=== PATIENT | male | born 1950 | race Caucasian/White ===

== ENCOUNTER 2023-10-01 16:53 | Inpatient (IN) | payer MEDICARE, OTHER, SELFPAY ==
[2023-10-01] VITALS (16 sets, daily range): BP systolic 114–172; BP diastolic 55–112; BMI 27.8
[2023-10-01 12:50] LABS: % Basophils 1.2 % (0-2); % Eosinophils 0.8 % (0-6); % Immature Granulocytes 0.4 % (0-0.5); % Lymphocytes 13.5 % (20.5-51.1); % Monocytes 6.2 % (1.7-9.3); % Neutrophils 77.9 % (42.2-75.2); Absolute Basophils 0.2 10^3/uL (0-0.2); Absolute Eosinophils 0.1 10^3/uL (0-0.7); Absolute Immature Granulocytes 0.1 10^3/uL (0-0.05); Absolute Lymphocytes 1.8 10^3/uL (1.2-3.4); Absolute Monocytes 0.8 10^3/uL (0.1-0.6); Absolute Neutrophils 10.2 10^3/uL (1.4-6.5); Hematocrit 34.8 % (39.0-52.0); Hemoglobin 12.6 g/dL (13.0-18.0); Mean Corp Hgb Conc. 36.2 g/dL (33.0-37.0); Mean Corpuscular Hgb 31.7 pg (27.0-31.0); Mean Corpuscular Volume 87.7 fL (80.0-94.0); Mean Platelet Volume 10.6 fL (7.4-10.4); Nucleated Red Blood Cells % 0 % (-); Platelet Count 225 10^3/uL (130-400); Red Blood Cell Count 3.97 10^6/uL (4.70-6.10); Red Cell Dist. Width 11.9 % (11.5-14.5); White Blood Cell Count 13.1 10^3/uL (4.8-10.8)
[2023-10-01 13:07] LABS: ALT (SGPT) 22 U/L (0-50); AST (SGOT) 46 U/L (17-59); Albumin 3.8 g/dl (3.5-5.0); Alkaline Phosphatase 102 U/L (38-126); Blood Urea Nitrogen 18 mg/dl (9-20); Calcium 9.7 mg/dl (8.4-10.2); Carbon Dioxide 22 mmol/L (22-30); Chloride 101 mmol/L (98-107); Glucose 262 mg/dl (70-99); Potassium 4.4 mmol/L (3.5-5.1); Sodium 132 mmol/L (135-145); Total Bilirubin 1.4 mg/dl (0.2-1.3); Total Protein 6.4 g/dl (6.3-8.2); eGFR > 60.00
[2023-10-01] MEDS: LOW STRENGTH ASPIRIN 243 MG PO (13:50)
[2023-10-01 14:05] LABS: Lipase 101 U/L (23-300)
--- NOTE | 2023-10-01 14:32 | HPS.HSE ---
Family Physician
-
Family Physician:
Chief Complaint
-
Chest pain
History of Present Illness
73-year-old male with a past medical history of type 2 diabetes, hypertension, hyperlipidemia, cigarette nicotine dependency (57 pack year history), prostate cancer status post surgery, and chronic urinary retention requiring self cath presents with
a 4-day history of substernal chest pain. Patient states his chest pain occurs in the morning, at rest, is substernal, sharp, and radiates to the back. It is relieved when taking Tylenol, Motrin, and oxycodone. It last for about 60 minutes, and
is associated with shortness of breath. He denies lightheadedness, dizziness, diaphoresis, nausea, vomiting. No fever, no chills. No abdominal pain, no black or bloody stools, no dysuria.
Medical History
Past Medical History
Past Medical History: Reports Other
Additional Past Medical History:
Hypertension
Type 2 diabetes
Hyperlipidemia
Hypothyroidism
Cigarette nicotine dependency
Prostate cancer status post surgery
Chronic urinary retention requiring self-catheterization
Degenerative disc disease with lumbar spinal stenosis
Peripheral neuropathy
Left hip trochanteric bursitis
Left IT band syndrome
Past Surgical History: Reports Other
Additional Past Surgical History:
Appendectomy
Cholecystectomy
TURP
Skin grafting
Social History
Tobacco: Smoker (Smokes 1 pack a day since he was 16)
Alcohol: None
Drug: None
Personal: ( recently )
Family History
Family History: CAD
Allergies / Home Medications
Allergies reflects when Allergies were last updated in [facility].
Home Medications with original date entered in [facility]
Allergy/Medication List:
Allergies
Allergy/AdvReac Type Severity Reaction Status Date / Time
No Known Allergies Allergy Unverified 10/01/23 11:28
Home Medications Table - record
Medication Instructions Recorded Confirmed
Patient's Own Insulin 0 unit SC .VIA PUMP 10/01/23 10/01/23
acetaminophen 325 mg tablet 650 mg PO DAILYPRN PRN mild pain 10/01/23 10/01/23
(Tylenol)
amlodipine 10 mg tablet 10 mg PO DAILY 10/01/23 10/01/23
aspirin 81 mg tablet,delayed 81 mg PO DAILY 10/01/23 10/01/23
release
bisacodyl 5 mg tablet,delayed 5 mg PO DAILYPRN PRN constipation 10/01/23 10/01/23
release (Dulcolax (bisacodyl))
cholecalciferol (vitamin D3) 1 tab PO DAILY 10/01/23 10/01/23
ibuprofen 200 mg tablet 400 mg PO BIDPRN PRN mild pain 10/01/23 10/01/23
levothyroxine 125 mcg tablet 125 mcg PO DAILY 10/01/23 10/01/23
(Synthroid)
magnesium 1 tab PO DAILY 10/01/23 10/01/23
oxycodone-acetaminophen 5 mg-325 0.5 tab PO HS 10/01/23 10/01/23
mg tablet
oxycodone-acetaminophen 5 mg-325 1 tab PO DAILYPRN PRN severe pain 10/01/23 10/01/23
mg tablet
simvastatin 40 mg tablet 40 mg PO QPM 10/01/23 10/01/23
trazodone 150 mg tablet 150 mg PO HS PRN sleep 10/01/23 10/01/23
vitamin B complex 1 tab PO DAILY 10/01/23 10/01/23
Review of Systems
-
A 12 point ROS was completed and negative except as noted: Yes
Physical Exam
Vital Signs
Vital Signs
Temp Pulse Resp BP Pulse Ox
98.1 F 67 12 147/62 99
10/01/23 11:28 10/01/23 13:00 10/01/23 13:00 10/01/23 13:00 10/01/23 13:00
Physical Exam
General: No Apparent Distress
HEENT: NormoCephalic, Anicteric, Moist mucous membranes and Atraumatic
Respiratory: Clear
Cardiac: S1/S2 and Regular Rhythm
GI: Soft, Non Tender, Non Distended and Normal Bowel Sounds
Musculoskeletal: No Clubbing, No Cyanosis and No Edema
Skin: Warm and Dry
Neuro: AO x 3
Psych: Calm
Laboratory Results
-
10/01/23 12:39
10/01/23 12:39
Laboratory Results
Total Bilirubin 1.4 mg/dl (0.2-1.3) H 10/01/23 12:39
AST 46 U/L (17-59) 10/01/23 12:39
ALT 22 U/L (0-50) 10/01/23 12:39
Alkaline Phosphatase 102 U/L (38-126) 10/01/23 12:39
Troponin I 5.430 ng/ml H* 10/01/23 12:39
Lipase 101 U/L (23-300) 10/01/23 12:39
Impression/Plan
-
HPI: 73-year-old male with a past medical history of type 2 diabetes, hypertension, hyperlipidemia, cigarette nicotine dependency (57 pack year history), prostate cancer status post surgery, and chronic urinary retention requiring self cath presents
with a 4-day history of substernal chest pain. Patient states his chest pain occurs in the morning, at rest, is substernal, sharp, and radiates to the back. It is relieved when taking Tylenol, Motrin, and oxycodone. It last for about 60 minutes,
and is associated with shortness of breath. He denies lightheadedness, dizziness, diaphoresis, nausea, vomiting. No fever, no chills. No abdominal pain, no black or bloody stools, no dysuria.
#Non-ST elevation myocardial infarction
#Chest pain
Status post aspirin 324 mg p.o. today
Appreciate cardiology input, for cardiac catheterization today
Check fasting lipid profile, hemoglobin A1c
Continue aspirin 81 mg daily, statin, add lisinopril 10 mg daily and Coreg 3.25 mg twice a day
#Benign essential hypertension
Change amlodipine 10 mg daily to lisinopril 10 mg daily and Coreg 3.25 mg twice a day
#Chronic urinary retention requiring self-catheterization
Patient wishes to self cath himself per his usual schedule
#Type 1 diabetes
Patient uses an insulin pump
Diabetic diet after his procedure, consult diabetes nurse practitioner
#Leukocytosis
Likely reactive, no fever, no signs or symptoms of infection
Will check urinalysis for completeness sake, trend CBC
#Chronic back pain
Continue opioids, add bowel regimen
#Hypothyroidism
Continue levothyroxine, check TSH
#History of prostate cancer
Status post surgery, outpatient follow-up
DVT prophylaxis�subcu Lovenox
Full code
Total time spent to see the patient on the floor, examine the patient, review data and lab results, discuss treatment plan with patient, nursing staff around 75 minutes.
[2023-10-01] MEDS: HEPARIN 4000 UNITS IV (14:46)
--- NOTE | 2023-10-01 14:46 | ED.GENMED ---
History of Present Illness
<Bladimir Banks PA-C - Last Filed: 10/01/23 14:52>
General
Chief Complaint: Chest Pain
Source: patient
Exam Limitations: none
Time Seen by Provider: 10/01/23 12:35
Travel History
Have you had any contact with someone who has COVID-19?: No
Do you have any symptoms of coronavirus? Fever > 100 degrees, chills, cough, shortness of breath, sore throat, loss of taste or smell, muscle aches, or headache?: No
History of Present Illness
History of Present Illness:
73-year-old male presents with intermittent chest pain that radiates to his back over the past 4 to 5 days. There is associated shortness of breath. Happens typically in the morning. He ends up taking Tylenol Motrin and oxycodone and the pain
eventually goes away. Currently on my exam he was pain-free. No leg swelling or calf pain. No recent travel or surgery. He is a smoker, history of hypertension and insulin-dependent diabetes. No other complaints at this time.
Phy Exam
<Bladimir Banks PA-C - Last Filed: 10/01/23 14:52>
Physical Exam
Physical Exam:
General: Well appearing male no acute distress
HEENT: Normocephalic atraumatic neck is supple
Heart: Regular rate and rhythm no murmurs
Lungs: Clear to auscultation bilaterally no wheezing
Abdomen soft nontender nondistended no guarding rebound normal bowel sounds
Extremities: No cyanosis or edema
Skin: Warm no rash or lesion
Scores
<Bladimir Banks PA-C - Last Filed: 10/01/23 14:52>
Heart Score for Chest Pain Patients
STEMI patient?: No
History: Highly Suspicious
ECG: Normal
Age: >/= 65 years
Risk Factors: >/= 3 Risk Factors or History of CAD
Troponin: >/= 3 x Normal Limit
Heart Score for Chest Pain Patients: 8
Heart Score Risk: 72.7 % MACE over next 6 weeks
<Valdez Escalante MD - Last Filed: 10/01/23 16:43>
Heart Score for Chest Pain Patients
Heart Score for Chest Pain Patients: 8
Heart Score Risk: 72.7 % MACE over next 6 weeks
Course
<Bladimir Banks PA-C - Last Filed: 10/01/23 14:52>
Orders/Labs/Results
Orders:
Orders
10/01/23 11:28
Electrocardiogram (*1) Urgent
Reason for Study: Chest Pain
EKG- Treatment ONCE
10/01/23 12:39
Complete Blood Count/With Diff Urgent
Comprehensive Metabolic Panel Urgent
Lipase Urgent
Comment: ADD ON
Troponin I Urgent
10/01/23 13:20
CT Chest Pe Study Urgent
Comment:
Reason For Exam: chest pain
10/01/23 13:21
Add On- LAB Urgent
Tests Added?: lipase
10/01/23 13:27
Aspirin Chewable [Low Strength Aspirin] 243 mg PO NOW STA
10/01/23 14:34
Heparin 4,000 units IV NOW STA
10/01/23 14:39
Heparin 1000 Units/500 ml [Heparin] 1,000 units in 500 ml .ROUTE .STK-MED
Lidocaine HCl/Pf [Xylocaine-Mpf 1% Vial] 50 mg .ROUTE .STK-MED ONE
10/01/23 14:40
Heparin Sodium,Porcine/Ns/Pf [Heparin 2000 Units/1000 ml] 2,000 unit in 1,000 ml .ROUTE .STK-MED
Nitroglycerin [Tridil] 1,500 mcg .ROUTE .STK-MED ONE
10/01/23 14:49
Fentanyl Citrate/Pf [Sublimaze] 100 mcg .ROUTE .STK-MED ONE
Heparin 10,000 units .ROUTE .STK-MED ONE
Midazolam HCl [Versed] 2 mg .ROUTE .STK-MED ONE
10/01/23 Dinner
2000 calorie (17 carb) Diabetic
10/01/23 15:05
Verapamil Injectable [Isoptin/Verapamil Injection] 5 mg .ROUTE .STK-MED ONE
10/01/23 15:11
Admit/Transfer Patient As Directed
Co-Sign Provider:
Level of Care: Inpatient admission
Assign to:: IVU
Physician / Group: pavan herrera
Diagnosis: NSTEMI
Reason for Hospitalization: NSTEMI
Expected length of stay greater than two midnights?: Yes
ELOS- Estimated Length of Stay in days: 2
I certify the patient meets the requirements for IP care: Yes
10/01/23 15:13
Code Status As Directed
Resuscitation Status: Full Code
10/01/23 15:36
Electrocardiogram (*1) Urgent
Reason for Study: Other
Other Reason for Exam: s/p intervention
Comment: dca
Activity As Directed
Activity Level: Out of Bed- Chair
Comment: bed/chair rest for 2 hours then out of bed ad kristopher
Watch Mechanic Procedure As Directed
Cardiac Cath Procedure: percutaneous coronary intervention
Notify MD As Directed
Notify physician if: immediately for chest pain or bleeding from access site(s)
Radial Artery Hemostasis Method As Directed
Instructions:: 3 mL out at 2 hour posts placement of band
3 mL out at 2 1/2 hours post placement of band
3 mL out at 3 hours post placement of band
Off at 3 1/2 hours post placement of band
If any oozing or hemotoma occurs:: re-inflate band and call provider
Site Checks As Directed
Check access site for bleeding/hematoma: Yes
Comment: on arrival, Q15min x4, Q30min x2, Q1 hr x2, Q2 hr x2, Q4 hr or per
protocol
Vascular Checks As Directed
Location: distal to access site - pulse check
Frequency: Other
Comment: on arrival, Q15min x4, Q30min x2, Q1 hr x2, Q2 hr x2, Q4 hr or per protocol
Vital Signs As Directed
Frequency: Other
Additional Instructions:: on arrival, Q15min x4, Q30min x2, Q1 hr x2, Q2 hr x2, then Q4 hr or per unit
protocol
10/01/23 15:42
ADENOSINE for IV INFUSION [Adenoscan 30 ml] 90 mg .ROUTE .STK-MED ONE
10/01/23 15:44
Electrocardiogram (*1) Q6H
Reason for Study: Chest Pain
Comment: at admission and Q3H for total of 3, to be done with each troponin
Acetaminophen [Tylenol] 650 mg PO DAILYPRN PRN
Bisacodyl [Dulcolax] 5 mg PO DAILYPRN PRN
Nicotine [Nicoderm Transdermal] 21 mg TRANSDERM DAILY PRN
Oxycodone/Acetaminophen [Percocet 5/325] 1 tablet PO TIDPRN PRN
Patient's Own Insulin 100 unit SC .VIA PUMP
Trazodone [Desyrel] 150 mg PO HS PRN
10/01/23 15:44
CARDIOLOGY CONSULT Routine
Consulting Provider: Zurdo Pradhan
Was physician already notified: Yes
Diabetes Management by Nurse Practitioner Routine
Consulting Provider: Ammy Smith
Was provider already notified?: No
Reason for Consult: Insulin Management
Glycohemoglobin (HgbA1c) Routine
Urinalysis Reflex To Culture Routine
Activity As Directed
Activity Level: Ambulate
INT (Intravenous Needle Therapy) As Directed
Comment: maintain peripheral IV access
Intake/ Output As Directed
Frequency: Per unit guidelines
Straight Cath As Directed
Frequency: PRN
Patient may straight cath themselves: Yes
Vital Signs As Directed
Frequency: q4h
Weight As Directed
Frequency: Daily
Pt Eval And Treat Routine
Activity Level: Ambulate
DX Deep Vein Thrombosis Video Routine
10/01/23 15:45
0.9% Sodium Chloride 1000 ml [Nss] 1,000 ml IV PER PROTOCOL
Infusion rate in mL/kg/hr:: 1.5
Infusion rate in mL/hr:: 143
Duration of infusion (hours):: 5
10/01/23 15:56
Cardiothoracic Surgery Consult Routine
Consulting Provider: Maxx Smith
Was physician already notified: Yes
Reason for Consult: NSTEMI, CABG eval
10/01/23 16:00
Polyethylene Glycol Powder [Miralax] 17 grams PO DAILY
10/01/23 16:05
Heparin Protocol- PTT Orders As Directed
PTT per Heparin protocol: -Obtain CBC and baseline PTT - if not already collected.
-Obtain PTT 6 hours from start of infusion. Then, every 6 hours until 2 consecutive
PTT's are therapeutic. Then, PTT Daily.
-With each rate change, obtain PTT every 6 hours until 2 consecutive PTT's are
therapeutic. Then, PTT Daily.
Notify MD As Directed
Notify physician if: PTT is greater than or equal to 200.
10/01/23 18:00
Troponin I Q6H
Atorvastatin [Lipitor] 80 mg PO QPM
Enoxaparin Sodium [Lovenox] 40 mg SC QPM
10/01/23 20:00
Carvedilol [Coreg] 3.125 mg PO BID
10/01/23 21:44
Electrocardiogram (*1) Q6H
Reason for Study: Chest Pain
Comment: at admission and Q3H for total of 3, to be done with each troponin
10/01/23 22:00
Heparin 86264 Units/250 ml 25,000 units in 250 ml IV PER PROTOCOL
Weight to be used for heparin protocol in kilograms (kg):: 95.1
Protocol:: Cardiac Tx/Acute Coronary
PTT Goal Range to be used:: PTT 73 to 111 seconds
Order type:: Initial
INITIAL Infusion Dose (UNITS/KG/hr) & then follow protocol:: 12 units/kg/hr
Infusion Dose in UNITS/hr & then follow protocol (UNITS/hr):: 1,000
INFUSION RATE in mL/hr & then follow protocol (mL/hr):: 10
PTT less than or equal to 64 seconds:: Increase rate by 200 units/hr (+ 2 mL/hr)
PTT 64.1 to 72.9 seconds:: Increase rate by 100 units/hr (+ 1 mL/hr)
PTT 73 to 111 seconds:: Target Range. No change in rate.
PTT 111.1 to 130.9 seconds:: Decrease rate by 100 units/hr (- 1 mL/hr)
PTT 131 to 199.9 seconds:: HOLD for 1 hr. Then decrease rate by 200 units/hr (- 2 mL/hr)
PTT greater than or equal to 200 seconds:: HOLD for 2 hrs & Notify Provider. Then decrease by 200 units/hr (-
2 mL/hr)
Lab follow-up:: Each change, PTT q6h until 2 consecutive are therapeutic. Then PTT
daily.
Oxycodone/Acetaminophen [Percocet 5/325] 0.5 tablet PO HS
10/02/23 00:00
Troponin I Q6H
10/02/23 03:44
Electrocardiogram (*1) Q6H
Reason for Study: Chest Pain
Comment: at admission and Q3H for total of 3, to be done with each troponin
10/02/23 06:00
Echo 2D MMode Color/Doppler IN AM
Reason for Study: NSTEMI
Cardiology Consult: Zurdo Pradhan
Electrocardiogram (*1) IN AM
Reason for Study: Other
Other Reason for Exam: s/p intervention
Comment: dca
CMP [Comprehensive Metabolic Panel] IN AM
Cardiovascular Evaluation IN AM
Complete Blood Count/With Diff IN AM
Magnesium IN AM
Phos [Phosphorus] IN AM
TSH Reflex To Free T4 IN AM
Troponin I Q6H
10/02/23 08:00
Aspirin Low Dose EC [Aspir Low (Enteric Coated)] 81 mg PO DAILY
Levothyroxine [Synthroid] 125 mcg PO DAILY
Lisinopril [Zestril] 10 mg PO DAILY
cholecalciferol (vitamin D3) 1 tablet PO DAILY
10/03/23 06:00
Complete Blood Count/No Diff Q2D
Comment: Notify MD if platelet count is <130,000 or decreases by 50% from baseline
10/05/23 06:00
Complete Blood Count/No Diff Q2D
Comment: Notify MD if platelet count is <130,000 or decreases by 50% from baseline
10/07/23 06:00
Complete Blood Count/No Diff Q2D
Comment: Notify MD if platelet count is <130,000 or decreases by 50% from baseline
10/09/23 06:00
Complete Blood Count/No Diff Q2D
Comment: Notify MD if platelet count is <130,000 or decreases by 50% from baseline
10/11/23 06:00
Complete Blood Count/No Diff Q2D
Comment: Notify MD if platelet count is <130,000 or decreases by 50% from baseline
10/13/23 06:00
Complete Blood Count/No Diff Q2D
Comment: Notify MD if platelet count is <130,000 or decreases by 50% from baseline
10/15/23 06:00
Complete Blood Count/No Diff Q2D
Comment: Notify MD if platelet count is <130,000 or decreases by 50% from baseline
10/17/23 06:00
Complete Blood Count/No Diff Q2D
Comment: Notify MD if platelet count is <130,000 or decreases by 50% from baseline
Abnormal Lab Results
10/01/23 10/01/23 10/01/23
12:39 15:32 15:52
WBC 13.1 H 10^3/uL
(4.8-10.8)
RBC 3.97 L 10^6/uL
(4.70-6.10)
Hgb 12.6 L g/dL
(13.0-18.0)
Hct 34.8 L %
(39.0-52.0)
MCH 31.7 H pg
(27.0-31.0)
MPV 10.6 H fL
(7.4-10.4)
Abs Immat Gran (auto) 0.1 H 10^3/uL
(0-0.05)
Absolute Neuts (auto) 10.2 H 10^3/uL
(1.4-6.5)
Absolute Monos (auto) 0.8 H 10^3/uL
(0.1-0.6)
Neutrophils % 77.9 H %
(42.2-75.2)
Lymphocytes % 13.5 L %
(20.5-51.1)
Sodium 132 L mmol/L
(135-145)
Glucose 262 H mg/dl
(70-99)
Total Bilirubin 1.4 H mg/dl
(0.2-1.3)
Troponin I 5.430 H* ng/ml
POC Glucose 195 H mg/dl
(70-99)
POC ACT Low Range 232 H Seconds
(116-155)
10/01/23 12:39
10/01/23 12:39
Vital Signs
Initial and Last Documented VS:
Initial Vital Signs
Temp Pulse Resp BP Pulse Ox
98.1 F 75 20 159/69 99
10/01/23 11:28 10/01/23 11:28 10/01/23 11:28 10/01/23 11:28 10/01/23 11:28
Last Documented Vital Signs
Temp Pulse Resp BP Pulse Ox
98.1 F 74 20 171/70 98
10/01/23 11:28 10/01/23 15:00 10/01/23 15:00 10/01/23 15:00 10/01/23 15:00
<Valdez Escalante MD - Last Filed: 10/01/23 16:43>
Orders/Labs/Results
Orders:
Orders
10/01/23 11:28
Electrocardiogram (*1) Urgent
Reason for Study: Chest Pain
EKG- Treatment ONCE
10/01/23 12:39
Complete Blood Count/With Diff Urgent
Comprehensive Metabolic Panel Urgent
Lipase Urgent
Comment: ADD ON
Troponin I Urgent
10/01/23 13:20
CT Chest Pe Study Urgent
Comment:
Reason For Exam: chest pain
10/01/23 13:21
Add On- LAB Urgent
Tests Added?: lipase
10/01/23 13:27
Aspirin Chewable [Low Strength Aspirin] 243 mg PO NOW STA
10/01/23 14:34
Heparin 4,000 units IV NOW STA
10/01/23 14:39
Heparin 1000 Units/500 ml [Heparin] 1,000 units in 500 ml .ROUTE .STK-MED
Lidocaine HCl/Pf [Xylocaine-Mpf 1% Vial] 50 mg .ROUTE .STK-MED ONE
10/01/23 14:40
Heparin Sodium,Porcine/Ns/Pf [Heparin 2000 Units/1000 ml] 2,000 unit in 1,000 ml .ROUTE .STK-MED
Nitroglycerin [Tridil] 1,500 mcg .ROUTE .STK-MED ONE
10/01/23 14:49
Fentanyl Citrate/Pf [Sublimaze] 100 mcg .ROUTE .STK-MED ONE
Heparin 10,000 units .ROUTE .STK-MED ONE
Midazolam HCl [Versed] 2 mg .ROUTE .STK-MED ONE
10/01/23 Dinner
2000 calorie (17 carb) Diabetic
10/01/23 15:05
Verapamil Injectable [Isoptin/Verapamil Injection] 5 mg .ROUTE .STK-MED ONE
10/01/23 15:11
Admit/Transfer Patient As Directed
Co-Sign Provider:
Level of Care: Inpatient admission
Assign to:: IVU
Physician / Group: pavan herrera
Diagnosis: NSTEMI
Reason for Hospitalization: NSTEMI
Expected length of stay greater than two midnights?: Yes
ELOS- Estimated Length of Stay in days: 2
I certify the patient meets the requirements for IP care: Yes
10/01/23 15:13
Code Status As Directed
Resuscitation Status: Full Code
10/01/23 15:36
Electrocardiogram (*1) Urgent
Reason for Study: Other
Other Reason for Exam: s/p intervention
Comment: dca
Activity As Directed
Activity Level: Out of Bed- Chair
Comment: bed/chair rest for 2 hours then out of bed ad kristopher
Watch Mechanic Procedure As Directed
Cardiac Cath Procedure: percutaneous coronary intervention
Notify MD As Directed
Notify physician if: immediately for chest pain or bleeding from access site(s)
Radial Artery Hemostasis Method As Directed
Instructions:: 3 mL out at 2 hour posts placement of band
3 mL out at 2 1/2 hours post placement of band
3 mL out at 3 hours post placement of band
Off at 3 1/2 hours post placement of band
If any oozing or hemotoma occurs:: re-inflate band and call provider
Site Checks As Directed
Check access site for bleeding/hematoma: Yes
Comment: on arrival, Q15min x4, Q30min x2, Q1 hr x2, Q2 hr x2, Q4 hr or per
protocol
Vascular Checks As Directed
Location: distal to access site - pulse check
Frequency: Other
Comment: on arrival, Q15min x4, Q30min x2, Q1 hr x2, Q2 hr x2, Q4 hr or per protocol
Vital Signs As Directed
Frequency: Other
Additional Instructions:: on arrival, Q15min x4, Q30min x2, Q1 hr x2, Q2 hr x2, then Q4 hr or per unit
protocol
10/01/23 15:42
ADENOSINE for IV INFUSION [Adenoscan 30 ml] 90 mg .ROUTE .STK-MED ONE
10/01/23 15:44
Electrocardiogram (*1) Q6H
Reason for Study: Chest Pain
Comment: at admission and Q3H for total of 3, to be done with each troponin
Acetaminophen [Tylenol] 650 mg PO DAILYPRN PRN
Bisacodyl [Dulcolax] 5 mg PO DAILYPRN PRN
Nicotine [Nicoderm Transdermal] 21 mg TRANSDERM DAILY PRN
Oxycodone/Acetaminophen [Percocet 5/325] 1 tablet PO TIDPRN PRN
Patient's Own Insulin 100 unit SC .VIA PUMP
Trazodone [Desyrel] 150 mg PO HS PRN
10/01/23 15:44
CARDIOLOGY CONSULT Routine
Consulting Provider: Zurdo Pradhan
Was physician already notified: Yes
Diabetes Management by Nurse Practitioner Routine
Consulting Provider: Ammy Smith
Was provider already notified?: No
Reason for Consult: Insulin Management
Glycohemoglobin (HgbA1c) Routine
Urinalysis Reflex To Culture Routine
Activity As Directed
Activity Level: Ambulate
INT (Intravenous Needle Therapy) As Directed
Comment: maintain peripheral IV access
Intake/ Output As Directed
Frequency: Per unit guidelines
Straight Cath As Directed
Frequency: PRN
Patient may straight cath themselves: Yes
Vital Signs As Directed
Frequency: q4h
Weight As Directed
Frequency: Daily
Pt Eval And Treat Routine
Activity Level: Ambulate
DX Deep Vein Thrombosis Video Routine
10/01/23 15:45
0.9% Sodium Chloride 1000 ml [Nss] 1,000 ml IV PER PROTOCOL
Infusion rate in mL/kg/hr:: 1.5
Infusion rate in mL/hr:: 143
Duration of infusion (hours):: 5
10/01/23 15:56
Cardiothoracic Surgery Consult Routine
Consulting Provider: Maxx Smith
Was physician already notified: Yes
Reason for Consult: NSTEMI, CABG eval
10/01/23 16:00
Polyethylene Glycol Powder [Miralax] 17 grams PO DAILY
10/01/23 16:05
Heparin Protocol- PTT Orders As Directed
PTT per Heparin protocol: -Obtain CBC and baseline PTT - if not already collected.
-Obtain PTT 6 hours from start of infusion. Then, every 6 hours until 2 consecutive
PTT's are therapeutic. Then, PTT Daily.
-With each rate change, obtain PTT every 6 hours until 2 consecutive PTT's are
therapeutic. Then, PTT Daily.
Notify MD As Directed
Notify physician if: PTT is greater than or equal to 200.
10/01/23 18:00
Troponin I Q6H
Atorvastatin [Lipitor] 80 mg PO QPM
Enoxaparin Sodium [Lovenox] 40 mg SC QPM
10/01/23 20:00
Carvedilol [Coreg] 3.125 mg PO BID
10/01/23 21:44
Electrocardiogram (*1) Q6H
Reason for Study: Chest Pain
Comment: at admission and Q3H for total of 3, to be done with each troponin
10/01/23 22:00
Heparin 36156 Units/250 ml 25,000 units in 250 ml IV PER PROTOCOL
Weight to be used for heparin protocol in kilograms (kg):: 95.1
Protocol:: Cardiac Tx/Acute Coronary
PTT Goal Range to be used:: PTT 73 to 111 seconds
Order type:: Initial
INITIAL Infusion Dose (UNITS/KG/hr) & then follow protocol:: 12 units/kg/hr
Infusion Dose in UNITS/hr & then follow protocol (UNITS/hr):: 1,000
INFUSION RATE in mL/hr & then follow protocol (mL/hr):: 10
PTT less than or equal to 64 seconds:: Increase rate by 200 units/hr (+ 2 mL/hr)
PTT 64.1 to 72.9 seconds:: Increase rate by 100 units/hr (+ 1 mL/hr)
PTT 73 to 111 seconds:: Target Range. No change in rate.
PTT 111.1 to 130.9 seconds:: Decrease rate by 100 units/hr (- 1 mL/hr)
PTT 131 to 199.9 seconds:: HOLD for 1 hr. Then decrease rate by 200 units/hr (- 2 mL/hr)
PTT greater than or equal to 200 seconds:: HOLD for 2 hrs & Notify Provider. Then decrease by 200 units/hr (-
2 mL/hr)
Lab follow-up:: Each change, PTT q6h until 2 consecutive are therapeutic. Then PTT
daily.
Oxycodone/Acetaminophen [Percocet 5/325] 0.5 tablet PO HS
10/02/23 00:00
Troponin I Q6H
10/02/23 03:44
Electrocardiogram (*1) Q6H
Reason for Study: Chest Pain
Comment: at admission and Q3H for total of 3, to be done with each troponin
10/02/23 06:00
Echo 2D MMode Color/Doppler IN AM
Reason for Study: NSTEMI
Cardiology Consult: Zurdo Pradhan
Electrocardiogram (*1) IN AM
Reason for Study: Other
Other Reason for Exam: s/p intervention
Comment: dca
CMP [Comprehensive Metabolic Panel] IN AM
Cardiovascular Evaluation IN AM
Complete Blood Count/With Diff IN AM
Magnesium IN AM
Phos [Phosphorus] IN AM
TSH Reflex To Free T4 IN AM
Troponin I Q6H
10/02/23 08:00
Aspirin Low Dose EC [Aspir Low (Enteric Coated)] 81 mg PO DAILY
Levothyroxine [Synthroid] 125 mcg PO DAILY
Lisinopril [Zestril] 10 mg PO DAILY
cholecalciferol (vitamin D3) 1 tablet PO DAILY
10/03/23 06:00
Complete Blood Count/No Diff Q2D
Comment: Notify MD if platelet count is <130,000 or decreases by 50% from baseline
10/05/23 06:00
Complete Blood Count/No Diff Q2D
Comment: Notify MD if platelet count is <130,000 or decreases by 50% from baseline
10/07/23 06:00
Complete Blood Count/No Diff Q2D
Comment: Notify MD if platelet count is <130,000 or decreases by 50% from baseline
10/09/23 06:00
Complete Blood Count/No Diff Q2D
Comment: Notify MD if platelet count is <130,000 or decreases by 50% from baseline
10/11/23 06:00
Complete Blood Count/No Diff Q2D
Comment: Notify MD if platelet count is <130,000 or decreases by 50% from baseline
10/13/23 06:00
Complete Blood Count/No Diff Q2D
Comment: Notify MD if platelet count is <130,000 or decreases by 50% from baseline
10/15/23 06:00
Complete Blood Count/No Diff Q2D
Comment: Notify MD if platelet count is <130,000 or decreases by 50% from baseline
10/17/23 06:00
Complete Blood Count/No Diff Q2D
Comment: Notify if platelet count is <130,000 or decreases by 50% from baseline
Abnormal Lab Results
10/01/23 10/01/23 10/01/23
12:39 15:32 15:52
WBC 13.1 H 10^3/uL
(4.8-10.8)
RBC 3.97 L 10^6/uL
(4.70-6.10)
Hgb 12.6 L g/dL
(13.0-18.0)
Hct 34.8 L %
(39.0-52.0)
MCH 31.7 H pg
(27.0-31.0)
MPV 10.6 H fL
(7.4-10.4)
Abs Immat Gran (auto) 0.1 H 10^3/uL
(0-0.05)
Absolute Neuts (auto) 10.2 H 10^3/uL
(1.4-6.5)
Absolute Monos (auto) 0.8 H 10^3/uL
(0.1-0.6)
Neutrophils % 77.9 H %
(42.2-75.2)
Lymphocytes % 13.5 L %
(20.5-51.1)
Sodium 132 L mmol/L
(135-145)
Glucose 262 H mg/dl
(70-99)
Total Bilirubin 1.4 H mg/dl
(0.2-1.3)
Troponin I 5.430 H* ng/ml
POC Glucose 195 H mg/dl
(70-99)
POC ACT Low Range 232 H Seconds
(116-155)
10/01/23 12:39
10/01/23 12:39
Vital Signs
Initial and Last Documented VS:
Initial Vital Signs
Temp Pulse Resp BP Pulse Ox
98.1 F 75 20 159/69 99
10/01/23 11:28 10/01/23 11:28 10/01/23 11:28 10/01/23 11:28 10/01/23 11:28
Last Documented Vital Signs
Temp Pulse Resp BP Pulse Ox
98.1 F 74 20 171/70 98
10/01/23 11:28 10/01/23 15:00 10/01/23 15:00 10/01/23 15:00 10/01/23 15:00
<Bladimir Banks PA-C - Last Filed: 10/01/23 14:52>
MDM/Problems Addressed
Differential Diagnosis Includes:
Chest pain. Consider ACS versus PE versus dissection
Currently pain-free. EKG shows sinus rhythm with T wave inversions inferiorly. No priors to compare to.
Will check labs and order PE study
<Bladimir Banks PA-C - Last Filed: 10/01/23 14:52>
*Critical Care Note
Total Time (30-74mins, 75-104mins- exclusive of procedures): Not Applicable
<Bladimir Banks PA-C - Last Filed: 10/01/23 14:52>
Update Note
Update Note:
Troponin found to be high at 5.4. Immediately discussed these results with cardiology and hospitalist. Will admit to hospital. PE study was performed as well which is negative for PE. Suspect unstable angina versus non-STEMI.
ED Attending Note
<Bladimir Banks PA-C - Last Filed: 10/01/23 14:52>
-
Portions of this chart may have been created with voice recognition software.� Occasional wrong word or��sound alike� substitutions may have occurred due to the inherent limitations of voice recognition software.
<Valdez Escalante MD - Last Filed: 10/01/23 16:43>
ED Attending Note
I performed the substantive portion of visit, reviewed & personally made and approve the management plan that is documented in note by myself or THERESE.: Yes
ED Attending Note:
Patient presents to ED for evaluation secondary to intermittent chest pain rating to the back over the past 1 week, especially noted in the morning, with spontaneous resolution. At the time of evaluation ED, patient is without chest pain.
Blood work significant for elevated troponin without any acute EKG changes. In light of patient's presentation, CT angiogram chest ordered to evaluate for potential pulmonary embolism or other potential cause.
Patient evaluated in ED by Dr. ROSY Pradhan, cardiology - will proceed to [facility].
Discharge Plan
Departure
Patient Disposition: Admit
Date of Disposition: 10/01/23
Time of Disposition: 14:50
Admit to: [facility] lab[facility]
Presentation/result/management discussed w/ accepting MD/DO: Hospitalist
Discharge Problem:
Chest pain
Interventions
Interventions:
*Risk Screen - Suicide Last Done: 10/01/23 12:41
*General Assessment Last Done: 10/01/23 12:41
*Neglect/Abuse Screening Last Done: 10/01/23 12:41
ED- Fall Risk Assessment Last Done: 10/01/23 15:14
*ED COVID-19 Vaccine History Last Done: 10/01/23 12:41
*Nursing Disposition Last Done: 10/01/23 15:14
ED- Cardiac Assessment Last Done: 10/01/23 12:41
Discharge Date and Time
Discharge Date/Time: 10/01/23 15:14
--- NOTE | 2023-10-01 15:04 | CON.CAR ---
Addendum entered and electronically signed by Zurdo Pradhan MD 10/01/23 17:56:
73-year-old man with longstanding hypertension, diabetes on an insulin pump with Dexcom, hypercholesterolemia and ongoing smoking who 10 days ago began to experience sharp substernal discomfort radiating through to his back and to his left shoulder
usually at night in bed and lasting 90 minutes. He took a number of different medications for this. He does not describe classically exertional symptoms but believe if he walked while having symptoms they would worsen. He was pain-free yesterday
but had recurrence of symptoms today and so presented to the emergency department where he had findings potentially suggesting a an inferior myocardial infarction with a troponin of 5.[address] scan negative for pulmonary embolism but with heavy
coronary artery calcification.
PMH: Hypertension, type 2 diabetes, hypothyroidism, hyperlipidemia, back pain, urinary retention requiring intermittent straight catheterization
Surgical history: Appendectomy, cholecystectomy, TURP, skin graft
SH: Recently , ongoing smoker,No alcohol, daughter at bedside
FH: Positive for CAD
Allergies, none
Home medications amlodipine 10 mg a day, aspirin 81 mg a day, Synthroid 125 mcg daily, magnesium, oxycodone, simvastatin 40 mg a day, insulin pump, trazodone
ROS negative except as above
161/78, pulse 73, resp rate 20, afebrile, head neck exam unremarkable, lungs clear, soft systolic murmur at base, JVD okay, bruits not auscultated, abdomen benign, extremities without clubbing cyanosis or edema, distal pulses still palpable,
EKG sinus rhythm, possible recent inferior [place], PACs, right bundle branch block
Hemoglobin 12.6, sodium 132, BUN/creatinine 18 and 0.8, troponin 5.4
Impression:
Non-ST segment elevation myocardial infarction
Hypertension
Diabetes
Hypercholesterolemia
Ongoing tobacco use
Degenerative disc disease
Depression
Bladder outlet obstruction/intermittent catheterization
Plan:
Cardiac catheterization
Original Note:
Consultation
Consultation Request
Date/Time Consultation Requested: 10/01/23
Date/Time Consultation Performed: 10/01/23
Requesting Provider: Dr. Pandya
Performing Provider: Dr. ROSY Pradhan
Reason for Consultation: chest pain, elevated Troponin
Medical History
-
History of Present Illness:
Patient came to [facility] with chest pain for the last 4-5 days and cardiology has been consulted for elevated Troponin. Patient with chest pain that radiates to his back. Pain usually starts when he awakens and he has taken ibuprofen, Tylenol and
oxycodone for relief at different times. No change in pain with change in position. Pain can last for more than an hour. SOB with pain and he is also an active smoker for almost 60 years. DM 2 managed with insulin pump. He has HTN and takes
amlodipine 10 mg daily. He takes simvastatin 40 mg daily for hyperlipidemia. He has never been to before. Initial Troponin was 5.43. CT was negative for PE. ECG with RBBB of unknown chronicity and inferior T wave inversions.
PMH:
HTN
DM 2
Chronic back pain with daily oxycodone use
Hypothyroid
Hyperlipidemia
Past Medical History
Past Medical History: Other (in HPI)
Past Surgical History: Appendectomy, Cholecystectomy, Urological (TURP) and Other (skin graft)
Social History
Tobacco: Smoker
Drug: None
Family History
Family History: CAD
Allergies / Home Medications
Allergy/AdvReac Type Severity Reaction Status Date / Time
No Known Allergies Allergy Unverified 10/01/23 11:28
Medication Instructions Recorded Confirmed Type
Patient's Own Insulin 0 unit SC .VIA PUMP 10/01/23 10/01/23 History
acetaminophen 325 mg tablet 650 mg PO DAILYPRN PRN mild pain 10/01/23 10/01/23 History
(Tylenol)
amlodipine 10 mg tablet 10 mg PO DAILY 10/01/23 10/01/23 History
aspirin 81 mg tablet,delayed 81 mg PO DAILY 10/01/23 10/01/23 History
release
bisacodyl 5 mg tablet,delayed 5 mg PO DAILYPRN PRN constipation 10/01/23 10/01/23 History
release (Dulcolax (bisacodyl))
cholecalciferol (vitamin D3) 1 tab PO DAILY 10/01/23 10/01/23 History
ibuprofen 200 mg tablet 400 mg PO BIDPRN PRN mild pain 10/01/23 10/01/23 History
levothyroxine 125 mcg tablet 125 mcg PO DAILY 10/01/23 10/01/23 History
(Synthroid)
magnesium 1 tab PO DAILY 10/01/23 10/01/23 History
oxycodone-acetaminophen 5 mg-325 0.5 tab PO HS 10/01/23 10/01/23 History
mg tablet
oxycodone-acetaminophen 5 mg-325 1 tab PO DAILYPRN PRN severe pain 10/01/23 10/01/23 History
mg tablet
simvastatin 40 mg tablet 40 mg PO QPM 10/01/23 10/01/23 History
trazodone 150 mg tablet 150 mg PO HS PRN sleep 10/01/23 10/01/23 History
vitamin B complex 1 tab PO DAILY 10/01/23 10/01/23 History
Review of Systems
-
History Source: Patient
All other systems: Negative unless noted
Physical Exam
Vital Signs
Temp Pulse Resp BP Pulse Ox
98.1 F 67 12 147/62 99
10/01/23 11:28 10/01/23 13:00 10/01/23 13:00 10/01/23 13:00 10/01/23 13:00
Lab Results
10/01/23 12:39
10/01/23 12:39
Troponin I 5.430 ng/ml H* 10/01/23 12:39
Impression / Plan
-
PCP: Dr. Emil Sibley
Cardiology: None prior to admission
Impression:
Chest pain
Elevated Troponin, possible NSTEMI
HTN
DM 2
Chronic back pain with daily oxycodone use
Hypothyroid and h/o Grave's disease
Hyperlipidemia
RBBB
Plan:
-Patient came to [facility] with chest pain for the last 4-5 days and cardiology has been consulted for elevated Troponin. Patient with chest pain that radiates to his back. Pain usually starts when he awakens and he has taken ibuprofen, Tylenol and
oxycodone for relief at different times. No change in pain with change in position. Pain can last for more than an hour. SOB with pain and he is also an active smoker for almost 60 years. DM 2 managed with insulin pump. He has HTN and takes
amlodipine 10 mg daily. He takes simvastatin 40 mg daily for hyperlipidemia. He has never been to before. Initial Troponin was 5.43. CT was negative for PE. ECG reviewed by me with RBBB of unknown chronicity and inferior T wave inversions.
-Chest pain for days and initial Troponin 5.43. CT was negative for PE. Patient to have cath today.
-Aspirin and Heparin bolus given in ER.
-Await results of cath
-Check echo
-Check CVE and probably transition outpatient dose of simvastatin to atorvastatin 80 mg daily.
-Check HgbA1c
-Smoking cessation is a must. He has smoked for almost 60 years.
-He has been taking oxycodone/acetaminophen for pain at times and had relief. He has DDD and h/o lumbar radiculopathy
--- NOTE | 2023-10-01 15:10 | ITS.CL.CATH ---
Software Test Manager - Catheterization
Cardiac Catheterization
Procedure Report:
CARDIAC CATHETERIZATION REPORT
Date of Procedure: 10/01/2023
Referring: Zurdo Pradhan MD
Indication: ACS/non-STEMI
HEMODYNAMIC DATA
AO: 152/63
LV: 171/24
There is moderate aortic stenosis with mean gradient 22 mmHg
LEFT VENTRICULOGRAPHY: Normal left ventricular wall motion with EF 64%
CORONARY ANGIOGRAPHY
Dominance: Right
Left Main: There is ventricularization of the arterial waveform on engagement with a 6 [place]ian diagnostic catheter. The left main coronary artery is calcified with an angiographically ambiguous degree of stenosis.
LAD: Severely calcified with 40% mid stenosis spanning the takeoff of a small diseased D3
Circumflex: 60% proximal stenosis of the circumflex. There is diffuse calcific disease of the mid circumflex and severe disease to 80% severity of the distal circumflex proximal to the small terminal second left posterolateral branch. OM1 is
small. OM2 is large with 80-90% proximal stenosis. OM 3 and OM 4 are small. The first left posterolateral branch is medium sized vessel free of disease. The small terminal second posterolateral branch is free of disease.
RCA: The RCA is calcified. There is ventricularization on engagement with the 6 [place]ian JR4 diagnostic catheter. There is 60-70% proximal RCA stenosis with focal 50% mid RCA stenosis. There is 30% distal RCA stenosis. The PDA and posterolateral
branches have mild diffuse disease
FloWire assessment: At the conclusion the diagnostic study we proceeded with FloWire assessment. Our original plan was to evaluate the left main coronary artery and if negative then evaluate the RCA disease. Heparin was used for anticoagulation.
A 6 Bel[place]ian JL 4 guide catheter was used. A Infochimps wire was advanced through the guide catheter and normalized in the aorta. The guide was then advanced to the ostium of the vessel and the flow wire advanced into the proximal LAD. Guide was
withdrawn back into the aorta. iFR measurements were 0.90, 0.90, 0.88, and 0.90. These are equivocal for flow-limiting disease. We then advanced the wire into the mid LAD and iFR measurements were significantly abnormal at 0.75, 0.75, and 0.73.
Again, these measurements were made with the guide catheter withdrawn back into the aorta. Pullback demonstrated the drop in Pd/Pa to be both in the prox to mid LAD and at the level of the LMCA. Based on these measurements, it was clear that the
patient requires surgical intervention and therefore there was no role for assessing the ostial and proximal RCA disease.
Closure Device: None-the procedure was performed via the right radial artery. The Stewart's test was normal prior to the procedure.
Radiation (mGy): 443
DAP (cm2.Gy): 40.9
Fluoroscopy time: 6.9 minutes
CONCLUSIONS
1: Elevated LVEDP
2: Systemic hypertension
3. Moderate aortic stenosis with mean gradient 22 mmHg
4. Normal left ventricular function with EF 64%
5. Severely calcific multivessel CAD involving left main coronary artery
6. Recommend inpatient CABG with grafting of the LAD, large OM1, and RPDA
7. We will change the statin to atorvastatin 40 mg daily and patient has been advised to stop smoking
Copy to: Zurdo Pradhan MD, Emil Sibley MD
Sacha Jeffers MD, [facility]
[2023-10-01 15:40] LABS: ACT-LR - POC 232 Seconds (116-155)
[2023-10-01 16:07] LABS: Glucose - Point of Care 195 mg/dl (70-99)
--- NOTE | 2023-10-01 16:12 | CONSULT.CT ---
Consultation
-
Date/Time Consultation Requested: 10/01/23
Date/Time Consultation Performed: 10/01/23
Requesting Provider: Aury
Performing Provider: Keren Garnett PA-C for Dr. Maxx Smith
Reason for Consultation: CABG evaluation
Patient History
Physicians
Family Physician: Emil Sibley
Outpatient Back Tacker: none
Inpatient Back Tacker: ROSY Pradhan/TI
History of Present Illness
Pt is a very pleasant 73y/oM with no significant cardiac history who presented to the ED with complaints of intermittent chest pain over the last 10 days occurring 4-5 times. Pain came on at rest and would last over an hour. Pt reports trying to
take tylenol/ibuprofen/oxycodone for the pain to get back to sleep as episodes were occurring in the middle of the night. He finally decided to seek evaluation for this chest pain, initial troponin in the ED was 5.4 and a second one is still
pending. EKG demonstrated SR with a 1st degree AVB, PACs & RBBB. Pt was transferred to the laboratory sampler where he was found to have severe MVCAD and moderate with MG 22mmHg, EF 64% on LV gram.
Past Medical History
Hypertension
Hyperlipidemia
IDDM, uses insulin pump
severe peripheral neuropathy b/l LE
DDD
hx prostate CA s/p TURP x2 (2013 & 2015), second one complicated by ureter damage & need for suprapubic catheter
subsequent chronic urinary retention with self catheterization
hypothyroidism
tobacco abuse (~50 PYH, 1 PPD current)
hx alford requiring skin grafting 50 years ago
hx falls/gait disturbance (2/2 neuropathy)
ambulatory dysfunction, uses walker & scooter regularly
chronic opioid use, for LE neuropathy; pt reports ~2 tabs percocet per WEEK
insomnia
Past Surgical History
hx TURP x2 (2013 & 2015) complicated by ureter damage
hx appendectomy
hx cholecystectomy
hx R elbow ORIF
Dental History
no dental care for many years
Family History
Mother: at Age (unknown; pt not close with mother, but +hx premature CAD/[place])
Father: at Age (67 from [place])
Family Medical History: Early CAD
Social History
Alcohol: None
Drug: None
Tobacco: Smoker (1 PPD x 50 years)
Personal: ( passed 2 years ago) and Other (3 daughters live locally, Regine and Shreya present for my assessment)
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
Allergies
Allergy/AdvReac Type Severity Reaction Status Date / Time
No Known Allergies Allergy Unverified 10/01/23 11:28
Home Medications
Medication Instructions Recorded Confirmed Type
Patient's Own Insulin 0 unit SC .VIA PUMP 10/01/23 10/01/23 History
acetaminophen 325 mg tablet 650 mg PO DAILYPRN PRN mild pain 10/01/23 10/01/23 History
(Tylenol)
amlodipine 10 mg tablet 10 mg PO DAILY 10/01/23 10/01/23 History
aspirin 81 mg tablet,delayed 81 mg PO DAILY 10/01/23 10/01/23 History
release
bisacodyl 5 mg tablet,delayed 5 mg PO DAILYPRN PRN constipation 10/01/23 10/01/23 History
release (Dulcolax (bisacodyl))
cholecalciferol (vitamin D3) 1 tab PO DAILY 10/01/23 10/01/23 History
ibuprofen 200 mg tablet 400 mg PO BIDPRN PRN mild pain 10/01/23 10/01/23 History
levothyroxine 125 mcg tablet 125 mcg PO DAILY 10/01/23 10/01/23 History
(Synthroid)
magnesium 1 tab PO DAILY 10/01/23 10/01/23 History
oxycodone-acetaminophen 5 mg-325 0.5 tab PO HS 10/01/23 10/01/23 History
mg tablet
oxycodone-acetaminophen 5 mg-325 1 tab PO DAILYPRN PRN severe pain 10/01/23 10/01/23 History
mg tablet
simvastatin 40 mg tablet 40 mg PO QPM 10/01/23 10/01/23 History
trazodone 150 mg tablet 150 mg PO HS PRN sleep 10/01/23 10/01/23 History
vitamin B complex 1 tab PO DAILY 10/01/23 10/01/23 History
Review of Systems
-
History Source: Patient
General: Reports Sleep Disturbance; Denies Fever, Weight Gain or Weight Loss
HEENT: Denies Visual Changes or Sore Throat
Respiratory: Reports SOB
Cardiac: Reports Chest Pain; Denies Palpitations, Nausea, Vomiting, Diaphoresis or Edema
Abdomen/GI: Denies Abdominal Pain, Nausea, Vomiting, BRBPR or Ulcers
: Reports Other (chronic retention, straight caths at home)
Musculoskeletal: Denies Joint Pain
Skin: Denies Itching or Rash
Neurological: Denies CVA, TIA, Syncope or Seizures
Vascular: Denies Claudication
Physical Exam
Vital Signs
Temp 98.1 F 10/01/23 11:28
Temp route: Oral 10/01/23 11:28
Pulse 74 10/01/23 15:00
Resp Rate 20 10/01/23 15:00
Blood pressure 171/70 10/01/23 15:00
Blood pressure extremity used: Left upper arm 10/01/23 11:28
Position: Sitting 10/01/23 11:28
MAP (cuff-Meera Monitor) 99 10/01/23 15:00
SaO2 98 10/01/23 15:00
Oxygen Mode of Delivery Room air 10/01/23 11:28
Can the patient verbally communicate their pain? Yes 10/01/23 11:28
Actual Weight 95.1 kg 10/01/23 12:41
Labs
10/01/23 12:39
10/01/23 12:39
Troponin I 5.430 ng/ml H* 10/01/23 12:39
Exam
General: Well Developed, Well Nourished and No Apparent Distress
HEENT: Negative Normocephalic or Anicteric
Neck: Negative Carotid Bruit
Respiratory: Clear; Negative Wheezes, Crackles or Rhonchi
Cardiac: Regular Rhythm; Negative Murmur, Rub or Gallop
GI: Soft, Non Tender and Non Distended
Rectal: Deferred by Provider
Skin: Warm and Dry
Neuro: Nonfocal/Grossly Intact
Extremities: Negative Lower Level Edema
Psych: Calm
Assessment / Plan
-
NSTEMI
MVCAD
moderate by cath, MG 22mmHg
- medical management per primary teams, heparin gtt to start tonight. we will initiate preoperative workup to include labs, US carotids, echo. patient and family amenable with proceeding with workup. full evaluation by attending to follow.
Data Reviewed
-
EKG: Tracing Personally Visualized and interpreted and Report Reviewed by me
Fish Bait Picker: Report Reviewed by me
CT Scan: Image Personally Visualized and interpreted and Report Reviewed by me
Labs: Labs Reviewed by me
[2023-10-01 17:40] LABS: Glucose - Point of Care 160 mg/dl (70-99)
[2023-10-01] MEDS: NSS 1000 IV (17:45)
[2023-10-01] MEDS: LIPITOR 80 MG PO (17:51)
[2023-10-01] MEDS: PT'S OWN INSULIN PUMP - NovoLOG 15 UNIT SC (18:00)
--- NOTE | 2023-10-01 18:07 | PTCARENOTE ---
Received pt from cath lab nurse w/ right radial band intact. VSS. Pt denies any chest discomfort. Will monitor.
[2023-10-01] MEDS: COREG 3.125 MG PO (20:46)
[2023-10-01 21:36] LABS: Glucose - Point of Care 192 mg/dl (70-99)
[2023-10-01] MEDS: PT'S OWN INSULIN PUMP - NovoLOG 5 UNIT SC (21:37)
[2023-10-01 21:49] LABS: % Basophils 1.3 % (0-2); % Eosinophils 2.7 % (0-6); % Immature Granulocytes 0.2 % (0-0.5); % Monocytes 9.6 % (1.7-9.3); % Neutrophils 60.2 % (42.2-75.2); Absolute Basophils 0.1 10^3/uL (0-0.2); Absolute Eosinophils 0.3 10^3/uL (0-0.7); Absolute Lymphocytes 2.7 10^3/uL (1.2-3.4); Absolute Neutrophils 6.2 10^3/uL (1.4-6.5); Hematocrit 30.8 % (39.0-52.0); Mean Corp Hgb Conc. 35.7 g/dL (33.0-37.0); Mean Corpuscular Hgb 31.7 pg (27.0-31.0); Mean Corpuscular Volume 88.8 fL (80.0-94.0); Mean Platelet Volume 10.6 fL (7.4-10.4); Nucleated Red Blood Cells % 0 % (-); Platelet Count 202 10^3/uL (130-400); Red Blood Cell Count 3.47 10^6/uL (4.70-6.10); Red Cell Dist. Width 11.9 % (11.5-14.5); White Blood Cell Count 10.2 10^3/uL (4.8-10.8)
[2023-10-01 21:57] LABS: APTT 28.5 Sec (23.4-35.0)
[2023-10-01 22:04] LABS: Urine Albumin Trace (Neg - Trace); Urine Bilirubin Negative (Negative); Urine Character Clear (Clear); Urine Color Yellow; Urine Glucose Negative (Negative); Urine Ketone Negative (Negative); Urine Leukocyte 2+ (Negative); Urine Nitrite Positive (Negative); Urine Occult Blood Trace (Negative); Urine Urobilinogen Negative (Neg - 1+)
[2023-10-01 22:14] LABS: Urine Squamous Cell 16-20 /LPF (Few)
[2023-10-01 22:16] LABS: Urine Bacteria Many (Negative); Urine White Cell 70-80 /HPF (0-5)
[2023-10-01] MEDS: PERCOCET 5/325 0.5 TABLET PO (22:22)
[2023-10-01] MEDS: DESYREL 150 MG PO (22:22)
[2023-10-01] MEDS: HEPARIN 25000 UNITS/250 ML IV (22:22)
--- NOTE | 2023-10-01 23:07 | PTCARENOTE ---
Received patient at the change of shift. AAOx3. family at the bedside. SR on tele with a first degree AVB and BBB 60s-80s. bp stable. denies any cp/sob. R radial site CDI. reviewed activity restrictions with patient. patient has own insulin pump on
R abdomen, see mar for coverage. patient self caths self- UA sent.
new IV placed per patients request. heparin gtt started at 10 ml/hr, see mar.
answered all questions. educated patient to inform RN with any changes. call farrell within reach. calls appropriately.
[2023-10-02] VITALS (8 sets, daily range): BP systolic 115–155; BP diastolic 53–107; PULSE 70; BMI 26.9
--- NOTE | 2023-10-02 03:27 | DOWNTIME ---
There was a [employer] Time Clerk Downtime on 10/02/2023 from 0100 to 10/02/2023 at 0322. Downtime documentation of patient's care, including medication administrations, has been reconciled in the electronic record per guidelines. Refer to the
patient's paper chart under the miscellaneous tab to see printed paper medication records and downtime forms.
[2023-10-02 05:00] LABS: % Basophils 1.2 % (0-2); % Eosinophils 3.5 % (0-6); % Immature Granulocytes 0.3 % (0-0.5); % Lymphocytes 24.9 % (20.5-51.1); % Monocytes 8.5 % (1.7-9.3); % Neutrophils 61.6 % (42.2-75.2); Absolute Basophils 0.1 10^3/uL (0-0.2); Absolute Eosinophils 0.4 10^3/uL (0-0.7); Absolute Lymphocytes 2.7 10^3/uL (1.2-3.4); Absolute Monocytes 0.9 10^3/uL (0.1-0.6); Absolute Neutrophils 6.7 10^3/uL (1.4-6.5); Hematocrit 32.8 % (39.0-52.0); Hemoglobin 11.6 g/dL (13.0-18.0); Mean Corp Hgb Conc. 35.4 g/dL (33.0-37.0); Mean Corpuscular Hgb 31.3 pg (27.0-31.0); Mean Corpuscular Volume 88.4 fL (80.0-94.0); Mean Platelet Volume 10.8 fL (7.4-10.4); Nucleated Red Blood Cells % 0 % (-); Platelet Count 213 10^3/uL (130-400); Red Blood Cell Count 3.71 10^6/uL (4.70-6.10); Red Cell Dist. Width 12.1 % (11.5-14.5); White Blood Cell Count 10.9 10^3/uL (4.8-10.8)
[2023-10-02 05:18] LABS: PT 14.1 Sec (11.4-14.6)
[2023-10-02 05:19] LABS: APTT 48.1 Sec (23.4-35.0)
[2023-10-02 05:26] LABS: ALT (SGPT) 19 U/L (0-50); AST (SGOT) 40 U/L (17-59); Albumin 3.2 g/dl (3.5-5.0); Alkaline Phosphatase 88 U/L (38-126); Blood Urea Nitrogen 15 mg/dl (9-20); Calcium 8.9 mg/dl (8.4-10.2); Carbon Dioxide 24 mmol/L (22-30); Chloride 105 mmol/L (98-107); Estimated Creatinine Clearance 89 ml/min; Glucose 149 mg/dl (70-99); HDL Cholesterol 39 mg/dl; LDL Cholesterol, Calculated 52 mg/dl; Magnesium 1.7 mg/dl (1.6-2.3); Phosphorus 4.6 mg/dl (2.5-4.5); Potassium 4.3 mmol/L (3.5-5.1); Sodium 135 mmol/L (135-145); Total Bilirubin 1.3 mg/dl (0.2-1.3); Total Cholesterol 125 mg/dl (50-199); Total Protein 5.7 g/dl (6.3-8.2); Triglyceride 173 mg/dl (10-149); Very Low Density Lipoprotein 34 mg/dl (0-30); eGFR > 60.00
[2023-10-02 05:55] LABS: TSH Reflex To Free T4 3.93 uIU/ml (0.47-4.68)
[2023-10-02] MEDS: SYNTHROID 125 MCG PO (07:13)
[2023-10-02] MEDS: PT'S OWN INSULIN PUMP - NovoLOG 6 UNIT SC (07:41)
[2023-10-02 07:43] LABS: Glucose - Point of Care 192 mg/dl (70-99)
--- NOTE | 2023-10-02 08:17 | W.PN.HOSP.TC ---
Today's Communication/Plan
-
Start Augmentin for possible UTI, probiotic prophylaxis
cont hep gtt
npo after midnight for CABG with CTS
cont glycemic control
Blood pressure control
Assessment / Plan
Assessment / Plan
Physical Exam
General: No Apparent Distress
HEENT: NormoCephalic, Anicteric, Moist mucous membranes and Atraumatic
Respiratory: Clear
Cardiac: S1/S2 and Regular Rhythm
GI: Soft, Non Tender, Non Distended and Normal Bowel Sounds
Musculoskeletal: No Clubbing, No Cyanosis and No Edema
Skin: Warm and Dry
Neuro: AO x 3
Psych: Calm
HPI: 73-year-old male with a past medical history of type 2 diabetes, hypertension, hyperlipidemia, cigarette nicotine dependency (57 pack year history), prostate cancer status post surgery, and chronic urinary retention requiring self cath presents
with a 4-day history of substernal chest pain. Patient states his chest pain occurs in the morning, at rest, is substernal, sharp, and radiates to the back. It is relieved when taking Tylenol, Motrin, and oxycodone. It last for about 60 minutes,
and is associated with shortness of breath. He denies lightheadedness, dizziness, diaphoresis, nausea, vomiting. No fever, no chills. No abdominal pain, no black or bloody stools, no dysuria.
#Non-ST elevation myocardial infarction
#Chest pain
#Severe Multivessel Disease
Status post aspirin 324 mg p.o. on admission
fasting lipid profile appreciated,
hemoglobin A1c 7.9
Continue aspirin 81 mg daily, statin, Coreg 3.25 mg twice a day
Cardio eval appreciated
-Cath 09/30 noted Mod , Severe calcific multivessel CAD involving left main coronary artery, inpt CABG recommended
cont heparin gtt
ECHO appreciated EF 55-60% was noted mild as oppose to moderate as noted in cath. Mild Mod MR noted
CTS appreciated npo after midnight for CABG tomorrow 10/02
Active Smoker
Smoking Cessation advised
#Benign essential hypertension
home amlodipine 10 mg daily discontinued, cont Coreg 3.25 mg twice a day
#Chronic urinary retention requiring self-catheterization
Patient wishes to self cath himself per his usual schedule
#Type 1 diabetes
Patient uses an insulin pump
diabetes nurse practitioner consult appreciated
-insulin pump off in AM prior to going to the OR.
-Pt stevo be managed on Critical care glycemic protocol x48hrs post-op.
-resume insulin pump postoperatively when ready to transition off insulin drip.
#Leukocytosis
#possible UTI
afebrile however mild leukocytosis and urinalysis suggestive of UTI.
Augmentin 500 mg BID for 5 days started 10/01, probiotic prophylaxis also ordered
follow urine culture results
#Chronic back pain
Continue opioids, bowel regimen
#Hypothyroidism
Continue levothyroxine, TSH wnl
#History of prostate cancer
Status post surgery, outpatient follow-up
Vascular US appreciated
-Rt no significant stenosis
-Lt 50-69% stenosis
CT chest appreciated
-no PE
-Tiny b/l centrilobular nodules b/l upper long and mild b/l upper lobe peribronchial thickening (possible infectious bronchiolitis, hypersensitivity pneumonitis, resp bronchiolitis, interstitial lung disease)
-Severe coronary artery calcifications
-mild esophageal wall thickening nonspecific, possible esophagitis
DVT prophylaxis� hep gtt
gi ppx protonix
Full code
Discussed with patient and his daughter Nellie
Total time spent to see the patient on the floor, examine the patient, review data and lab results, discuss treatment plan with patient, nursing staff around 55 minutes.
Anticipated Discharge: > 48 hours
Subjective/Interval History
-
Date of Service: October 02, 2023
Seen and examined at bedside in no acute distress sitting up comfortably in chair. Daughter Nellie present during evaluation. Overall reports feeling well denies current chest pain.
Objective Data
-
Labs:
Laboratory Results
10/01/23 10/02/23 10/02/23
21:30 04:44 06:00
WBC 10.2 10.9 H
Hgb 11.0 L 11.6 L
Hct 30.8 L 32.8 L
Plt Count 202 213
PT 14.1 Cancelled
INR 1.10 Cancelled
APTT 28.5 48.1 H
Sodium 135
Potassium 4.3
Chloride 105
Carbon Dioxide 24
BUN 15
Creatinine 0.8
Glucose 149 H
Calcium 8.9
Total Bilirubin 1.3
AST 40
ALT 19
Alkaline Phosphatase 88
10/02/23
12:15
WBC
Hgb
Hct
Plt Count
PT
INR
APTT Pending
Sodium
Potassium
Chloride
Carbon Dioxide
BUN
Creatinine
Glucose
Calcium
Total Bilirubin
AST
ALT
Alkaline Phosphatase
Vital Signs:
Vital Signs
Temp Pulse Resp BP Pulse Ox
98.2 F 71 19 121/98 96
10/02/23 07:47 10/02/23 07:47 10/02/23 07:47 10/02/23 04:33 10/02/23 04:30
I&O
10/01/23 10/02/23 10/03/23
06:59 06:59 06:59
Intake Total 1060 / 1060
Output Total 1800 / 1800
Balance -740 / -740
[2023-10-02] MEDS: COREG 3.125 MG PO ×2 (08:43→19:59)
[2023-10-02] MEDS: ASPIR LOW (ENTERIC COATED) 81 MG PO (08:43)
[2023-10-02] MEDS: ZESTRIL 10 MG PO (08:44)
[2023-10-02] MEDS: VITAMIN D3 (cholecalciferol) 50 MCG PO (08:44)
[2023-10-02 09:00] LABS: Glycohemoglobin (HgbA1c) 7.9 % (4.0-5.6)
--- NOTE | 2023-10-02 09:56 | W.PN.CARDCBS ---
Addendum entered and electronically signed by Rigoberto Lou DO 10/02/23 11:28:
I saw and examined the patient.
The Hand Tapper's note was reviewed and I agree with the note.
Comment:
Plan:
Reviewed cath with pt
Echo pending to reeval EF and degree of ; mean AV gradient was 22 mmHg by recent cath
IV Heparin
CT surgical work up and eval ongoing.
Reviewed with daughter at bedside.
Original Note:
Today's Communication / Plan
-
Heparin gtt renewed
CT surgery team following
Impression / Plan
-
PCP: Dr. Emil Sibley
Cardiology: None prior to admission
Impression:
Chest pain
NSTEMI
CAD with multivessel CAD with 40% mid LAD, 60% prox Circ, 80% prox OM-2, 60-70% prox RCA by cath 10/01/23
HTN
DM 2
Chronic back pain with daily oxycodone use
Hypothyroid and h/o Grave's disease
Hyperlipidemia
RBBB
Bladder outlet obstruction/intermittent catheterization
Active smoker
Moderate with mean gradient 22 mmHg by cath 10/01/23
Echo 10/02/23: Study pending
Plan:
-Chest pain for days prior to admission and initial Troponin 5.43. Troponin peaked at 7.23. Multivessel CAD by cath outlined above and CT surgery was consulted.
-Bedside PFTs being performed 10/02/23. Patient is an active smoker, smoked 1 ppd since age 16
-Pain free on Heparin gtt. Heparin gtt renewed and Plt # stable on 10/02/23
-LDL 52. Outpatient dose of simvastatin 40 mg daily changed to atorvastatin 80 mg daily
-HgbA1c is 7.9% with known DM 2 using an insulin pump as an outpatient
-Mod with mean gradient 22 mmHg on cath. Echo pending
-Advised to quit smoking
-He has been taking oxycodone/acetaminophen for pain at times and had relief. He has DDD and h/o lumbar radiculopathy
HPI: Patient came to [facility] with chest pain for the last 4-5 days and cardiology has been consulted for elevated Troponin. Patient with chest pain that radiates to his back. Pain usually starts when he awakens and he has taken ibuprofen, Tylenol and
oxycodone for relief at different times. No change in pain with change in position. Pain can last for more than an hour. SOB with pain and he is also an active smoker for almost 60 years. DM 2 managed with insulin pump. He has HTN and takes
amlodipine 10 mg daily. He takes simvastatin 40 mg daily for hyperlipidemia. He has never been to before. Initial Troponin was 5.43. CT was negative for PE. ECG reviewed by me with RBBB of unknown chronicity and inferior T wave inversions.
Progress Note - Storage Battery Inspector
Subjective
Date of Service: October 02, 2023
No chest pain on Heparin gtt
Objective
Labs:
10/02/23 04:44
10/02/23 04:44
Labs
Hgb 11.6 g/dL (13.0-18.0) L 10/02/23 04:44
Hct 32.8 % (39.0-52.0) L 10/02/23 04:44
Plt Count 213 10^3/uL (130-400) 10/02/23 04:44
PT Cancelled 10/02/23 06:00
INR Cancelled 10/02/23 06:00
APTT 48.1 Sec (23.4-35.0) H 10/02/23 04:44
Sodium 135 mmol/L (135-145) 10/02/23 04:44
Potassium 4.3 mmol/L (3.5-5.1) 10/02/23 04:44
BUN 15 mg/dl (9-20) 10/02/23 04:44
Creatinine 0.8 mg/dL (0.7-1.3) 10/02/23 04:44
Glucose 149 mg/dl (70-99) H 10/02/23 04:44
Troponins
10/01/23 10/01/23 10/02/23
12:39 17:37 00:15
Troponin I 5.430 H* 7.450 H* D 7.230 H*
10/02/23
04:44
Troponin I 6.970 H*
Vital Signs and I&O:
Vital Signs
Temp Pulse Resp BP Pulse Ox
98.2 F 71 19 155/59 97
10/02/23 07:47 10/02/23 07:47 10/02/23 07:47 10/02/23 07:44 10/02/23 08:00
Vital Signs
Temp Pulse Resp BP Pulse Ox
98.2 F 71 19 155/59 97
10/02/23 07:47 10/02/23 07:47 10/02/23 07:47 10/02/23 07:44 10/02/23 08:00
Intake & Output
09/30/23 10/01/23 10/02/23 10/03/23
06:59 06:59 06:59 06:59
Intake Total 1060 / 1060
Output Total 1800 / 1800
Balance -740 / -740
Physical Exam
Physical Exam
GEN: NAD, AAOx3
HEENT: MMM
LUNGS: No audible wheeze, completing bedside PFTs
CV: Reg
ABD: ND
EXT: No edema B/L
NEURO: Gross non-focal
SKIN: No rash
--- NOTE | 2023-10-02 11:39 | W.PN.UPDATE ---
Update Note
Progress Note Update
Pt seen and examined
Daughter present for discussion
Cath reviewed
Very pleasant 73 y/o current longtime smoker with comorbidities of DM, hytn, hld and prostate ca
Admitted with cp and evidence for nstemi
Cath with severe calcific cad, left main by ivus, relatively poor target vessels with diffuse lad calcification
Echo pending,though cath with 22 mm AV gradient
Of significence is his relative immobility. He uses a scooter at home becasue of difficulty walking
I agree cabg to lad, om, pda is indicated though his STS risk will underestimate his true surgical risk given his poor targets as well as his poor mobilitiy status
Risks, complications, benefits and alternatives reveiwed. It appears they understand. All questions answered. Pt and daughter are agreeable to proceed with cabg.
Plan cabg in am.
--- NOTE | 2023-10-02 11:39 | W.PN.UPDATE ---
Update Note
Progress Note Update
Patient will go for CABG with Dr. Smith tomorrow 10/03/23. pre-op orders will be placed. STS calculation below. Consent obtained.
Procedure Type:�Isolated CABG
PERIOPERATIVE OUTCOME ESTIMATE %
Operative Mortality 1.92%
Morbidity & Mortality 7.35%
Stroke 0.903%
Renal Failure 0.988%
Reoperation 2.31%
Prolonged Ventilation 4.28%
Deep Sternal Wound Infection 0.232%
Long Hospital Stay (>14 days) 5.43%
Short Hospital Stay (<6 days)* 42.9%
Clinical Summary
Planned Surgery: Isolated CABG, Urgent, First cardiovascular surgery
Demographics: 73 year old, White, male, 90kg, 183cm, BMI: 26.9 kg/m�
Lab Values: Creatinine: 0.8 mg/dL, Hematocrit: 32.8%, WBC Count: 10.9 10�/�L, Platelet Count: 827635 cells/�L
Substance Abuse: Current smoker
Risk Factors / Comorbidities: Diabetes Mellitus , Hypertension, Family Hx of CAD
Pulmonary RF: Moderate CLD
Cardiac Status: Ejection Fraction = 55%
Coronary Artery Disease: 3 vessels diseased, Left Main Stenosis >=50%, Proximal LAD Stenosis >=70%, Non-ST Elevation SC, SC: 1 to 7 Days
Valve Disease: Aortic Stenosis
[2023-10-02] MEDS: PT'S OWN INSULIN PUMP - NovoLOG 15 UNIT SC (12:00)
[2023-10-02 12:02] LABS: Glucose - Point of Care 286 mg/dl (70-99)
--- NOTE | 2023-10-02 12:36 | PN.DE.MGMTRT ---
Insulin Management
- -
10/01/2024: Diabetes Management Consult
73 year old male with PMH includes: HTN, HLD, current longtime smoker, prostate ca, Bladder outlet obstruction/intermittent catheterization, Degenerative disc disease, Depression, T1DM, Neuropathy, Diabetic Retinopathy, hypothyroidism, admitted for
chest pain and evidence for NSTEMI, s/p Cardiac cath-->severe MVD-->CABG tomorrow.
Pt seen in room with DaughterGil at bedside. He is awake, A/O x3, very pleasant and offers no complaints.
Pt routinely sees Endo Dr. Ancelmo Kim in [place] for diabetes management, was last seen in the office in July.
He uses an insulin pump- Medtronic 670G with NovoLog insulin and a CGM-[employer] G6 for glucose monitoring, last A1C was 7.5% on 07/02/23.
He is noted for significant immobility, states he uses a scooter at home due to Neuropathy and ambulatory dysfunction with difficulty walking and can not exercise.
Examined insertion site of insulin pump, no obstruction, kinks, lipohypertrophy or lipodystrophy noted around site.
Current pump settings:
Basal
12a-6am 1.35
6am - 8am 2.25
8am - 12:30p 3
12:30p - 8pm 2.65
8pm - 12am 1.9
Total 24hr basal insulin 53.575 units
Pt states that he uses manual boluses with all meals. He will be NPO after MN for CT surgery in AM.
Discussed with pt and Daughter and instructed pt to take insulin pump off in AM prior to going to the OR.
Pt will be managed on Critical care glycemic protocol x48hrs post-op.
Will closely follow and resume insulin pump postoperatively when ready to transition off insulin drip.
All questions answered to Pt and Dtr's satisfaction.
Diabetes History
- -
Type of Diabetes: 1
Pre-Admission Diabetes Regimen
10/01/23 10/02/23
12:39 04:44
Creatinine 0.8 0.8
Lab Results
Hemoglobin A1c Cancelled 10/01/23 17:37
Insulin Pump Settings
IP Diabetes Regimen
10/01/23 10/01/23 10/01/23
12:39 15:52 17:36
Glucose 262 H
POC Glucose 195 H 160 H
10/01/23 10/02/23 10/02/23
21:32 04:44 07:41
Glucose 149 H
POC Glucose 192 H 192 H
10/02/23
11:59
Glucose
POC Glucose 286 H
Meal type: Dinner
Amount consumed: 100%
Patient Education
[2023-10-02 13:01] LABS: APTT 69.3 Sec (23.4-35.0)
--- NOTE | 2023-10-02 14:12 | CM ---
spoke to pt and daughter in room. he is prev indep, lives alone in a 1 story home with no steps to enter. he has 2 daughter who are near and very supportive. he has a walker and a cane he uses. plan is for CABG tomorrow. cm to preop this afternoon
with daughter.
--- NOTE | 2023-10-02 15:58 | CM ---
spoke with pt and daughter in room, we discussed pre-op CABG teaching including sternal and driving restrictions. pt does not drive. he lives alone but his daughters come over freq. his daughter Nellie will stay with him at home if needed, however, we
discussed rehabs. pt would be agreeable to going to a rehab if needed, he would like [facility] ( near his home) or [facility]. cardiac surgery booklet given. cm role explained all questions answered. cm to follow, CABG 10/01.
[2023-10-02] MEDS: LIPITOR 80 MG PO (17:33)
[2023-10-02 17:49] LABS: Glucose - Point of Care 141 mg/dl (70-99)
[2023-10-02] MEDS: PT'S OWN INSULIN PUMP - NovoLOG 12 UNIT SC (17:52)
--- NOTE | 2023-10-02 18:04 | PTCARENOTE ---
Pt with no c/o of any chest pain or sob today. OOB to the chair and to the bathroom with the walker. Gait slightly unsteady but needs the walker due to the neuropathy. Pt anticipating surgery tomorrow. Pt's daughter at the bedside.
[2023-10-02] MEDS: HEPARIN 25000 UNITS/250 ML IV (18:57)
[2023-10-02] MEDS: AUGMENTIN 500 MG/125 MG 1 TABLET PO (19:59)
[2023-10-02] MEDS: FLORASTOR 250 MG PO (19:59)
--- NOTE | 2023-10-02 22:00 | PTCARENOTE ---
Assumed care of patient at 1900. Patient found in bed at time of assessment with family at bedside. Patient is AOx4, follows commands appropriately, moves all extremities. Lung sounds are clear and equal bilaterally, saO2 96%. HS have a regular
rate and rhythm, patient is NSR on the monitor, there are normal palpable pulses and no edema is noted. Patient has soft nontender round abdomen with active BS in all four quadrants. Patient is continent of bowel. Patient self straight cathx4 during
day. Skin is grossly intact. Patient has L FA PIV with heparin gtt running at 1300 units/hr. Patient has no c/o pain at this time. Patient to CVOR in AM education on surgical prep provided verbalized understanding. Patient is stable.
[2023-10-02 22:15] LABS: Glucose - Point of Care 173 mg/dl (70-99)
[2023-10-02] MEDS: PERCOCET 5/325 0.5 TABLET PO (22:25)
[2023-10-02] MEDS: PT'S OWN INSULIN PUMP - NovoLOG SC (23:08)
[2023-10-03] VITALS (19 sets, daily range): BP systolic 104–149; BP diastolic 38–107; BMI 26.9
[2023-10-03 04:15] LABS: Hematocrit 30.7 % (39.0-52.0); Hemoglobin 10.6 g/dL (13.0-18.0); Mean Corp Hgb Conc. 34.5 g/dL (33.0-37.0); Mean Corpuscular Hgb 31.1 pg (27.0-31.0); Mean Platelet Volume 11.1 fL (7.4-10.4); Platelet Count 204 10^3/uL (130-400); Red Blood Cell Count 3.41 10^6/uL (4.70-6.10); Red Cell Dist. Width 12.1 % (11.5-14.5); White Blood Cell Count 10.4 10^3/uL (4.8-10.8)
[2023-10-03 04:36] LABS: APTT 75.4 Sec (23.4-35.0)
[2023-10-03 04:51] LABS: Blood Urea Nitrogen 18 mg/dl (9-20); Calcium 8.7 mg/dl (8.4-10.2); Carbon Dioxide 22 mmol/L (22-30); Chloride 104 mmol/L (98-107); Estimated Creatinine Clearance 79 ml/min; Glucose 183 mg/dl (70-99); Magnesium 1.6 mg/dl (1.6-2.3); Phosphorus 4.2 mg/dl (2.5-4.5); Potassium 4.2 mmol/L (3.5-5.1); Sodium 133 mmol/L (135-145); eGFR > 60.00
[2023-10-03] MEDS: BACTROBAN 2% OINTMENT 1 APPLIC NASAL ×2 (05:58→20:04)
[2023-10-03] MEDS: MAGNESIUM OXIDE 500 MG PO (05:59)
[2023-10-03] MEDS: LOPRESSOR 25 MG PO (05:59)
[2023-10-03] MEDS: SYNTHROID 125 MCG PO (05:59)
[2023-10-03] MEDS: PROTONIX 40 MG PO (05:59)
--- NOTE | 2023-10-03 06:53 | W.CVOR.SURPR ---
CV[facility] Surgeon Immed Pre Op
-
I have examined this patient prior to performance of the scheduled procedure.
The patient's condition is unchanged from the time of the dictated/written History and
Physical and the patient is able to undergo the scheduled procedure.
[2023-10-03 08:06] LABS: ACT+ - POC 98 Seconds (82-134)
[2023-10-03 08:09] LABS: B.E. - POC -3.7 mmol/L; Glucose - POC 216 mg/dl (65-99); HCO3 - POC 22 mmol/L (21-29); Hematocrit - POC 31 % PCV (42-52); Hemodilution- POC No; Hemoglobin Calculated - POC 10.6; Ionized Calcium - POC 1.18 mmol/L (1.12-1.27); O2 Saturation %Calculated-POC 99.6 5 (92-96); PCO2 - POC 43 mmHg (35-45); PO2 - POC 192 mmHg (80-100); Sodium - POC 137 mmol/L (135-145); pH - POC 7.32 (7.35-7.45)
[2023-10-03 08:11] LABS: Urine Albumin Trace (Neg - Trace); Urine Bilirubin Negative (Negative); Urine Character Slightly Cloudy (Clear); Urine Color Yellow; Urine Glucose Negative (Negative); Urine Ketone 2+ (Negative); Urine Leukocyte 2+ (Negative); Urine Nitrite Negative (Negative); Urine Occult Blood 4+ (Negative); Urine Urobilinogen Negative (Neg - 1+)
[2023-10-03 08:33] LABS: Urine Squamous Cell 16-20 /LPF (Few)
[2023-10-03 08:34] LABS: Urine Bacteria Moderate (Negative); Urine White Cell 40-50 /HPF (0-5)
--- NOTE | 2023-10-03 08:36 | CM ---
Reviewed chart. Mr. Patricia is in the operating room today. Prior to admission he resides alone in a one story home with one step to enter. Prior to admission he resides short distances with a rolling walker and uses an electric scooter for longer
distances. He has a rolling walker, single point cane and electric scooter. He is agreeable to SNF/Rehab. at [facility] or [facility]. He will need physical and occupational therapy evaluation to see if he will have any
skilled care needs. Referrals sent to [facility] and [facility] admissions to check on bed availability. If he can go directly home his daughter will stay with him. Medical work-up in progress. The discharge plan is to go to
SNF/Rehab. verses home with daughter staying with him and a home visit by the Cardiothoracic Transitional Care Nurse when medically stable.
[2023-10-03 09:33] LABS: ACT+ - POC 432 Seconds (82-134)
[2023-10-03 09:47] LABS: ACT+ - POC 501 Seconds (82-134)
[2023-10-03 10:13] LABS: ACT+ - POC 443 Seconds (82-134)
[2023-10-03 10:21] LABS: B.E. - POC -1.4 mmol/L; Glucose - POC 196 mg/dl (65-99); HCO3 - POC 23 mmol/L (21-29); Hematocrit - POC 26 % PCV (42-52); Hemodilution- POC Yes; Hemoglobin Calculated - POC 8.9; Ionized Calcium - POC 1.04 mmol/L (1.12-1.27); O2 Saturation %Calculated-POC 99.9 5 (92-96); PCO2 - POC 37 mmHg (35-45); PO2 - POC 317 mmHg (80-100); Potassium - POC 4.7 mmol/L (3.6-5.0); Sodium - POC 135 mmol/L (135-145)
--- NOTE | 2023-10-03 10:35 | PN.DE.MGMTRT ---
Insulin Management
- -
10/03/2023: Diabetes Management Follow up
Patient admitted for chest pain and NSTEMI, s/p Cardiac cath-->severe MVD-->CABG today. PMH includes: HTN, HLD, current longtime smoker, prostate ca, Bladder outlet obstruction/intermittent catheterization, Degenerative disc disease, Depression,
T1DM, Neuropathy, Diabetic Retinopathy, hypothyroidism,
Patient is in the OR at time of my visit.
He uses an insulin pump- Medtronic 670G with NovoLog insulin and a CGM-[employer] G6 for glucose monitoring, last A1C was 7.5% on 07/02/23.
He is noted for significant immobility, states he uses a scooter at home due to Neuropathy and ambulatory dysfunction with difficulty walking and can not exercise.
Patient to be maintained on glycemic protocol then back to insulin pump.
Diabetes History
- -
Pre-Admission Diabetes Regimen
10/03/23
03:47
Creatinine 0.9
Lab Results
Hemoglobin A1c Cancelled 10/01/23 17:37
Insulin Pump Settings
IP Diabetes Regimen
10/02/23 10/02/23 10/02/23
11:59 17:48 22:14
Glucose
POC Glucose 286 H 141 H 173 H
10/03/23
03:47
Glucose 183 H
POC Glucose
Meal type: Dinner
Amount consumed: 100%
Patient Education
[2023-10-03 10:46] LABS: ACT+ - POC 418 Seconds (82-134)
[2023-10-03 10:52] LABS: B.E. - POC -3.4 mmol/L; Glucose - POC 212 mg/dl (65-99); HCO3 - POC 21 mmol/L (21-29); Hematocrit - POC 26 % PCV (42-52); Hemodilution- POC Yes; Ionized Calcium - POC 1.07 mmol/L (1.12-1.27); O2 Saturation %Calculated-POC 99.9 5 (92-96); PCO2 - POC 36 mmHg (35-45); PO2 - POC 262 mmHg (80-100); Potassium - POC 4.3 mmol/L (3.6-5.0); Sodium - POC 136 mmol/L (135-145); pH - POC 7.38 (7.35-7.45)
[2023-10-03 11:17] LABS: ACT+ - POC 101 Seconds (82-134)
[2023-10-03] MEDS: PT'S OWN INSULIN PUMP - NovoLOG SC ×2 (11:20→11:21)
[2023-10-03] MEDS: VITAMIN D3 (cholecalciferol) PO (11:21)
[2023-10-03] MEDS: AUGMENTIN 500 MG/125 MG PO (11:21)
[2023-10-03] MEDS: FLORASTOR PO (11:21)
[2023-10-03] MEDS: ASPIR LOW (ENTERIC COATED) PO (11:21)
[2023-10-03] MEDS: COREG PO (11:21)
[2023-10-03 11:26] LABS: B.E. - POC -3.3 mmol/L; Glucose - POC 173 mg/dl (65-99); HCO3 - POC 22 mmol/L (21-29); Hematocrit - POC 27 % PCV (42-52); Hemodilution- POC Yes; Hemoglobin Calculated - POC 9.3; Ionized Calcium - POC 1.29 mmol/L (1.12-1.27); PCO2 - POC 42 mmHg (35-45); PO2 - POC 409 mmHg (80-100); Potassium - POC 3.4 mmol/L (3.6-5.0); Sodium - POC 141 mmol/L (135-145); pH - POC 7.34 (7.35-7.45)
--- NOTE | 2023-10-03 12:14 | W.PN.CT.SURG ---
CT Surgery Operative Note
-
Pre-op Diagnosis: nstemi
left main cad
3 vcad
copd
Post-op Diagnosis: Same
Procedure: Cabg x 3
pacheco- lad
svg - om1
svg - pda
revh
reese #35 clip
rsf
ttfm
Primary Surgeon: bloom
Assisting Surgeons: Dr Anne (resident) - chest
Soniya Zini - leg and chest
Specimen: None
Cultures: None
Complications / Blood Loss: None
Findings: Mark with preserved EF, non new wma
Good conduit
Reese without clot, completely occluded,no flow post clip
Severe and diffuse calcific cad with poor target arteries
TTFM approprate
[2023-10-03 12:55] LABS: Glucose - Point of Care 196 mg/dl (70-99)
[2023-10-03 13:00] LABS: Hematocrit 26.2 % (39.0-52.0); Hemoglobin 9.6 g/dL (13.0-18.0); Platelet Count 196 10^3/uL (130-400)
--- NOTE | 2023-10-03 13:00 | PTCARENOTE ---
Received patient from CVOR at 1245. Pt unresponsive. PERRLA 3mm sluggish. Intubated and sedated. POX 100% on SIMV 12 60% 5/5 550. Lungs clear anteriorly. Mediastinal and Left pleural chest tubes y-sited to 1 atrium to -20cm suction draining red
fluid. No air leaks, tidaling, crepitus noted. NSR with 1st degree AVB and RBBB on tele with rates in the 60s. BP supported with levophed. CVP 7. Bilateral radial pulses weakly palpable. Bilateral DP pulses present via doppler. No edema noted. Heart
tones audible. Epicardial v-wire Abdomen soft, round. Hypoactive BS. No luciano at this time, urologist aware and at bedside attempting to place. Sternal incision approximated with skin glue intact. Right groin puncture site approximated with skin
glue intact. Right SVG harvest approximated wtih skin glue and IGOR intact. Right IJ cordis and slick intact. Left radial renée with appropriate waveform. Line flushed, leveled, and zeroed. Right forearm 20g PIV infusing insulin gtt per Critical Care
Glycemic Protocol. NSS KVO and lick infusing. Post op EKG, labs, and CXR completed. See MAR for medication administration. See worklist for complete nursing assessment.
--- NOTE | 2023-10-03 13:01 | CON.INTV ---
Consultation
Consultation Request
Date/Time Consultation Requested: 10/03/2023 - 1129
Date/Time Consultation Performed: 10/03/2023 - 5
Requesting Provider: ANDREI Payne
Performing Provider: Stan Espinoza MD
Reason for Consultation: s/p CABG x3
Medical History
-
Chief Complaint: Chest pain
History of Present Illness:
73-year-old male with a past medical history of hypertension, hypothyroidism, lumbar DDD, history of prostate cancer, and chronic urinary retention with CIC who presents with midsternal chest pain rating into his back X 1 week. Pain occurred during
the morning hours and was very uncomfortable and lasted a few hours. Patient was taken Tylenol, ibuprofen and oxycodone for relief. His pain was associated with shortness of breath. In the ER, pulse rate was 75 bpm, respiratory rate 20, BP 159/69
and saturating 99% on room air. CTA chest was performed showing no evidence of an acute PE, and there were tiny bilateral centrilobular nodules with upper lung zone distribution and mild bilateral upper lobe peribronchial thickening with severe
coronary artery calcifications. Also mild esophageal wall thickening. Labs showed hyponatremia to 132, glucose 262, total bilirubin 1.4, leukocytosis to 13.1, Hb 12.6, platelets 225 and an elevated troponin of 5.43. EKG showed RBBB and ST
depressions in his lateral precordial leads. He was diagnosed with an NSTEMI, aspirin was given and heparin drip started. Cardiology was consulted and patient was brought to [facility] for LHC on 09/30 showing an elevated LVEDP of 24 mmHg, moderate
aortic stenosis with a mean gradient of 22 mmHg, LVEF normal at 64%, and severely calcific multivessel CAD involving left main coronary artery and cardiothoracic surgery was consulted to evaluate for CABG. Echo was performed on 10/01 showing
mild�moderate MR, mild with an LVEF of 55 to 60% and no regional WMA seen. Preoperative spirometry performed as well on 10/01 showing mild restrictive lung disease and a significantly positive bronchodilator response with improvement in the small
airways. Today, patient underwent CABG x 3 with left atrial appendage clipping. There were no complications and patient transferred to the CVICU postoperatively for further care. Piano Regulator/pulmonary service consulted for additional
management/recommendations.
When I saw the patient he was in bed, on pressure support 5/7 with FiO2 40%, and he was breathing at 10 breaths/min, with PIP 13 cm of water and VTe 643 mL. He has a left pleural chest tube and a mediastinal chest tube X1. He is on insulin drip at
3 units/h and Levophed at 3mcg/min. BP was 108/40 with SpO2 100%.
PMHx: Hypertension, DM type II, tobacco use disorder, hyperlipidemia, hypothyroidism, history of prostate cancer s/p surgery, chronic urinary retention with CIC, DDD involving lumbar spine, peripheral neuropathy, left hip trochanteric bursitis, left
IT band syndrome, anxiety/depression
PSHx: Appendectomy, cholecystectomy, TURP, skin grafting
Past Medical History
Past Medical History: Other (Above as per HPI)
Past Surgical History: Other (above as per HPI)
Social History
Tobacco: Smoker (1 PPD since 16 years old)
Alcohol: None
Drug: None
Personal:
Family History
Family History: CAD
Allergies / Home Medications
Allergies
Allergy/AdvReac Type Severity Reaction Status Date / Time
No Known Allergies Allergy Unverified 10/01/23 11:28
Home Medications
�Medication �Instructions �Recorded �Confirmed �Last Taken �Type
Patient's Own Insulin 0 unit SC .VIA PUMP Diabetes 10/01/23 10/01/23 10/01/23 History
acetaminophen 325 mg tablet 650 mg PO DAILYPRN PRN mild pain 10/01/23 10/01/23 10/01/23 History
(Tylenol)
amlodipine 10 mg tablet 10 mg PO DAILY Blood Pressure 10/01/23 10/01/23 10/01/23 History
aspirin 81 mg tablet,delayed 81 mg PO DAILY Blood Clot 10/01/23 10/01/23 10/01/23 History
release Prevention/Tx
bisacodyl 5 mg tablet,delayed 5 mg PO DAILYPRN PRN constipation 10/01/23 10/01/23 09/29/23 History
release (Dulcolax (bisacodyl))
cholecalciferol (vitamin D3) 1 tab PO DAILY Supplement 10/01/23 10/01/23 10/01/23 History
ibuprofen 200 mg tablet 400 mg PO BIDPRN PRN mild pain 10/01/23 10/01/23 10/01/23 History
levothyroxine 125 mcg tablet 125 mcg PO DAILY Thyroid 10/01/23 10/01/23 10/01/23 History
(Synthroid)
magnesium 1 tab PO DAILY Supplement 10/01/23 10/01/23 10/01/23 History
oxycodone-acetaminophen 5 mg-325 0.5 tab PO HS Pain 10/01/23 10/01/23 09/30/23 History
mg tablet
oxycodone-acetaminophen 5 mg-325 1 tab PO DAILYPRN PRN severe pain 10/01/23 10/01/23 10/01/23 History
mg tablet
simvastatin 40 mg tablet 40 mg PO QPM High Cholesterol 10/01/23 10/01/23 09/30/23 History
trazodone 150 mg tablet 150 mg PO HS PRN sleep 10/01/23 10/01/23 09/30/23 History
vitamin B complex 1 tab PO DAILY Supplement 10/01/23 10/01/23 10/01/23 History
Review of Systems
-
Unable to Obtain full review of systems at this time due to: Patient Intubation
Vitals / Labs / Diagnostic Testing
Vital Signs
Temp Pulse Resp BP Pulse Ox
99.2 F 66 9 112/54 100
10/03/23 19:00 10/03/23 19:00 10/03/23 19:00 10/03/23 19:00 10/03/23 19:00
Lab Data
10/03/23 16:39
10/03/23 12:49
Laboratory Results
10/02/23 10/03/23 10/03/23
19:08 03:47 12:49
PT 15.8 H
INR 1.26
APTT 85.0 H 75.4 H 29.7
pH 7.31 L
pCO2 45
pO2 186 H
HCO3 22.7
O2 Delivery Level
10/03/23 10/03/23
15:35 16:39
PT
INR
APTT
pH 7.36 7.36
pCO2 42 42
pO2 164 H 156 H
HCO3 23.7 23.7
O2 Delivery Level
Microbiology
10/01/23 21:58 Urine Urine Culture - Preliminary
Gram negative bacilli
Diagnostic Testing:
Physical Exam
-
HEENT: Normocephalic and Anicteric
Cardiovascular: S1/S2 and Peripheral Edema (negative)
Respiratory: Wheeze (negative), Rales (negative), Non-Labored Respirations and Other (Mechanical breath sounds heard bilaterally; ETT in place)
GI: Soft, Non Distended and Non Tender
Neurology: Other (Sedated)
Skin: Warm and Dry
General: Chills (negative)
Assessment
-
Assessment: 73-year-old male with a PMHx of hypertension, hypothyroidism, lumbar DDD, history of prostate cancer, and chronic urinary retention with CIC who presents with midsternal chest pain rating into his back x [address] of the chest
was negative for an acute PE and showed severe coronary artery calcifications. Initial labs showed an elevated troponin of 5.[address] depressions in his lateral precordial leads with possibly old inferior [place]. Patient diagnosed with
NSTEMI, started on heparin drip and aspirin was given with cardiology consulted. LHC performed on 09/30 showing an elevated LVEDP at 24 mmHg, with moderate aortic stenosis and severely calcific multivessel CAD involving LM artery. Cardiothoracic
surgery was consulted and on 10/03/2023 patient underwent CABG x 3 with CHIKA clipping. There were no complications and patient was transferred to the CVICU postoperatively with construction technician/pulmonary services consulted for additional
management/recommendations.
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
trochanteric bursitis, left IT band syndrome, anxiety/depression
Impression:
#NSTEMI s/p CABG x3 (POD#0)
#Moderate aortic stenosis and mild-moderate MR
#Anemia
#Hyponatremia
#DM type II c/b hyperglycemia (uncontrolled DM with HbA1C: 7.9)
#Tiny bilateral centrilobular nodules with mild bilateral upper lobe peribronchial thickening, likely related to smoking with respiratory bronchiolitis-ILD
#Tobacco use disorder with 1paraseptal emphysema (no evidence of COPD given pre-BD FEV1/FVC 71, however there is significant small airway improvement with BD, hence he may have asthma vs RAD)
#Mild restrictive lung disease
Plan:
Ventilator settings reviewed
FiO2 will be weaned to maintain SpO2 >94%
Minute ventilation will be adjusted
Arterial blood gases will be monitored
Spontaneous breathing trial will be attempted with hopeful extubation after anesthesia/sedation wear off
Given his spirometry findings suspicious for reactive airway disease, would give DuoNebs as needed - currently he is not bronchospastic
Pulmonary artery catheter parameters will be followed
Pressors/antihypertensive/inotropes/diuretics will be provided as needed
Monitor chest tube output ((left pleural + mediastinal X1)
Monitor hemoglobin
Monitor platelet count and coags
Transfuse blood product if needed to maintain Hb >7, plt>[address] managing chest tubes
Monitor blood sugar with goal BG 140�180
Insulin drip per protocol
Goal LDL<70 with high-intensity statin
Given his NSTEMI and DM type II, continue BB and would start IGOR-I/ARB when clinically safe to do so
DAPT
Replete K>4, Mg>2, PO4>3
Aspiration precautions
VAP prevention protocol
DVT prophylaxis
Early nutrition
Early mobilization
He ultimately should have a repeat CT chest in 3 months to assess for worsening of his bilateral nodules. If this is due to RB�ILD then tobacco cessation will resolve these nodules. He should follow-up with us as an outpatient for PFTs as well.
Critical care statement: A total of 46 minutes of critical care time was provided for this patient today. This includes management of ventilator, spontaneous breathing trial, arterial blood gases, pressors, of unstable vital signs, evaluation of the
patient at bedside, reviewing the patient's pertinent medical records including radiographs, microbiology, laboratory evaluations, and discussion with primary team and critical care nursing.
Data:
CXR 10-03-2023:
Postop cardiothoracic surgery with support apparatus, as noted above.
No pneumothorax.
CTA Chest 10-01-2023:
1. No CTA evidence for an acute pulmonary thromboembolism.
2. Tiny bilateral centrilobular nodules with a bilateral upper lung zone distribution and mild bilateral upper lobe peribronchial thickening, which may be secondary to an infectious bronchiolitis, hypersensitivity pneumonitis, or respiratory
bronchiolitis interstitial lung disease.
3. Severe coronary artery calcifications.
4. Mild esophageal wall thickening, nonspecific but can be seen in the setting of esophagitis.
Spirometry: 10/02/2023
FEV1/FVC: 71 --> 68
FEV1: 65% --> 70% (2.36L) with BD (+9% change)
FVC: 66% --> 76% (3.45L) with BD (+13% change)
QZM07-70%: 59% --> 80% (+36% change)
[2023-10-03 13:04] LABS: B.E. -3.5 mmol/L; HCO3 22.7 mmol/L (21-28); Ionized Calcium 1.24 mMOL/L (1.15-1.33); PCO2 45 mmHg (35-48); PO2 186 mmHg (83-108); Potassium 4.3 mMOL/L (3.5-5.1); Sodium 137 mMOL/L (136-145); pH 7.31 (7.35-7.45)
[2023-10-03 13:11] LABS: INR 1.26; PT 15.8 Sec (11.4-14.6)
[2023-10-03 13:12] LABS: APTT 29.7 Sec (23.4-35.0)
[2023-10-03 13:16] LABS: Blood Urea Nitrogen 19 mg/dl (9-20); Estimated Creatinine Clearance 65 ml/min; Glucose 172 mg/dl (70-99); Magnesium 2.3 mg/dl (1.6-2.3)
[2023-10-03] MEDS: ANCEF 10 IV ×2 (13:21)
[2023-10-03] MEDS: NOVOLOG FLEXPEN SC ×2 (13:21→15:31)
[2023-10-03] MEDS: NSS 500 IV (13:21)
--- NOTE | 2023-10-03 13:34 | W.PN.CARDCBS ---
Addendum entered and electronically signed by Javy Childs MD 10/03/23 15:53:
I saw and examined the patient.
The Residential Tech's note was reviewed and I agree with the note.
Comment:
GEN: No distress, intubated/sedated
HEENT: supple, anicteric, mmm, ET tube
LUNGS: CTA, no wheezes/rales
CV: Reg, S1/S2, no rub
ABD: soft, BS+, NT/ND
EXT: No edema
NEURO: Gross non-focal
SKIN: sternotomy
plan:
Overall doing well status post CABG.
Appreciate urology help with Luciano placement
Wean pressors and wean to extubate.
Currently on Levophed and insulin drips.
Original Note:
Today's Communication / Plan
-
Continue post op care
Impression / Plan
-
PCP: Dr. Emil Sibley
Cardiology: None prior to admission
Impression:
Chest pain
NSTEMI
MV CAD
s/p CABG x3 (HENNESSY - LAD, SVG - OM1, SVG - PDA), CHIKA clip 10/03/2023
HTN
DM 2
Chronic back pain with daily oxycodone use
Hypothyroid and h/o Grave's disease
Hyperlipidemia
RBBB
Bladder outlet obstruction/intermittent catheterization
Active smoker
Mild-moderate
Echo 10/02/23: EF 55-60%, mild , mild to moderate MR
Plan:
-Presented with chest pain for days prior to admission, found to have NSTEMI with peak troponin of 7.23. LHC revealed MV CAD and underwent CABG x 3 10/03/2023 as noted above.
-Seen post op. Remains intubated and sedated.
-Remains on Levo @ 2 and precedex @0.6.
-Hgb overall stable post op at 9.6. No blood products needed intra-op.
-Continue aspirin and plavix
-Post-op EKG stable, SR with RBBB.
-Minimal urine output noted in luciano during/after procedure. Removed and unable to be reinserted. Urology aware.
-LDL 52. Outpatient dose of simvastatin 40 mg daily changed to atorvastatin 80 mg daily
-HgbA1c is 7.9% with known DM 2 using an insulin pump as an outpatient
-Continue post op care
-Continue discussions regarding tobacco cessation.
-d/w nursing, CT surgery
HPI: Patient came to [facility] with chest pain for the last 4-5 days and cardiology has been consulted for elevated Troponin. Patient with chest pain that radiates to his back. Pain usually starts when he awakens and he has taken ibuprofen, Tylenol and
oxycodone for relief at different times. No change in pain with change in position. Pain can last for more than an hour. SOB with pain and he is also an active smoker for almost 60 years. DM 2 managed with insulin pump. He has HTN and takes
amlodipine 10 mg daily. He takes simvastatin 40 mg daily for hyperlipidemia. He has never been to before. Initial Troponin was 5.43. CT was negative for PE. ECG reviewed by me with RBBB of unknown chronicity and inferior T wave inversions.
Progress Note - Warper Creeler
Subjective
Date of Service: October 03, 2023
Remains intubated, sedated.
Objective
Labs:
10/03/23 12:49
Labs
Hgb 9.6 g/dL (13.0-18.0) L 10/03/23 12:49
Hct 26.2 % (39.0-52.0) L 10/03/23 12:49
Plt Count 196 10^3/uL (130-400) 10/03/23 12:49
PT 15.8 Sec (11.4-14.6) H 10/03/23 12:49
INR 1.26 10/03/23 12:49
APTT 29.7 Sec (23.4-35.0) 10/03/23 12:49
Sodium 133 mmol/L (135-145) L 10/03/23 03:47
Potassium 4.2 mmol/L (3.5-5.1) 10/03/23 03:47
BUN 19 mg/dl (9-20) 10/03/23 12:49
Creatinine 1.1 mg/dL (0.7-1.3) 10/03/23 12:49
Glucose 172 mg/dl (70-99) H 10/03/23 12:49
Troponins
10/01/23 10/01/23 10/02/23
12:39 17:37 00:15
Troponin I 5.430 H* 7.450 H* D 7.230 H*
10/02/23
04:44
Troponin I 6.970 H*
Vital Signs and I&O:
Vital Signs
Temp Pulse Resp BP Pulse Ox
97.5 F 61 12 113/43 100
10/03/23 13:00 10/03/23 13:10 10/03/23 13:00 10/03/23 13:00 10/03/23 13:10
Vital Signs
Temp Pulse Resp BP Pulse Ox
97.5 F 61 12 113/43 100
10/03/23 13:00 10/03/23 13:10 10/03/23 13:00 10/03/23 13:00 10/03/23 13:10
Intake & Output
10/01/23 10/02/23 10/03/23 10/04/23
06:59 06:59 06:59 06:59
Intake Total 1060 / 1060 519 / 519 50.8 / 50.8
Output Total 1800 / 1800
Balance -740 / -740 519 / 519 25.8 / 25.8
Physical Exam
Physical Exam
GEN: No distress, intubated
HEENT: mmm
LUNGS: CTA b/l, no wheezes/rales
CV: Reg, S1/S2, 1/6 syst LSB
EXT: No clubbing, cyanosis, or edema
SKIN: Warm, dry, no rash.
--- NOTE | 2023-10-03 13:40 | PTCARENOTE ---
Dr. Smith, Dr. Bose, CT MEDICAL TRANSPORT SPECIALIST, CT PA at bedside to do bedside cystoscopy.
[2023-10-03] MEDS: DILAUDID 0.5 MG IV (13:45)
[2023-10-03] MEDS: VERSED 0.5 MG IV (13:55)
--- NOTE | 2023-10-03 14:10 | CONS.URO ---
Consultation
-
Performing Provider: Ramirezfer
Reason for Consultation: Urethral trauma
Medical History
History of Present Illness
73M complex urologic hx with prior TURP x2, subsequent urethral stricture s/p buccal mucosa graft repair, currently on CIC
Taken care of by Dr. Park for prior reconstruction
Urology consulted due to catheter placed intraoperatively not draining
Past Medical History
Past Medical History: Other (see HPI)
Past Surgical History: Urological (TURP, urethral stricture repair)
Social History
Unable to obtain full social history at this time due to: Patient Non-verbal
Family History
Family History: Unable to Obtain
Allergies/Home Medications
Allergies
Allergy/AdvReac Type Severity Reaction Status Date / Time
No Known Allergies Allergy Unverified 10/01/23 11:28
Home Medications
�Medication �Instructions �Recorded �Confirmed �Type
Patient's Own Insulin 0 unit SC .VIA PUMP Diabetes 10/01/23 10/01/23 History
acetaminophen 325 mg tablet 650 mg PO DAILYPRN PRN mild pain 10/01/23 10/01/23 History
(Tylenol)
amlodipine 10 mg tablet 10 mg PO DAILY Blood Pressure 10/01/23 10/01/23 History
aspirin 81 mg tablet,delayed 81 mg PO DAILY Blood Clot 10/01/23 10/01/23 History
release Prevention/Tx
bisacodyl 5 mg tablet,delayed 5 mg PO DAILYPRN PRN constipation 10/01/23 10/01/23 History
release (Dulcolax (bisacodyl))
cholecalciferol (vitamin D3) 1 tab PO DAILY Supplement 10/01/23 10/01/23 History
ibuprofen 200 mg tablet 400 mg PO BIDPRN PRN mild pain 10/01/23 10/01/23 History
levothyroxine 125 mcg tablet 125 mcg PO DAILY Thyroid 10/01/23 10/01/23 History
(Synthroid)
magnesium 1 tab PO DAILY Supplement 10/01/23 10/01/23 History
oxycodone-acetaminophen 5 mg-325 0.5 tab PO HS Pain 10/01/23 10/01/23 History
mg tablet
oxycodone-acetaminophen 5 mg-325 1 tab PO DAILYPRN PRN severe pain 10/01/23 10/01/23 History
mg tablet
simvastatin 40 mg tablet 40 mg PO QPM High Cholesterol 10/01/23 10/01/23 History
trazodone 150 mg tablet 150 mg PO HS PRN sleep 10/01/23 10/01/23 History
vitamin B complex 1 tab PO DAILY Supplement 10/01/23 10/01/23 History
Physical Exam
Vital Signs
Vital Signs
Temp Pulse Resp BP Pulse Ox
97.5 F 61 12 113/43 99
10/03/23 13:00 10/03/23 13:10 10/03/23 13:00 10/03/23 13:00 10/03/23 13:30
Lab / Testing Results
Laboratory Results
10/03/23 12:49
Physical Exam
General: Well Developed and Well Nourished
Respiratory: Clear
GI: Soft and Non Tender
Genito-urinary: No Costovertebral Tend
Neuro: Sedated
Assessment / Plan
-
73M with complex urethral stricture disease s/p prior urethroplasty with buccal mucosa graft
Currently voids via CIC with 16Fr catheter
Urology consulted for poorly draining catheter placed intraoperatively
Procedure - Flexible cystoscopy: On initial exam catheter appeared to be malpositioned. Balloon deflated and attempt was made to place an 18Fr coude which did not return any urine so it was withdrawn
A flexible cystoscope was obtained and bedside cystoscopy was performed. On cystoscopy, there was a large cavernous false passage within the bulbar urethra to the left of the urethral lumen due to balloon trauma
Scope was unable to be passed into the bladder past the verumontanum, though the proper lumen was seen and and wire was guided into the bladder. A 16Fr unga catheter was placed without significant resistance and light pink urine was obtained.
10cc placed in luciano balloon left to gravity drainage with 800cc drained.
- Maintain luciano catheter through discharge
- Catheter will need to be exchanged in about 4 weeks via cystoscopy or under anesthesia while healing urethral trauma. He should not resume CIC.
[2023-10-03 14:12] LABS: Glucose - Point of Care 169 mg/dl (70-99)
[2023-10-03] MEDS: TYLENOL PO (14:12)
[2023-10-03] MEDS: ALBUMIN 5% 250 IV ×2 (14:29→15:09)
--- NOTE | 2023-10-03 14:30 | PTCARENOTE ---
Pt bathed with CHG wipes and turned from side to side to ensure rectal temperature probe in place. New sheets applied. Pt remains sedated.
--- NOTE | 2023-10-03 14:40 | PTCARENOTE ---
CT SURFACE MOUNT TECHNOLOGY OPERATOR made aware of CT output 150ml in last 40 minutes.
[2023-10-03 15:00] LABS: Glucose - Point of Care 170 mg/dl (70-99)
[2023-10-03] MEDS: NEURONTIN PO (15:31)
[2023-10-03 15:56] LABS: B.E. -1.7 mmol/L; HCO3 23.7 mmol/L (21-28); Ionized Calcium 1.18 mMOL/L (1.15-1.33); O2 Saturation % 99.9 % (94-98); PCO2 42 mmHg (35-48); PO2 164 mmHg (83-108); Potassium 3.9 mMOL/L (3.5-5.1); pH 7.36 (7.35-7.45)
--- NOTE | 2023-10-03 16:05 | PTCARENOTE ---
Pt awakens to physical stimuli. Able to follow commands. Placed on cpap. POX 98%, tolerating.
[2023-10-03 16:07] LABS: Glucose - Point of Care 142 mg/dl (70-99)
[2023-10-03] MEDS: KCL 50 IV ×2 (16:11→17:13)
[2023-10-03 16:54] LABS: B.E. -1.7 mmol/L; HCO3 23.7 mmol/L (21-28); PCO2 42 mmHg (35-48); PO2 156 mmHg (83-108); pH 7.36 (7.35-7.45)
[2023-10-03 16:55] LABS: Hematocrit 25.2 % (39.0-52.0); Platelet Count 183 10^3/uL (130-400)
[2023-10-03 16:58] LABS: Glucose - Point of Care 129 mg/dl (70-99)
--- NOTE | 2023-10-03 17:05 | PTCARENOTE ---
Pt extubated to 6L NC by RT as per CT COMPOSITION FLOOR SETTER. Pt able to say his first name open his eyes to commands and wiggle toes. Pt still very sleepy. Unable to do IS at this time. Call farrell in reach.
--- NOTE | 2023-10-03 17:24 | RESPNOTE ---
pt extubated per MD order, pt suctioned down ETT and orally prior to extubation, tolerated well. pt able to vocalize, no stridor present. placed on 6L NC tolerating well
[2023-10-03] MEDS: LIPITOR 80 MG PO (18:12)
[2023-10-03] MEDS: LOW STRENGTH ASPIRIN 81 MG PO (18:12)
[2023-10-03 18:57] LABS: Glucose - Point of Care 130 mg/dl (70-99)
--- NOTE | 2023-10-03 20:00 | PTCARENOTE ---
Received pt from dayshift; pt resting comfortably in bed s/p CABGx3; Pt is AAOx4, states pain is 2/10; NSR with 1st drefree AVB and RBBB on monitor, VSS; Heart sounds audible, rub present, radial pulses palpable, DP pulse audible on doppler, no
edema noted, temp epicardial V wire tested with outgoing RN-Rate 40, MA 5, Mv 7; lungs diminished at b/l bases, spo2 100% on RA, left pleural and mediastinal CT to -20 wall suction, no air leaks, no tidaling, no crepitus; +BS x4 quadrants, abdomen
soft non tender; pt voiding clear yellow urine via luciano catheter; surgical sites stables, dressings CDI; right IJ Cordis, right slick, left radial A-line, Left FA 20g PIV all maintained, leveled and zeroed; Levophed and insulin infusing. Call farrell
within reach; will continue to monitor.
[2023-10-03] MEDS: ANCEF 5 IV (20:03)
[2023-10-03] MEDS: SENOKOT-S PO (20:04)
[2023-10-03 21:12] LABS: Glucose - Point of Care 119 mg/dl (70-99)
[2023-10-03] MEDS: ROXICODONE 5 MG PO (21:14)
[2023-10-03 22:08] LABS: Glucose - Point of Care 103 mg/dl (70-99)
[2023-10-03] MEDS: TYLENOL 1000 MG PO (22:10)
[2023-10-03] MEDS: NEURONTIN 100 MG PO (22:10)
[2023-10-03 22:15] LABS: Ionized Calcium 1.18 mMOL/L (1.15-1.33)
[2023-10-03] MEDS: DILAUDID 0.25 MG IV (22:28)
[2023-10-03] MEDS: CALCIUM CHLORIDE 10% SYRINGE 60 MG IV (22:58)
[2023-10-03 23:09] LABS: Glucose - Point of Care 113 mg/dl (70-99)
[2023-10-03 23:54] LABS: Glucose - Point of Care 105 mg/dl (70-99)
[2023-10-04] VITALS (28 sets, daily range): BP systolic 116–139; BP diastolic 42–72; PULSE 85; O2SAT 98; BMI 27.2
--- NOTE | 2023-10-04 | PTCARENOTE ---
Pt assessment unchanged; NSR with 1st degree AVB and RBBB on monitor, VSS; pt resting comfortably in bed; on going pain management with medication, see MAR, and repositioning; Levophed and insulin infusing; call farrell within reach; will continue to
monitor.
[2023-10-04 01:10] LABS: Glucose - Point of Care 97 mg/dl (70-99)
[2023-10-04] MEDS: NOVOLIN R INSULIN INFUSION 100 IV (01:10)
[2023-10-04 03:07] LABS: Glucose - Point of Care 110 mg/dl (70-99)
[2023-10-04 03:14] LABS: Hematocrit 24.3 % (39.0-52.0); Hemoglobin 8.4 g/dL (13.0-18.0); Mean Corp Hgb Conc. 34.6 g/dL (33.0-37.0); Mean Corpuscular Hgb 31.5 pg (27.0-31.0); Mean Platelet Volume 11.1 fL (7.4-10.4); Platelet Count 162 10^3/uL (130-400); Red Blood Cell Count 2.67 10^6/uL (4.70-6.10); Red Cell Dist. Width 12.3 % (11.5-14.5); White Blood Cell Count 23.8 10^3/uL (4.8-10.8)
[2023-10-04] MEDS: ROXICODONE 5 MG PO ×3 (03:23→12:53)
[2023-10-04] MEDS: ANCEF 5 IV ×2 (03:23→12:09)
[2023-10-04 03:33] LABS: Blood Urea Nitrogen 25 mg/dl (9-20); Calcium 9.4 mg/dl (8.4-10.2); Carbon Dioxide 21 mmol/L (22-30); Chloride 108 mmol/L (98-107); Estimated Creatinine Clearance 71 ml/min; Glucose 109 mg/dl (70-99); Magnesium 2.1 mg/dl (1.6-2.3); Potassium 4.8 mmol/L (3.5-5.1); Sodium 138 mmol/L (135-145); eGFR > 60.00
--- NOTE | 2023-10-04 04:00 | PTCARENOTE ---
Pt assessment unchanged; NSR with 1st degree AVB and RBBB on monitor; VSS; AM labs drawn and sent; EKG obtained; tele leads and gown changed; CHG wipes provided; on going pain management; call farrell within reach; will continue to monitor.
--- NOTE | 2023-10-04 04:16 | W.PN.CT ---
Addendum entered and electronically signed by ANDREI Payne 10/04/23 15:06:
CDI Query
UTI was present on admission however it was likely a colonization. NO leukocytosis and patient remains afebrile. augmentin was discontinued.
Original Note:
Today's Communication / Plan
-
-pod #1
-no issues overnight
-Drips: insulin. Levo off at 4am
-CT output: med and L pleur 135/470 in 12/24 hrs
-deline
-d/c med CT, bulb pleur CT
-follow wbc- 23.8 today (Tm 99.5)
-maintain Laguna per Urology
-maintain pw (occasional v-pacing, VVI 40 backup)
-encourage IS, OOB
-appreciate everyone's input
Assessment / Plan
-
- NSTEMI, LM-CAD - s/p Cabg x 3 (pacheco- lad, svg - om1, svg - pda); R evh; LAAE #35 clip on 10/03/[address] Smith, pod #1
- TIMOTHY with preserved EF, non new wma. Ale without clot, completely occluded, no flow post clip
- HTN/HLD
- IDDM, uses insulin pump
- Severe b/l lower extremity peripheral neuropathy
- Pre-existing 1st degree AVB and RBBB
- DDD
- hx prostate CA s/p TURP x2 (2014 & 2016), second one complicated by ureter damage & need for suprapubic catheter (healed)
- subsequent chronic urinary retention with self catheterization
- hypothyroidism
- tobacco abuse (~50 PYH, 1 PPD current)
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
- hx falls/gait disturbance (2/2 neuropathy)
- ambulatory dysfunction, uses walker & scooter regularly
- chronic opioid use, for LE neuropathy; pt reports ~2 tabs Percocet per WEEK
- insomnia
- hx appendectomy
- hx cholecystectomy
- hx R elbow ORIF
- Complex urethral stricture disease with prior urethroplasty with buccal mucosa graft- S/p postop bedside cystoscope with placement of a 16Fr coude catheter draining 800cc by Dr. Bose on 10/03/23
-pt will be discharged with Laguna catheter and will not resume self-catherization.
-catheter will need to be exchanged in about 4 weeks via cystoscopy or under anesthesia while healing urethral trauma.
- Acute postop blood loss anemia - no acute bleeding
- Acute postop atelectasis
- Acute postop hypovolemia with subsequent hypervolemia
Discussed patient care with: Nursing and Care Team
Subjective
-
Date of Service: October 04, 2023
Objective Data
-
PT 15.8 Sec (11.4-14.6) H 10/03/23 12:49
INR 1.26 10/03/23 12:49
APTT 29.7 Sec (23.4-35.0) 10/03/23 12:49
Vital Signs
Vital Signs
Temp Pulse Resp BP Pulse Ox
99.2 F 79 12 133/52 100
10/04/23 02:00 10/04/23 02:05 10/04/23 02:05 10/04/23 02:00 10/04/23 02:05
CT Intake/Output/Weight
10/03/23 10/03/23 10/04/23
06:59 18:59 06:59
Intake Total 519 / 519 842.2 / 1143.2 301.0 / 1143.2
Output Total 1440 1909
Balance 519 / 519 -602.8 / -766.8 -164.0 / -766.8
SaO2: 100
Physical Exam
-
General: AOx3
Cardiovascular: Regular rate & rhythm, No Murmurs and Rub
Respiratory: Decreased Breath Sounds
Sternum: Stable
Incision: Clean, Dry and Dressing Intact
Extremities: No Edema
Data Reviewed
-
Lab Results: Results Reviewed
Medications: Active Meds Reviewed
Chest X-Ray: Report Reviewed and Image Reviewed
ECG: Report Reviewed and Image Reviewed
[2023-10-04 05:05] LABS: Glucose - Point of Care 114 mg/dl (70-99)
[2023-10-04] MEDS: ZOFRAN 4 MG IV (06:28)
[2023-10-04] MEDS: SYNTHROID 125 MCG PO (06:45)
[2023-10-04] MEDS: TYLENOL 1000 MG PO ×3 (06:45→21:57)
[2023-10-04 07:06] LABS: Glucose - Point of Care 115 mg/dl (70-99)
--- NOTE | 2023-10-04 07:14 | W.PN.UPDATE ---
Update Note
Progress Note Update
in chair, no complaints
vss
labs ok
nc o2
s/p cabg pod #1
doing well
maintain luciano
increase activity
--- NOTE | 2023-10-04 08:00 | PTCARENOTE ---
pt received from previous RN, oriented, OOB in chair. SR w/ 1st degree AVB/BBB on the monitor, HR 70-80s. +rub. V wires set to VVI 40/5. SBP 110-120s. palpable radial pulses, Doppler pedal pulses. no edema. pt on RA, 97-99% POX. lungs diminished. IS
encouraged. CT x2, no air leak or crepitus noted. pt abdomen s/n, denies n/v. tolerating clears. luciano in place, placed by urology. sternal incision approximated, SAKSHI, surgical adhesive in place. chest tube dressing c/d/i. R groin SLACKMAN. RLE IGOR
bandage in place. RIJ cordis maintained. PIV. insulin gtt running per protocol. see worklist for VS, I&O, and assessment.
--- NOTE | 2023-10-04 08:26 | W.PN.ANS.POP ---
Anesthesia Post Operative
- Anesthesia Post Op Note
Vital Signs Stable-See Nursing Note: Yes
Airway Patent: Yes
Adequate Pain Control: Yes
Change in Mental Status: No
Current Postoperative Nausea & Vomiting: No
Anesthesia Complications: No
General Anesthetic Recall: No
Unplanned Admission: No
Post Op Hydration Adequate: Yes
[2023-10-04] MEDS: PLAVIX 75 MG PO (08:29)
[2023-10-04] MEDS: SENOKOT-S 1 TABLET PO ×2 (08:29→20:22)
[2023-10-04] MEDS: PROTONIX 40 MG PO (08:29)
[2023-10-04] MEDS: LOW STRENGTH ASPIRIN 81 MG PO (08:29)
[2023-10-04] MEDS: MAGNESIUM OXIDE 500 MG PO ×2 (08:29→20:22)
[2023-10-04] MEDS: LOPRESSOR 12.5 MG PO ×2 (08:29→20:22)
[2023-10-04] MEDS: NEURONTIN 100 MG PO ×2 (08:29→15:55)
[2023-10-04] MEDS: VITAMIN D3 (cholecalciferol) 50 MCG PO (08:30)
[2023-10-04] MEDS: BACTROBAN 2% OINTMENT 1 APPLIC NASAL ×2 (08:30→20:22)
[2023-10-04] MEDS: NOVOLOG FLEXPEN SC (09:13)
--- NOTE | 2023-10-04 09:13 | PN.CDI ---
CDI
- -
CDI:
Physician Documentation Request
Admit Date: 10/01/23 16:[address] Surgery,
Please review the following and provide your response in the progress notes.
Clinical Indicators:
The diagnosis of UTI was documented on 10/01 Hospitalist note but is not consistently noted in subsequent documentation.
- 10/01 Hospitalist 'Start Augmentin for possible UTI...afebrile however mild leukocytosis and urinalysis suggestive of UTI'
- 09/30 UC Serratia marcescens positive
- 10/01 Amoxicillin given x 1
- 10/02 CT Surg 'chronic urinary retention with self catheterization'
Please clarify the following:
____ - UTI was present on admission and is now resolved.
____ - UTI was present on admission and is still being monitored, evaluated or treated
____ - UTI was ruled out
____ - UTI is still a likely, suspected, probable diagnosis
____ - Other
Use of terms such as suspected, likely, concern for, or probable (associated with a specific diagnosis that is being evaluated, monitored, or treated as if it exists) are acceptable and can be coded in the inpatient setting, when documented at the
time of discharge.
Thank you,
Kayy Newman RN
CDI Specialist
Please use your independent medical judgment in providing your response.
[2023-10-04 09:24] LABS: Glucose - Point of Care 123 mg/dl (70-99)
[2023-10-04] MEDS: LIDOCAINE 4% PATCH 1 PATCH TOPICAL (09:45)
--- NOTE | 2023-10-04 10:18 | W.PN.CARDCBS ---
Addendum entered and electronically signed by Ventura Roche MD 10/04/23 11:46:
I saw and examined the patient.
The SQL DATABASE DEVELOPER or PA's note was reviewed and I agree with the note.
Comment: General: Well developed, well nourished in NAD.
Neck: Supple, no JVD, HJR, carotids +2 B/L, no bruits bilaterally.
Heart: Non displaced PMI, RRR, no murmurs, No S3, S4, no rubs.
Lungs: Scattered rhonchi
Sternal dressings noted
Extremities: No clubbing, cyanosis or edema bilaterally.
Neuro: Grossly nonfocal, awake, alert and oriented x3.
Stable cardiology status status post CABG. Chest tubes remain in place. remains in sinus rhythm. WBCs are increased.
Original Note:
Today's Communication / Plan
-
Continue post op care
Impression / Plan
-
PCP: Dr. Emil Sibley
Cardiology: None prior to admission
Impression:
Chest pain
NSTEMI
MV CAD
s/p CABG x3 (HENNESSY - LAD, SVG - OM1, SVG - PDA), CHIKA clip 10/03/2023
HTN
DM 2
Chronic back pain with daily oxycodone use
Hypothyroid and h/o Grave's disease
Hyperlipidemia
RBBB
Bladder outlet obstruction/intermittent catheterization
Active smoker
Mild-moderate
Echo 10/02/23: EF 55-60%, mild , mild to moderate MR
Plan:
-Presented with chest pain for days prior to admission, found to have NSTEMI with peak troponin of 7.23. LHC revealed MV CAD and underwent CABG x 3 10/03/2023 as noted above.
-POD#1. Doing well, extubated in evening 10/02. No longer on levo. BP stable.
-Hgb down somewhat overnight to 8.4. Continue to follow.
-Continue aspirin and plavix
-EKG stable this AM, SR with 1st degree AVB and RBBB. Occasional pacing noted on tele.
-Luciano able to be re-placed by urology in PM 10/02. Will maintain luciano at d/c and follow up with urology.
-WBC up to 23.8. Continue to follow closely. Afebrile.
-LDL 52. Outpatient dose of simvastatin 40 mg daily changed to atorvastatin 80 mg daily
-HgbA1c is 7.9% with known DM 2 using an insulin pump as an outpatient
-Continue post op care, OOB/IS encouraged
-Continue discussions regarding tobacco cessation.
HPI: Patient came to [facility] with chest pain for the last 4-5 days and cardiology has been consulted for elevated Troponin. Patient with chest pain that radiates to his back. Pain usually starts when he awakens and he has taken ibuprofen, Tylenol and
oxycodone for relief at different times. No change in pain with change in position. Pain can last for more than an hour. SOB with pain and he is also an active smoker for almost 60 years. DM 2 managed with insulin pump. He has HTN and takes
amlodipine 10 mg daily. He takes simvastatin 40 mg daily for hyperlipidemia. He has never been to before. Initial Troponin was 5.43. CT was negative for PE. ECG reviewed by me with RBBB of unknown chronicity and inferior T wave inversions.
Progress Note - Specimen Collector
Subjective
Date of Service: October 04, 2023
No complaints other than feeling tired.
Objective
Labs:
10/04/23 03:05
10/04/23 03:05
Labs
Hgb 8.4 g/dL (13.0-18.0) L 10/04/23 03:05
Hct 24.3 % (39.0-52.0) L 10/04/23 03:05
Plt Count 162 10^3/uL (130-400) 10/04/23 03:05
PT 15.8 Sec (11.4-14.6) H 10/03/23 12:49
INR 1.26 10/03/23 12:49
APTT 29.7 Sec (23.4-35.0) 10/03/23 12:49
Sodium 138 mmol/L (135-145) 10/04/23 03:05
Potassium 4.8 mmol/L (3.5-5.1) 10/04/23 03:05
BUN 25 mg/dl (9-20) H 10/04/23 03:05
Creatinine 1.0 mg/dL (0.7-1.3) 10/04/23 03:05
Glucose 109 mg/dl (70-99) H 10/04/23 03:05
Troponins
10/01/23 10/01/23 10/02/23
12:39 17:37 00:15
Troponin I 5.430 H* 7.450 H* D 7.230 H*
10/02/23
04:44
Troponin I 6.970 H*
Vital Signs and I&O:
Vital Signs
Temp Pulse Resp BP Pulse Ox
98.5 F 81 18 128/51 98
10/04/23 08:00 10/04/23 09:20 10/04/23 09:00 10/04/23 09:00 10/04/23 09:00
Vital Signs
Temp Pulse Resp BP Pulse Ox
98.5 F 81 18 128/51 98
10/04/23 08:00 10/04/23 09:20 10/04/23 09:00 10/04/23 09:00 10/04/23 09:00
Intake & Output
10/02/23 10/03/23 10/04/23 10/05/23
06:59 06:59 06:59 06:59
Intake Total 1060 / 1060 519 / 519 1702.3 / 1715.8 40.5 / 40.5
Output Total 1800 / 1800 2105 / 2130
Balance -740 / -740 519 / 519 -402.7 / -414.2 15.5 / 15.5
Physical Exam
Physical Exam
GEN: No distress, awake, alert, oriented x3
HEENT: mmm, anicteric
LUNGS: CTA b/l, no wheezes/rales
CV: Reg, S1/S2, 1/6 syst LSB
EXT: No clubbing, cyanosis, or edema
SKIN: Warm, dry, no rash.
--- NOTE | 2023-10-04 10:26 | PTCARENOTE ---
pt placed back to bed x2 moderate assist. L pleural CT placed to bulb suction as ordered. Med CT dc'd as ordered. dressing c/d/i. [place] care provided.
--- NOTE | 2023-10-04 11:03 | PN.DE.MGMTRT ---
Insulin Management
- -
10/04/2023: Diabetes Management Follow up
Patient admitted for chest pain and NSTEMI, s/p Cardiac cath-->severe MVD-->CABG today. PMH includes: HTN, HLD, current longtime smoker, prostate ca, Bladder outlet obstruction/intermittent catheterization, Degenerative disc disease, Depression,
T1DM, Neuropathy, Diabetic Retinopathy, hypothyroidism,
Patient is in the OR at time of my visit.
He uses an insulin pump- Medtronic 670G with NovoLog insulin and a CGM-[employer] G6 for glucose monitoring, last A1C was 7.5% on 07/02/23.
He is noted for significant immobility, states he uses a scooter at home due to Neuropathy and ambulatory dysfunction with difficulty walking and can not exercise.
Patient is awake, alert and oriented this AM in bed. Daughter at bedside. Patient to be maintained on glycemic protocol until after dinner 10/05/2023 then back to insulin pump. Current insulin requirements 1.1 to 4 units of insulin per hour,
glucose well controlled 97 to 130. I spoke to patient nurse and HARBOUR MASTER regarding transition back to insulin pump tomorrow after dinner. Pump to be started then insulin infusion off 1 hour later.
Diabetes History
- -
Type of Diabetes: 2 requiring insulin
Pre-Admission Diabetes Regimen
10/03/23 10/04/23
12:49 03:05
Creatinine 1.1 1.0
Lab Results
Hemoglobin A1c Cancelled 10/01/23 17:37
Insulin Pump Settings
IP Diabetes Regimen
10/03/23 10/03/23 10/03/23
12:49 12:53 14:11
Glucose 172 H
POC Glucose 196 H 169 H
10/03/23 10/03/23 10/03/23
14:58 16:05 16:56
Glucose
POC Glucose 170 H 142 H 129 H
10/03/23 10/03/23 10/03/23
18:55 21:11 22:06
Glucose
POC Glucose 130 H 119 H 103 H
10/03/23 10/03/23 10/04/23
23:08 23:53 01:08
Glucose
POC Glucose 113 H 105 H 97
10/04/23 10/04/23 10/04/23
03:05 05:03 07:04
Glucose 109 H
POC Glucose 110 H 114 H 115 H
10/04/23
09:23
Glucose
POC Glucose 123 H
Meal type: Breakfast
Amount consumed: 100%
Patient Education
[2023-10-04 11:15] LABS: Glucose - Point of Care 93 mg/dl (70-99)
--- NOTE | 2023-10-04 12:02 | W.PN.INTV ---
Today's Communication / Plan
Recommendations
Pain control
Up OOB as tolerated
DuoNebs prn
Maintain BG 140�180 and wean off insulin drip tomorrow after SQ insulin pump is placed back onto patient
Fitness And Wellness Coordinator service will continue to follow along while patient remains CVICU status. Once he is transferred to CVICU�telemetry status, then we will sign off at that time.
Assessment
-
Assessment: 73-year-old male with a PMHx of hypertension, hypothyroidism, lumbar DDD, history of prostate cancer, and chronic urinary retention with CIC who presents with midsternal chest pain rating into his back x [address] of the chest
was negative for an acute PE and showed severe coronary artery calcifications. Initial labs showed an elevated troponin of 5.[address] depressions in his lateral precordial leads with possibly old inferior [place]. Patient diagnosed with
NSTEMI, started on heparin drip and aspirin was given with cardiology consulted. LHC performed on 09/30 showing an elevated LVEDP at 24 mmHg, with moderate aortic stenosis and severely calcific multivessel CAD involving LM artery. Cardiothoracic
surgery was consulted and on 10/03/2023 patient underwent CABG x 3 with CHIKA clipping. There were no complications and patient was transferred to the CVICU postoperatively with forest biometrics professor/pulmonary services consulted for additional
management/recommendations.
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
trochanteric bursitis, left IT band syndrome, anxiety/depression
Impression:
#NSTEMI s/p CABG x3 (POD#1)
#Moderate aortic stenosis and mild-moderate MR
#Anemia
#Hyponatremia - resolved
#DM type II c/b hyperglycemia (uncontrolled DM with HbA1C: 7.9)
#Tiny bilateral centrilobular nodules with mild bilateral upper lobe peribronchial thickening, likely related to smoking with respiratory bronchiolitis-ILD
#Tobacco use disorder with 1paraseptal emphysema (no evidence of COPD given pre-BD FEV1/FVC 71, however there is significant small airway improvement with BD, hence he may have asthma vs RAD)
#Mild restrictive lung disease
Plan:
Tolerated extubation
Maintain SpO2 >94%
Encourage incentive spirometry
Increase activity
Aspiration precautions
Given his spirometry findings suspicious for reactive airway disease, would give DuoNebs as needed - currently he is not bronchospastic
He ultimately should have a repeat CT chest in 3 months to assess for worsening of his bilateral nodules. If this is due to RB�ILD then tobacco cessation will resolve these nodules. He should follow-up with us as an outpatient for PFTs as well.
Pulmonary artery catheter and arterial line already removed
Pressors have been weaned
Continue to monitor chest tube output - left pleural chest tube is now placed to bulb suction; mediastinal chest tube has been removed
Follow hemoglobin
Continue to follow platelet count and coags
Transfuse blood product if needed to maintain Hb >7, plt>[address] managing chest tubes as well
Goal LDL<70 with high-intensity statin
Given his NSTEMI and DM type II, continue BB and would start IGOR-I/ARB when clinically safe to do so
DAPT
Replete K>4, Mg>2, PO4>3
Follow blood sugar with goal BG 140�180
He is still on insulin drip and this will be weaned off tomorrow after he is being placed back onto his subcutaneous insulin pump
In interim, continue insulin supplementation continues as needed
Early nutrition
Early mobilization
DVT prophylaxis
Fitness And Wellness Coordinator service will continue to follow along while patient remains CVICU status. Once he is transferred to CVICU�telemetry status, then we will sign off at that time.
Reviewed the patient's pertinent medical records including radiographs, microbiology, laboratory evaluations, and discussion with primary team, and critical care nursing.
Critical care statement: A total of 37 minutes of critical care time was provided for this patient today. This includes management of ventilator, spontaneous breathing trial, arterial blood gases, pressors, of unstable vital signs, evaluation of the
patient at bedside, reviewing the patient's pertinent medical records including radiographs, microbiology, laboratory evaluations, and discussion with primary team and critical care nursing.
Data:
CXR 10-03-2023:
Postop cardiothoracic surgery with support apparatus, as noted above.
No pneumothorax.
CXR 10-04-2023: Improved aeration.
CTA Chest 10-01-2023:
1. No CTA evidence for an acute pulmonary thromboembolism.
2. Tiny bilateral centrilobular nodules with a bilateral upper lung zone distribution and mild bilateral upper lobe peribronchial thickening, which may be secondary to an infectious bronchiolitis, hypersensitivity pneumonitis, or respiratory
bronchiolitis interstitial lung disease.
3. Severe coronary artery calcifications.
4. Mild esophageal wall thickening, nonspecific but can be seen in the setting of esophagitis.
Spirometry: 10/02/2023
FEV1/FVC: 71 --> 68
FEV1: 65% --> 70% (2.36L) with BD (+9% change)
FVC: 66% --> 76% (3.45L) with BD (+13% change)
SRO19-90%: 59% --> 80% (+36% change)
Subjective Dataa
Subjective Data
Date of Service:
Date of Service: October 04, 2023
Chief Complaint: Fitness And Wellness Coordinator Follow Up
Subjective:
Patient seen and evaluated today in afternoon. He remains on insulin drip at 7 units/h. According to the family who are at bedside (daughter - Regine- and oldest daughter - Nellie), he has a subcutaneous insulin pump that he will be placing back onto
himself tomorrow. He was told to remove it prior to surgery so that is why he does not currently have it on. He is tired today and as per the bedside nurse, this is due to him getting Flexeril today. Current BP is 116/60, heart rate 75. He is on
room air breathing comfortably. Right�IJ cordis in place. Patient denies any headache, shortness of breath, abdominal pain, nausea, diarrhea, fevers or chills.
Review of Systems
General: Other (Negative unless mentioned above)
Objective Data
Data Reviewed
Vital Signs / I&O / Oxygen:
Vital Signs
Temp Pulse Resp BP Pulse Ox
98.5 F 75 18 116/60 98
10/04/23 15:53 10/04/23 17:40 10/04/23 15:53 10/04/23 17:00 10/04/23 17:00
Intake and Output
10/03/23 10/04/23 10/05/23
06:59 06:59 06:59
Intake Total 519 / 519 1702.3 / 1715.8 244.6 / 244.6
Output Total 2105 / 2130 310 / 310
Balance 519 / 519 -402.7 / -414.2 -65.4 / -65.4
SaO2 [CPAP/PSV] 100
SaO2 [SIMV] 100
SaO2 98
Nasal Cannula flow liters per 2
minute
Physical Exam
General: Respiratory Distress (Negative) and Comfortable
HEENT: Normocephalic and Anicteric
Cardiovascular: S1-S2 and Peripheral Edema (Negative)
Respiratory: Wheeze (Negative), Crackles (Negative), Rhonchi (Negative) and Non-Labored Respirations
GI: Soft, Non Distended and Non Tender
Neurology: Lethargic (Easily arousable to voice and following all commands, answering my questions appropriately)
Skin: Warm, Dry, Cyanosis (Negative) and Other (Midline vertical scar seen at sternum)
Labs/Micro/Reports
Lab Data
10/04/23 03:05
10/04/23 03:05
Microbiology
10/03/23 07:46 Urine Urine Culture - Final
No Significant Growth
10/01/23 21:58 Urine Urine Culture - Final
Serratia marcescens
[2023-10-04] MEDS: DITROPAN 5 MG PO (12:09)
[2023-10-04] MEDS: NSS 500 IV (12:23)
[2023-10-04] MEDS: NOVOLOG FLEXPEN 4 UNITS SC ×2 (12:24→17:56)
--- NOTE | 2023-10-04 12:30 | PTCARENOTE ---
pt VSS, OOB to chair x2 w/ PT/OT. daughters at bedside. IS encouraged.
[2023-10-04] MEDS: FLEXERIL 5 MG PO (12:53)
--- NOTE | 2023-10-04 13:03 | W.PN.URO.CBU ---
Today's Communication / Plan
-
Maintain luciano
Outpatient follow up to discuss catheter management
Assessment / Plan
-
73M with complex urethral stricture disease s/p prior urethroplasty with buccal mucosa graft
Currently voids via CIC with 16Fr catheter
Urology consulted for poorly draining catheter placed intraoperatively
Bulbar urethral trauma noted on cystoscopy and 16Fr [place] catheter placed into true lumen
Minimal hematuria post placement now resolved
- Maintain luciano catheter through discharge
- Catheter will need to be exchanged in about 4 weeks via cystoscopy or under anesthesia while healing urethral trauma. He should not resume CIC.
- Office will call to schedule follow up
Diagnosis
-
Date of Service: October 04, 2023
-
Patient Diagnosis:
Urethral stricture
Chronic urinary retention
Urethral trauma
Post Op Day:
Subjective
-
Feeling well, no events overnight
Objective
-
Vital Signs
Temp Pulse Resp BP Pulse Ox
98.5 F 84 16 124/42 97
10/04/23 08:00 10/04/23 12:20 10/04/23 12:00 10/04/23 12:00 10/04/23 12:00
Intake and Output
10/03/23 10/04/23 10/05/23
06:59 06:59 06:59
Intake Total 519 / 519 1702.3 / 1715.8 79.2 / 79.2
Output Total 2105 / 2130 170 / 170
Balance 519 / 519 -402.7 / -414.2 -90.8 / -90.8
Intake:
Oral fluids 480 / 480 480 / 480
IV fluids (Total) 39 / 39 562.3 / 575.8 79.2 / 79.2
CO 0 / 0
Cordis 180 / 190 60 / 60
Insulin 54.5 / 58.0 19.2 / 19.2
Levo 131.8 / 131.8
Precedex 36.0 / 36.0
VIP 160 / 160
heparin 39 / 39
IV piggybacks 160 / 160
Blood Products 500 / 500
Albumin 5% 500 / 500
Output:
CT Output (Total) 30 / 30
Left Anterior 30 / 30
Multi-Chest Tube to Single 500 / 510 50 / 50
Drain Output
Mediastinal Left Pleural 500 / 510 50 / 50
Urine, Luciano 1605 / 1620 90 / 90
Other:
Number of approximated LARGE 1
amounts of urine
Laboratory Results
10/04/23 03:05
10/04/23 03:05
Physical Exam
-
General - well developed, well nourished, no acute distress
Chest - clear
Abdomen - soft, non-tender
Luciano in place, clear urine
Skin - warm & dry with no rash
Neuro - AOx3, no motor deficits
[2023-10-04 14:21] LABS: Glucose - Point of Care 165 mg/dl (70-99)
[2023-10-04] MEDS: FERRLECIT 110 MG IV (14:31)
--- NOTE | 2023-10-04 15:14 | CM ---
Reviewed chart. Met with Mr. Patricia and his daughter to review discharge plans. Telephone call to [facility] to check on bed availability on Saturday. [facility] states they will have a bed available, but will need to
check with them on Saturday. Will need to send updated physical and occupational therapy note to [facility]. Updated Mr. Patricia and daughter regarding SNF/Rehab. bed. Prior to admission he resides alone in a one story home with one step to
enter. Prior to admission he ambulated short distances with a rolling walker and uses an electric scooter for longer distances. Medical work-up in progress/ The discharge plan is to go to SNF/Rehab. at [facility] if bed available and
medically stable.
[2023-10-04 15:59] LABS: Glucose - Point of Care 164 mg/dl (70-99)
--- NOTE | 2023-10-04 16:10 | PTCARENOTE ---
pt VSS, resting between care. RLE IGOR bandage removed. repositioned in the chair.
[2023-10-04 17:53] LABS: Glucose - Point of Care 103 mg/dl (70-99)
[2023-10-04] MEDS: LIPITOR 80 MG PO (18:02)
--- NOTE | 2023-10-04 20:00 | PTCARENOTE ---
Received pt from [facility]; pt resting comfortably in bed; pt is AAOx4, no complains of pain; NSR with 1st degree AVB and RBBB, VSS; heart sounds audible, radial pulse palpable, DP pulses audible with doppler, no edema noted, temp epicardial V-wires
are set to rate of 40, MA of 5, Mv of 7; lungs CTA, diminished at b/l bases, spo2 95 on RA, x1 left pleural CT to bulb; + BS x4 quadrants, abdomen soft non tender; pt voiding clear yellow urine via luciano catheter; surgical sited and dressings
maintained; left PIV and right IJ cordis maintained; insulin infusing; call farrell within reach; will continue to monitor.
[2023-10-04 20:10] LABS: Glucose - Point of Care 87 mg/dl (70-99)
[2023-10-04 21:56] LABS: Glucose - Point of Care 130 mg/dl (70-99)
[2023-10-04] MEDS: NEURONTIN 200 MG PO (21:58)
[2023-10-05] VITALS (28 sets, daily range): BP systolic 96–149; BP diastolic 43–75; PULSE 88–94; BMI 27.2
--- NOTE | 2023-10-05 | PTCARENOTE ---
Pt assessment unchanged; NSR [id number] degree AVB and RBBB; VSS; pt resting comfortably in bed; call farrell within reach; will continue to monitor.
[2023-10-05 00:23] LABS: Glucose - Point of Care 88 mg/dl (70-99)
[2023-10-05 02:06] LABS: Glucose - Point of Care 118 mg/dl (70-99)
--- NOTE | 2023-10-05 03:24 | W.PN.CT ---
Today's Communication / Plan
-
-No major issues overnight. Hemodynamically and neurologically intact
-On insulin, will transition off today per protocol and transfer to telemetry phase
-Diabetes education/management following
-Has urethral stricture with difficult luciano insertion intraop, luciano re-inserted via cystoscopy by Urology @ bedside postop, maintain luciano x 4 wks per Urology
-Monitor urine output, 24hr 600 mL
-Consider d/c of remaining chest tube: L pleural 60/100
-Maintain temporary pacer wire (will cut before d/c home)
-Maintain cordis another day
-Cont. current meds (ASA, Plavix, Lopressor, Lipitor, Synthroid)
-Monitor h/h 8.1/22.8, denies lightheadedness/dizziness
-Encourage use of IS
-OOB into chair/Ambulate
-PT/O following, eventual SNF placement
Assessment / Plan
-
- NSTEMI, LM-CAD - s/p Cabg x 3 (pacheco- lad, svg - om1, svg - pda); R evh; LAAE #35 clip on 10/03/[address] Smith, pod #2
- TIMOTHY with preserved EF, non new wma. Ale without clot, completely occluded, no flow post clip
- HTN/HLD
- IDDM, uses insulin pump
- Severe b/l lower extremity peripheral neuropathy
- Pre-existing 1st degree AVB and RBBB
- DDD
- hx prostate CA s/p TURP x2 (2014 & 2016), second one complicated by ureter damage & need for suprapubic catheter (healed)
- subsequent chronic urinary retention with self catheterization
- Recent serratia marcescens UTI, culture 10/03/23 is negative
- hypothyroidism
- tobacco abuse (~50 PYH, 1 PPD current)
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
- hx falls/gait disturbance (2/2 neuropathy)
- ambulatory dysfunction, uses walker & scooter regularly
- chronic opioid use, for LE neuropathy; pt reports ~2 tabs Percocet per WEEK
- insomnia
- hx appendectomy
- hx cholecystectomy
- hx R elbow ORIF
- Complex urethral stricture disease with prior urethroplasty with buccal mucosa graft- S/p postop bedside cystoscope with placement of a 16Fr coude catheter draining 800cc by Dr. Bose on 10/03/23
-pt will be discharged with Luciano catheter and will not resume self-catheterization.
-catheter will need to be exchanged in about 4 weeks via cystoscopy or under anesthesia while healing urethral trauma.
- Acute postop blood loss anemia - no acute bleeding
- Acute postop atelectasis
- Acute postop hypovolemia with subsequent hypervolemia
Discussed patient care with: Cardiology, Nursing, Respiratory Therapy, Pharmacy and Care Team
Subjective
Procedure
Cabg x 3 (pacheco- lad, svg - om1, svg - pda); R evh; LAAE #35 clip on 10/03/[address] Smith
-
Date of Service: October 05, 2023
Pt c/o mild incisional pain, otherwise feels well
Objective Data
-
PT 15.8 Sec (11.4-14.6) H 10/03/23 12:49
INR 1.26 10/03/23 12:49
APTT 29.7 Sec (23.4-35.0) 10/03/23 12:49
Vital Signs
Vital Signs
Temp Pulse Resp BP Pulse Ox
98.4 F 86 12 137/54 96
10/05/23 00:00 10/05/23 02:00 10/05/23 02:00 10/05/23 02:00 10/05/23 02:00
CT Intake/Output/Weight
10/04/23 10/04/23 10/05/23
06:59 18:59 06:59
Intake Total 860.1 / 1715.8 244.6 / 327.7 83.1 / 327.7
Output Total 660 / 2130 310 / 620 310 / 620
Balance 200.1 / -414.2 -65.4 / -292.3 -226.9 / -292.3
SaO2: 96 (RA)
Physical Exam
-
General: Awake, Oriented and AOx3
Cardiovascular: Regular rate & rhythm, No Murmurs, Rub (likely from chest tubes) and No Gallop
Respiratory: Decreased Breath Sounds (at bases, otherwise clear)
Sternum: Stable
Incision: Clean, Dry, Intact and Dressing Intact
Extremities: Other (+trace edema)
Data Reviewed
-
Lab Results: Results Reviewed
Medications: Active Meds Reviewed
Chest X-Ray: Report Reviewed and Image Reviewed
ECG: Report Reviewed and Image Reviewed
[2023-10-05] MEDS: ULTRAM 50 MG PO ×3 (03:53→19:50)
--- NOTE | 2023-10-05 04:00 | SUR.PHASEI ---
Pt assessment unchanged; pt resting in bed, complains of 7/10 pain, see MAR for management; AM lab work is drawn and sent; pt repositioned, call farrell within reach; will continue to monitor.
[2023-10-05 04:05] LABS: Hematocrit 22.8 % (39.0-52.0); Hemoglobin 8.1 g/dL (13.0-18.0); Mean Corp Hgb Conc. 35.5 g/dL (33.0-37.0); Mean Corpuscular Hgb 31.8 pg (27.0-31.0); Mean Corpuscular Volume 89.4 fL (80.0-94.0); Mean Platelet Volume 11.2 fL (7.4-10.4); Platelet Count 163 10^3/uL (130-400); Red Blood Cell Count 2.55 10^6/uL (4.70-6.10); Red Cell Dist. Width 12.8 % (11.5-14.5); White Blood Cell Count 21.7 10^3/uL (4.8-10.8)
[2023-10-05 04:07] LABS: Glucose - Point of Care 98 mg/dl (70-99)
[2023-10-05 04:28] LABS: Blood Urea Nitrogen 39 mg/dl (9-20); Calcium 9.1 mg/dl (8.4-10.2); Carbon Dioxide 23 mmol/L (22-30); Chloride 104 mmol/L (98-107); Estimated Creatinine Clearance 55 ml/min; Glucose 84 mg/dl (70-99); Magnesium 2.3 mg/dl (1.6-2.3); Potassium 4.3 mmol/L (3.5-5.1); Sodium 134 mmol/L (135-145); eGFR 57.65
[2023-10-05 06:01] LABS: Glucose - Point of Care 118 mg/dl (70-99)
[2023-10-05] MEDS: TYLENOL 1000 MG PO ×3 (06:06→22:03)
[2023-10-05] MEDS: SYNTHROID 125 MCG PO (06:06)
--- NOTE | 2023-10-05 08:00 | PTCARENOTE ---
Patient received from paediatric surgeon resting oob in chair, sleepy but arousable and appropriate. NSR via cm, SaO2 @ 95% on RA. RIJ Cordis w/kvo infusing. Epicardial V-wire to pulse generator set to backup rate 45bpm, no spikes noted. L pleural chest
tube to bulb evacuator, scant drainage noted. Laguna catheter to gravity. All procedural sites stable. Insulin gtt infusing peripherally, titrating per glycemic protocol. Dr. Lindquist and team to bedside, patient updated to plan of care for the day, in
agreement. See work list for full assessment and interventions performed.
[2023-10-05 08:02] LABS: Glucose - Point of Care 164 mg/dl (70-99)
[2023-10-05] MEDS: LIDOCAINE 4% PATCH 1 PATCH TOPICAL (08:52)
[2023-10-05] MEDS: BACTROBAN 2% OINTMENT 1 APPLIC NASAL ×2 (08:52→19:51)
[2023-10-05] MEDS: NOVOLOG FLEXPEN 4 UNITS SC ×3 (08:52→17:25)
[2023-10-05] MEDS: VITAMIN D3 (cholecalciferol) 50 MCG PO (08:53)
[2023-10-05] MEDS: NSS 500 IV (08:53)
[2023-10-05] MEDS: SENOKOT-S 1 TABLET PO ×2 (08:53→19:50)
[2023-10-05] MEDS: MAGNESIUM OXIDE 500 MG PO ×2 (08:53→19:50)
[2023-10-05] MEDS: PROTONIX 40 MG PO (08:53)
[2023-10-05] MEDS: PLAVIX 75 MG PO (08:53)
[2023-10-05] MEDS: NEURONTIN 200 MG PO ×3 (08:53→22:03)
[2023-10-05] MEDS: LOPRESSOR 12.5 MG PO (08:53)
[2023-10-05] MEDS: LOW STRENGTH ASPIRIN 81 MG PO (08:53)
[2023-10-05] MEDS: LOPRESSOR 5 MG IV (09:24)
--- NOTE | 2023-10-05 09:25 | W.PN.INTV ---
Today's Communication / Plan
Recommendations
Pain control
Up OOB as tolerated
DuoNebs prn
Patient being weaned off of insulin drip tonight after his subcutaneous pump is placed back on
Maintain BG 140�180
Considering patient is being weaned off insulin drip later this evening, and then being downgraded to telemetry, line builder/pulmonary service will now sign off. If for some reason he does not get weaned off insulin drip then we can continue to
follow. Please reconsult if there are any additional questions/concerns or if respiratory status deteriorates.
Assessment
-
Assessment: 73-year-old male with a PMHx of hypertension, hypothyroidism, lumbar DDD, history of prostate cancer, and chronic urinary retention with CIC who presents with midsternal chest pain rating into his back x [address] of the chest
was negative for an acute PE and showed severe coronary artery calcifications. Initial labs showed an elevated troponin of 5.[address] depressions in his lateral precordial leads with possibly old inferior MD. Patient diagnosed with
NSTEMI, started on heparin drip and aspirin was given with cardiology consulted. LHC performed on 09/30 showing an elevated LVEDP at 24 mmHg, with moderate aortic stenosis and severely calcific multivessel CAD involving LM artery. Cardiothoracic
surgery was consulted and on 10/03/2023 patient underwent CABG x 3 with CHIKA clipping. There were no complications and patient was transferred to the CVICU postoperatively with line builder/pulmonary services consulted for additional
management/recommendations.
Chronic medical conditions SMOKED MEAT PREPARER: Hypertension, DM type II, tobacco use disorder, hyperlipidemia, hypothyroidism, history of prostate cancer s/p surgery, chronic urinary retention with CIC, DDD involving lumbar spine, peripheral neuropathy, left hip
trochanteric bursitis, left IT band syndrome, anxiety/depression
Impression:
#NSTEMI s/p CABG x3 (POD#2)
#Moderate aortic stenosis and mild-moderate MR
#New onset A-fib now on amio gtt
#Anemia
#Hyponatremia
#DM type II c/b hyperglycemia (uncontrolled DM with HbA1C: 7.9)
#Tiny bilateral centrilobular nodules with mild bilateral upper lobe peribronchial thickening, likely related to smoking with respiratory bronchiolitis-ILD
#Tobacco use disorder with 1paraseptal emphysema (no evidence of COPD given pre-BD FEV1/FVC 71, however there is significant small airway improvement with BD, hence he may have asthma vs RAD)
#Mild restrictive lung disease
Plan:
Tolerated extubation
Maintain SpO2 >94%
Encourage incentive spirometry
Increase activity as tolerated
Aspiration precautions
Given his spirometry findings suspicious for reactive airway disease, would give DuoNebs as needed - currently he is not bronchospastic
He ultimately should have a repeat CT chest in 3 months to assess for worsening of his bilateral nodules. If this is due to RB�ILD then tobacco cessation will resolve these nodules. He should follow-up with us as an outpatient for PFTs as well.
Pulmonary artery catheter and arterial line already removed
Pressors have been weaned
Continue amiodarone as per cardiology and rate control with goal heart rate <110
Replete electrolytes with K>4, Mg>2, PO4>3
Left pleural chest tube has been removed as of this morning
Follow hemoglobin
Continue to follow platelet count and coags
Transfuse blood product if needed to maintain Hb >7, plt>50 K
Goal LDL<70 with high-intensity statin
Given his NSTEMI and DM type II, continue BB and would start IGOR-I/ARB when clinically safe to do so
DAPT
Follow blood sugar with goal BG 140�180
He is still on insulin drip and this will be weaned off tonight after being placed back onto his subcutaneous insulin pump
In interim, continue IV insulin gtt with additional supplementation as needed
Early nutrition
Early mobilization
DVT prophylaxis
Considering patient is being weaned off insulin drip later this evening, and then being downgraded to telemetry, line builder/pulmonary service will now sign off. If for some reason he does not get weaned off insulin drip then we can continue to
follow. Please reconsult if there are any additional questions/concerns or if respiratory status deteriorates.
Reviewed the patient's pertinent medical records including radiographs, microbiology, laboratory evaluations, and discussion with primary team, and critical care nursing.
Total time spent today was 55 minutes for this encounter. Time includes reviewing laboratory test/imaging results, reviewing pertinent medical records, obtaining and reviewing medical history, performing an appropriate exam, ordering medications,
tests and procedures. Time also includes documentation of this encounter, coordinating patient care and communicating with other healthcare professionals. Total time does not include separately billed tests performed on this date of service.
Data:
CXR 10-03-2023:
Postop cardiothoracic surgery with support apparatus, as noted above.
No pneumothorax.
CXR 10-04-2023: Improved aeration.
CXR 10-05-2023:
Slightly diminished degree of inspiration with lower lung volumes than that seen previously.
Minor increased attenuation in the retrocardiac left lower lobe with partial obscuration left diaphragm. Atelectasis versus subtle pneumonia.
A chest tube remains situated at the lower left hemithorax, similar to prior examination.
The cardiac mediastinal margins are stable. No pneumothorax. Right internal jugular central venous catheter remains in place.
CTA Chest 10-01-2023:
1. No CTA evidence for an acute pulmonary thromboembolism.
2. Tiny bilateral centrilobular nodules with a bilateral upper lung zone distribution and mild bilateral upper lobe peribronchial thickening, which may be secondary to an infectious bronchiolitis, hypersensitivity pneumonitis, or respiratory
bronchiolitis interstitial lung disease.
3. Severe coronary artery calcifications.
4. Mild esophageal wall thickening, nonspecific but can be seen in the setting of esophagitis.
Spirometry: 10/02/2023
FEV1/FVC: 71 --> 68
FEV1: 65% --> 70% (2.36L) with BD (+9% change)
FVC: 66% --> 76% (3.45L) with BD (+13% change)
FGM28-93%: 59% --> 80% (+36% change)
Subjective Dataa
Subjective Data
Date of Service:
Date of Service: October 05, 2023
Chief Complaint: Basting Marker Follow Up
Subjective:
Patient seen and evaluated today at bedside. He is on amiodarone at 1 mg/min and insulin drip at 3.5 units/h. Plan is to place his insulin pump back onto him tonight before dinner. And then at that time insulin drip will to be turned off.
Current BP 117/50. Chest tube (left pleural) were removed today. He feels well. Went into A-fib this morning and amiodarone was started. Denies headache, shortness of breath, abdominal pain, fevers or chills.
Review of Systems
General: Other (Negative less mentioned above)
Objective Data
Data Reviewed
Vital Signs / I&O / Oxygen:
Vital Signs
Temp Pulse Resp BP Pulse Ox
98.5 F 67 15 126/47 96
10/05/23 12:00 10/05/23 13:00 10/05/23 12:00 10/05/23 13:00 10/05/23 12:40
Intake and Output
10/04/23 10/05/23 10/06/23
06:59 06:59 06:59
Intake Total 1702.3 / 1715.8 856.9 / 870.4 765.2 / 765.2
Output Total 2105 / 2130 830 / 855 165 / 165
Balance -402.7 / -414.2 26.9 / 15.4 600.2 / 600.2
SaO2 [CPAP/PSV] 100
SaO2 [SIMV] 100
SaO2 96
Nasal Cannula flow liters per 2
minute
Physical Exam
General: Respiratory Distress (Negative) and Comfortable
HEENT: Normocephalic and Anicteric
Cardiovascular: Irregular Rhythm and Peripheral Edema (Negative)
Respiratory: Wheeze (Negative), Crackles (Negative), Rhonchi (Negative) and Non-Labored Respirations
GI: Soft, Non Distended and Non Tender
Neurology: Awake and Alert
Skin: Warm, Dry, Cyanosis (Negative) and Other (Midline vertical scar seen at sternum)
Labs/Micro/Reports
Lab Data
10/05/23 03:58
10/05/23 03:58
Microbiology
10/03/23 07:46 Urine Urine Culture - Final
No Significant Growth
10/01/23 21:58 Urine Urine Culture - Final
Serratia marcescens
--- NOTE | 2023-10-05 09:47 | W.PN.CARDCBS ---
Addendum entered and electronically signed by Javy Childs MD 10/05/23 10:33:
I saw and examined the patient.
The Glass Worker's note was reviewed and I agree with the note.
Comment:
GEN: No distress, awake, Ox3
HEENT: supple, anicteric, mmm
LUNGS: scatt rhonchi
CV: irreg, S1/S2, 1/6 syst LSB, no rub
ABD: soft, BS+, NT/ND
EXT: No edema
NEURO: Gross non-focal
SKIN: sternotomy
Plan:
Went into A-fib this morning. Now on amiodarone IV. Hopefully converts back into sinus rhythm.
Cont Metoprolol. Cont ASA/Plavix.
Creat 1.3.
Original Note:
Today's Communication / Plan
-
New to Afib starting this AM, on amio gtt and PO now
Pending course of Afib will need to decide on OAC
Impression / Plan
-
PCP: Dr. Emil Sibley
Cardiology: None prior to admission
Impression:
Chest pain
NSTEMI, peak Troponin 7.45
MV CAD
s/p CABG x3 (HENNESSY - LAD, SVG - OM1, SVG - PDA), CHIKA clip 10/03/2023
Paroxysmal Afib, started 10/05/23 AM
HTN
DM 2
Chronic back pain with daily oxycodone use
Hypothyroid and h/o Grave's disease
Hyperlipidemia
RBBB
Bladder outlet obstruction/intermittent catheterization
Active smoker
Mild-moderate
Echo 10/02/23: EF 55-60%, mild , mild to moderate MR
Plan:
-Patient noted to go into Afib around 0900 on 10/05/23. He was given Lopressor 5 mg IV x1 and then started on an amiodarone gtt and amiodarone 200 mg PO TID. Check ECG in AM.
-No h/o Afib and not chronically anticoagulated prior to admission. Currently ordered aspirin and Plavix for NSTEMI
-Patient is having chest tubes pulled 10/05/23, some mild left should discomfort is expected to improve with this.
-Troponin peaked at 7.45. Managed as a NSTEMI.
-LDL was 52. Outpatient dose of simvastatin 40 mg daily changed to atorvastatin 80 mg daily
-Outpatient dose of amlodipine stopped. New to Lopressor 25 mg BID post-op.
-Laguna catheter had to be replaced by urology with fiberoptic scope and the plan is for 4 weeks of Laguna and then urology office visit for voiding trial
-HgbA1c is 7.9% with known DM 2 using an insulin pump as an outpatient
HPI: Patient came to [facility] with chest pain for the last 4-5 days and cardiology has been consulted for elevated Troponin. Patient with chest pain that radiates to his back. Pain usually starts when he awakens and he has taken ibuprofen, Tylenol and
oxycodone for relief at different times. No change in pain with change in position. Pain can last for more than an hour. SOB with pain and he is also an active smoker for almost 60 years. DM 2 managed with insulin pump. He has HTN and takes
amlodipine 10 mg daily. He takes simvastatin 40 mg daily for hyperlipidemia. He has never been to before. Initial Troponin was 5.43. CT was negative for PE. ECG reviewed by me with RBBB of unknown chronicity and inferior T wave inversions.
Progress Note - Payroll Secretary
Subjective
Date of Service: October 05, 2023
He has left shoulder pain
Objective
Labs:
10/05/23 03:58
10/05/23 03:58
Labs
Hgb 8.1 g/dL (13.0-18.0) L 10/05/23 03:58
Hct 22.8 % (39.0-52.0) L 10/05/23 03:58
Plt Count 163 10^3/uL (130-400) 10/05/23 03:58
PT 15.8 Sec (11.4-14.6) H 10/03/23 12:49
INR 1.26 10/03/23 12:49
APTT 29.7 Sec (23.4-35.0) 10/03/23 12:49
Sodium 134 mmol/L (135-145) L 10/05/23 03:58
Potassium 4.3 mmol/L (3.5-5.1) 10/05/23 03:58
BUN 39 mg/dl (9-20) H 10/05/23 03:58
Creatinine 1.3 mg/dL (0.7-1.3) 10/05/23 03:58
Glucose 84 mg/dl (70-99) 10/05/23 03:58
Vital Signs and I&O:
Vital Signs
Temp Pulse Resp BP Pulse Ox
98.3 F 89 14 120/48 95
10/05/23 08:00 10/05/23 08:53 10/05/23 08:00 10/05/23 09:24 10/05/23 08:07
Vital Signs
Temp Pulse Resp BP Pulse Ox
98.3 F 89 14 120/48 95
10/05/23 08:00 10/05/23 08:53 10/05/23 08:00 10/05/23 09:24 10/05/23 08:07
Intake & Output
10/03/23 10/04/23 10/05/23 10/06/23
06:59 06:59 06:59 06:59
Intake Total 519 / 519 1702.3 / 1715.8 856.9 / 870.4 280.5 / 280.5
Output Total 2105 / 0 830 / 855 50 / 50
Balance 519 / 519 -402.7 / -414.2 26.9 / 15.4 230.5 / 230.5
Physical Exam
Physical Exam
GEN: NAD, AAOx3
HEENT: MMM
LUNGS: No audible wheeze
CV: Irreg irreg
ABD: ND
EXT: No edema B/L
NEURO: Gross non-focal
SKIN: No rash
[2023-10-05] MEDS: CORDARONE 518 MG IV (09:51)
[2023-10-05 09:58] LABS: Glucose - Point of Care 139 mg/dl (70-99)
[2023-10-05] MEDS: NOVOLIN R INSULIN INFUSION 100 IV (11:51)
[2023-10-05 12:02] LABS: Glucose - Point of Care 96 mg/dl (70-99)
--- NOTE | 2023-10-05 12:06 | PTCARENOTE ---
Patient dozing comfortably, VSS. Family at bedside. PA Murt updated to u/o.
[2023-10-05] MEDS: VITAMIN C 500 MG PO (12:53)
[2023-10-05] MEDS: LR 500 IV (12:54)
[2023-10-05] MEDS: DITROPAN 5 MG PO (13:38)
[2023-10-05 14:03] LABS: Glucose - Point of Care 110 mg/dl (70-99)
[2023-10-05] MEDS: FERRLECIT 110 MG IV (14:12)
[2023-10-05 16:01] LABS: Glucose - Point of Care 129 mg/dl (70-99)
[2023-10-05] MEDS: PACERONE 200 MG PO (16:02)
--- NOTE | 2023-10-05 16:11 | PTCARENOTE ---
VS obtained, assessment stable. Patient resting comfortably oob in chair, repositioned. Daughter at bedside.
[2023-10-05] MEDS: LIPITOR 80 MG PO (17:26)
[2023-10-05 17:59] LABS: Glucose - Point of Care 98 mg/dl (70-99)
[2023-10-05] MEDS: PATIENT'S OWN INSULIN PUMP 3.20000000000000018 UNITS SC (18:18)
[2023-10-05 19:46] LABS: Glucose - Point of Care 220 mg/dl (70-99)
[2023-10-05] MEDS: LOPRESSOR 25 MG PO (19:50)
--- NOTE | 2023-10-05 20:00 | PTCARENOTE ---
NSR. VSS on RA. Remains on amiodarone gtt via cordis. Insulin gtt continued at this time per conversation with Kiesha Charles.
Pt own insulin infusion not patent - pt reprimed tubing and is infusing. Continue insulin gtt x1 hour per protocol and then turn off after BG has stabilized. Assessment per nursing flowsheet
[2023-10-05 21:08] LABS: Glucose - Point of Care 87 mg/dl (70-99)
[2023-10-05 22:04] LABS: Glucose - Point of Care 107 mg/dl (70-99)
[2023-10-05] MEDS: PACERONE PO (22:05)
[2023-10-05] MEDS: PATIENT'S OWN INSULIN PUMP 0.599999999999999978 UNITS SC (22:12)
[2023-10-06] VITALS (20 sets, daily range): BP systolic 94–136; BP diastolic 46–58; PULSE 62; BMI 28.1
[2023-10-06 00:01] LABS: Glucose - Point of Care 128 mg/dl (70-99)
--- NOTE | 2023-10-06 00:25 | PTCARENOTE ---
SB. VSS. RA. UO 15-30ml/hr gerald. BG 128. Pt resting, denies pain. Assessment unchanged.
[2023-10-06 03:44] LABS: Glucose - Point of Care 115 mg/dl (70-99)
--- NOTE | 2023-10-06 03:53 | W.PN.CT ---
Today's Communication / Plan
-
-No major issues overnight. Hemodynamically and neurologically intact
-Transitioned off insulin gtt per protocol. Now using his home insulin pump
-Diabetes education/management following
-Went into rapid afib x 3.5 hrs yesterday 10/04. Amiodarone gtt and po Amiodarone started. Lopressor increased to 25 mg po BID
-Has urethral stricture with difficult luciano insertion intraop, luciano re-inserted via cystoscopy by Urology @ bedside postop, maintain luciano x 4 wks per Urology
-Monitor urine output, 24hr 565 mL
-Maintain temporary pacer wire (will cut before d/c home)
-D/C cordis after completion of Amiodarone gtt
-Cont. current meds (ASA, Plavix, Amiodarone, Lopressor, Lipitor, Synthroid)
-Monitor h/h 7.6/, c/o lightheadedness/dizziness with standing. Will benefit from 1u PRBC followed by IV Lasix, has +1 pitting edema
-Postop EVON, 1.4, was 1.3 yesterday and 0.9 preop, blood transfusion should help with renal perfusion
-Postop Hyponatremia,129, was 135 preop and 134 yesterday. Lasix should help
-Mg is 2.4, Mag oxide placed on hold
-Encourage use of IS
-OOB into chair/Ambulate
-PT/O following
-D/C to SNF ([facility]) tomorrow
Assessment / Plan
-
- NSTEMI, LM-CAD - s/p Cabg x 3 (pacheco- lad, svg - om1, svg - pda); R evh; LAAE #35 clip on 10/03/[address] Smith, pod #3
- TIMOTHY with preserved EF, non new wma. Ale without clot, completely occluded, no flow post clip
- HTN/HLD
- IDDM, uses insulin pump
- Severe b/l lower extremity peripheral neuropathy
- Pre-existing 1st degree AVB and RBBB
- DDD
- hx prostate CA s/p TURP x2 (2013 & 2016), second one complicated by ureter damage & need for suprapubic catheter (healed)
- subsequent chronic urinary retention with self catheterization
- Recent serratia marcescens UTI, culture 10/03/23 is negative
- hypothyroidism
- tobacco abuse (~50 PYH, 1 PPD current)
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
- hx falls/gait disturbance (2/2 neuropathy)
- ambulatory dysfunction, uses walker & scooter regularly
- chronic opioid use, for LE neuropathy; pt reports ~2 tabs Percocet per WEEK
- insomnia
- hx appendectomy
- hx cholecystectomy
- hx R elbow ORIF
- Complex urethral stricture disease with prior urethroplasty with buccal mucosa graft- S/p postop bedside cystoscope with placement of a 16Fr coude catheter draining 800cc by Dr. Bose on 10/03/23
-pt will be discharged with Luciano catheter and will not resume self-catheterization.
-catheter will need to be exchanged in about 4 weeks via cystoscopy or under anesthesia while healing urethral trauma.
- Acute postop blood loss anemia - no acute bleeding
- Acute postop atelectasis
- Acute postop hypovolemia with subsequent hypervolemia
- Acute postop hyponatremia, 129
- Acute postop EVON, 0.9->1.4
- Acute postop A-fib with RVR, converted with IV Lopressor and Amiodarone gtt
Discussed patient care with: Cardiology, Nursing, Respiratory Therapy, Pharmacy and Care Team
Subjective
Procedure
Cabg x 3 (pacheco- lad, svg - om1, svg - pda); R evh; LAAE #35 clip on 10/03/[address] Smith
-
Date of Service: October 06, 2023
Pt c/o mild incisional pain and lightheadedness with standing
Objective Data
-
PT 15.8 Sec (11.4-14.6) H 10/03/23 12:49
INR 1.26 10/03/23 12:49
APTT 29.7 Sec (23.4-35.0) 10/03/23 12:49
Vital Signs
Vital Signs
Temp Pulse Resp BP Pulse Ox
97.8 F 58 16 119/50 96
10/06/23 00:15 10/06/23 02:00 10/06/23 02:04 10/06/23 02:00 10/06/23 02:04
CT Intake/Output/Weight
10/05/23 10/05/23 10/06/23
06:59 18:59 06:59
Intake Total 612.3 / 870.4 1448.0 / 1791.7 343.7 / 1791.7
Output Total 520 / 855 285 / 455 170 / 455
Balance 92.3 / 15.4 1163.0 / 1336.7 173.7 / 1336.7
SaO2: 96 (RA)
Physical Exam
-
General: Awake, Oriented and AOx3
Cardiovascular: Regular rate & rhythm, No Murmurs, No Rub and No Gallop
Respiratory: Decreased Breath Sounds (at bases, otherwise clear)
Sternum: Stable
Incision: Clean, Dry, Intact and Dressing Intact
Extremities: Edema +1
Data Reviewed
-
Lab Results: Results Reviewed
Medications: Active Meds Reviewed
Chest X-Ray: Report Reviewed and Image Reviewed
ECG: Report Reviewed and Image Reviewed
--- NOTE | 2023-10-06 03:55 | PTCARENOTE ---
SB. VSS. RA. Assessment unchanged. BG 115. Denies pain. Labs obtained.
[2023-10-06 04:07] LABS: Hemoglobin 7.6 g/dL (13.0-18.0); Mean Corp Hgb Conc. 34.5 g/dL (33.0-37.0); Mean Corpuscular Hgb 31.1 pg (27.0-31.0); Mean Corpuscular Volume 90.2 fL (80.0-94.0); Mean Platelet Volume 11.5 fL (7.4-10.4); Platelet Count 172 10^3/uL (130-400); Red Blood Cell Count 2.44 10^6/uL (4.70-6.10); Red Cell Dist. Width 12.6 % (11.5-14.5); White Blood Cell Count 18.3 10^3/uL (4.8-10.8)
[2023-10-06 04:27] LABS: Blood Urea Nitrogen 55 mg/dl (9-20); Calcium 8.5 mg/dl (8.4-10.2); Carbon Dioxide 22 mmol/L (22-30); Chloride 100 mmol/L (98-107); Estimated Creatinine Clearance 51 ml/min; Glucose 101 mg/dl (70-99); Magnesium 2.4 mg/dl (1.6-2.3); Potassium 4.2 mmol/L (3.5-5.1); Sodium 129 mmol/L (135-145); eGFR 52.74
[2023-10-06] MEDS: TYLENOL 1000 MG PO ×3 (05:30→22:15)
[2023-10-06] MEDS: SYNTHROID 125 MCG PO (06:29)
[2023-10-06] MEDS: NOVOLOG FLEXPEN SC ×3 (07:12→16:52)
--- NOTE | 2023-10-06 08:17 | PTCARENOTE ---
Patient received from lifter/driver dozing in chair, arousable and oriented x 3. NSR/SB via cm, SaO2 @ 97% on RA. RIJ Cordis w/kvo, amiodarone @ 0.5mg/min. Epicardial V-wire, insulated to chest wall. All procedural sites stable. Patient own insulin
pump present, L abd. Laguna catheter to gravity. Patient updated to plan of care for the day, in agreement. See work list for full assessment and interventions performed.
[2023-10-06] MEDS: LIDOCAINE 4% PATCH 1 PATCH TOPICAL (08:46)
[2023-10-06] MEDS: PROTONIX 40 MG PO (08:47)
[2023-10-06] MEDS: VITAMIN D3 (cholecalciferol) 50 MCG PO (08:47)
[2023-10-06] MEDS: BACTROBAN 2% OINTMENT 1 APPLIC NASAL ×2 (08:47→19:55)
[2023-10-06] MEDS: LOPRESSOR 25 MG PO ×2 (08:47→20:00)
[2023-10-06] MEDS: LOW STRENGTH ASPIRIN 81 MG PO (08:47)
[2023-10-06] MEDS: SENOKOT-S 1 TABLET PO ×2 (08:49→19:55)
[2023-10-06] MEDS: PLAVIX 75 MG PO (08:49)
[2023-10-06] MEDS: NEURONTIN 200 MG PO ×3 (08:49→22:16)
[2023-10-06] MEDS: VITAMIN C 500 MG PO (08:49)
[2023-10-06 08:56] LABS: Glucose - Point of Care 99 mg/dl (70-99)
[2023-10-06] MEDS: LASIX 40 MG IV ×2 (09:52→13:28)
[2023-10-06] MEDS: PATIENT'S OWN INSULIN PUMP 10 UNITS SC (09:54)
--- NOTE | 2023-10-06 10:31 | W.PN.CARDCBS ---
Today's Communication / Plan
-
Back in sinus rhythm. Continue amiodarone and metoprolol.
Continue aspirin and Plavix. If he has further episodes of A-fib I will consider full anticoagulation
Follow hemoglobin at 7.6.
Creatinine up to 1.4. Continue to follow-up
Impression / Plan
-
PCP: Dr. Emil Sibley
Cardiology: None prior to admission
Impression:
Chest pain
NSTEMI, peak Troponin 7.45
MV CAD
s/p CABG x3 (HENNESSY - LAD, SVG - OM1, SVG - PDA), CHIKA clip 10/03/2023
Paroxysmal Afib, started 10/05/23 AM
HTN
DM 2
Chronic back pain with daily oxycodone use
Hypothyroid and h/o Grave's disease
Hyperlipidemia
RBBB
Bladder outlet obstruction/intermittent catheterization
Active smoker
Mild-moderate
Echo 10/02/23: EF 55-60%, mild , mild to moderate MR
Plan:
-Back in sinus rhythm after about 3 hours of A-fib yesterday. Continue metoprolol and amiodarone. IV amiodarone will be stopped. If he has further episodes of atrial fibrillation would start full anticoagulation.
-Currently ordered aspirin and Plavix for NSTEMI
-Hemoglobin down to 7.6. Continue to follow. May need transfusion.
-Creatinine at 1.4. Hold diuretics
-Troponin peaked at 7.45. Managed as a NSTEMI.
-LDL was 52. Outpatient dose of simvastatin 40 mg daily changed to atorvastatin 80 mg daily
-Outpatient dose of amlodipine stopped.
-Laguna catheter had to be replaced by urology with fiberoptic scope and the plan is for 4 weeks of Laguna and then urology office visit for voiding trial
-HgbA1c is 7.9% with known DM 2 using an insulin pump as an outpatient
HPI: Patient came to [facility] with chest pain for the last 4-5 days and cardiology has been consulted for elevated Troponin. Patient with chest pain that radiates to his back. Pain usually starts when he awakens and he has taken ibuprofen, Tylenol and
oxycodone for relief at different times. No change in pain with change in position. Pain can last for more than an hour. SOB with pain and he is also an active smoker for almost 60 years. DM 2 managed with insulin pump. He has HTN and takes
amlodipine 10 mg daily. He takes simvastatin 40 mg daily for hyperlipidemia. He has never been to before. Initial Troponin was 5.43. CT was negative for PE. ECG reviewed by me with RBBB of unknown chronicity and inferior T wave inversions.
Progress Note - Regional Geodetic Advisor
Subjective
Date of Service: October 06, 2023
Back in sinus rhythm today. Denies chest pains.
Objective
Labs:
Labs
Hgb 7.6 g/dL (13.0-18.0) L 10/06/23 03:39
Hct 22.0 % (39.0-52.0) L 10/06/23 03:39
Plt Count 172 10^3/uL (130-400) 10/06/23 03:39
PT 15.8 Sec (11.4-14.6) H 10/03/23 12:49
INR 1.26 10/03/23 12:49
APTT 29.7 Sec (23.4-35.0) 10/03/23 12:49
Sodium 129 mmol/L (135-145) L 10/06/23 03:39
Potassium 4.2 mmol/L (3.5-5.1) 10/06/23 03:39
BUN 55 mg/dl (9-20) H 10/06/23 03:39
Creatinine 1.4 mg/dL (0.7-1.3) H 10/06/23 03:39
Glucose 101 mg/dl (70-99) H 10/06/23 03:39
Vital Signs and I&O:
Vital Signs
Temp Pulse Resp BP Pulse Ox
98 F 55 15 105/58 97
10/06/23 08:00 10/06/23 10:00 10/06/23 08:00 10/06/23 10:00 10/06/23 10:24
Vital Signs
Temp Pulse Resp BP Pulse Ox
98 F 55 15 105/58 97
10/06/23 08:00 10/06/23 10:00 10/06/23 08:00 10/06/23 10:00 10/06/23 10:24
Intake & Output
10/04/23 10/05/23 10/06/23 10/07/23
06:59 06:59 06:59 06:59
Intake Total 1702.3 / 1715.8 856.9 / 870.4 1898.5 / 1925.2 356.8 / 356.8
Output Total 2105 / 2130 830 / 855 605 / 640 145 / 145
Balance -402.7 / -414.2 26.9 / 15.4 1293.5 / 1285.2 211.8 / 211.8
Physical Exam
Physical Exam
GEN: No distress, awake, Ox3
HEENT: supple, anicteric, mmm
LUNGS: CTA, no wheezes/rales
CV: Reg, S1/S2, 1/6 syst LSB, no gallop
ABD: soft, BS+, NT/ND
EXT: No edema
NEURO: Gross non-focal
SKIN: sternotomy
[2023-10-06 12:01] LABS: Hematocrit 23.6 % (39.0-52.0); Hemoglobin 8.2 g/dL (13.0-18.0)
--- NOTE | 2023-10-06 12:15 | PTCARENOTE ---
VS obtained, assessment stable. Daughter to bedside for visit. Ordering lunch, states pain controlled at this time.
[2023-10-06 12:38] LABS: Blood Urea Nitrogen 56 mg/dl (9-20); Calcium 8.2 mg/dl (8.4-10.2); Carbon Dioxide 23 mmol/L (22-30); Chloride 102 mmol/L (98-107); Estimated Creatinine Clearance 51 ml/min; Glucose 76 mg/dl (70-99); Potassium 4.1 mmol/L (3.5-5.1); Sodium 127 mmol/L (135-145); eGFR 52.74
[2023-10-06] MEDS: NSS IV (12:47)
--- NOTE | 2023-10-06 12:50 | PTCARENOTE ---
Patient monitor displays afib, BP stable, patient asymptomatic. PA Murt notified, orders given.
[2023-10-06 13:08] LABS: Glucose - Point of Care 75 mg/dl (70-99)
[2023-10-06] MEDS: FERRLECIT 110 MG IV (13:28)
[2023-10-06] MEDS: PACERONE 200 MG PO ×2 (13:28→16:32)
[2023-10-06] MEDS: PATIENT'S OWN INSULIN PUMP 15 UNITS SC ×2 (13:31→17:06)
--- NOTE | 2023-10-06 16:15 | PTCARENOTE ---
VS stable. Patient assisted back oob to chair, dinner ordered.
[2023-10-06 16:35] LABS: Glucose - Point of Care 93 mg/dl (70-99)
[2023-10-06] MEDS: LIPITOR 80 MG PO (17:06)
[2023-10-06] MEDS: FLEXBUMIN 50 IV (17:06)
[2023-10-06] MEDS: CORDARONE 518 MG IV (17:17)
--- NOTE | 2023-10-06 20:00 | PTCARENOTE ---
Assumed care of patient. Afib HR 45- 50s. BP stable. RA. TPW set to VVI @ 40, 5 MA, 2 sensitivity as backup. Lopressor to be given per CT PA. Amio gtt infusing via RIJ cordis. Pt assisted back to bed with RW and 2 assist. Denies pain. Laguna intact
with gerald urine. Assessment per nursing flowsheet.
[2023-10-06 21:27] LABS: Glucose - Point of Care 85 mg/dl (70-99)
[2023-10-06] MEDS: PATIENT'S OWN INSULIN PUMP SC (22:18)
[2023-10-07] VITALS (15 sets, daily range): BP systolic 121–151; BP diastolic 31–60; PULSE 58; O2SAT 95; BMI 28.4
[2023-10-07] MEDS: FLEXBUMIN 50 IV ×2 (00:03→08:28)
--- NOTE | 2023-10-07 00:03 | PTCARENOTE ---
SB, 1 degree block. VSS. RA. Denies pain, resting comfortable. BG checked earlier 85 - pt felt symptomatic d/t BG being 'low' Dexacom reading '70 something' per patient. Juice, crackers and peanut butter given. E, Kiesha PA aware. Albumin 25%
administered.
--- NOTE | 2023-10-07 03:43 | W.PN.CT ---
Today's Communication / Plan
-
-No major issues overnight. Hemodynamically and neurologically intact
-Transitioned off insulin gtt per protocol. Now using his home insulin pump
-Diabetes education/management following
-Has had postop PAF, initially with RVR then most recently rate controlled. Currently in sinus bradycardia. On Amiodarone gtt and po Amiodarone. Lopressor increased to 25 mg po BID
-[id number] of 2, will likely require DOAC/NOAC, however pt straight caths himself d/t chronic urinary retention which may prohibit use of NOAC/DOAC -will discuss
-Has urethral stricture with difficult luciano insertion intraop, luciano re-inserted via cystoscopy by Urology @ bedside postop, maintain luciano x 4 wks per Urology
-Monitor urine output, 24hr 1120 mL (responded to Lasix). Cont. Lasix
-Maintain temporary pacer wire (will cut before d/c home)
-D/C cordis after completion of Amiodarone gtt
-F/U 2-view cxr
-Cont. current meds (ASA, Plavix- will d/c if DOAC is required, Amiodarone, Lopressor, Lipitor, Synthroid)
-Monitor h/h 7.4/20.7, c/o lightheadedness/dizziness two days ago, but currently denies. Consider 1u PRBC followed by IV Lasix, has +1 pitting edema/wt is up
-Postop EVON improved, 1.3, was 1.4 yesterday and 0.9 preop
-Postop Hyponatremia,127, was 129 yesterday and 135 preop. Likely exacerbated by 25% albumin yesterday, Lasix should help. Fluid restriction
-Mg is 2.4, Mag oxide placed on hold
-Encourage use of IS
-OOB into chair/Ambulate
-PT/O following
-D/C to [facility] ([facility]) later today vs tomorrow
Assessment / Plan
-
- NSTEMI, LM-CAD - s/p Cabg x 3 (apcheco- lad, svg - om1, svg - pda); R evh; LAAE #35 clip on 10/03/[address] Smith, pod #4
- TIMOTHY with preserved EF, non new wma. Ale without clot, completely occluded, no flow post clip
- HTN/HLD
- IDDM, uses insulin pump
- Severe b/l lower extremity peripheral neuropathy
- Pre-existing 1st degree AVB and RBBB
- DDD
- hx prostate CA s/p TURP x2 (2014 & 2016), second one complicated by ureter damage & need for suprapubic catheter (healed)
- subsequent chronic urinary retention with self catheterization
- Recent serratia marcescens UTI, culture 10/03/23 is negative
- hypothyroidism
- tobacco abuse (~50 PYH, 1 PPD current)
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
- hx falls/gait disturbance (2/2 neuropathy)
- ambulatory dysfunction, uses walker & scooter regularly
- chronic opioid use, for LE neuropathy; pt reports ~2 tabs Percocet per WEEK
- insomnia
- hx appendectomy
- hx cholecystectomy
- hx R elbow ORIF
- Complex urethral stricture disease with prior urethroplasty with buccal mucosa graft- S/p postop bedside cystoscope with placement of a 16Fr coude catheter draining 800cc by Dr. Bose on 10/03/23
-pt will be discharged with Luciano catheter and will not resume self-catheterization.
-catheter will need to be exchanged in about 4 weeks via cystoscopy or under anesthesia while healing urethral trauma.
- Acute postop blood loss anemia - no acute bleeding
- Acute postop atelectasis
- Acute postop hypovolemia with subsequent hypervolemia
- Acute postop hyponatremia, 127
- Acute postop EVON, 0.9->1.4
- Acute postop A-fib with RVR, converted with IV Lopressor and Amiodarone gtt
Discussed patient care with: Cardiology, Nursing, Respiratory Therapy, Pharmacy and Care Team
Subjective
Procedure
Cabg x 3 (pacheco- lad, svg - om1, svg - pda); R raziah; LAAE #35 clip on 10/03/[address] Smith
-
Date of Service: October 07, 2023
Pt c/o mild incisional pain, otherwise feels well
Objective Data
-
PT 15.8 Sec (11.4-14.6) H 10/03/23 12:49
INR 1.26 10/03/23 12:49
APTT 29.7 Sec (23.4-35.0) 10/03/23 12:49
Vital Signs
Vital Signs
Temp Pulse Resp BP Pulse Ox
98.2 F 57 15 121/50 94
10/07/23 00:31 10/07/23 00:00 10/07/23 00:31 10/07/23 00:00 10/07/23 00:31
CT Intake/Output/Weight
10/06/23 10/06/23 10/07/23
06:59 18:59 06:59
Intake Total 450.5 / 1925.2 770.1 / 1423.3 653.2 / 1423.3
Output Total 320 / 640 610 / 835 225 / 835
Balance 130.5 / 1285.2 160.1 / 588.3 428.2 / 588.3
SaO2: 94 (RA)
Physical Exam
-
General: Awake, Oriented and AOx3
Cardiovascular: Regular rate & rhythm, No Murmurs, No Rub and No Gallop
Respiratory: Decreased Breath Sounds
Sternum: Stable
Incision: Clean, Dry, Intact and Dressing Intact
Extremities: Edema +1
Data Reviewed
-
Lab Results: Results Reviewed
Medications: Active Meds Reviewed
Chest X-Ray: Report Reviewed and Image Reviewed
ECG: Report Reviewed and Image Reviewed
--- NOTE | 2023-10-07 04:26 | PTCARENOTE ---
SB. VSS. RA. Denies pain. Resting on and off. Assessment unchanged. Laguna output increased after albumin - remains gerald in color. Amio gtt continued. Labs obtained.
[2023-10-07 04:29] LABS: Hemoglobin 7.4 g/dL (13.0-18.0); Mean Corp Hgb Conc. 35.7 g/dL (33.0-37.0); Mean Corpuscular Volume 89.6 fL (80.0-94.0); Mean Platelet Volume 11.7 fL (7.4-10.4); Platelet Count 194 10^3/uL (130-400); Red Blood Cell Count 2.31 10^6/uL (4.70-6.10); Red Cell Dist. Width 12.9 % (11.5-14.5); White Blood Cell Count 15.8 10^3/uL (4.8-10.8)
[2023-10-07 04:42] LABS: Blood Urea Nitrogen 61 mg/dl (9-20); Calcium 8.2 mg/dl (8.4-10.2); Carbon Dioxide 20 mmol/L (22-30); Chloride 97 mmol/L (98-107); Estimated Creatinine Clearance 55 ml/min; Glucose 145 mg/dl (70-99); Magnesium 2.4 mg/dl (1.6-2.3); Potassium 4.5 mmol/L (3.5-5.1); Sodium 125 mmol/L (135-145); eGFR 57.65
[2023-10-07 05:06] LABS: Hematocrit 20.7 % (39.0-52.0)
--- NOTE | 2023-10-07 05:10 | PTCARENOTE ---
H/H 7.4/ 20.7 - E, ASHLEE Pop aware. No new orders at this time. VSS/HR and rhythm stable.
[2023-10-07] MEDS: TYLENOL 1000 MG PO ×3 (06:03→22:44)
[2023-10-07] MEDS: SYNTHROID 125 MCG PO (06:03)
--- NOTE | 2023-10-07 06:03 | PTCARENOTE ---
PT c/o of pain, scheduled tylenol administered - ultram offered, pt declined. Pt agreeable to CHG wash but refusing to get oob at this time.
[2023-10-07 08:03] LABS: Glucose - Point of Care 164 mg/dl (70-99)
--- NOTE | 2023-10-07 08:11 | PTCARENOTE ---
Patient received from nightshift nurse. Patient is alert and oriented x4. Can be stubborn at times, refusing care. NSR with first degree heart block and RBBB. HR 60s. Audible heart tones. V wire maintained to pacer box with settings: VVI. HR 40, mA
5, sensitivity 2. BP 128/49. Palpable radial pulses. Doppler dorsalis pedal pulses. +1 generalized edema. RIJ cordis maintained KVO and amio gtt maintained at 0.5mg/min. PIV maintained. RA. Oxygen saturation 96%. Upon auscultation, lung sounds
diminished at the bases. IS 750. Patient needs a lot of encouragement to perform IS. Abdomen round. +BS. Laguna maintained per urology - will need catheter exchanged in 4 weeks per urology report. UOP is yellow and adequate. Passing gas, no BM.
Patient c/o constipation. Assist x2 with RW OOB into chair. PT/OT following patient. Sternal incision is approximated with surgical adhesive and open to air. R groin puncture site is approximated with surgical with adhesive and open to air. R knee
incision is approximated with surgical adhesive and open to air. Will continue to monitor.
[2023-10-07] MEDS: PROTONIX 40 MG PO (08:28)
[2023-10-07] MEDS: NEURONTIN 200 MG PO ×3 (08:28→22:44)
[2023-10-07] MEDS: VITAMIN D3 (cholecalciferol) 50 MCG PO (08:28)
[2023-10-07] MEDS: PLAVIX 75 MG PO (08:28)
[2023-10-07] MEDS: LOW STRENGTH ASPIRIN 81 MG PO (08:28)
[2023-10-07] MEDS: SENOKOT-S 1 TABLET PO ×2 (08:28→20:18)
[2023-10-07] MEDS: LOPRESSOR 25 MG PO ×2 (08:28→20:17)
[2023-10-07] MEDS: VITAMIN C 500 MG PO (08:28)
[2023-10-07] MEDS: PACERONE 200 MG PO ×2 (08:28→15:12)
[2023-10-07] MEDS: BACTROBAN 2% OINTMENT 1 APPLIC NASAL (08:29)
[2023-10-07] MEDS: LIDOCAINE 4% PATCH TOPICAL (09:01)
[2023-10-07] MEDS: PT'S OWN INSULIN PUMP - NovoLOG 10 UNIT SC ×3 (09:04→17:02)
[2023-10-07] MEDS: PATIENT'S OWN INSULIN PUMP SC (09:04)
[2023-10-07] MEDS: ULTRAM 50 MG PO ×2 (09:16→22:45)
--- NOTE | 2023-10-07 11:07 | W.PN.CARDCBS ---
Addendum entered and electronically signed by Rigoberto Lou DO 10/07/23 11:36:
.
Reviewed with CT surgery.
Original Note:
Today's Communication / Plan
-
Remains in sinus. Short episode of afib last 24 hrs after about 3 hours of A-fib October 04.
Continue metoprolol and amiodarone. If he has further episodes of atrial fibrillation would start full anticoagulation.
Discussed low threshold to anticoagulate
Remains on aspirin and Plavix for NSTEMI
Receiving transfusion October 06. Monitor H/H after transfusion.
Cr improved to 1.3 on October 06.
Cont Lipitor for LDL 52 and hx AK/CAD. He had been on Zocor.
Outpatient dose of amlodipine stopped.
Laguna catheter had to be replaced by urology with fiberoptic scope and the plan is for 4 weeks of Laguna and then urology office visit for voiding trial
HgbA1c is 7.9% with known DM 2 using an insulin pump as an outpatient
Impression / Plan
-
.
PCP: Dr. Emil Sibley
Cardiology: None prior to admission
Impression:
NSTEMI s/p chest pain, peak Troponin 7.45
MV CAD
s/p CABG x3 (HENNESSY - LAD, SVG - OM1, SVG - PDA), CHIKA clip 10/03/2023
Paroxysmal Afib, started 10/05/23 AM
HTN
DM 2
Chronic back pain with daily oxycodone use
Hypothyroid and h/o Grave's disease
Hyperlipidemia
RBBB
Bladder outlet obstruction/intermittent catheterization
Active smoker
Mild-moderate
Echo 10/02/23: EF 55-60%, mild , mild to moderate MR
Plan:
Remains in sinus. Short episode of afib last 24 hrs after about 3 hours of A-fib October 04.
Continue metoprolol and amiodarone. If he has further episodes of atrial fibrillation would start full anticoagulation.
Discussed low threshold to anticoagulate
Remains on aspirin and Plavix for NSTEMI
Receiving transfusion October 06. Monitor H/H after transfusion.
Cr improved to 1.3 on October 06.
Cont Lipitor for LDL 52 and hx AK/CAD. He had been on Zocor.
Outpatient dose of amlodipine stopped.
Laguna catheter had to be replaced by urology with fiberoptic scope and the plan is for 4 weeks of Laguna and then urology office visit for voiding trial
HgbA1c is 7.9% with known DM 2 using an insulin pump as an outpatient
Discussed with nursing.
HPI: [facility] with chest pain for the last 4-5 days and cardiology has been consulted for elevated Troponin. Patient with chest pain that radiates to his back. Pain usually starts when he awakens and he has taken ibuprofen, Tylenol and
oxycodone for relief at different times. No change in pain with change in position. Pain can last for more than an hour. SOB with pain and he is also an active smoker for almost 60 years. DM 2 managed with insulin pump. He has HTN and takes
amlodipine 10 mg daily. He takes simvastatin 40 mg daily for hyperlipidemia. He has never been to [facility] before. Initial Troponin was 5.43. CT was negative for PE. ECG reviewed by me with RBBB of unknown chronicity and inferior T wave inversions.
Progress Note - Hand Hardener
Subjective
Date of Service: October 07, 2023
Pt seen and examined. No complaints. No chest pain or shortness of breath.
Objective
Labs:
10/07/23 04:04
10/07/23 04:04
Labs
Hgb 7.4 g/dL (13.0-18.0) L 10/07/23 04:04
Hct 20.7 % (39.0-52.0) L* 10/07/23 04:04
Plt Count 194 10^3/uL (130-400) 10/07/23 04:04
PT 15.8 Sec (11.4-14.6) H 10/03/23 12:49
INR 1.26 10/03/23 12:49
APTT 29.7 Sec (23.4-35.0) 10/03/23 12:49
Sodium 125 mmol/L (135-145) L 10/07/23 04:04
Potassium 4.5 mmol/L (3.5-5.1) 10/07/23 04:04
BUN 61 mg/dl (9-20) H 10/07/23 04:04
Creatinine 1.3 mg/dL (0.7-1.3) 10/07/23 04:04
Glucose 145 mg/dl (70-99) H 10/07/23 04:04
Vital Signs and I&O:
Vital Signs
Temp Pulse Resp BP Pulse Ox
98.8 F 66 20 127/48 96
10/07/23 09:00 10/07/23 09:00 10/07/23 09:00 10/07/23 09:00 10/07/23 09:00
Vital Signs
Temp Pulse Resp BP Pulse Ox
98.8 F 66 20 127/48 96
10/07/23 09:00 10/07/23 09:00 10/07/23 09:00 10/07/23 09:00 10/07/23 09:00
Intake & Output
10/05/23 10/06/23 10/07/23 10/08/23
06:59 06:59 06:59 06:59
Intake Total 856.9 / 870.4 1898.5 / 1925.2 1610.2 / 1610.2 756.7 / 756.7
Output Total 830 / 855 605 / 640 1260 / 1260
Balance 26.9 / 15.4 1293.5 / 1285.2 350.2 / 350.2 756.7 / 756.7
Physical Exam
Physical Exam
General: No acute distress, AAOX3
Neck: Negative JVD
Heart: Regular, Negative S3 positive S1/S2, Negative S4, No murmur
Lungs: CTA b/l, negative wheezes/rales/rhonchi
Abd: Positive BS, NT/ND, neg rebound/rigidity/guarding
Ext: Negative cyanosis/clubbing/edema
Neuro: nonfocal
[2023-10-07] MEDS: NSS 500 IV (11:14)
--- NOTE | 2023-10-07 11:16 | PTCARENOTE ---
Vital signs stable. SB with first degree heart block and RBBB. HR 50s. BP 122/52. RA. Oxygen saturation 95%. 1u PRBCs administered this AM. Patient tolerated. RIJ cordis maintained with KVO. Amio gtt maintained at 0.5mg/min. Laguna maintained with
gerald, sediment UOP. PT/OT going in soon to see patient.
--- NOTE | 2023-10-07 11:51 | PN.DE.MGMTRT ---
Insulin Management
- -
10/07/2023: Diabetes Management Follow up
Patient admitted for chest pain and NSTEMI, s/p Cardiac cath-->severe MVD-->CABG today. PMH includes: HTN, HLD, current longtime smoker, prostate ca, Bladder outlet obstruction/intermittent catheterization, Degenerative disc disease, Depression,
T1DM, Neuropathy, Diabetic Retinopathy, hypothyroidism,
Patient is in the OR at time of my visit.
He uses an insulin pump- Medtronic 670G with NovoLog insulin and a [email or web address] G6 for glucose monitoring, last A1C was 7.5% on 07/02/23.
He is noted for significant immobility, states he uses a scooter at home due to Neuropathy and ambulatory dysfunction with difficulty walking and can not exercise.
Patient is awake, alert and oriented this AM in bed. Daughter at bedside. Patient was transitioned from glycemic protocol to pump over the weekend. Glucose range 75 93, fasting this AM 145. Will continue pump with current settings:
Basal rates
12 1.35
6am 2.25
8am 3
12:30pm 2.65
8 pn 1.9
24 hour basal total 53.575
Patient does not use the bolus wizard for carb calculations, he looks at the food on his plate then decides how much insulin to take. He also does not use the correction calculator on the pump, he takes 1 unit for 10 points.
He had no insulin in his pump, he took the reservoir out of the pump and put an unknown amount of insulin. He has used the same reservoir so long that the unit markings are gone. He states he doesnt change it that often nor does he change the
infusion set every three days. I discussed with patient and daughter that pump tumbler machine operator and insulin tumbler machine operator both recommend infusion set and reservoir be changed every 3 days. Patient states he will not do that.
Diabetes History
- -
Type of Diabetes: 2 requiring insulin
Pre-Admission Diabetes Regimen
10/06/23 10/07/23
11:52 04:04
Creatinine 1.4 H 1.3
Lab Results
Hemoglobin A1c Cancelled 10/01/23 17:37
Insulin Pump Settings
IP Diabetes Regimen
10/06/23 10/06/23 10/06/23
11:52 13:07 16:31
Glucose 76
POC Glucose 75 93
10/06/23 10/07/23 10/07/23
21:16 04:04 08:02
Glucose 145 H
POC Glucose 85 164 H
Meal type: Breakfast
Meal type: Dinner
Meal type: Lunch
Amount consumed: 80%
Amount consumed: 75%
Amount consumed: 85%
Patient Education
[2023-10-07 12:46] LABS: Glucose - Point of Care 134 mg/dl (70-99)
[2023-10-07] MEDS: MILK OF MAGNESIA 30 ML PO (14:09)
[2023-10-07] MEDS: LASIX 40 MG IV (14:09)
--- NOTE | 2023-10-07 14:41 | CM ---
Chart reviewed. Patient is independent of ADLS, lives alone in a 1 S[address], 0 [address], ambulates with a rolling walker and also uses a scooter for long distances. PT/OT recommend SNF. Patient would like to go home. Patient's daughter agrees and will
stay with the patient when he goes home. Dr Smith agrees to patient returning home. Plan is for the patient to return home with his daughter and CT Transitional RN. CM to follow
--- NOTE | 2023-10-07 15:13 | PTCARENOTE ---
Vital signs stable. NSR/SB with first degree heart block and RBBB. HR 50s-60s. BP 129/54. RA. Oxygen saturation 96%. 2V CXR obtained. RIJ cordis discontinued per order and per protocol. Patient tolerated. New dressing applied. Patient placed back
into bed for a nap, then will get OOB for dinner. Will continue to monitor.
[2023-10-07 15:26] LABS: Hematocrit 23.9 % (39.0-52.0); Hemoglobin 8.6 g/dL (13.0-18.0); Mean Corpuscular Volume 88.8 fL (80.0-94.0); Mean Platelet Volume 11.4 fL (7.4-10.4); Platelet Count 209 10^3/uL (130-400); Red Blood Cell Count 2.69 10^6/uL (4.70-6.10); Red Cell Dist. Width 13.3 % (11.5-14.5); White Blood Cell Count 15.7 10^3/uL (4.8-10.8)
[2023-10-07] MEDS: LIPITOR 80 MG PO (17:02)
[2023-10-07 17:06] LABS: Glucose - Point of Care 77 mg/dl (70-99)
[2023-10-07] MEDS: DULCOLAX 10 MG PO (20:17)
--- NOTE | 2023-10-07 20:30 | PTCARENOTE ---
Assumed care of pt from daysmarisol RN. Walking rounds completed. Pt AAOx3. Following commands appropriately. Pt helped out of the chair and repositioned into bed w/ assist x2. Pt SR to Sinus drew on monitor. HR 50-60s. Temporary epicardial v-wire set
to VVI 40/5. Generalized edema. Bilateral pedal pulses present with Doppler. Bilateral radial pulses palpable. BP stable. RA. POX 97%. Deep breathing and IS encouraged. Lung sounds diminished at bases. Laguna catheter CDI. Urine gerald colored. +gas.
No BM. Abdomen soft/nontender. Pt uses own insulin pump. CT dressing CDI. All surgical sites stable. L forearm PIV CDI and flushes. See worklist for full nursing assessment, VS, and interventions. See MAR for medication administration. Call farrell
within reach.
[2023-10-07 22:18] LABS: Glucose - Point of Care 151 mg/dl (70-99)
[2023-10-07] MEDS: PT'S OWN INSULIN PUMP - NovoLOG SC (22:47)
[2023-10-08] VITALS (14 sets, daily range): BP systolic 110–156; BP diastolic 48–78; PULSE 54–66; O2SAT 96; BMI 28.4
--- NOTE | 2023-10-08 00:45 | PTCARENOTE ---
Pt reassessed. SR to sinus drew on monitor. HR 50-60s. BP 119/73. RA. POX 97%. All surgical sites stable. Laguna catheter CDI and draining gerald colored urine. No c/o pain at this time. Call farrell within reach.
--- NOTE | 2023-10-08 04:26 | W.PN.CT ---
Today's Communication / Plan
-
-No major issues overnight. Hemodynamically and neurologically intact
-Transitioned off insulin gtt per protocol. Now using his home insulin pump
-Diabetes education/management following
-Has had postop PAF, initially with RVR then most recently rate controlled. No further A-Fib since 2 episodes. Lopressor increased to 25 mg po BID, also on PO Amiodarone
-[id number] of 2, will hold off on NOAC/DOAC unless further a-fib. Of note, pt straight caths himself @ home and may not be ideal candidate for OAC
-Has urethral stricture with difficult luciano insertion intraop, luciano re-inserted via cystoscopy by Urology @ bedside postop, maintain luciano x 4 wks per Urology
-Monitor urine output, 24hr 1925 mL (responded to Lasix). Cont. Lasix
-Maintain temporary pacer wire (will cut before d/c home)
-D/C cordis after completion of Amiodarone gtt
-Cont. current meds (ASA, Plavix, Amiodarone, Lopressor, Lipitor, Synthroid)
-H/h stable @ 8.8/24.9
-Postop EVON has improved, 1.3, was 1.4 a few days ago, and 0.9 preop
-Postop Hyponatremia improving, 128 up from 125 yesterday, 135 preop. Cont. Lasix, Fluid restriction. 1+ pitting edema is now trace
-Mg is 2.7, Mag oxide placed on hold
-Encourage use of IS
-OOB into chair/Ambulate
-PT/O following
-D/C home today
Assessment / Plan
-
- NSTEMI, LM-CAD - s/p Cabg x 3 (pacheco- lad, svg - om1, svg - pda); R evh; LAAE #35 clip on 10/03/[address] Smith, pod #5
- TIMOTHY with preserved EF, non new wma. Ale without clot, completely occluded, no flow post clip
- HTN/HLD
- IDDM, uses insulin pump
- Severe b/l lower extremity peripheral neuropathy
- Pre-existing 1st degree AVB and RBBB
- DDD
- hx prostate CA s/p TURP x2 (2013 & 2016), second one complicated by ureter damage & need for suprapubic catheter (healed)
- subsequent chronic urinary retention with self catheterization
- Recent serratia marcescens UTI, culture 10/03/23 is negative
- hypothyroidism
- tobacco abuse (~50 PYH, 1 PPD current)
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
- hx falls/gait disturbance (2/2 neuropathy)
- ambulatory dysfunction, uses walker & scooter regularly
- chronic opioid use, for LE neuropathy; pt reports ~2 tabs Percocet per WEEK
- insomnia
- hx appendectomy
- hx cholecystectomy
- hx R elbow ORIF
- Complex urethral stricture disease with prior urethroplasty with buccal mucosa graft- S/p postop bedside cystoscope with placement of a 16Fr coude catheter draining 800cc by Dr. Bose on 10/03/23
-pt will be discharged with Luciano catheter and will not resume self-catheterization.
-catheter will need to be exchanged in about 4 weeks via cystoscopy or under anesthesia while healing urethral trauma.
- Acute postop blood loss anemia - no acute bleeding
- Acute postop atelectasis/pleural effusion
- Acute postop hypovolemia with subsequent hypervolemia
- Acute postop hyponatremia, 127
- Acute postop EVON, 0.9->1.4
- Acute postop A-fib with RVR, converted with IV Lopressor and Amiodarone gtt
Discussed patient care with: Cardiology, Nursing, Respiratory Therapy, Pharmacy and Care Team
Subjective
Procedure
Cabg x 3 (pacheco- lad, svg - om1, svg - pda); R evh; LAAE #35 clip on 10/03/[address] Smith
-
Date of Service: October 08, 2023
Pt c/o mild incisional pain, otherwise feel well
Objective Data
-
PT 15.8 Sec (11.4-14.6) H 10/03/23 12:49
INR 1.26 10/03/23 12:49
APTT 29.7 Sec (23.4-35.0) 10/03/23 12:49
Vital Signs
Vital Signs
Temp Pulse Resp BP Pulse Ox
98 F 57 16 119/73 97
10/08/23 00:39 10/08/23 00:39 10/08/23 00:39 10/08/23 00:39 10/08/23 00:39
CT Intake/Output/Weight
10/07/23 10/07/23 10/08/23
06:59 18:59 06:59
Intake Total 840.1 / 1610.2 1630.2 / 1630.2
Output Total 650 / 1260 400 / 1450 1050 / 1450
Balance 190.1 / 350.2 1230.2 / 180.2 -1050 / 180.2
SaO2: 97 (RA)
Physical Exam
-
General: Awake, Oriented and AOx3
Cardiovascular: Regular rate & rhythm, No Murmurs, No Rub and No Gallop
Respiratory: Decreased Breath Sounds (at bases, otherwise clear)
Sternum: Stable
Incision: Clean, Dry, Intact and Dressing Intact
Extremities: Other (+trace edema)
Data Reviewed
-
Lab Results: Results Reviewed
Medications: Active Meds Reviewed
Chest X-Ray: Report Reviewed and Image Reviewed
ECG: Report Reviewed and Image Reviewed
--- NOTE | 2023-10-08 04:41 | PTCARENOTE ---
Previous assessment unchanged. Sinus rhythm to sinus drew on monitor. HR 50-60s. BP stable. RA. POX 94%. Laguna CDI and draining gerald urine. All surgical sites stable. Labs drawn and sent. Pt states pain is controlled at this time. Call farrell within
reach.
[2023-10-08 05:10] LABS: Hematocrit 24.9 % (39.0-52.0); Hemoglobin 8.8 g/dL (13.0-18.0); Mean Corp Hgb Conc. 35.3 g/dL (33.0-37.0); Mean Corpuscular Hgb 31.3 pg (27.0-31.0); Mean Corpuscular Volume 88.6 fL (80.0-94.0); Mean Platelet Volume 11.4 fL (7.4-10.4); Platelet Count 269 10^3/uL (130-400); Red Blood Cell Count 2.81 10^6/uL (4.70-6.10); Red Cell Dist. Width 13.4 % (11.5-14.5); White Blood Cell Count 14.4 10^3/uL (4.8-10.8)
[2023-10-08 05:33] LABS: Blood Urea Nitrogen 57 mg/dl (9-20); Calcium 8.1 mg/dl (8.4-10.2); Carbon Dioxide 21 mmol/L (22-30); Chloride 102 mmol/L (98-107); Estimated Creatinine Clearance 55 ml/min; Glucose 102 mg/dl (70-99); Magnesium 2.7 mg/dl (1.6-2.3); Potassium 4.2 mmol/L (3.5-5.1); Sodium 128 mmol/L (135-145); eGFR 57.65
[2023-10-08] MEDS: SYNTHROID 125 MCG PO (06:40)
[2023-10-08] MEDS: TYLENOL 1000 MG PO ×2 (06:40→22:28)
--- NOTE | 2023-10-08 07:00 | PTCARENOTE ---
Bedside walking rounds report received. Patient seen on rounds oob in chair on room air. NSR. Denies pain. Golals set with patient: must ambulate at lest 50 to 100feet today to go home vs rehab facility. Patient does have own insulin pump. See
flowrecord.
--- NOTE | 2023-10-08 07:09 | W.PN.UPDATE ---
Update Note
Progress Note Update
no complaints
vss
room air
nsr
s/p cabg
moving better - needs to walk more than 50 ft today before going home
no more lasix needed
isolate pacing wires
doing well
[2023-10-08] MEDS: PT'S OWN INSULIN PUMP - NovoLOG 12 UNIT SC ×2 (08:01→13:35)
[2023-10-08 08:05] LABS: Glucose - Point of Care 163 mg/dl (70-99)
--- NOTE | 2023-10-08 08:45 | PTCARENOTE ---
Assist of 1 to ambulate with rolling walker to bathroom: patient did have small formed soft brown BM. Encourage to ambulate hallway: ambulated apprx 100feet with rolling walker, went into atrial fibb controlled then had an episode where he
couldn't quite make it back to room due to weakness of legs(no syncope or lightheadedness) and just wanting to sit down: called out for assistance of two people to lower into chair in hallway: Insisted that 'he wants to finish his walk' Short rest
period, then ambulated back to room in chair: see vitals post activity. Neuro intact. Kanchan, BAKING ASSISTANT aware of incident and aware of patient back into contolled, slow at times afibb: occasional v paced beat with rates as low as 43: 1.5 to 1.6 second
pauses. Continue to closely monitor.
[2023-10-08] MEDS: LIDOCAINE 4% PATCH 1 PATCH TOPICAL (09:00)
[2023-10-08] MEDS: VITAMIN D3 (cholecalciferol) 50 MCG PO (09:01)
[2023-10-08] MEDS: NEURONTIN 200 MG PO ×3 (09:01→22:28)
[2023-10-08] MEDS: PLAVIX 75 MG PO (09:01)
[2023-10-08] MEDS: PACERONE 200 MG PO ×3 (09:01→22:28)
[2023-10-08] MEDS: LOW STRENGTH ASPIRIN 81 MG PO (09:01)
[2023-10-08] MEDS: VITAMIN C 500 MG PO (09:02)
[2023-10-08] MEDS: LOPRESSOR 25 MG PO ×2 (09:02→20:44)
[2023-10-08] MEDS: SENOKOT-S 1 TABLET PO ×2 (09:02→20:44)
[2023-10-08] MEDS: PROTONIX 40 MG PO (09:02)
--- NOTE | 2023-10-08 10:22 | PTCARENOTE ---
Converted from slow controlled a fibb to sinus bradycardia with rates in the 50's: patient did have a 1.63 second pause during conversion from a fibb to SB with 1st degree avb: CT surg BILLET DRILLER Kanchan aware of same and Dr. Sun cardiology aware of
same: will reconsider dc to home till late this afternoon v rehab facility: patient insistent on going home. May need NOAC v DOAC
--- NOTE | 2023-10-08 10:30 | W.PN.CARDCBS ---
Today's Communication / Plan
-
Had more A-fib this morning. Continue amiodarone and metoprolol.
Hemoglobin stable would strongly recommend stopping Plavix and starting Eliquis. Continue aspirin
Creat 1.3.
Impression / Plan
-
.
PCP: Dr. Emil Sibley
Cardiology: None prior to admission
Impression:
NSTEMI s/p chest pain, peak Troponin 7.45
MV CAD
s/p CABG x3 (HENNESSY - LAD, SVG - OM1, SVG - PDA), CHIKA clip 10/03/2023
Paroxysmal Afib, started 10/05/23 AM
HTN
DM 2
Chronic back pain with daily oxycodone use
Hypothyroid and h/o Grave's disease
Hyperlipidemia
RBBB
Bladder outlet obstruction/intermittent catheterization
Active smoker
Mild-moderate
Echo 10/02/23: EF 55-60%, mild , mild to moderate MR
Plan:
Had more A-fib this morning. Cont Amiodarone /Metoprolol. Spoke with CT surgery and recommend start Eliquis today. Cont ASA. Would D/C plavix
Receiving transfusion October 06. Hg 8.8. and stable.
Cr stable at 1.4.
Cont Lipitor for LDL 52 and hx TN/CAD. He had been on Zocor.
Outpatient dose of amlodipine stopped.
Laguna catheter had to be replaced by urology with fiberoptic scope and the plan is for 4 weeks of Laguna and then urology office visit for voiding trial
HgbA1c is 7.9% with known DM 2 using an insulin pump as an outpatient
Discussed with nursing/CT Surgery
HPI: Patient came to [facility] with chest pain for the last 4-5 days and cardiology has been consulted for elevated Troponin. Patient with chest pain that radiates to his back. Pain usually starts when he awakens and he has taken ibuprofen, Tylenol and
oxycodone for relief at different times. No change in pain with change in position. Pain can last for more than an hour. SOB with pain and he is also an active smoker for almost 60 years. DM 2 managed with insulin pump. He has HTN and takes
amlodipine 10 mg daily. He takes simvastatin 40 mg daily for hyperlipidemia. He has never been to before. Initial Troponin was 5.43. CT was negative for PE. ECG reviewed by me with RBBB of unknown chronicity and inferior T wave inversions.
Progress Note - Principal Gifts Officer
Subjective
Date of Service: October 08, 2023
had more afib this morning while walking.
Objective
Labs:
10/08/23 04:33
10/08/23 04:33
Labs
Hgb 8.8 g/dL (13.0-18.0) L 10/08/23 04:33
Hct 24.9 % (39.0-52.0) L 10/08/23 04:33
Plt Count 269 10^3/uL (130-400) D 10/08/23 04:33
PT 15.8 Sec (11.4-14.6) H 10/03/23 12:49
INR 1.26 10/03/23 12:49
APTT 29.7 Sec (23.4-35.0) 10/03/23 12:49
Sodium 128 mmol/L (135-145) L 10/08/23 04:33
Potassium 4.2 mmol/L (3.5-5.1) 10/08/23 04:33
BUN 57 mg/dl (9-20) H 10/08/23 04:33
Creatinine 1.3 mg/dL (0.7-1.3) 10/08/23 04:33
Glucose 102 mg/dl (70-99) H 10/08/23 04:33
Vital Signs and I&O:
Vital Signs
Temp Pulse Resp BP Pulse Ox
97.9 F 69 16 155/48 97
10/08/23 07:58 10/08/23 09:00 10/08/23 07:58 10/08/23 08:55 10/08/23 09:00
Vital Signs
Temp Pulse Resp BP Pulse Ox
97.9 F 69 16 155/48 97
10/08/23 07:58 10/08/23 09:00 10/08/23 07:58 10/08/23 08:55 10/08/23 09:00
Intake & Output
10/06/23 10/07/23 10/08/23 10/09/23
06:59 06:59 06:59 06:59
Intake Total 1898.5 / 1925.2 1610.2 / 1610.2 1630.2 / 1630.2 325 / 325
Output Total 605 / 640 1260 / 1260 1750 / 1750 0 / 0
Balance 1293.5 / 1285.2 350.2 / 350.2 -119.8 / -119.8 325 / 325
Physical Exam
Physical Exam
GEN: No distress, awake, Ox3
HEENT: supple, anicteric, mmm
LUNGS: scatt rhonchi
CV: Reg, S1/S2, 1/6 syst LSB, no gallop
ABD: soft, BS+, NT/ND
EXT: trace edema
NEURO: Gross non-focal
SKIN: sternotomy
--- NOTE | 2023-10-08 10:48 | W.DCSUMMARY ---
Documented by User: Nallely ANDREI Burris 10/08/23 10:59
Discharge Summary
Discharge Data
Date of Admission: 10/01/23
Date of Discharge: 10/08/23
Total time spent discharging patient (in min): 40
-
Pending Results: No
Hospital Course
Primary care physician:
Dr. Emil Sibley
Outpatient line assembler aircraft:
Dr. Papito Pradhan
Inpatient consultants:
DCA, urology, invas tech, diabetes management, anesthesia
Procedures:
1. Coronary Artery Bypass Grafting x3
Primary Diagnosis:
1. Coronary Artery Disease
Secondary Diagnoses:
1. Hypertension
2. Insulin-dependent diabetes mellitus with insulin pump
3. Hyperlipidemia
4. History of prostate cancer status post transurethral resection of the prostate and ureter damage requiring a suprapubic catheter and straight cathing
5. Hypothyroidism
5. History of falls/gait disturbances secondary to peripheral neuropathy
HPI: 73-year-old male admitted on 09/30 for intermittent chest pain and positive troponins and subsequent cardiac surgery with Dr. Smith.
Hospital course: Patient was admitted on 09/30 with complaints of intermittent chest pain. Patient was found to have positive troponins and was taken to the cardiac [facility] in which multivessel disease was found. Patient was deemed a surgical
candidate and preoperative testing was performed and patient was taken to the CV OR on 10/02. Patient received a CABG x 3, left atrial appendage clip and a rigid sternal fixation. He returned back to the CVICU on Levophed, insulin, and Precedex
infusions. However while in the CV OR Luciano catheter was inserted with no urine output so when patient returned to the CVICU urology was consulted and a Luciano catheter was placed via cystoscopy. Patient's Precedex was then weaned off and patient
was extubated by 5:45 PM and started on p.o. aspirin. On 10/03 postoperative day #1, mediastinal chest tube was discontinued and pleural chest tubes were bulb. Patient was started on beta-blockers and Plavix. Patient had increased lethargy so
Flexeril was discontinued and he was started on tramadol. On 10/04 postoperative day #2 patient converted from sinus bradycardia to rapid A-fib he was started on an amnio drip and received Lopressor 5 mg IV. Patient was then given LR 500 mL for low
urine output. Pleural chest tube was decreased and was started on vitamin C and iron for acute blood loss anemia. On 10/05 postoperative day #3 patient's weight was up 3 kg compared to preop and was diuresed with 40 mg of IV Lasix twice daily.
With diuresis hemoglobin improved from 7 6-8.2. On 10/06 postoperative #4 patient hemoglobin decreased to 7.4 he was transfused with 1 unit of packed red blood cells followed by 40 mg of IV Lasix. On 10/07 postoperative day #5 patient wants to return
home instead of care home facility. Patient continues to have episodes of paroxysmal postoperative atrial fibrillation. Due to these episodes of A-fib it was decided that he would be started on a DOAC. Patient was deemed stable for
discharge
Home medication changes:
See below
Discharge Plan
-
Patient Disposition: Home (Routine Discharge)
Discharge Diagnosis/Procedures: CAD/CABG
Condition: Fair
Diet: Low Fat, Low Sodium and Diabetic, Carb Controlled
Activity: As tolerated
Driving Restrictions: Not until seen by your Dr
Bathing Restrictions: OK to Shower
Other Services: Cardiac Rehab
Specialty Instructions: Weigh Daily- Call MD for wt gain/loss 3 lbs overnight/5 lbs in 1 week
Activity Restrictions/Additional Instructions:
ACTIVITY:
-No strenuous activity: no heavy lifting, pushing, pulling anything over 15 pounds for one month
-continue to use stairs as tolerated
DRIVING RESTRICTIONS:
-No driving for one month or until approved by your surgeon
WOUND CARE:
-Shower daily. Use soap & water.
-No lotions, creams or powders on incision area.
DIET:
-continue a low fat/low cholesterol diet.
-IF you are diabetic, continue carb controlled diet.
CARDIAC REHAB:
-Please make appointment to start in 5-6 weeks with your local hospital program. (See Cardiac Rehabilitation Discharge Booklet).
SPECIALTY INSTRUCTIONS:
-Weigh yourself daily. Call your physician for any weight gain/loss of 3 lbs overnight or 5 lbs in one week.
-REPORT any clicking noise or uneven appearance of your sternum to your surgeon immediately.
-If you smoke, you are instructed to quit. The [facility] smoking hotline phone number is [phone]
Referrals:
CT Transitional Care Nurse [Outside] (The Cardiothoracic Transitional Care Nurse will call you to set up a visit in 1-2 days.)
Madhavi Horton PA-C [Specified Professional Personl] - 10/23/23 9:40 pm (Cardiology followup appointment)
Emil Sibley MD [Family Provider] - in four to six weeks (Please make an appointment in four to six weeks.)
Stan Espinoza MD [Active] - in one to two months
Maxx Smith MD [Active] - 11/04/23 9:30 am
Ernesto Park MD [Non-Admitting Privileges] - (follow up with you regular urologist within 3-4 weeks)
Zurdo Pradhan MD [Active] - 11/15/23 2:00 pm
Prescriptions:
New
atorvastatin 80 mg Tablet
80 mg PO QPM Qty: 30 1RF
pantoprazole 40 mg Tablet,Delayed Release (Dr/Ec)
40 mg PO DAILY Qty: 30 1RF
Eliquis 5 mg Tablet
5 mg PO BID Qty: 60 1RF
amiodarone [Pacerone] 200 mg Tablet
200 mg PO BID Qty: 90 0RF
Rx Instructions:
take twice daily for 2 weeks (until 10/22), then once daily until otherwise directed by your doctor
metoprolol tartrate 25 mg Tablet
25 mg PO BID Qty: 60 1RF
tramadol 50 mg Tablet
50 mg PO Q6HPRN PRN (Reason: severe pain) Qty: 20 1RF
Continued
acetaminophen [Tylenol] 325 mg Tablet
650 mg PO DAILYPRN PRN (Reason: mild pain)
aspirin 81 mg Tablet,Delayed Release (Dr/Ec)
81 mg PO DAILY
oxycodone-acetaminophen 5-325 mg Tablet
0.5 tab PO HS
oxycodone-acetaminophen 5-325 mg Tablet
1 tab PO DAILYPRN PRN (Reason: severe pain)
trazodone 150 mg Tablet
150 mg PO HS PRN (Reason: sleep)
levothyroxine [Synthroid] 125 mcg Tablet
125 mcg PO DAILY
vitamin B complex Tablet
1 tab PO DAILY
bisacodyl [Dulcolax (bisacodyl)] 5 mg Tablet,Delayed Release (Dr/Ec)
5 mg PO DAILYPRN PRN (Reason: constipation)
Patient's Own Insulin
0 unit SC .VIA PUMP
Patient Comments:
10/01/2023, pt. uses Novolog 100 unit/ml solution and states to change it every three days; per pt., the dose of insulin that it used depends on his basal rate but he adds an additional 35 unit bolus.
cholecalciferol (vitamin D3)
1 tab PO DAILY
magnesium
1 tab PO DAILY
Discontinued
simvastatin 40 mg Tablet
40 mg PO QPM
amlodipine 10 mg Tablet
10 mg PO DAILY
ibuprofen 200 mg Tablet
400 mg PO BIDPRN PRN (Reason: mild pain)
Discharge Orders:
Discharge Patient (As Directed); Ordered 10/09/23
Ordered By: Keren Garnett
Care Plan Goals
Care Plan Goals:
Problem: Readiness for enhanced knowledge related to diagnosis and treatment plan
Goal: Understand your diagnosis and treatment plan needs, including medications if applicable.
Instructions: Know your diagnosis, underlying causes and treatment plan options, including medications if applicable. Consult with your health care team to learn about your diagnosis and treatment plan, including medications if applicable.
Discharge Date and Time
Print Language: SLOVENIAN

Documented by User: Keren Garnett PA-C 10/09/23 15:22
Discharge Summary
Discharge Data
Date of Admission: 10/01/23
Date of Discharge: 10/09/23
Hospital Course
Primary care physician:
Dr. Emil Sibley
Outpatient line assembler aircraft:
Dr. Papito Pradhan
Inpatient consultants:
DCA, urology, invas tech, diabetes management, anesthesia
Procedures:
1. Coronary Artery Bypass Grafting x3 (Left internal mammary artery to left anterior descending, saphenous vein graft to obtuse marginal 1, saphenous vein graft to posterior descending artery)
2. Exclusion of left atrial appendage with #35mm atriclip
Primary Diagnosis:
1. Coronary Artery Disease
2. Non ST elevation myocardial infarction
Secondary Diagnoses:
1. Hypertension
2. Insulin-dependent diabetes mellitus with insulin pump
3. Hyperlipidemia
4. History of prostate cancer status post transurethral resection of the prostate and ureter damage requiring a suprapubic catheter and straight cathing
5. Hypothyroidism
5. History of falls/gait disturbances secondary to peripheral neuropathy
HPI: 73-year-old male admitted on 09/30 for intermittent chest pain and positive troponins and subsequent cardiac surgery with Dr. Smith.
Hospital course: Patient was admitted on 09/30 with complaints of intermittent chest pain. Patient was found to have positive troponins, ruled in for NSTEMI and was taken to the cardiac [facility] in which multivessel disease was found. Patient was
deemed a surgical candidate and preoperative testing was performed and patient was taken to the CV OR on 10/02. Patient received a CABG x 3, left atrial appendage clip and a rigid sternal fixation. He returned back to the CVICU on Levophed,
insulin, and Precedex infusions. However while in the CV OR Luciano catheter was inserted with no urine output so when patient returned to the CVICU urology was consulted and a Luciano catheter was placed via cystoscopy. Patient's Precedex was then
weaned off and patient was extubated by 5:45 PM and started on p.o. aspirin. On 10/03 postoperative day #1, mediastinal chest tube was discontinued and pleural chest tubes were bulb. Patient was started on beta-blockers and Plavix. Patient had
increased lethargy so Flexeril was discontinued and he was started on tramadol. On 10/04 postoperative day #2 patient converted from sinus bradycardia to rapid A-fib he was started on an amnio drip and received Lopressor 5 mg IV. Patient was then
given LR 500 mL for low urine output. Pleural chest tube was decreased and was started on vitamin C and iron for acute blood loss anemia. On 10/05 postoperative day #3 patient's weight was up 3 kg compared to preop and was diuresed with 40 mg of IV
Lasix twice daily. With diuresis hemoglobin improved from 7 6-8.2. On 10/06 postoperative #4 patient hemoglobin decreased to 7.4 he was transfused with 1 unit of packed red blood cells followed by 40 mg of IV Lasix. On 10/07 postoperative day #5
patient wants to return home instead of care home facility. Patient continues to have episodes of paroxysmal postoperative atrial fibrillation. Due to these episodes of A-fib it was decided that he would be started on a DOAC. 4 POD#6
patient started eliquis 5mg BID and was discharged to home with close follow up with the transitional care nurse from . He has remained in sinus rhythm. Per urology patient to maintain luciano at time of discharge, will need catheter exchange in 4
weeks. Pt will follow up with his regular urologist.
Home medication changes:
zocor change to atorvastatin. new amiodarone 200mg BID x 2 weeks then once daily for postop atrial fibrillation. new eliquis for postop afib. metoprolol BID for HTN/CAD/CABG. tramadol for post surgical pain as needed. pantoprazole for GI
prophylaxis.
Discharge Plan
-
Patient Disposition: Home (Routine Discharge)
Discharge Diagnosis/Procedures: CAD/CABG
Condition: Fair
Diet: Low Fat, Low Sodium and Diabetic, Carb Controlled
Activity: As tolerated
Driving Restrictions: Not until seen by your Dr
Bathing Restrictions: OK to Shower
Other Services: Cardiac Rehab
Specialty Instructions: Weigh Daily- Call MD for wt gain/loss 3 lbs overnight/5 lbs in 1 week
Activity Restrictions/Additional Instructions:
ACTIVITY:
-No strenuous activity: no heavy lifting, pushing, pulling anything over 15 pounds for one month
-continue to use stairs as tolerated
DRIVING RESTRICTIONS:
-No driving for one month or until approved by your surgeon
WOUND CARE:
-Shower daily. Use soap & water.
-No lotions, creams or powders on incision area.
DIET:
-continue a low fat/low cholesterol diet.
-IF you are diabetic, continue carb controlled diet.
CARDIAC REHAB:
-Please make appointment to start in 5-6 weeks with your local hospital program. (See Cardiac Rehabilitation Discharge Booklet).
SPECIALTY INSTRUCTIONS:
-Weigh yourself daily. Call your physician for any weight gain/loss of 3 lbs overnight or 5 lbs in one week.
-REPORT any clicking noise or uneven appearance of your sternum to your surgeon immediately.
-If you smoke, you are instructed to quit. The [facility] smoking hotline phone number is [phone]
Referrals:
CT Transitional Care Nurse [Outside] (The Cardiothoracic Transitional Care Nurse will call you to set up a visit in 1-2 days.)
Madhavi Horton PA-C [Specified Professional Personl] - 10/23/23 9:40 pm (Cardiology followup appointment)
Emil Sibley MD [Family Provider] - in four to six weeks (Please make an appointment in four to six weeks.)
Stan Espinoza MD [Active] - in one to two months
Maxx Smith MD [Active] - 11/04/23 9:30 am
Ernesto Park MD [Non-Admitting Privileges] - (follow up with you regular urologist within 3-4 weeks)
Zurdo Pradhan MD [Active] - 11/15/23 2:00 pm
Prescriptions:
New
atorvastatin 80 mg Tablet
80 mg PO QPM Qty: 30 1RF
pantoprazole 40 mg Tablet,Delayed Release (Dr/Ec)
40 mg PO DAILY Qty: 30 1RF
Eliquis 5 mg Tablet
5 mg PO BID Qty: 60 1RF
amiodarone [Pacerone] 200 mg Tablet
200 mg PO BID Qty: 90 0RF
Rx Instructions:
take twice daily for 2 weeks (until 10/22), then once daily until otherwise directed by your doctor
metoprolol tartrate 25 mg Tablet
25 mg PO BID Qty: 60 1RF
tramadol 50 mg Tablet
50 mg PO Q6HPRN PRN (Reason: severe pain) Qty: 20 1RF
Continued
acetaminophen [Tylenol] 325 mg Tablet
650 mg PO DAILYPRN PRN (Reason: mild pain)
aspirin 81 mg Tablet,Delayed Release (Dr/Ec)
81 mg PO DAILY
oxycodone-acetaminophen 5-325 mg Tablet
0.5 tab PO HS
oxycodone-acetaminophen 5-325 mg Tablet
1 tab PO DAILYPRN PRN (Reason: severe pain)
trazodone 150 mg Tablet
150 mg PO HS PRN (Reason: sleep)
levothyroxine [Synthroid] 125 mcg Tablet
125 mcg PO DAILY
vitamin B complex Tablet
1 tab PO DAILY
bisacodyl [Dulcolax (bisacodyl)] 5 mg Tablet,Delayed Release (Dr/Ec)
5 mg PO DAILYPRN PRN (Reason: constipation)
Patient's Own Insulin
0 unit SC .VIA PUMP
Patient Comments:
10/01/2023, pt. uses Novolog 100 unit/ml solution and states to change it every three days; per pt., the dose of insulin that it used depends on his basal rate but he adds an additional 35 unit bolus.
cholecalciferol (vitamin D3)
1 tab PO DAILY
magnesium
1 tab PO DAILY
Discontinued
simvastatin 40 mg Tablet
40 mg PO QPM
amlodipine 10 mg Tablet
10 mg PO DAILY
ibuprofen 200 mg Tablet
400 mg PO BIDPRN PRN (Reason: mild pain)
Discharge Orders:
Discharge Patient (As Directed); Ordered 10/09/23
Ordered By: Keren Garnett
Care Plan Goals
Care Plan Goals:
Problem: Readiness for enhanced knowledge related to diagnosis and treatment plan
Goal: Understand your diagnosis and treatment plan needs, including medications if applicable.
Instructions: Know your diagnosis, underlying causes and treatment plan options, including medications if applicable. Consult with your health care team to learn about your diagnosis and treatment plan, including medications if applicable.
Discharge Date and Time
Print Language: SLOVENIAN
--- NOTE | 2023-10-08 12:00 | PTCARENOTE ---
No acute changes. Vital stable. SB with 1st degree av block on monitor.
--- NOTE | 2023-10-08 12:28 | PN.DE.MGMTRT ---
Insulin Management
- -
10/08/2023: Diabetes Management Follow up
Patient admitted for chest pain and NSTEMI, s/p Cardiac cath-->severe MVD-->CABG today. PMH includes: HTN, HLD, current longtime smoker, prostate ca, Bladder outlet obstruction/intermittent catheterization, Degenerative disc disease, Depression,
T1DM, Neuropathy, Diabetic Retinopathy, hypothyroidism,
Patient is in the OR at time of my visit.
He uses an insulin pump- Medtronic 670G with NovoLog insulin and a CGM-Dexluxustravel.es G6 for glucose monitoring, last A1C was 7.5% on 07/02/23.
He is noted for significant immobility, states he uses a scooter at home due to Neuropathy and ambulatory dysfunction with difficulty walking and can not exercise.
Patient is awake, alert and oriented this AM OOB in chair. He did have an episode of afib this AM but has converted back to sinus drew. Daughter at bedside. Patient continues to use his insulin pump. Glucose range 77 to 151 yesterday, fasting
this AM 163. Will continue pump with current settings:
Basal rates
12 1.35
6am 2.25
8am 3
12:30pm 2.65
8 pn 1.9
24 hour basal total 53.575
Patient does not use the bolus wizard for carb calculations, he looks at the food on his plate then decides how much insulin to take. He also does not use the correction calculator on the pump, he takes 1 unit for 10 points.
Yesterday he had no insulin in his pump, he took the reservoir out of the pump and put an unknown amount of insulin. He has used the same reservoir so long that the unit markings are gone. He states he doesnt change it that often nor does he
change the infusion set every three days. I discussed with patient and daughter that pump vp of technology and insulin vp of technology both recommend infusion set and reservoir be changed every 3 days. Patient states he will not do that.
Diabetes History
- -
Type of Diabetes: 2 requiring insulin
Pre-Admission Diabetes Regimen
04/02/24
04:33
Creatinine 1.3
Lab Results
Hemoglobin A1c Cancelled 10/01/23 17:37
Insulin Pump Settings
IP Diabetes Regimen
10/07/23 10/07/23 10/07/23
12:45 16:59 22:17
Glucose
POC Glucose 134 H 77 151 H
10/08/23 10/08/23
04:33 07:54
Glucose 102 H
POC Glucose 163 H
Meal type: Breakfast
Amount consumed: 100%
Patient Education
[2023-10-08 13:39] LABS: Glucose - Point of Care 141 mg/dl (70-99)
[2023-10-08] MEDS: NSS IV (14:27)
[2023-10-08] MEDS: TYLENOL PO (14:28)
--- NOTE | 2023-10-08 14:37 | CM ---
Addendum entered by Natalia Villaseñor RN 10/08/23 17:02:
Patient is agreeable to the cost
Original Note:
Pricing on Eliquis through the patient's [employer] pp, ID# [id number], is $409.45 for the first month and then $93.60 after[address] a free 30 day coupon in the patient's red discharge folder.
--- NOTE | 2023-10-08 16:00 | PTCARENOTE ---
No acute changes. Vitals stable. Ambulated with assist of 1 to bathroom: voided and had small soft BM. Refused to walk in hallway at this time. Noted . Temp Epicardial v wire bagged and disconnected from medtronic pacing box: readily accessible in
room.
--- NOTE | 2023-10-08 20:00 | PTCARENOTE ---
Received Pt from dayshift; Pt resting comfortably in bed; Pt is AAOx4; NSR with 1st degree AVB on monitor, VSS; Heart sounds audible, radial pulses palpable, DP pulses on Doppler, temp epicardial v wires insulated; lungs diminished at b/l bases,
spo2 96 on RA; +BS x4 quadrants, abdomen soft non tender; pt voiding dark yellow urine via luciano catheter; PIV maintained; call farrell within reach; will continue to monitor.
[2023-10-08] MEDS: PT'S OWN INSULIN PUMP - NovoLOG SC ×2 (20:05→22:30)
[2023-10-08] MEDS: LIPITOR 80 MG PO (20:11)
[2023-10-08 20:15] LABS: Glucose - Point of Care 160 mg/dl (70-99)
[2023-10-08 22:28] LABS: Glucose - Point of Care 129 mg/dl (70-99)
--- NOTE | 2023-10-09 | PTCARENOTE ---
Pt assessment unchanged; NSR on monitor, VSS; pt resting comfortably in bed; blood glucose taken HS, results were 129; pt did not eat much of dinner and pt declined to self administer insulin via pump; call farrell within reach; will continue to
monitor.
[2023-10-09 00:20] VITALS: BP 102/47
[2023-10-09] MEDS: ULTRAM 25 MG PO (02:20)
--- NOTE | 2023-10-09 04:00 | PTCARENOTE ---
Pt assessment unchanged; SB on monitor, VSS; Am labs drawn and sent; CHG wipes provided; luciano care completed; call farrell within reach; will continue to monitor.
[2023-10-09 04:01] VITALS: BP 138/59
[2023-10-09 04:18] LABS: Hematocrit 23.7 % (39.0-52.0); Hemoglobin 8.6 g/dL (13.0-18.0); Mean Corp Hgb Conc. 36.3 g/dL (33.0-37.0); Mean Corpuscular Volume 88.1 fL (80.0-94.0); Mean Platelet Volume 10.3 fL (7.4-10.4); Platelet Count 303 10^3/uL (130-400); Red Blood Cell Count 2.69 10^6/uL (4.70-6.10); Red Cell Dist. Width 13.8 % (11.5-14.5); White Blood Cell Count 14.9 10^3/uL (4.8-10.8)
[2023-10-09 04:53] LABS: Blood Urea Nitrogen 53 mg/dl (9-20); Calcium 8.4 mg/dl (8.4-10.2); Carbon Dioxide 21 mmol/L (22-30); Chloride 99 mmol/L (98-107); Estimated Creatinine Clearance 55 ml/min; Glucose 105 mg/dl (70-99); Magnesium 2.8 mg/dl (1.6-2.3); Potassium 4.4 mmol/L (3.5-5.1); Sodium 129 mmol/L (135-145); eGFR 57.65
[2023-10-09 06:00] VITALS: BMI 28.4
[2023-10-09] MEDS: SYNTHROID 125 MCG PO (06:10)
--- NOTE | 2023-10-09 06:23 | W.PN.CT ---
Today's Communication / Plan
-
-No major issues overnight. Hemodynamically and neurologically intact
-Transitioned off insulin gtt per protocol. Now using his home insulin pump
-Diabetes education/management following
-Started on Eliquis for postop PAF
-Has urethral stricture with difficult luciano insertion intraop, luciano re-inserted via cystoscopy by Urology @ bedside postop, maintain luciano x 4 wks per Urology
-Monitor urine output, 24hr 800 mL
-Maintain temporary pacer wire (will cut before d/c home), currently insulated
-Cont. current meds (ASA, Plavix, Amiodarone, Lopressor, Lipitor, Synthroid)
-H/h stable @ 8.6/23.7
-Postop EVON has improved, 1.3, was 1.4 a few days ago, and 0.9 preop
-Postop Hyponatremia improving, 129 up from 128 yesterday, 135 preop
-Mg is 2.8, Mag oxide placed on hold
-Encourage use of IS
-OOB into chair/Ambulate
-PT/O following
-D/C home today
Assessment / Plan
-
- NSTEMI, LM-CAD - s/p Cabg x 3 (pacheco- lad, svg - om1, svg - pda); R evh; LAAE #35 clip on 10/03/[address] Smith, pod #6
- TIMOTHY with preserved EF, non new wma. Ale without clot, completely occluded, no flow post clip
- HTN/HLD
- IDDM, uses insulin pump
- Severe b/l lower extremity peripheral neuropathy
- Pre-existing 1st degree AVB and RBBB
- DDD
- hx prostate CA s/p TURP x2 (2013 & 2016), second one complicated by ureter damage & need for suprapubic catheter (healed)
- subsequent chronic urinary retention with self catheterization
- Recent serratia marcescens UTI, culture 10/03/23 is negative
- hypothyroidism
- tobacco abuse (~50 PYH, 1 PPD current)
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
- hx falls/gait disturbance (2/2 neuropathy)
- ambulatory dysfunction, uses walker & scooter regularly
- chronic opioid use, for LE neuropathy; pt reports ~2 tabs Percocet per WEEK
- insomnia
- hx appendectomy
- hx cholecystectomy
- hx R elbow ORIF
- Complex urethral stricture disease with prior urethroplasty with buccal mucosa graft- S/p postop bedside cystoscope with placement of a 16Fr coude catheter draining 800cc by Dr. Bose on 10/03/23
-pt will be discharged with Luciano catheter and will not resume self-catheterization.
-catheter will need to be exchanged in about 4 weeks via cystoscopy or under anesthesia while healing urethral trauma.
- Acute postop blood loss anemia - no acute bleeding
- Acute postop atelectasis/pleural effusion
- Acute postop hypovolemia with subsequent hypervolemia
- Acute postop hyponatremia, 127
- Acute postop EVON, 0.9->1.4
- Acute postop A-fib with RVR, converted with IV Lopressor and Amiodarone gtt
Discussed patient care with: Cardiology, Nursing, Respiratory Therapy, Pharmacy and Care Team
Subjective
Procedure
Cabg x 3 (pacheco- lad, svg - om1, svg - pda); R evh; LAAE #35 clip on 10/03/[address] Smith
-
Date of Service: October 09, 2023
Objective Data
-
Lab Results
10/09/23 04:11
10/09/23 04:11
PT 15.8 Sec (11.4-14.6) H 10/03/23 12:49
INR 1.26 10/03/23 12:49
APTT 29.7 Sec (23.4-35.0) 10/03/23 12:49
Vital Signs
Vital Signs
Temp Pulse Resp BP Pulse Ox
97.9 F 60 14 102/47 94
10/09/23 04:00 10/09/23 04:00 10/09/23 04:00 10/09/23 00:20 10/09/23 04:00
CT Intake/Output/Weight
10/08/23 10/08/23 10/09/23
06:59 18:59 06:59
Intake Total 325 / 805 480 / 805
Output Total 1350 / 1750 0 / 800 800 / 800
Balance -1350 / -119.8 325 / 5 -320 / 5
SaO2: 94
[2023-10-09] MEDS: TYLENOL PO ×2 (06:41→13:26)
--- NOTE | 2023-10-09 08:00 | PTCARENOTE ---
Received Pt from prev RN. OOB at time of assessment. AAOx3. NSR/SB with 1st degree AVB on monitor and RBBB. VSS. DP pulses by doppler, wires insulated. 94% on RA. lungs clear but diminished. IS 750. +BS. passing gas. minimal appetite. abdomen soft
non tender. luciano draining dark yellow urine. to go home with luciano. all surigcal sites c/d/i. [employer]. will continyue to monitor. for d/c this afternoon.
[2023-10-09] MEDS: NSS IV (08:41)
[2023-10-09 08:43] VITALS: BP 141/56
[2023-10-09] MEDS: SENOKOT-S 1 TABLET PO (08:51)
[2023-10-09] MEDS: VITAMIN D3 (cholecalciferol) 50 MCG PO (08:51)
[2023-10-09] MEDS: LIDOCAINE 4% PATCH 1 PATCH TOPICAL (08:51)
[2023-10-09] MEDS: PROTONIX 40 MG PO (08:51)
[2023-10-09] MEDS: NEURONTIN 200 MG PO (08:51)
[2023-10-09] MEDS: LOPRESSOR 25 MG PO (08:51)
[2023-10-09] MEDS: LOW STRENGTH ASPIRIN 81 MG PO (08:51)
[2023-10-09] MEDS: VITAMIN C 500 MG PO (08:51)
[2023-10-09] MEDS: ELIQUIS 5 MG PO (08:52)
[2023-10-09] MEDS: PACERONE 200 MG PO (08:52)
[2023-10-09 09:42] VITALS: BP 103/56
[2023-10-09 09:57] VITALS: BP 103/56; PULSE 59
--- NOTE | 2023-10-09 10:08 | CM ---
Chart reviewed. Patient lives alone in a [address], [address], ambulates with a rolling walker and also has a scooter. Patient and daughter both agree on going home with the patient's daughter staying with the patient manager maritime. Plan is for the patient
to return home with CT Transitional RN. CM to follow
--- NOTE | 2023-10-09 10:25 | W.PN.UPDATE ---
Update Note
Progress Note Update
comfortable in chair
no complaints
vss
nsr
ra
s/p cabg
home today
[2023-10-09 10:26] LABS: Glucose - Point of Care 111 mg/dl (70-99)
[2023-10-09] MEDS: PT'S OWN INSULIN PUMP - NovoLOG 5 UNIT SC (11:06)
--- NOTE | 2023-10-09 11:26 | PN.DE.MGMTRT ---
Insulin Management
- -
10/09/2023: Diabetes Management Follow up
Patient admitted for chest pain and NSTEMI, s/p Cardiac cath-->severe MVD-->CABG today. PMH includes: HTN, HLD, current longtime smoker, prostate ca, Bladder outlet obstruction/intermittent catheterization, Degenerative disc disease, Depression,
T1DM, Neuropathy, Diabetic Retinopathy, hypothyroidism,
Patient is in the OR at time of my visit.
He uses an insulin pump- Medtronic 670G with NovoLog insulin and a [employer]GM[employer] G6 for glucose monitoring, last A1C was 7.5% on 07/02/23.
He is noted for significant immobility, states he uses a scooter at home due to Neuropathy and ambulatory dysfunction with difficulty walking and can not exercise.
Patient is awake, alert and oriented this AM OOB in chair. Daughter at bedside. Patient continues to use his insulin pump. Glucose range 141 to 129 yesterday, fasting this AM 105. Will continue pump with current settings:
Basal rates
12 1.35
6am 2.25
8am 3
12:30pm 2.65
8 pn 1.9
24 hour basal total 53.575
Patient does not use the bolus wizard for carb calculations, he looks at the food on his plate then decides how much insulin to take. He also does not use the correction calculator on the pump, he takes 1 unit for 10 points.
Will follow up with primary doctor/tile mason.
Diabetes History
- -
Type of Diabetes: 1
Pre-Admission Diabetes Regimen
10/09/23
04:11
Creatinine 1.3
Lab Results
Hemoglobin A1c Cancelled 10/01/23 17:37
Insulin Pump Settings
IP Diabetes Regimen
10/08/23 10/08/23 10/08/23
13:38 20:14 22:27
Glucose
POC Glucose 141 H 160 H 129 H
10/09/23 10/09/23
04:11 10:24
Glucose 105 H
POC Glucose 111 H
Meal type: Breakfast
Amount consumed: 100%
Patient Education
--- NOTE | 2023-10-09 12:00 | PTCARENOTE ---
walked with PT OT. reported to have done well by PT. no complaints of pain. awaiting d/c orders and orders to cut wires and shower.
--- NOTE | 2023-10-09 13:37 | W.PN.CARDCBS ---
Addendum entered and electronically signed by Haylee Funes MD 10/09/23 14:26:
Overall patient is doing well and does not offer any significant complaints.
Vital signs reviewed. Lab work reviewed On exam patient is in elderly gentleman, frail, no acute distress, A+O x 3, RR, normal S1 and S2, lungs with mildly decreased breath sounds at bilateral bases, abdomen is soft, nontender, nondistended with
active bowel sounds, warm extremities without significant edema.
Tele with SR this AM.
Recommendations:
1. Afib noted on tele post op yesterday. Getting amio loaded. DC on 200mg amiodarone BID.
2. Eliquis for new onset afib. Close monitoring of blood counts.
3. Plan for discharge home today with family support.
Haylee Funes MD, [facility], [facility]
Original Note:
Today's Communication / Plan
-
Going home with family support today
New to Eliquis for pAfib and aspirin to be continued as well
Amiodarone load of 1.8 grams this admission and cont amiodarone 200 mg BID upon discharge to home
Impression / Plan
-
PCP: Dr. Emil Sibley
Cardiology: None prior to admission
Impression:
NSTEMI s/p chest pain, peak Troponin 7.45
MV CAD
s/p CABG x3 (HENNESSY - LAD, SVG - OM1, SVG - PDA), CHIKA clip 10/03/2023
Paroxysmal Afib, started 10/05/23 AM
HTN
DM 2
Chronic back pain with daily oxycodone use
Hypothyroid and h/o Grave's disease
Hyperlipidemia
RBBB
Bladder outlet obstruction/intermittent catheterization
Active smoker
Mild-moderate
Echo 10/02/23: EF 55-60%, mild , mild to moderate MR
Plan:
-Patient with episodes of paroxysmal Afib post-op starting 10/05/23 so started on Eliquis 5 mg BID 10/08/23.
-Patient also ordered amiodarone 200 mg TID and has received a 1.8 gram load as of 10/09/23
-Patient with NSTEMI on admission and plan was for Plavix and aspirin, but with addition of Eliquis the Plavix was stopped. Cont with aspirin
-LDL was 52. Outpatient dose of simvastatin 40 mg daily changed to atorvastatin 80 mg daily
-Outpatient dose of amlodipine stopped. New to Lopressor 25 mg BID post-op.
-Laguna catheter had to be replaced by urology with fiberoptic scope and the plan is for 4 weeks of Laguna and then urology office visit for voiding trial
-HgbA1c is 7.9% with known DM 2 using an insulin pump as an outpatient
-Patient is being discharged to home instead of SNF, but daughter will be living with him.
-Outpatient cardiology f/y arranged
HPI: Patient came to [facility] with chest pain for the last 4-5 days and cardiology has been consulted for elevated Troponin. Patient with chest pain that radiates to his back. Pain usually starts when he awakens and he has taken ibuprofen, Tylenol and
oxycodone for relief at different times. No change in pain with change in position. Pain can last for more than an hour. SOB with pain and he is also an active smoker for almost 60 years. DM 2 managed with insulin pump. He has HTN and takes
amlodipine 10 mg daily. He takes simvastatin 40 mg daily for hyperlipidemia. He has never been to before. Initial Troponin was 5.43. CT was negative for PE. ECG reviewed by me with RBBB of unknown chronicity and inferior T wave inversions.
Progress Note - Business Applications Specialist
Subjective
Date of Service: October 09, 2023
He wants to go home
Objective
Labs:
10/09/23 04:11
10/09/23 04:11
Labs
Hgb 8.6 g/dL (13.0-18.0) L 10/09/23 04:11
Hct 23.7 % (39.0-52.0) L 10/09/23 04:11
Plt Count 303 10^3/uL (130-400) 10/09/23 04:11
PT 15.8 Sec (11.4-14.6) H 10/03/23 12:49
INR 1.26 10/03/23 12:49
APTT 29.7 Sec (23.4-35.0) 10/03/23 12:49
Sodium 129 mmol/L (135-145) L 10/09/23 04:11
Potassium 4.4 mmol/L (3.5-5.1) 10/09/23 04:11
BUN 53 mg/dl (9-20) H 10/09/23 04:11
Creatinine 1.3 mg/dL (0.7-1.3) 10/09/23 04:11
Glucose 105 mg/dl (70-99) H 10/09/23 04:11
Vital Signs and I&O:
Vital Signs
Temp Pulse Resp BP Pulse Ox
98.3 F 58 14 103/56 93
10/09/23 08:00 10/09/23 12:00 10/09/23 04:00 10/09/23 09:42 10/09/23 08:00
Vital Signs
Temp Pulse Resp BP Pulse Ox
98.3 F 58 14 103/56 93
10/09/23 08:00 10/09/23 12:00 10/09/23 04:00 10/09/23 09:42 10/09/23 08:00
Intake & Output
10/07/23 10/08/23 10/09/23 10/10/23
06:59 06:59 06:59 06:59
Intake Total 1610.2 / 1610.2 1630.2 / 1630.2 805 / 805 240 / 240
Output Total 1260 / 1260 1750 / 1750 800 / 800
Balance 350.2 / 350.2 -119.8 / -119.8 5 / 240 / 240
Physical Exam
Physical Exam
GEN: NAD, AAOx3
HEENT: MMM
LUNGS: No audible wheeze
CV: SR on tele
ABD: ND
EXT: No edema B/L
NEURO: Gross non-focal
SKIN: No rash
[2023-10-09 13:51] LABS: Glucose - Point of Care 152 mg/dl (70-99)
[2023-10-09] MEDS: PT'S OWN INSULIN PUMP - NovoLOG 10 UNIT SC (13:51)
--- NOTE | 2023-10-09 14:45 | PTCARENOTE ---
Epicardial v-wire cut by CT PA and RN. pt tolerated.
--- NOTE | 2023-10-09 15:00 | PTCARENOTE ---
Pt assisted with 1 assist and walker to the shower. Seated in shower chair and pt able to shower himself. Pt tolerated. Assisted out of bathroom to put clothes on. RN assisted with dressing. Laguna catheter remains and transitioned to leg bag per pt
request.
[2023-10-09 15:24] VITALS: BP 138/51
--- NOTE | 2023-10-09 15:30 | PTCARENOTE ---
Discharge order received. All medications and instructions reviewed with patient and his daughter. All questions answered. All belongings sent with patient. PIV d/c. Tele pack removed. Pt wheeled out to car with RN.
== END 2023-10-09 16:13 | disposition home or self-care (01) | DRG 234 ==
LOC: CVICU 16:53
PROVIDERS: Clinical Nurse Specialist Acute Care; Internal Medicine; Internal Medicine Cardiovascular Disease; Nurse Practitioner; Physician Assistant Medical; Physician Assistant Surgical; ADMITTING PHYSICIAN Family Medicine; ATTENDING PHYSICIAN Thoracic Surgery (Cardiothoracic Vascular Surgery); CONSULT PHYSICIAN Internal Medicine Cardiovascular Disease; CONSULT PHYSICIAN Internal Medicine Critical Care Medicine; EMERGENCY PHYSICIAN Emergency Medicine; FAMILY PHYSICIAN Family Medicine; OTHER PHYSICIAN Urology
PROC: 4A033BC Measurement of Arterial Pressure, Coronary, Percutaneous Approach (ICD-10-PCS; 2023-10-01)
PROC: 4A023N7 Measurement of Cardiac Sampling and Pressure, Left Heart, Percutaneous Approach (ICD-10-PCS; 2023-10-01)
PROC: B2111ZZ Fluoroscopy of Multiple Coronary Arteries using Low Osmolar Contrast (ICD-10-PCS; 2023-10-01)
PROC: B2151ZZ Fluoroscopy of Left Heart using Low Osmolar Contrast (ICD-10-PCS; 2023-10-01)
PROC: 0T9B80Z Drainage of Bladder with Drainage Device, Via Natural or Artificial Opening Endoscopic (ICD-10-PCS; 2023-10-03)
PROC: B24BZZ4 Ultrasonography of Heart with Aorta, Transesophageal (ICD-10-PCS; 2023-10-04)
PROC: 02HK0JZ Insertion of Pacemaker Lead into Right Ventricle, Open Approach (ICD-10-PCS; 2023-10-04)
PROC: 5A1223Z Performance of Cardiac Pacing, Continuous (ICD-10-PCS; 2023-10-04)
PROC: 02H60JZ Insertion of Pacemaker Lead into Right Atrium, Open Approach (ICD-10-PCS; 2023-10-04)
PROC: 06BP4ZZ Excision of Right Saphenous Vein, Percutaneous Endoscopic Approach (ICD-10-PCS; 2023-10-04)
PROC: 0211093 Bypass Coronary Artery, Two Arteries from Coronary Artery with Autologous Venous Tissue, Open Approach (ICD-10-PCS; 2023-10-04)
PROC: 5A1221Z Performance of Cardiac Output, Continuous (ICD-10-PCS; 2023-10-04)
PROC: 02L70CK Occlusion of Left Atrial Appendage with Extraluminal Device, Open Approach (ICD-10-PCS; 2023-10-04)
PROC: 02100Z9 Bypass Coronary Artery, One Artery from Left Internal Mammary, Open Approach (ICD-10-PCS; 2023-10-04)
PROC: 30233N1 Transfusion of Nonautologous Red Blood Cells into Peripheral Vein, Percutaneous Approach (ICD-10-PCS; 2023-10-07)
DX: I21.4 Non-ST elevation (NSTEMI) myocardial infarction (principal); E87.1 Hypo-osmolality and hyponatremia; N99.71 Accidental puncture and laceration of a genitourinary system organ or structure during a genitourinary system procedure; D62 Acute posthemorrhagic anemia; J98.11 Atelectasis; F11.20 Opioid dependence, uncomplicated; N17.9 Acute kidney failure, unspecified; I10 Essential (primary) hypertension; E03.9 Hypothyroidism, unspecified; M51.36 Other intervertebral disc degeneration, lumbar region; M48.061 Spinal stenosis, lumbar region without neurogenic claudication; E10.42 Type 1 diabetes mellitus with diabetic polyneuropathy; E78.00 Pure hypercholesterolemia, unspecified; R33.9 Retention of urine, unspecified; F17.210 Nicotine dependence, cigarettes, uncomplicated; G89.29 Other chronic pain; D72.829 Elevated white blood cell count, unspecified; I25.10 Atherosclerotic heart disease of native coronary artery without angina pectoris; F32.A Depression, unspecified; N32.0 Bladder-neck obstruction; I48.0 Paroxysmal atrial fibrillation; N35.919 Unspecified urethral stricture, male, unspecified site; R26.9 Unspecified abnormalities of gait and mobility; E86.1 Hypovolemia; I45.10 Unspecified right bundle-branch block; I35.0 Nonrheumatic aortic (valve) stenosis; M76.30 Iliotibial band syndrome, unspecified leg; M54.9 Dorsalgia, unspecified; E87.70 Fluid overload, unspecified; Y65.8 Other specified misadventures during surgical and medical care; Y73.2 Prosthetic and other implants, materials and accessory gastroenterology and urology devices associated with adverse incidents; Y92.230 Patient room in hospital as the place of occurrence of the external cause; G47.00 Insomnia, unspecified; G57.83 Other specified mononeuropathies of bilateral lower limbs; E10.65 Type 1 diabetes mellitus with hyperglycemia; Z79.4 Long term (current) use of insulin; Z79.890 Hormone replacement therapy; Z90.79 Acquired absence of other genital organ(s); Z85.46 Personal history of malignant neoplasm of prostate; Z90.49 Acquired absence of other specified parts of digestive tract; Z63.4 Disappearance and death of family member; Z79.82 Long term (current) use of aspirin; Z96.41 Presence of insulin pump (external) (internal); Z91.81 History of falling; Z82.49 Family history of ischemic heart disease and other diseases of the circulatory system; I25.2 Old myocardial infarction
CPT/HCPCS: 71045; 71046; 71275; 80048; 80053; 80061; 81003; 81015; 82330; 82565; 82805; 82947; 82962; 83036; 83690; 83735; 84100; 84132; 84302; 84443; 84484; 84520; 85014; 85018; 85025; 85027; 85049; 85347; 85610; 85730; 86850; 86900; 86901; 86920; 87077; 87086; 87186; 93005; 93306; 93312; 93320; 93325; 93458; 93571; 93880; 94002; 94060; 96374; 97116; 97162; 97164; 97167; 97530; 97535; 99285; C1713; C1769; C1894; J0153; J2916; P9016; P9045; P9047; Q9967

== ENCOUNTER 2023-10-15 13:55 | Inpatient (IN) | payer MEDICARE, OTHER, SELFPAY ==
[2023-10-15] VITALS (39 sets, daily range): BP systolic 73–143; BP diastolic 35–109; BMI 28.7; BMI 28.4
--- NOTE | 2023-10-15 10:20 | ED.GENMED ---
History of Present Illness
General
Chief Complaint: Weakness
Time Seen by Provider: 10/15/23 10:17
History of Present Illness
History of Present Illness:
HPI: The patient is postop day #12 CABG x 3. His daughter called EMS and given his overall ill appearance. EMS notes that he was hypotensive in the field and was also found to be hypoxic. His systolics in the field were around 100 and he was
given a 250 mL fluid bolus prior to arrival. The patient mainly complains of shortness of breath. He is also had poor p.o. intake over the last several days. He held his insulin recently due to poor p.o. intake.
EXAM:
GENERAL: The patient is ill-appearing, room air sats 87%, appears pale
HEENT: Moist oral mucosa
CARDIOVASCULAR: No murmurs, normal heart rate, regular rhythm, No chest wall tenderness
PULMONARY: Very minimal increased respiratory rate with minimal respiratory distress and decreased breath sounds at the left base
ABDOMEN: Soft with no peritoneal signs, no tenderness
NEUROLOGIC: Generally weak in all extremities, no coordination deficits
PSYCHIATRIC: Appropriate mental status, normal insight and judgement
EXTREMITIES: Nontender, no edema, moves all extremities equally but appears generally weak
SKIN: Appears pale
TIME OF INITIAL ENCOUNTER: 10:40 AM
NUMBER AND COMPLEXITY OF PROBLEMS ADDRESSED AT THE ENCOUNTER
� Chronic conditions affecting care: CAD, CABG September 2023, diabetes, hypothyroidism, anxiety/depression
� Acute Exacerbation and/or Progression of Chronic Illness: This is an acute problem
� Differential Diagnosis includes: GI bleed, postoperative complication, sepsis, pleural effusion
AMOUNT AND/OR COMPLEXITY OF DATA TO BE REVIEWED AND ANALYZED
� I performed an independent evaluation of and my interpretation is:
EKG: Sinus rate of 71, first-degree AV block, right bundle branch block
CT:
X-rays: Left pleural effusion noted on chest x-ray which is new
Laboratory Studies: White count is noted to be elevated at 22.5�although it has been high in the past this is higher than at time of discharge, hemoglobin 7.2 down from 8.6
Other:
� Review of other/old records: I reviewed the last hospitalization when he had the coronary bypass
� Clinical information was obtained by an independent historian: I spoke to the daughter at bedside
� Prescriptions/Medications Considered but not given:
� Further testing considered but not performed:
RISK OF COMPLICATIONS AND/OR MORBIDITY OR MORTALITY OF PATIENT MANAGEMENT
� Social determinants of health affecting care: Lives at home
� Discussion with other providers: I spoke to Dr. Willard blood transfusion; hospitalist for admission
� Escalation of care including admission/observation vs risk of discharge considered: The patient is more anemic than discharge. He also has leukocytosis. He is somewhat hypoxic on room air. I discussed with Dr. Smith he
does recommend giving blood. Informed written consent obtained by daughter at bedside. The patient does have atrial fibrillation and according the CT surgery the patient did have paroxysmal A-fib currently on Eliquis. Hyperkalemia noted�will give
insulin and Lokelma. Lactic is elevated.
Phy Exam
Physical Exam
Physical Exam:
See HPI
Course
Orders/Labs/Results
Orders:
Orders
10/15/23 Lunch
Clear Liquid
At Your Request: Full Participation
10/15/23 10:15
Electrocardiogram (*1) Urgent
Reason for Study: Fatigue / Weakness
10/15/23 10:16
EKG- Treatment ONCE
10/15/23 10:17
0.9% Sodium Chloride 500 ml [Nss] 500 ml IV BOLUS
10/15/23 10:18
Complete Blood Count/With Diff Urgent
Comprehensive Metabolic Panel Urgent
Ferritin Urgent
Comment: ADD ON
Iron Urgent
Comment: ADD ON
Magnesium Urgent
Comment: ADD ON
NT-proBNP Urgent
Total Iron Binding Urgent
Comment: ADD ON
Vitamin B12 Urgent
Comment: ADD ON
10/15/23 10:19
Add On- LAB Urgent
Tests Added?: magnesium
CR Chest Portable - 1 View Urgent
Comment:
Reason For Exam: sob post CABG decreased breath sounds L base
Reason Study Needs to be Portable: Patient Unstable
10/15/23 10:21
Type+Screen Urgent
10/15/23 10:58
Lactic Acid Q4H
Comment: CANCEL 2nd LACTIC ACID IF 1st LACTIC ACID IS LESS THAN 2
Blood Culture Q30M
JAMES Source: Blood/Venous
Specimen Description:
10/15/23 11:13
Blood Culture Q30M
JAMES Source: Blood/Venous
Specimen Description:
10/15/23 11:15
* Blood Bank Products Urgent
Blood Bank Products: *Packed RBC Leuko(PRBC's)
Quantity: 2
Transfuse Today: Yes
Reason: Anemia
Ondansetron Injectable [Zofran] 4 mg IV NOW STA
10/15/23 11:33
Electrocardiogram (*1) Urgent
Reason for Study: Atrial Fibrillation
EKG- Treatment ONCE
10/15/23 11:41
Echo Follow up Study W Dop Urgent
Cardiology Consult: Rigoberto Lou
10/15/23 11:42
Insulin Human Regular [Novolin R] 6 units IV NOW STA
Sodium Zirconium Cyclosilicate [Lokelma] 10 gram PO NOW STA
10/15/23 11:46
Albuterol Nebs [Ventolin Nebules] 2.5 mg INH R NOW STA
Sodium Bicarbonate 50 meq IV NOW STA
Peak Flow Rate [RESP] Urgent
Quantity: 1
Pre-Bronchodilator: Yes
Post Bronchodilator: Yes
Special Instructions: Pre and Post Peak Flow before and after Bronchodilator
10/15/23 12:13
Add On- LAB Routine
Tests Added?: iron,tibc,ferritin,b12
10/15/23 12:47
CARDIOLOGY CONSULT Routine
Consulting Provider: Rigoberto Lou
Was physician already notified: Yes
Reason for consult: sob, plueral bradycardia, pericardial eff, hyperk
Urinalysis Reflex To Culture Urgent
10/15/23 12:59
Electrocardiogram (*1) Stat
Reason for Study: Shortness of Breath
Other Reason for Exam: bradycardia
10/15/23 13:06
Abdomen/Pelvis wo Contrast CT [CT Abd/pelvis Wo Iv Cont] Urgent
Comment:
Reason For Exam: transaminitis sepsis
10/15/23 13:12
Add On- LAB Urgent
Tests Added?: iron ferritin tibc, folate b12,
10/15/23 13:13
Billet Worker Consult Routine
Consulting Provider: Evens Pelletier
Was physician already notified: Yes
Reason for consult: sepsis mod percardial eff, mod pleural efff, gi bleed, hyperK laura
10/15/23 13:17
Cardiothoracic Surgery Consult Routine
Consulting Provider: Maxx Smith
Was physician already notified: Yes
Reason for Consult: s/p cabg anemia, mod pleural eff, mod pericardial eff
10/15/23 13:21
Dextrose 50%-Water [Dextrose 50% Syringe] 12.5 grams IV [id number] PRN
Glucagon [GlucaGen] 1 mg IM PRN PRN
10/15/23 13:22
Bedside Glucose Monitoring As Directed
Frequency: AC&HS
Comment: Change to q6h if pt on TPN, tube feeding or not eating
10/15/23 13:23
GASTROINTESTINAL CONSULT Routine
Consulting Provider: Fatemeh Flynn
Was physician already notified: Yes
Reason for consult: anemia, heme positive
10/15/23 13:33
Admit/Transfer Patient As Directed
Co-Sign Provider:
Level of Care: Inpatient admission
Assign to:: ICU
Physician / Group: Hospitalist
Diagnosis: Sepsis, Anemia
Reason for Hospitalization: Sepsis, Anemia
Expected length of stay greater than two midnights?: Yes
ELOS- Estimated Length of Stay in days: 5
I certify the patient meets the requirements for IP care: Yes
10/15/23 13:36
Code Status As Directed
Resuscitation Status: Full Code
10/15/23 13:42
IR[facility] Cytology Routine
Date Specimen was Collected: 10/15/23
Time Specimen was Collected: 15:56
Source: Pleural Fluid, Left
Clinical Impression: rule out malignancy
History of Malignancy: unk
History of Radiation / Chemotherapy: unk
Submitting Physician: Dr. Ramirez/gisela garcia
10/15/23 13:54
Urinalysis Reflex To Culture Urgent
Date Specimen was Collected: 10/15/23
Time Specimen was Collected: 13:51
Urine Microscopic Reflex Cult Urgent
Urine Culture Urgent
JAMES Source: U
Specimen Description:
Date Specimen was Collected: 10/15/23
Time Specimen was Collected: 13:51
10/15/23 14:00
Piperacillin/Tazo 3.375 Gram [Zosyn] 3.375 gram in 50 ml IV Q6H
10/15/23 14:48
Bisacodyl [Dulcolax] 10 mg RECTAL DAILYPRN PRN
Docusate W/Senna [Senokot-S] 1 tablet PO BIDPRN PRN
Lidocaine [Lidocaine 4% Patch] 1 patch TOPICAL DAILYPRN PRN
Polyethylene Glycol Powder [Miralax] 17 grams PO DAILYPRN PRN
10/15/23 14:48
[facility] CONSULT Routine
Consulting Provider: Zurdo Ramirez
Was physician already notified: Yes
Reason for consult: thoracentesis
Activity As Directed
Activity Level: Bedrest
Bedside Glucose Monitoring As Directed
Frequency: AC&HS
Comment: Change to q6h if pt on TPN, tube feeding or not eating
Pneumatic Compression Sleeves As Directed
Type: Knee high
Vital Signs As Directed
Frequency: Per unit guidelines
O2 Therapy [RESP] Routine
Titrate/Wean O2 to maintain O2 sat greater than (%): 92
DX Deep Vein Thrombosis Video Routine
10/15/23 14:50
BHB [B-Hydroxybutyrate] Urgent
BMP [Basic Metabolic Panel] Urgent
Cortisol, Random Routine
LDH Routine
Comment: post procedure, add on to morning labs if already drawn
Lactic Acid Q4H
Comment: CANCEL 2nd LACTIC ACID IF 1st LACTIC ACID IS LESS THAN 2
Serum Osmolality Routine
Total Protein Routine
Comment: post procedure, add on to morning labs if already drawn
10/15/23 16:01
Body Fluid Cell Count Routine
What is the Body Fluid: pleural fluid
Date Specimen was Collected: 10/15/23
Time Specimen was Collected: 15:56
Comment: post procedure
Body Fluid Glucose Routine
Fluid Source: Pleural
Date Specimen was Collected: 10/15/23
Time Specimen was Collected: 15:56
Body Fluid LDH Routine
Fluid Source: Pleural
Date Specimen was Collected: 10/15/23
Time Specimen was Collected: 15:56
Body Fluid Protein Routine
Fluid Source: Pleural
Date Specimen was Collected: 10/15/23
Time Specimen was Collected: 15:56
Body Fluid pH Routine
Fluid Source: Pleural
Date Specimen was Collected: 10/15/23
Time Specimen was Collected: 15:56
Fluid Culture with Gram Stain Routine
JAMES Source: Pleural Fluid
Specimen Description:
Date Specimen was Collected: 10/15/23
Time Specimen was Collected: 15:56
Comment: post procedure
10/15/23 16:30
Insulin Aspart Corrective Low [Novolog Flexpen-Low Resistance] See Protocol SC AC
10/15/23 17:26
Urine Osmolality Random [Osmolality, Random Urine] Routine
Date Specimen was Collected: 10/15/23
Time Specimen was Collected: 17:25
Urine Sodium Routine
Date Specimen was Collected: 10/15/23
Time Specimen was Collected: 17:25
MRSA Screen Routine
JAMES Source: Nose
Specimen Description:
10/15/23 19:26
CBC/With Diff [Complete Blood Count/With Diff] Urgent
10/15/23 22:00
Insulin Glargine Lantus [Lantus] 10 units Subcutaneous Insulin Syringe [Syringe-Insulin] 0 unit SC HS
10/16/23 03:51
Comprehensive Metabolic Panel IN AM
Magnesium IN AM
10/16/23 03:52
Complete Blood Count/No Diff IN AM
10/16/23 06:00
Levothyroxine [Synthroid] 125 mcg PO DAILY@0600
10/16/23 08:00
Aspirin Low Dose EC [Aspir Low (Enteric Coated)] 81 mg PO DAILY
Cholecalciferol (Vitamin D3) [VITAMIN D3 (cholecalciferol)] 25 mcg PO DAILY
FA/Cyanocobalamin/Pyridoxine [Foltx] 1 tablet PO DAILY
Magnesium l-Lactate [Mag-Tab Sr] 84 mg PO DAILY
Pantoprazole [Protonix] 40 mg PO DAILY
Abnormal Lab Results
10/15/23 10/15/23 10/15/23
10:18 10:21 10:22
WBC 22.5 H 10^3/uL
(4.8-10.8)
RBC 2.33 L 10^6/uL
(4.70-6.10)
Hgb 7.2 L g/dL
(13.0-18.0)
Hct 22.1 L %
(39.0-52.0)
MCV 94.8 H fL
(80.0-94.0)
MCHC 32.6 L g/dL
(33.0-37.0)
Plt Count 580 H D 10^3/uL
(130-400)
Abs Immat Gran (auto) 0.2 H 10^3/uL
(0-0.05)
Absolute Neuts (auto) 20.7 H 10^3/uL
(1.4-6.5)
Absolute Lymphs (auto) 0.8 L 10^3/uL
(1.2-3.4)
Absolute Monos (auto) 0.7 H 10^3/uL
(0.1-0.6)
Immature Gran % 1.1 H %
(0-0.5)
Neutrophils % 92.1 H %
(42.2-75.2)
Lymphocytes % 3.4 L %
(20.5-51.1)
Sodium 124 L mmol/L
(135-145)
Potassium 6.0 H mmol/L
(3.5-5.1)
Carbon Dioxide 15 L mmol/L
(22-30)
BUN 56 H mg/dl
(9-20)
Creatinine 1.8 H mg/dL
(0.7-1.3)
Glucose 252 H mg/dl
(70-99)
Lactic Acid
Calcium 8.0 L mg/dl
(8.4-10.2)
Magnesium 2.6 H mg/dl
(1.6-2.3)
Iron 44 L ug/dl
(49-181)
TIBC 241 L ug/dl
(261-462)
% Saturation 18 L %
(20-50)
Ferritin 516.0 H ng/ml
(17.9-464.0)
Total Bilirubin 1.9 H mg/dl
(0.2-1.3)
AST 171 H U/L
(17-59)
ALT 89 H U/L
(0-50)
Alkaline Phosphatase 184 H U/L
(38-126)
Total Protein 5.9 L g/dl
(6.3-8.2)
Albumin 2.8 L g/dl
(3.5-5.0)
Vitamin B12 949 H pg/ml
(239-931)
Urine Ketones
Ur Occult Blood Reflex
Urine Bilirubin
Leukocyte Esterase Rfl
Urine RBC
Urine WBC (Reflex)
Urine Bacteria (Reflex)
POC Glucose 271 H mg/dl
(70-99)
Crossmatch IS Only See Detail
10/15/23 10/15/23 10/15/23
10:58 13:47 13:54
WBC
RBC
Hgb
Hct
MCV
MCHC
Plt Count
Abs Immat Gran (auto)
Absolute Neuts (auto)
Absolute Lymphs (auto)
Absolute Monos (auto)
Immature Gran %
Neutrophils %
Lymphocytes %
Sodium
Potassium
Carbon Dioxide
BUN
Creatinine
Glucose
Lactic Acid 3.3 H mmol/L
(0.7-2.0)
Calcium
Magnesium
Iron
TIBC
% Saturation
Ferritin
Total Bilirubin
AST
ALT
Alkaline Phosphatase
Total Protein
Albumin
Vitamin B12
Urine Ketones Trace A
(Negative)
Ur Occult Blood Reflex 4+ A
(Negative)
Urine Bilirubin 1+ A
(Negative)
Leukocyte Esterase Rfl 2+ A
(Negative)
Urine RBC 3-6 A /HPF
(0-2)
Urine WBC (Reflex) 50-60 A /HPF
(0-5)
Urine Bacteria (Reflex) Moderate A
(Negative)
POC Glucose 308 H mg/dl
(70-99)
Crossmatch IS Only
10/15/23 10:18
10/15/23 10:18
Vital Signs
Initial and Last Documented VS:
Initial Vital Signs
Pulse Ox
90
10/15/23 10:13
Last Documented Vital Signs
Temp Pulse Resp BP Pulse Ox
98.2 F 73 19 100/62 98
10/16/23 12:00 10/16/23 12:45 10/16/23 12:45 10/16/23 12:45 10/16/23 12:45
*Pulse Oximetry
Patient hypoxic: yes
Comment: 87% RA
*Critical Care Note
Total Time (30-74mins, 75-104mins- exclusive of procedures): 60min
comment:
The patient arrived normotensive but was hypotensive for EMS. He was hypoxic with room air sats of about 87%. He has ongoing tachypnea. He is overall ill in appearance. His hemoglobin is less than prior. Lactic acid is elevated. Symptoms may
be multifactorial including anemia. He is heme positive on digital rectal examination. While in ED, he did have episode where he did become more bradycardic which may or may not be related to hyperkalemia�he was given meds for hyperkalemia. I
also emergently discussed case with cardiothoracic surgery and cardiology.
ED Attending Note
-
Portions of this chart may have been created with voice recognition software.� Occasional wrong word or��sound alike� substitutions may have occurred due to the inherent limitations of voice recognition software.
Discharge Plan
Departure
Patient Disposition: Admit
Date of Disposition: 10/15/23
Time of Disposition: 11:43
Presentation/result/management discussed w/ accepting MD/DO: Hospitalist
Discharge Problem:
Anemia
Interventions
Interventions:
*Risk Screen - Suicide Last Done: 10/15/23 10:37
*General Assessment Last Done: 10/15/23 10:30
*Neglect/Abuse Screening Last Done: 10/15/23 10:30
ED- Fall Risk Assessment Last Done: 10/15/23 16:22
*ED COVID-19 Vaccine History Last Done: 10/15/23 18:05
*Nursing Disposition Last Done: 10/15/23 16:22
ED- Cardiac Assessment Last Done: 10/15/23 10:43
ED- Neurological Assessment Last Done: 10/15/23 10:45
ED- Pulmonary Assessment Last Done: 10/15/23 14:00
Discharge Date and Time
Discharge Date/Time: 10/15/23 16:00
[2023-10-15 10:24] LABS: Glucose - Point of Care 271 mg/dl (70-99)
[2023-10-15 10:29] LABS: % Basophils 0.2 % (0-2); % Immature Granulocytes 1.1 % (0-0.5); % Lymphocytes 3.4 % (20.5-51.1); % Monocytes 3.2 % (1.7-9.3); % Neutrophils 92.1 % (42.2-75.2); Absolute Basophils 0.1 10^3/uL (0-0.2); Absolute Immature Granulocytes 0.2 10^3/uL (0-0.05); Absolute Lymphocytes 0.8 10^3/uL (1.2-3.4); Absolute Monocytes 0.7 10^3/uL (0.1-0.6); Absolute Neutrophils 20.7 10^3/uL (1.4-6.5); Hematocrit 22.1 % (39.0-52.0); Hemoglobin 7.2 g/dL (13.0-18.0); Mean Corp Hgb Conc. 32.6 g/dL (33.0-37.0); Mean Corpuscular Hgb 30.9 pg (27.0-31.0); Mean Corpuscular Volume 94.8 fL (80.0-94.0); Mean Platelet Volume 9.8 fL (7.4-10.4); Nucleated Red Blood Cells % 0 % (-); Platelet Count 580 10^3/uL (130-400); Red Blood Cell Count 2.33 10^6/uL (4.70-6.10); Red Cell Dist. Width 14.4 % (11.5-14.5); White Blood Cell Count 22.5 10^3/uL (4.8-10.8)
[2023-10-15 10:48] LABS: ALT (SGPT) 89 U/L (0-50); AST (SGOT) 171 U/L (17-59); Albumin 2.8 g/dl (3.5-5.0); Alkaline Phosphatase 184 U/L (38-126); Blood Urea Nitrogen 56 mg/dl (9-20); Carbon Dioxide 15 mmol/L (22-30); Chloride 98 mmol/L (98-107); Estimated Creatinine Clearance -7 ml/min; Glucose 252 mg/dl (70-99); Magnesium 2.6 mg/dl (1.6-2.3); Sodium 124 mmol/L (135-145); Total Bilirubin 1.9 mg/dl (0.2-1.3); Total Protein 5.9 g/dl (6.3-8.2); eGFR 39.01
[2023-10-15] MEDS: NSS 500 IV ×2 (10:52→17:30)
[2023-10-15 11:20] LABS: Lactic Acid 3.3 mmol/L (0.7-2.0)
[2023-10-15] MEDS: ZOFRAN 4 MG IV (11:35)
[2023-10-15 11:43] LABS: NT-proBNP 5700 pg/ml
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
[2023-10-15] MEDS: SODIUM BICARBONATE 50 MEQ IV (12:21)
[2023-10-15] MEDS: VENTOLIN NEBULES 2.5 MG INH (12:21)
--- NOTE | 2023-10-15 12:25 | HPS.HSE ---
Family Physician
<ANDREI Mata - Last Filed: 10/15/23 13:26>
-
Family Physician: Emil Sibley
Chief Complaint
<ANDREI Mata - Last Filed: 10/15/23 13:26>
-
Weakness, shortness of breath, nausea, dry heaves
History of Present Illness
73-year-old male from home with his at bedside complaining of increased weakness and shortness of breath with nausea and dry heaves since last night. He has a chronic Laguna catheter that was placed during CABG surgery on 10/03/2023 that is
draining scant yellow in color. He denies headache, fever, chills, chest pain, palpitations, cough, abdominal pain, vomiting, diarrhea, urinary symptoms. He is currently anxious very short of breath with episodes of bradycardia heart rate down to
34 bpm sinus. Bedside echo showing moderate pericardial effusion along with moderate right pleural effusion. He is maintaining O2 sat of 96% on 4 L nasal cannula. He denies current chest pain, sternal chest incision is intact no surrounding
erythema or drainage. He is s/p CABG x 3 (HENNESSY�LAD, SVG�OM1, SVG�PDA), CHIKA clip 09/25/2023. CAD/NSTEMI 10/05/2023. other PMH includes bladder outlet obstruction/chronic indwelling Laguna catheter prior history of prostate cancer with radiation, TURP,
suprapubic 2018, prior self caths, DM2, CKD 3, chronic back pain on oral opiates, paroxysmal A-fib on Eliquis, hypothyroidism with history of Graves', former smoker stopped 09/25/2023.
Medical History
<ANDREI Mata - Last Filed: 10/15/23 13:26>
Past Medical History
Past Medical History: Reports Other
Additional Past Medical History:
s/p CABG x 3 (HENNESSY�LAD, SVG�OM1, SVG�PDA), CHIKA clip 09/25/2023
CAD/NSTEMI 10/05/2023.
paroxysmal A-fib on Eliquis started 10/08/2023 post CABG
bladder outlet obstruction/chronic indwelling Laguna catheter prior history of prostate cancer with radiation, TURP, suprapubic 2018, prior self caths,
DM2
CKD 3
chronic back pain on oral opiates
hypothyroidism with history of Graves'
former smoker stopped 09/25/2023.
Past Surgical History: Reports Other
Additional Past Surgical History:
CABG x 3 (HENNESSY�LAD, SVG�OM1, SVG�PDA), CHIKA clip 09/25/2023
TURP 2018 suprapubic catheter 2018 with reversal
Prostate cancer with radiation
Social History
Tobacco: Former Smoker (Quit 09/25/2023)
Alcohol: None
Drug: None
Personal:
Living: With Family ( Nellie)
Employment: Retired
Family History
Family History: Not pertinent
Allergies / Home Medications
Allergies reflects when Allergies were last updated in [employer].
Home Medications with original date entered in [employer]
Allergy/Medication List:
Allergies
Allergy/AdvReac Type Severity Reaction Status Date / Time
Sulfa (Sulfonamide Allergy Swelling Verified 10/15/23 10:30
Antibiotics)
Home Medications
Patient's Own Insulin 0 unit SC .VIA PUMP Diabetes 10/01/23
acetaminophen 325 mg tablet (Tylenol) 650 mg PO DAILYPRN PRN mild pain 10/01/23
aspirin 81 mg tablet,delayed release 81 mg PO DAILY Blood Clot Prevention/Tx 10/01/23
bisacodyl 5 mg tablet,delayed release (Dulcolax (bisacodyl)) 5 mg PO DAILYPRN PRN constipation 10/01/23
cholecalciferol (vitamin D3) 25 mcg (1,000 unit) tablet (Vitamin D3) 25 mcg PO DAILY Supplement ##0 10/01/23
levothyroxine 125 mcg tablet (Synthroid) 125 mcg PO DAILY Thyroid 10/01/23
magnesium oxide 200 mg PO DAILY Supplement ##0 10/01/23
oxycodone-acetaminophen 5 mg-325 mg tablet 0.5 tab PO HS Pain 10/01/23
oxycodone-acetaminophen 5 mg-325 mg tablet 1 tab PO DAILYPRN PRN severe pain 10/01/23
trazodone 150 mg tablet 150 mg PO HS PRN sleep 10/01/23
vitamin B complex 1 tab PO DAILY Supplement 10/01/23
atorvastatin 80 mg tablet 80 mg PO QPM High cholesterol #30 tabs 10/07/23
pantoprazole 40 mg tablet,delayed release 40 mg PO DAILY GI prophylaxis #30 tabs 10/07/23
amiodarone 200 mg tablet (Pacerone) 200 mg PO BID #90 tabs 10/09/23
apixaban 5 mg tablet (Eliquis) 5 mg PO BID #60 tabs 10/09/23
metoprolol tartrate 25 mg tablet 25 mg PO BID #60 tabs 10/09/23
tramadol 50 mg tablet 50 mg PO Q6HPRN PRN severe pain #20 tabs 10/09/23
lidocaine 4 % topical patch 1 patch topical DAILYPRN PRN left shoulder 10/15/23
Review of Systems
<ANDREI Mata - Last Filed: 10/15/23 13:26>
-
History Source: Patient and Family ( At bedside)
A 12 point ROS was completed and negative except as noted: Yes
Constitutional: Reports Fatigue and Other (Pale in color); Denies Fever or Chills
EENT: Denies Sore Throat or Runny Nose
Respiratory: Reports Trouble Breathing; Denies Cough
Cardiac: Denies Chest Pain, Diaphoresis, Palpitations or Syncope
Abdomen/GI: Reports Nausea and Vomiting (Dry heaves); Denies Abdominal Pain, Diarrhea, Constipated or Bloody Stools
: Reports Dysuria and Laguna (Draining scant urine yellow in color)
Musculoskeletal: Reports Edema (+2 bilateral lower extremity edema); Denies Joint Pain
Skin: Denies Itching or Rash
Neurological: Reports Weakness; Denies Dizzy or Headache
Endocrine: Reports No Symptoms
Hematologic/Lymphatic: Reports No Symptoms
Psych: Reports Anxiety
Physical Exam
<ANDREI Mata - Last Filed: 10/15/23 13:26>
Vital Signs
Vital Signs
Temp Pulse Resp BP Pulse Ox
97.6 F 87 17 107/47 97
10/15/23 10:30 10/15/23 10:45 10/15/23 10:45 10/15/23 10:34 10/15/23 10:45
Physical Exam
General: Conversant and Other (Short of breath); No Pain, Fever or Chills
HEENT: NormoCephalic, Anicteric, PERRLA, No Ptosis, Oxygen (O2 4 L nasal cannula) and Other (Pale conjunctiva, overall pallor)
Respiratory: Other (Diminished breath sounds right lung); No Wheezes or Rales
Cardiac: S1/S2, Bradycardia (Sinus bradycardia heart rate 34 bpm 70s), Peripheral Edema (+2 bilateral lower extremity edema) and Other (Healing sternal incision scabs intact no surrounding erythema or drainage); No Murmur, Rub or Gallop
Breast: Deferred by me
GI: Soft, Non Tender, Non Distended, Normal Bowel Sounds and No Hepatosplenomegaly
Rectal: Hem Positive (Brown stool in ER)
Genito-urinary: Laguna (Scant yellow urine)
Musculoskeletal: No Clubbing, No Cyanosis, Edema, Left Lower Extremity (+2) and Edema, Right Lower Extremity (+2); No Edema, Left Upper Extremity or Edema, Right Upper Extremity
Skin: Warm and Dry; No Rash or Jaundice
Neuro: AO x 3, No Motor Deficits, Nonfocal/grossly intact, Cranial Nerves Intact and No Sensory Deficits; No Slurred Speech, Facial Droop or Tremors
Psych: Agitated
Laboratory Results
<ANDREI Mata - Last Filed: 10/15/23 13:26>
-
10/15/23 10:18
10/15/23 10:18
Laboratory Results
Lactic Acid 3.3 mmol/L (0.7-2.0) H 10/15/23 10:58
Total Bilirubin 1.9 mg/dl (0.2-1.3) H 10/15/23 10:18
AST 171 U/L (17-59) H 10/15/23 10:18
ALT 89 U/L (0-50) H 10/15/23 10:18
Alkaline Phosphatase 184 U/L (38-126) H 10/15/23 10:18
Impression/Plan
<ANDREI Mata - Last Filed: 10/15/23 13:26>
-
Impression/plan:
Admit to ICU
#Sepsis unclear etiology concern for urine
107/47, lactic acid 3.3
-Check UA ,CENTRAL SUPPLY TECHNICIAN SUPERVISOR from Laguna catheter, follow pleural fluid results
-Blood cultures x 2
-Follow CBC, CMP, lactic acid
#Acute MOD PERICARDIAL EFFUSION
#NSTEMI 10/05/23
#CAD/ s/p CABG x 3 (HENNESSY�LAD, SVG�OM1, SVG�PDA), CHIKA clip 09/25/2023
2D echo 10/02/2023 EF 55 to 60%, mild , mild to moderate MR
-2D echo done at bedside, preserved EF
-Dr. Lou at bedside
-Consult Tool Repair Technician
-Consult CT surgery
-Continue statin 80 mg every afternoon, aspirin 81 mg daily hold metoprolol tartrate secondary to bradycardia
#Moderate LEFT -sided pleural effusion
BNP 5700
CXR: Moderate left-sided pleural effusion with underlying compressive atelectasis new to prior study
-Consult IR for thoracentesis
#Symptomatic BRADYCARDIA
Heart rate as low as 34 sinus bradycardia
-ZOLL pads in place
- HOLD metoprolol tartrate secondary to bradycardia
#Acute hyperkalemia
K 6
Insulin 6 units IV, sodium bicarb, Lokelma 10 g
-IV NSS 1 L
-Follow BMP repeat at 7 PM
#Acute transaminitis likely reactive
-Follow CMP
-Check CT abdomen pelvis with oral contrast only
#Possible GI bleed
#Macrocytic anemia
Brown heme positive stool
Hgb 7.2, MCV 94.8
Type and screen, obtain blood consent
-Transfuse 2 units PRBCs
-Check B12, folate, iron panel
-H&H every 8 hours
HOLD ELIQUIS
#Bladder outlet obstruction/intermittent cath
-Laguna catheter was placed during cardiac surgery 10/03/2023 by urology plan for 4 weeks of Laguna then voiding trial
-Laguna UA CENTRAL SUPPLY TECHNICIAN SUPERVISOR
#EVON on CKD 3
Creat 1.8/bun 56 prior 1.3 on 10/09/2023
IV NSS 1 L given in ER
Follow BMP
#Hyponatremia hypovolemic
NA 124
-Urine NA, urine Osmo, serum Osmo, random cortisol
#DM2
BS 252, HgbA1c 7.9% recent September 2023
-Patient with insulin pump
Accu-Cheks SSI low
#A-fib paroxysmal-postop 10/05/2023
Hold Eliquis was started 5 mg twice daily on 10/08/2023, amiodarone 200mg twice daily
#RBBB
#Mild-moderate
#Chronic back pain on chronic opiates
-Continue oxycodone one half tab p.o. at bedtime and daily as needed
#GERD
-Continue Protonix 40 mg daily
#Hypothyroidism history of Graves'
Check TSH with free T4 reflex
-Continue Synthroid 125 mcg
#Former smoker
Stopped 09/25/2023
DVT prophylaxis
Hold Eliquis
SCDs
Full code
<Gema Younger MD - Last Filed: 10/15/23 13:55>
-
Impression/plan:
I saw and examined the patient.
The NNP or PA's note was reviewed and I agree with the note.
Comment:
CVS: S1-S2 normal
Chest: Decreased breath sounds left base
Abdomen: Soft, right lumbar, upper quadrant tenderness, bowel sounds present
Extremities: Bilateral edema, vein retrieval site looks good
Sternal area-no discharge, wound healing
CENTRAL SUPPLY TECHNICIAN SUPERVISOR: Lethargic but arousable, non focal exam
Admit to ICU
#Sepsis unclear etiology
Abdominal pain-check CT scan of the abdomen pelvis
Cover with Zosyn.
Infectious disease consultation
-Check UA ,CENTRAL SUPPLY TECHNICIAN SUPERVISOR from Laguna catheter, follow pleural fluid results
-Blood cultures x 2
-Follow CBC, CMP, lactic acid
# Lactic acidosis-follow
#Acute MOD PERICARDIAL EFFUSION-cardiology following
#NSTEMI 10/05/23 S/P CAD/ s/p CABG x 3 (HENNESSY�LAD, SVG�OM1, SVG�PDA), CHIKA clip 09/25/2023
-2D echo done at bedside, preserved EF
-Consult CT surgery
-Continue statin 80 mg every afternoon, aspirin 81 mg daily hold metoprolol tartrate secondary to bradycardia
-Elevated proBNP noted however in the setting of infection and also hypotension will and EVON-will hold off on Lasix.
#Moderate LEFT -sided pleural effusion
BNP 5700
CXR: Moderate left-sided pleural effusion with underlying compressive atelectasis new to prior study
-Consult IR for thoracentesis- Nellie Alger discussed with CTS
#BRADYCARDIA
Heart rate as low as 34 sinus bradycardia
-ZOLL pads in place
-HOLD metoprolol tartrate secondary to bradycardia
#Acute hyperkalemia
K 6
Insulin 6 units IV, sodium bicarb, Lokelma 10 g
-S/P IV NSS 1 L
-Follow BMP repeat
#Acute transaminitis
-Follow CMP
-Check CT abdomen pelvis with oral contrast only
#Anemia with Heme positive stoolls
Possible GI bleed
Macrocytic anemia
Type and screen, obtain blood consent
-Transfuse 2 units PRBCs
-Check B12, folate, iron panel
-H&H every 8 hours
-HOLD ELIQUIS
# Thrombocytosis-watch
# Leukocytosis-patient has had chronic leukocytosis even prior to admission.
#Bladder outlet obstruction/intermittent cath
-Laguna catheter was placed during cardiac surgery 10/03/2023 by urology plan for 4 weeks of Laguna then voiding trial
-Laguna UA CENTRAL SUPPLY TECHNICIAN SUPERVISOR
-CT A/P
#Hyponatremia hypovolemic likely
Check urine and serum osm and urine sodium
NA 124
#DM2 with neuropathy of lower extremities
BS 252, HgbA1c 7.9% recent September 2023
-Patient normally uses insulin pump. Taken off last night per daughter
Accu-Cheks SSI low
Add Lantus 10 units HS
#EVON on CKD 3
Creat 1.8/bun 56 prior 1.3 on 10/09/2023
IV NSS 1 L given in ER
Follow BMP
#A-fib paroxysmal-postop 10/05/2023
Hold Eliquis was started 5 mg twice daily on 10/08/2023, continue amiodarone 200mg twice daily per D/W Cards
Hold Lopressor
#RBBB
#Mild-moderate
#Chronic back pain opiate dependent
-Continue oxycodone one half tab p.o. at bedtime and daily as needed
#GERD
-Continue Protonix 40 mg daily
#Hypothyroidism history of Graves'
Check TSH with free T4 reflex
-Continue Synthroid 125 mcg
# Hyperlipidemia-hold statin with elevated LFTs
#Former smoker
Stopped 09/25/2023
# History of prostate cancer.
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
Had a flexible cystoscopy for a malpositioned catheter on 10/03/2023. Had a Laguna catheter placed by Dr. Bose and the plan was to continue with Laguna catheter for 4 weeks and to be exchanged via cystoscopy or under anesthesia by healing urethral
trauma.
Normally follows with Dr. Park at [place]
# Ambulatory dysfunction. Patient has been using a walker since 2019. Since September 2021 he also has a scooter which he uses at home.
# Insomnia-hold trazodone
# Hypoalbuminemia
#Mild restrictive lung disease
#DVT prophylaxis
Hold Eliquis
SCDs
#Full code
D/W Cards
D/W Daughter at bed side
D/W Nursing
Cc time spent 65 min
Patient appears to be very ill . Discussed with the patient's daughter about this.
[2023-10-15] MEDS: NOVOLIN R 6 UNITS IV (12:33)
--- NOTE | 2023-10-15 13:11 | CON.CAR ---
Addendum entered and electronically signed by Rigobetro Lou DO 10/15/23 15:16:
I saw and examined the patient.
The Locomotive Repairer Diesel's note was reviewed and I agree with the note.
Comment:
Plan:
Recent d/c October 09 2023 for CABG X 3 after STEMI with peak trop 7.4
He had PAFib with RVR then bradycardia and hypotension. Zoll pads in place
Multifactorial dyspnea:
Urgent bedside echo shows hyperdynamic LV function with at least moderate pericardial effusion without tamponade. May need eventual pericardiocentesis. Reviewed with interventional cardiology.
Last dose of Eliquis last PM. Possible pericardiocentesis tomorrow unless recurrent hypotension or change in clinical status.
Hold Lopressor and Amiodarone for now
Hold Eliquis. He is Heme positive and anemic. Receiving 2 units PRBCs. Monitor H/H closely. Agree with transfusion
Leukocytosis with chronic luciano. Cultures pending. Consider empiric abx. Trend WBC.
Moderate left pleural effusion, for thoracentesis
Poor PO intake with elevated LFTs, acute renal failure and hyperkalemia. Received tx for hyperkalemia in ER and IVF.
Discussed with family at bedside, echo, nursing, pharmacy, interventional cardiology and primary service.
CCT: 34 min
Original Note:
Consultation
Consultation Request
Date/Time Consultation Performed: 10/15/23
Requesting Provider: Dr. Younger
Performing Provider: Steffanie Encsio PA-C for Dr. Lou
Reason for Consultation: SOB, drew
Medical History
-
Chief Complaint: Nausea, fatigue
History of Present Illness:
Patient is a 73 yo M s/p CABG x3 HENNESSY-LAD, SVG-OM1, SVG-PDA and CHIKA clip 10/03/23. Post op course was complicated by PAF, for which patient was started on eliquis, and urethral trauma requiring luciano placement and cystoscopy. He was discharged to
home on 10/09/23 - he was recommended SNF due to being max assist with PT/OT however patient wished to go home. His daughter has been staying with him. He was noted to be more weak and fatigued over the weekend with poor appetite. Started with N/V
this AM resulting in patient coming to ER. Upon arrival noted to have multiple lab abnormalities including EVON, hyponatremia, hyperkalemia, leukocytosis, worsening anemia with evidence of iron deficiency, elevated LFTs. He was given 250cc IVF by
EMS, as well as additional 500cc IVF in ER. Received 6 U insulin in ER however no dextrose as BS in 250s. He has not been able to receive lokelma. He was given zofran, sodium bicarb, and albuterol. Patient in afib on arrival, tachy post albuterol,
then noted to become tachypneic and bradycardic with HRs temporarily in 30s. Zoll pads placed. Urgent echo ordered which showed preserved EF, moderate loculated pericardial effusion without evidence of hemodynamic compromise. Cardiology asked to see
patient urgently in ER.
PMH:
CAD
NSTEMI s/p chest pain, peak Troponin 7.45 10/01/23
s/p CABG x3 (HENNESSY - LAD, SVG - OM1, SVG - PDA), CHIKA clip 10/03/2023
Post op paroxysmal Afib
Started on eliquis post op
Post op urinary retention requiring indwelling luciano catheter
HTN
DM 2
Chronic back pain with daily oxycodone use
Hypothyroid and h/o Graves disease
Hyperlipidemia
RBBB
Bladder outlet obstruction/intermittent catheterization
Former tobacco abuse, quit 10/01/23
Mild-moderate
Past Medical History
Past Medical History: Other (in HPI)
Social History
Tobacco: Former Smoker
Living: With Family
Allergies / Home Medications
Allergy/AdvReac Type Severity Reaction Status Date / Time
Sulfa (Sulfonamide Allergy Swelling Verified 10/15/23 10:30
Antibiotics)
�Medication �Instructions �Recorded �Confirmed �Type
Patient's Own Insulin 0 unit SC .VIA PUMP Diabetes 10/01/23 10/15/23 History
acetaminophen 325 mg tablet 650 mg PO DAILYPRN PRN mild pain 10/01/23 10/15/23 History
(Tylenol)
aspirin 81 mg tablet,delayed 81 mg PO DAILY Blood Clot 10/01/23 10/15/23 History
release Prevention/Tx
bisacodyl 5 mg tablet,delayed 5 mg PO DAILYPRN PRN constipation 10/01/23 10/15/23 History
release (Dulcolax (bisacodyl))
cholecalciferol (vitamin D3) 25 25 mcg PO DAILY Supplement ##0 10/01/23 10/15/23 History
mcg (1,000 unit) tablet (Vitamin
D3)
levothyroxine 125 mcg tablet 125 mcg PO DAILY Thyroid 10/01/23 10/15/23 History
(Synthroid)
magnesium oxide 200 mg PO DAILY Supplement ##0 10/01/23 10/15/23 History
oxycodone-acetaminophen 5 mg-325 0.5 tab PO HS Pain 10/01/23 10/15/23 History
mg tablet
oxycodone-acetaminophen 5 mg-325 1 tab PO DAILYPRN PRN severe pain 10/01/23 10/15/23 History
mg tablet
trazodone 150 mg tablet 150 mg PO HS PRN sleep 10/01/23 10/15/23 History
vitamin B complex 1 tab PO DAILY Supplement 10/01/23 10/15/23 History
atorvastatin 80 mg tablet 80 mg PO QPM High cholesterol #30 10/07/23 10/15/23 Rx
tabs
pantoprazole 40 mg tablet,delayed 40 mg PO DAILY GI prophylaxis #30 10/07/23 10/15/23 Rx
release tabs
amiodarone 200 mg tablet (Pacerone) 200 mg PO BID #90 tabs 10/09/23 10/15/23 Rx
apixaban 5 mg tablet (Eliquis) 5 mg PO BID #60 tabs 10/09/23 10/15/23 Rx
metoprolol tartrate 25 mg tablet 25 mg PO BID #60 tabs 10/09/23 10/15/23 Rx
tramadol 50 mg tablet 50 mg PO Q6HPRN PRN severe pain 10/09/23 10/15/23 Rx
#20 tabs
lidocaine 4 % topical patch 1 patch topical DAILYPRN PRN left 10/15/23 10/15/23 History
shoulder
Review of Systems
-
History Source: Patient and Family
All other systems: Negative unless noted
Physical Exam
Vital Signs
Temp Pulse Resp BP Pulse Ox
97.6 F 93 25 102/58 98
10/15/23 10:30 10/15/23 12:46 10/15/23 12:46 10/15/23 12:46 10/15/23 12:46
Lab Results
10/15/23 10:18
10/15/23 10:18
Kzy-R-Bwdprikowzw Pept 5700 pg/ml 10/15/23 10:18
Physical Exam
General: Other (ill appearing. obese. on supp O2)
HEENT: Normocephalic, Anicteric and Moist Mucous Membranes
Respiratory: Other (decreased BS L lung base)
Cardiac: S1/S2, Irregular Rhythm and Murmur
GI: Soft, Non Tender and Non Distended
Musculoskeletal: No Clubbing, No Cyanosis and Edema (1+ of B/L LE)
Skin: Warm and Dry
Neuro: Other (lethargic)
Impression / Plan
-
Primary Health Worker: initially seen on 09/[address] ROSY Pradhan
Assessment:
Presentation with N/V
Sepsis
EVON on CKD 3
hyponatremia
hyperkalemia
worsening post op anemia with evidence of iron deficiency
Heme positive stool in ER
elevated LFTs
Moderate loculated pericardial effusion without hemodynamic compromise by echo 10/15/23
Moderate L pleural effusion by CXR
CAD
NSTEMI s/p chest pain, peak Troponin 7.45 10/01/23
s/p CABG x3 (HENNESSY - LAD, SVG - OM1, SVG - PDA), CHIKA clip 10/03/2023
Post op paroxysmal Afib
Started on eliquis post op
Post op urinary retention requiring indwelling luciano catheter
HTN
DM 2
Chronic back pain with daily oxycodone use
Hypothyroid and h/o Graves disease
Hyperlipidemia
RBBB
Bladder outlet obstruction/intermittent catheterization
Prostate cancer s/p radiation and TURP
Former tobacco abuse, quit 09/25/23
Mild-moderate
Echo 10/02/23: EF 55-60%, mild , mild to moderate MR
ECHO 10/15/23: EF preserved, mod pericardial effusion without evidence of hemodynamic compromise
Plan:
-Patient s/p CABG x3 10/03/23 presents back to [facility] due to N/V.
-with evidence of sepsis from unclear source. concern for urologic source given indwelling luciano. work up ongoing. broad spectrum abx per primary service
-cardiology consulted as patient noted to be in atrial fibrillation. was tachy post albuterol however then became drew into 30s with associated tachypnea. now resolved. zoll pads in place.
-holding OP lopressor 25mg BID. he is in and out of afib in ER with controlled rates. holding OP amio as well for now. when able, would resume at lower dose of 200mg daily
-urgent echo at bedside with preserved EF and mod pericardial effusion. may require pericardiocentesis, to review with interventional cards
-holding eliquis, last dose 4/8PM. needs iron repletion. for transfusion. continue asa
-with mod L pleural effusion in addition. on supp O2. consider for thoracentesis if remains stable. would hold off on lasix at present with EVON and to avoid hypotension in setting of pericardial effusion
-holding statin, amio with elevated LFTs.
-d/w ER nursing, pharmacy, hospitalist, CT surgery
-CCT 34 mins
Data Reviewed
-
EKG: Tracing Personally Visualized and interpreted
Radiology: Report Reviewed by me
Medical Tests (Nuc Med, Echo etc): Report Reviewed by me
Labs: Labs Reviewed by me
Old Records: Reviewed
[2023-10-15 13:16] LABS: Iron 44 ug/dl (49-181)
[2023-10-15 13:26] LABS: Percent Saturation 18 % (20-50); Total Iron Binding Capacity 241 ug/dl (261-462)
[2023-10-15] MEDS: LOKELMA 10 GRAM PO (13:38)
[2023-10-15 13:50] LABS: Glucose - Point of Care 308 mg/dl (70-99)
[2023-10-15 14:07] LABS: Vitamin B12 949 pg/ml (239-931)
--- NOTE | 2023-10-15 14:09 | CON.INTV ---
Consultation
Consultation Request
Date/Time Consultation Requested: 10/14
Date/Time Consultation Performed: 10/14
Reason for Consultation: crit care
Medical History
-
History of Present Illness:
History obtained from the patient, medical records, and daughter at the bedside. Patient is a 73-year-old male with recently , following bypass surgery. At that time, patient presented for intermittent chest pain and positive
troponins. Patient developed rapid atrial fibrillation, requiring amiodarone and Lopressor. Patient was diuresed, hemoglobin noted to be 8.2. Patient was transfused, and discharged home on anticoagulation. Patient now presents via EMS. He
states he has been short of breath since 10/12/2023. He has had a poor appetite since discharge from the hospital. He does have occasional lightheadedness and dizziness, poor p.o. intake. Daughter was concerned this morning when he was dry heaving,
felt like he had to cough but could not expectorate. Patient denies fevers, chills, sweats, diarrhea, falls, syncope. EMS was called and patient found to be hypotensive and hypoxic. He was given IV fluids. Upon arrival to [facility],
afebrile, pulse 86, breathing at 18, blood pressure 115/61, 96%. Hemoglobin noted to be 7.2, elevated lactate 3.3. White count was 22.5, creatinine 1.8. Chest x-ray revealed bilateral patchy infiltrate, predominantly left-sided with pleural
effusion, echocardiogram revealed normal biventricular function, moderate pericardial effusion without evidence of hemodynamic compromise. Patient admitted to ICU for further management 10/15/23.
.
PMHx: Hypertension, DM type II, tobacco use disorder, hyperlipidemia, hypothyroidism, history of prostate cancer s/p surgery, chronic urinary retention with CIC, DDD involving lumbar spine, peripheral neuropathy, left hip trochanteric bursitis, left
IT band syndrome, anxiety/depression
PSHx: Appendectomy, cholecystectomy, TURP, skin grafting, coronary bypass surgery 10/03/2023
Past Medical History
Past Medical History: None (See above)
Past Surgical History: None (See above)
Social History
Tobacco: Former Smoker (50+ pack year, ongoing, quit 10/03/2023)
Alcohol: None
Drug: None
Personal:
Living: With Family (Lives with daughter)
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
Family History
Family History: Other (Parents from heart disease. Sister from lung cancer in the sixth decade)
Allergies / Home Medications
Allergies
Allergy/AdvReac Type Severity Reaction Status Date / Time
Sulfa (Sulfonamide Allergy Swelling Verified 10/15/23 10:30
Antibiotics)
Home Medications
�Medication �Instructions �Recorded �Confirmed �Last Taken �Type
Patient's Own Insulin 0 unit SC .VIA PUMP Diabetes 10/01/23 10/15/23 10/01/23 History
acetaminophen 325 mg tablet 650 mg PO DAILYPRN PRN mild pain 10/01/23 10/15/23 10/01/23 History
(Tylenol)
aspirin 81 mg tablet,delayed 81 mg PO DAILY Blood Clot 10/01/23 10/15/23 10/14/23 History
release Prevention/Tx
bisacodyl 5 mg tablet,delayed 5 mg PO DAILYPRN PRN constipation 10/01/23 10/15/23 09/29/23 History
release (Dulcolax (bisacodyl))
cholecalciferol (vitamin D3) 25 25 mcg PO DAILY Supplement ##0 10/01/23 10/15/23 10/14/23 History
mcg (1,000 unit) tablet (Vitamin
D3)
levothyroxine 125 mcg tablet 125 mcg PO DAILY Thyroid 10/01/23 10/15/23 10/14/23 History
(Synthroid)
magnesium oxide 200 mg PO DAILY Supplement ##0 10/01/23 10/15/23 10/14/23 History
oxycodone-acetaminophen 5 mg-325 0.5 tab PO HS Pain 10/01/23 10/15/23 09/30/23 History
mg tablet
oxycodone-acetaminophen 5 mg-325 1 tab PO DAILYPRN PRN severe pain 10/01/23 10/15/23 10/01/23 History
mg tablet
trazodone 150 mg tablet 150 mg PO HS PRN sleep 10/01/23 10/15/23 09/30/23 History
vitamin B complex 1 tab PO DAILY Supplement 10/01/23 10/15/23 10/01/23 History
atorvastatin 80 mg tablet 80 mg PO QPM High cholesterol #30 10/07/23 10/15/23 10/14/23 Rx
tabs
pantoprazole 40 mg tablet,delayed 40 mg PO DAILY GI prophylaxis #30 10/07/23 10/15/23 10/14/23 Rx
release tabs
amiodarone 200 mg tablet (Pacerone) 200 mg PO BID #90 tabs 10/09/23 10/15/23 10/14/23 Rx
apixaban 5 mg tablet (Eliquis) 5 mg PO BID #60 tabs 10/09/23 10/15/23 10/14/23 Rx
metoprolol tartrate 25 mg tablet 25 mg PO BID #60 tabs 10/09/23 10/15/23 10/14/23 Rx
tramadol 50 mg tablet 50 mg PO Q6HPRN PRN severe pain 10/09/23 10/15/23 Unknown Rx
#20 tabs
lidocaine 4 % topical patch 1 patch topical DAILYPRN PRN left 10/15/23 10/15/23 10/15/23 History
shoulder
Review of Systems
-
All other systems: Negative unless noted
Vitals / Labs / Diagnostic Testing
Vital Signs
Temp Pulse Resp BP Pulse Ox
97.4 F 83 22 106/40 96
10/15/23 13:35 10/15/23 13:35 10/15/23 13:35 10/15/23 13:35 10/15/23 13:35
Lab Data
10/15/23 19:00
Diagnostic Testing:
Physical Exam
-
HEENT: Normocephalic, Anicteric and Other (Generally pallorous)
Cardiovascular: S1/S2, Regular Rhythm, Murmur (n), Rub (n), Peripheral Edema (1+ edema, no calf tenderness), Calf Tenderness (n) and Other (Well-healed sternal incision)
Respiratory: Wheeze (n), Rales (n), Rhonchi (n) and Other (Decreased breath sounds left base)
GI: Soft, Distended (Mildly distended) and Non Tender
Neurology: Awake, Alert, Oriented and No Motor Deficits (Generally weak)
Skin: Other (Generally pallorous, no rash, no clubbing)
General: Comfortable (Fatigued appearing)
Assessment
-
73-year-old male with recent bypass surgery 09/25/2023 complicated by atrial fibrillation, discharged on anticoagulation. Patient has had general weakness since discharge, increased shortness of breath over the past 72 hours. Found to be
hypotensive and hypoxic, improved with IV fluids. Found to be bradycardic with pericardial effusion, possible pleural effusion. Renal insufficiency and hyperkalemia also noted. We are asked to help from critical care standpoint 10/11/2023
Acute hypoxic respiratory insufficiency, 87%
Requiring 4 L
Hypotension, improved with IV fluid
Acute renal insufficiency
Creatinine 1.8, baseline 1.3
Anemia, hemoglobin 7.2
Hyperkalemia
Hyponatremia
Left pleural effusion/consolidation, per chest x-ray
Moderate pericardial effusion per echo
Normal biventricular function
Bradycardia
Atrial fibrillation on Eliquis therapy
General malaise, weakness, fatigue
Chronic Laguna catheter
Placed 09/25/2023 by urology
Conditions present prior to admission
Coronary disease, bypass surgery 10/03/2023
Insulin-dependent diabetes, insulin pump
Atrial fibrillation
On amiodarone, Eliquis
Right bundle branch block
Mild aortic stenosis
Chronic back pain, chronic opiate therapy
[id number] history of smoking, quit 10/03/2023
Hypothyroidism
GERD
Family history of lung cancer (sister)
Plan/recommendations
At this time, patient remains critically ill.
Multisystem organ dysfunction, hypotension with new left lower lobe process and moderate pericardial effusion
Leukocytosis also noted
Currently receiving transfusion in the ED
Moving forward
I am concerned about his new left lower lobe pleural-parenchymal process
Likely combination of pleural fluid and consolidation. Cannot rule out infectious process
Echocardiogram with normal biventricular function, moderate pericardial effusion without hemodynamic process
Would assess for drainage of left pleural effusion. Patient ordered CT per hospitalist given abdominal discomfort although patient does not have abdominal discomfort on my exam (mildly distended)
If significant fluid, will pursue thoracentesis
Continue with empiric antibiotics, Zosyn therapy
Pending culture
Urinalysis not back given chronic Laguna catheter
Transfuse per hospitalist, follow hemoglobin
Episode of bradycardia noted in the 30s with tachypnea
Patient on amiodarone, beta-joao
Rate control medications held for now
Cardiology following
ZOLL pads in place
Follow creatinine, urine output with IV fluids
Follow blood sugars. Insulin pump noted
Reviewed with patient, daughter at bedside
Reviewed with ED nursing, primary service
Will follow
TCCT 35 min
[2023-10-15 14:12] LABS: Urine Albumin Trace (Neg - Trace); Urine Bilirubin 1+ (Negative); Urine Character Clear (Clear); Urine Color Yellow; Urine Glucose Negative (Negative); Urine Ketone Trace (Negative); Urine Leukocyte 2+ (Negative); Urine Nitrite Negative (Negative); Urine Occult Blood 4+ (Negative); Urine Specific Gravity 1.025 (<1.030); Urine Urobilinogen Negative (Neg - 1+)
[2023-10-15 14:37] LABS: Urine Squamous Cell 0-2 /LPF (Few)
[2023-10-15 14:38] LABS: Urine Bacteria Moderate (Negative); Urine White Cell 50-60 /HPF (0-5)
[2023-10-15 15:23] LABS: Lactic Acid 5.2 mmol/L (0.7-2.0)
[2023-10-15 15:25] LABS: Blood Urea Nitrogen 59 mg/dl (9-20); Calcium 7.7 mg/dl (8.4-10.2); Carbon Dioxide 13 mmol/L (22-30); Chloride 97 mmol/L (98-107); Estimated Creatinine Clearance 32 ml/min; Glucose 271 mg/dl (70-99); Potassium 5.5 mmol/L (3.5-5.1); Sodium 125 mmol/L (135-145); Total Protein 5.8 g/dl (6.3-8.2); eGFR 30.66
[2023-10-15 15:29] LABS: B-Hydroxybutyrate 4.07 mmol/L (0.02-0.27)
[2023-10-15 15:43] LABS: Osmolality Serum 302 mOsm/kg (275-300)
[2023-10-15 15:53] LABS: LDH 1338 U/L (120-246)
[2023-10-15 16:33] LABS: Glucose - Point of Care 323 mg/dl (70-99)
[2023-10-15 16:35] LABS: Body Fluid pH 7.31
[2023-10-15] MEDS: ZOSYN 50 IV ×2 (16:49→21:12)
[2023-10-15 16:59] LABS: Body Fluid Mononuclear 53.4 %; Body Fluid Polymorphonuclear 46.6 %; Body Fluid WBC 1099 /CUMM
[2023-10-15 17:00] LABS: Body Fluid Glucose 202 mg/dl; Body Fluid LDH 329 U/L; Body Fluid Protein 2.4 g/dl
--- NOTE | 2023-10-15 17:00 | PTCARENOTE ---
Received pt from Ed around 1615 s/p r thoracentesis. Pt reports breathing improved, sats mid to high 90s on 4lnc, pt reports room air at baseline. Labs reviewed with oyster harvester including elevated blood sugar upon arrival. Orders obtained to
start insulin gtt, fluid bolus given and ivf initiated as ordered. Pt c/o lower abdominal pain, same as in ed. Pt and daughter said pt has not had a good bowel movement since discharge last week. Spoke with pharmacist as pt with multiple bowel
regimen medications, recommended starting with sennokot. Dose given as charted. Pt did have small soft brown stool. Pt with scabbed areas to chest, old chest tube sites, and r lower extremities from donor sites. All open to air except r calf
since pneumatic stockings placed. Admission completed. Otherwise please refer to assessment.
[2023-10-15 17:04] LABS: Body Fluid Second Tech JKH
--- NOTE | 2023-10-15 17:19 | W.PN.UPDATE ---
Update Note
Progress Note Update
Evaluated patient upon arrival to ICU. Subjectively feels breathing is improved. Complaining of mild lower abdominal pain. Takes oxycodone at home
Presently, systolic pressure in the 110s. Afebrile. 95% on nasal cannula. Appears to be more alert less fatigued than when evaluated in the ED
Blood work reviewed
Worsening lactate, increased anion gap, hyperglycemia
Abdominal CT with no acute abdominal process
Left thoracentesis completed, 1150 dark serosanguineous fluid removed
Moving forward
Will start insulin drip, DKA protocol
500 cc bolus normal saline and then maintenance fluids thereafter
Follow oxygen requirement
Echocardiogram adequate today with normal biventricular function. Pericardial effusion noted
Tylenol, oxycodone for pain
Okay for clears for now
Reviewed with critical care nursing, pharmacy
Reviewed with patient and daughter at bedside
[2023-10-15] MEDS: TYLENOL 650 MG PO (17:30)
[2023-10-15] MEDS: NSS 1000 IV (17:36)
[2023-10-15 17:49] LABS: Osmolality Urine 327 mOsm/kg (300-900)
[2023-10-15] MEDS: NOVOLIN R INSULIN INFUSION 100 IV (17:50)
[2023-10-15 17:56] LABS: Urine Sodium 12 mmol/L (30-90)
[2023-10-15] MEDS: SENOKOT-S 1 TABLET PO (17:59)
[2023-10-15 18:00] LABS: Glucose - Point of Care 310 mg/dl (70-99)
--- NOTE | 2023-10-15 18:34 | CON.GI ---
Consultation
-
Date/Time Consultation Requested: 10/15/2023
Date/Time Consultation Performed: 10/15/2023
Requesting Provider: Emergency room
Performing Provider: Dr. Flynn
Reason for Consultation: Anemia
Medical History
Chief Complaint / HPI
History of Present Illness:
Shubham is a 73-year-old male recently discharged in September following cardiac bypass surgery he developed rapid atrial fibrillation anticoagulation. His hemoglobin was 8.2 before discharge he was transfused then sent home. Comes in with shortness of
breath since October 11 and has had a poor appetite since discharge. Daughter was concerned after finding him dry heaving. He felt like he had a cough but could not get anything up. He was found hypotensive and hypoxemic by EMS and was given IV
fluids. In the emergency room he was afebrile, tachypneic and satting 96%. Hemoglobin was 7.2 with an elevated lactate of 3.3. White count 22.5, creatinine elevated at 1.8. He was found to have a moderate size left-sided pleural effusion with
thoracentesis showing serosanguineous blood. Had an echocardiogram showing normal biventricular function with also moderate pericardial effusion with no hemodynamic compromise. He was admitted to the ICU. GI was called because of his anemia.
From a GI perspective he denies any dysphagia, heartburn or reflux. Yesterday he felt nauseated and had some dry heaves. He has chronic constipation and takes Dulcolax as needed. He did feel constipated this morning. He did have some right lower
quadrant discomfort that did improve but did not resolve after moving his bowels. His stools are brown and heme positive.
His last colonoscopy was done at [facility] roughly 4 years ago and states he had some small polyps. He has never had an upper endoscopy.
Past Medical History
Past Medical History: Other (Hypertension, DM type II, tobacco use disorder, hyperlipidemia, hypothyroidism, history of prostate cancer s/p surgery, chronic urinary retention with CIC, DDD involving lumbar spine, peripheral neuropathy, left hip
trochanteric bursitis, left IT band syndrome, anxiety/depression)
Past Surgical History: Other (Appendectomy, cholecystectomy, TURP, skin grafting, coronary bypass surgery 10/03/2023)
Social History
Tobacco: Other (Just quit smoking on 10/03/2023)
Alcohol: None
Drug: None
Personal:
Living: With Family
Employment: Retired
Family History
Family History: Cancer (Sister with lung cancer)
Allergies / Home Medications
Allergy/AdvReac Type Severity Reaction Status Date / Time
Sulfa (Sulfonamide Allergy Swelling Verified 10/15/23 10:30
Antibiotics)
�Medication �Instructions �Recorded
Patient's Own Insulin 0 unit SC .VIA PUMP Diabetes 10/01/23
acetaminophen 325 mg tablet 650 mg PO DAILYPRN PRN mild pain 10/01/23
(Tylenol)
aspirin 81 mg tablet,delayed 81 mg PO DAILY Blood Clot 10/01/23
release Prevention/Tx
bisacodyl 5 mg tablet,delayed 5 mg PO DAILYPRN PRN constipation 10/01/23
release (Dulcolax (bisacodyl))
cholecalciferol (vitamin D3) 25 25 mcg PO DAILY Supplement ##0 10/01/23
mcg (1,000 unit) tablet (Vitamin
D3)
levothyroxine 125 mcg tablet 125 mcg PO DAILY Thyroid 10/01/23
(Synthroid)
magnesium oxide 200 mg PO DAILY Supplement ##0 10/01/23
oxycodone-acetaminophen 5 mg-325 0.5 tab PO HS Pain 10/01/23
mg tablet
oxycodone-acetaminophen 5 mg-325 1 tab PO DAILYPRN PRN severe pain 10/01/23
mg tablet
trazodone 150 mg tablet 150 mg PO HS PRN sleep 10/01/23
vitamin B complex 1 tab PO DAILY Supplement 10/01/23
atorvastatin 80 mg tablet 80 mg PO QPM High cholesterol #30 10/07/23
tabs
pantoprazole 40 mg tablet,delayed 40 mg PO DAILY GI prophylaxis #30 10/07/23
release tabs
amiodarone 200 mg tablet (Pacerone) 200 mg PO BID #90 tabs 10/09/23
apixaban 5 mg tablet (Eliquis) 5 mg PO BID #60 tabs 10/09/23
metoprolol tartrate 25 mg tablet 25 mg PO BID #60 tabs 10/09/23
tramadol 50 mg tablet 50 mg PO Q6HPRN PRN severe pain 10/09/23
#20 tabs
lidocaine 4 % topical patch 1 patch topical DAILYPRN PRN left 10/15/23
shoulder
Review of Systems
-
History Source: Patient
Respiratory: Reports Cough and Trouble Breathing
Cardiac: Reports No Symptoms
Abdomen/GI: Reports Abdominal Pain, Nausea, Vomiting and Constipated
Vital Signs
Temp Pulse Resp BP Pulse Ox
97.7 F 83 20 126/60 95
10/15/23 18:29 10/15/23 18:29 10/15/23 18:29 10/15/23 18:29 10/15/23 16:22
Physical Exam
Exam
General: No Apparent Distress (Patient is tachypneic)
HEENT: Anicteric
GI: Soft and Tender (Mildly tender in the right lower quadrant)
Rectal: Brown
Neuro: AO x 3
Results
WBC 22.5 10^3/uL (4.8-10.8) H 10/15/23 10:18
Hgb 7.2 g/dL (13.0-18.0) L 10/15/23 10:18
Hct 22.1 % (39.0-52.0) L 10/15/23 10:18
MCV 94.8 fL (80.0-94.0) H 10/15/23 10:18
Plt Count 580 10^3/uL (130-400) H D 10/15/23 10:18
Absolute Neuts (auto) 20.7 10^3/uL (1.4-6.5) H 10/15/23 10:18
Sodium Cancelled 10/15/23 19:00
Potassium Cancelled 10/15/23 19:00
Chloride Cancelled 10/15/23 19:00
Carbon Dioxide Cancelled 10/15/23 19:00
BUN Cancelled 10/15/23 19:00
Creatinine Cancelled 10/15/23 19:00
Calcium Cancelled 10/15/23 19:00
Total Bilirubin 1.9 mg/dl (0.2-1.3) H 10/15/23 10:18
AST 171 U/L (17-59) H 10/15/23 10:18
ALT 89 U/L (0-50) H 10/15/23 10:18
Alkaline Phosphatase 184 U/L (38-126) H 10/15/23 10:18
Diagnostic Image Results:
CT abdomen pelvis without IV contrast due to renal dysfunction. 3 cm pericardial fluid collection around the left cardiac border concern for internal hemorrhage in the effusion, moderate left pleural effusion, cholecystectomy no other abdominal
findings
Prior GI Procedures:
EGD:
Colonoscopy: Patient states he had a colonoscopy roughly 4 years ago. I do not have the report. This was done at [place]. States small polyps, all subjective
Assessment / Plan
-
Will is a 73-year-old male with recent cardiac bypass on 10/03/2023 complicated by atrial fibrillation discharged on Eliquis comes in with generalized weakness and shortness of breath found to be hypotensive and hypoxemic found to have a moderate size
left pleural effusion that was bloody on thoracentesis as well as a moderate pericardial effusion with no hemodynamic compromise on echo.
# Anemia -stools are brown but heme positive on Eliquis
-- Had a bloody thoracentesis studies are pending
--Eliquis is on hold
-- Patient is currently critically ill and with brown heme positive stools he has no indication for any endoscopic procedures at this time
-- Supportive therapy
-- Management for his other processes.
-- Hemoglobin today is 7.2, postop hemoglobin was 8.4, prior to CABG and Eliquis, hemoglobin 12. Patient was transfused 2 units of blood and responded appropriately. Hemoglobin is down to 9.6.
# Pleural effusion -Per pulmonology studies are pending but it was bloody
# Bradycardia in the 30s with tachypnea on amiodarone, and beta-joao. Cardiology following
# Leukocytosis. He has a significant leukocytosis of 31,000, his lactate was 5.2 going up
Overall, no indication for GI endoscopies at this time. Patient should get supportive care and treatment for his other issues. He can follow-up with his outpatient GI in [place] if necessary
Will continue once daily PPI and bowel regimen for his chronic constipation
Will monitor peripherally. Please call us if we can be of any help
Total Time Spent with Patient (in minutes): 20
Data Reviewed
-
Radiology: Report Reviewed by me
CT Scan: Report Reviewed by me
Old Records: Reviewed
-
-
Thank you for consultation and allowing me to participate in the patient's care. Please call the development consultant GI physician during the after hours with any questions or concerns.
[2023-10-15 18:58] LABS: Glucose - Point of Care 370 mg/dl (70-99)
[2023-10-15 19:33] LABS: % Basophils 0.3 % (0-2); % Lymphocytes 2.3 % (20.5-51.1); % Monocytes 3.5 % (1.7-9.3); % Neutrophils 92.9 % (42.2-75.2); Absolute Basophils 0.1 10^3/uL (0-0.2); Absolute Immature Granulocytes 0.3 10^3/uL (0-0.05); Absolute Lymphocytes 0.7 10^3/uL (1.2-3.4); Absolute Monocytes 1.1 10^3/uL (0.1-0.6); Absolute Neutrophils 29.3 10^3/uL (1.4-6.5); Hematocrit 28.4 % (39.0-52.0); Hemoglobin 9.6 g/dL (13.0-18.0); Mean Corp Hgb Conc. 33.8 g/dL (33.0-37.0); Mean Corpuscular Hgb 30.5 pg (27.0-31.0); Mean Corpuscular Volume 90.2 fL (80.0-94.0); Mean Platelet Volume 9.7 fL (7.4-10.4); Nucleated Red Blood Cells % 0 % (-); Platelet Count 526 10^3/uL (130-400); Red Blood Cell Count 3.15 10^6/uL (4.70-6.10); Red Cell Dist. Width 14.4 % (11.5-14.5); White Blood Cell Count 31.5 10^3/uL (4.8-10.8)
--- NOTE | 2023-10-15 19:44 | PTCARENOTE ---
pt received from previous rn- aox4- increased to 6LNC for increased work of breathing- sats 92%. raza grimes aware. pt encouraged slow deep breathing. pt with cabg surigical site rotary shear cutter, and to right leg- local erythema to sites. ivf and insulin
infusing as per order. pt educated on importance of shifting weight and turning- verbalized understanding. luciano draining yellow urine. scds on. pt with +1 upper and lower ext. edema. afib on monitor. labs sent as per order. all safety precautions
in place, call farrell within reach.
[2023-10-15 19:47] LABS: APTT 41.2 Sec (23.4-35.0); INR 3.32; PT 34.2 Sec (11.4-14.6)
[2023-10-15 20:08] LABS: Glucose - Point of Care 371 mg/dl (70-99)
[2023-10-15 21:13] LABS: Glucose - Point of Care 336 mg/dl (70-99)
--- NOTE | 2023-10-15 22:00 | PTCARENOTE ---
Madelin grimes aware of blood sugars in 300s. no new orders. see flowsheet. pt with small bm.
[2023-10-15 22:08] LABS: Glucose - Point of Care 344 mg/dl (70-99)
[2023-10-15 23:07] LABS: Glucose - Point of Care 329 mg/dl (70-99)
[2023-10-15 23:15] LABS: Lactic Acid 2.7 mmol/L (0.7-2.0)
[2023-10-15 23:29] LABS: Blood Urea Nitrogen 69 mg/dl (9-20); Calcium 7.5 mg/dl (8.4-10.2); Carbon Dioxide 17 mmol/L (22-30); Chloride 98 mmol/L (98-107); Estimated Creatinine Clearance 32 ml/min; Glucose 254 mg/dl (70-99); Potassium 5.1 mmol/L (3.5-5.1); Sodium 126 mmol/L (135-145); eGFR 30.66
[2023-10-16] VITALS (26 sets, daily range): BP systolic 95–153; BP diastolic 44–123; BMI 29.4
[2023-10-16 00:16] LABS: Glucose - Point of Care 270 mg/dl (70-99)
--- NOTE | 2023-10-16 00:36 | PTCARENOTE ---
pt in sinus rhythm with bbb. assessment unchanged. insulin gtt and ivf continue.
[2023-10-16 01:11] LABS: Glucose - Point of Care 250 mg/dl (70-99)
[2023-10-16] MEDS: D5/0.45%NSS with KCL 20 MEQ 1000 IV (01:53)
[2023-10-16 02:08] LABS: Glucose - Point of Care 229 mg/dl (70-99)
[2023-10-16] MEDS: ZOSYN 50 IV ×4 (02:59→22:52)
[2023-10-16 03:05] LABS: Glucose - Point of Care 240 mg/dl (70-99)
--- NOTE | 2023-10-16 03:56 | PTCARENOTE ---
assessment unchanged. pt resting comfortably. pt with two small bms. turned and repositioned with assistance. labs sent. insulin gtt continues.
[2023-10-16 04:02] LABS: Glucose - Point of Care 256 mg/dl (70-99)
[2023-10-16 04:02] LABS: Mean Corp Hgb Conc. 34.6 g/dL (33.0-37.0); Mean Corpuscular Hgb 30.4 pg (27.0-31.0); Mean Corpuscular Volume 87.8 fL (80.0-94.0); Mean Platelet Volume 9.7 fL (7.4-10.4); Platelet Count 489 10^3/uL (130-400); Red Blood Cell Count 2.96 10^6/uL (4.70-6.10); Red Cell Dist. Width 14.7 % (11.5-14.5); White Blood Cell Count 37.5 10^3/uL (4.8-10.8)
[2023-10-16 04:14] LABS: Lactic Acid 1.9 mmol/L (0.7-2.0)
[2023-10-16 04:47] LABS: ALT (SGPT) 522 U/L (0-50); Albumin 2.5 g/dl (3.5-5.0); Alkaline Phosphatase 161 U/L (38-126); Blood Urea Nitrogen 73 mg/dl (9-20); Calcium 7.5 mg/dl (8.4-10.2); Carbon Dioxide 19 mmol/L (22-30); Chloride 100 mmol/L (98-107); Estimated Creatinine Clearance 34 ml/min; Glucose 202 mg/dl (70-99); Magnesium 2.8 mg/dl (1.6-2.3); Potassium 5.1 mmol/L (3.5-5.1); Sodium 127 mmol/L (135-145); Total Bilirubin 1.6 mg/dl (0.2-1.3); Total Protein 5.5 g/dl (6.3-8.2); eGFR 32.42
[2023-10-16 04:51] LABS: AST (SGOT) 1111 U/L (17-59)
[2023-10-16] MEDS: SYNTHROID 125 MCG PO (04:57)
[2023-10-16 05:09] LABS: Glucose - Point of Care 264 mg/dl (70-99)
--- NOTE | 2023-10-16 05:18 | PTCARENOTE ---
raza grimes aware of critical l abs. no new orders.
--- NOTE | 2023-10-16 05:56 | W.PN.CT ---
Today's Communication / Plan
-
Surgical sites healing well without concern for infection. Sternum is stable
AST/ALT elevated along with WBC count, will defer to primary team, imaging of pancreas/GB may be indicated given labs and presentation with nausea
Assessment / Plan
-
anemia
EVON
hypovolemic hyponatremia
hypotension
postop Afib, new to eliquis
CAD s/p recent CABG 10/02
IDDM, insulin pump on hold
Subjective
Procedure
Patient in bed with no complaints
-
Date of Service: October 16, 2023
Objective Data
-
Abnormal Lab Results
10/16/23 10/16/23 10/16/23
03:50 03:51 03:52
WBC 37.5 H
RBC 2.96 L
Hgb 9.0 L
Hct 26.0 L
MCV
MCHC
RDW 14.7 H
Plt Count 489 H
Abs Immat Gran (auto)
Absolute Neuts (auto)
Absolute Lymphs (auto)
Absolute Monos (auto)
Immature Gran %
Neutrophils %
Lymphocytes %
PT
APTT
Sodium 127 L
Potassium
Chloride
Carbon Dioxide 19 L
BUN 73 H
Creatinine 2.1 H
Glucose 202 H
Serum Osmolality
Lactic Acid
Calcium 7.5 L
Magnesium 2.8 H
Iron
TIBC
% Saturation
Ferritin
Total Bilirubin 1.6 H
AST 1111 H*
ALT 522 H*
Alkaline Phosphatase 161 H
Lactate Dehydrogenase
Total Protein 5.5 L
Albumin 2.5 L
Vitamin B12
Urine Ketones
Ur Occult Blood Reflex
Urine Bilirubin
Leukocyte Esterase Rfl
Urine RBC
Urine WBC (Reflex)
Urine Bacteria (Reflex)
Urine Sodium
B-Hydroxybutyrate
POC Glucose 256 H
Crossmatch IS Only
PT 34.2 Sec (11.4-14.6) H 10/15/23 19:26
INR 3.32 10/15/23 19:26
APTT 41.2 Sec (23.4-35.0) H 10/15/23 19:26
Vital Signs
Vital Signs
Temp Pulse Resp BP Pulse Ox
98.6 F 73 13 140/51 98
10/16/23 04:03 10/16/23 04:30 10/16/23 04:30 10/16/23 04:30 10/16/23 04:30
CT Intake/Output/Weight
10/15/23 10/15/23 10/16/23
06:59 18:59 06:59
Intake Total 1370 / 2245 875 / 2245
Output Total 80 / 480 400 / 480
Balance 1290 / 1765 475 / 1765
SaO2: 98
Physical Exam
-
General: AOx3
Cardiovascular: Irregular rate & rhythm
Respiratory: Clear
Sternum: Stable
Incision: Clean, Dry and Intact
Extremities: Edema +2
Data Reviewed
-
Lab Results: Results Reviewed
[2023-10-16 06:12] LABS: Glucose - Point of Care 247 mg/dl (70-99)
[2023-10-16 07:11] LABS: Glucose - Point of Care 211 mg/dl (70-99)
--- NOTE | 2023-10-16 07:56 | W.PN.GI.CBS2 ---
Today's Communication / Plan
-
Abdominal ultrasound, hepatitis panel, trend LFTs
Assessment / Plan
-
Will is a 73-year-old male with recent cardiac bypass on 10/03/2023 complicated by atrial fibrillation discharged on Eliquis comes in with generalized weakness and shortness of breath found to be hypotensive and hypoxemic found to have a moderate size
left pleural effusion that was bloody on thoracentesis as well as a moderate pericardial effusion with no hemodynamic compromise on echo.
# Anemia -stools are brown but heme positive on Eliquis
-Hemoglobin on admission 7.2 today 9.0, after 2 units of blood which is appropriate
-- Had a bloody thoracentesis studies are pending
--Eliquis is on hold
-- Patient is currently critically ill and with brown heme positive stools he has no indication for any endoscopic procedures at this time
-- Supportive therapy
-- Management for his other processes.
-- Hemoglobin on admission is 7.2, postop hemoglobin was 8.4, prior to CABG and Eliquis, hemoglobin 12. Patient was transfused 2 units of blood and responded appropriately.
# Pleural effusion -Per pulmonology studies are pending but it was bloody, many WBCs, culture pending
# Bradycardia in the 30s with tachypnea on amiodarone, and beta-joao. Cardiology following, amiodarone has been held
# Leukocytosis. He has a significant leukocytosis of 31,000, his lactate was 5.2 going up.
# Hepatocellular injury - More likely sepsis related; with possible mild ischemia in the setting of hypotension
--Would hold amiodarone in the setting of hepatocellular injury, avoid hepatotoxic drugs
liver imaging without IV contrast was normal. Pancreas appeared normal.
-- Patient was hypotensive prior to arrival.
--Lactic acid has improved to normal
-- On October 02, 2023 LFTs were normal total bilirubin 1.3, AST 40, ALT 19, alkaline phosphatase 88.
10/15/2023, alkaline phosphatase 184, ALT 89, AST 171, total bilirubin 1.9
10/16/23, alkaline phosphatase 161, ALT 522, AST 1111, total bilirubin 1.6
--Check ultrasound, hepatitis panel -doubt. More likely ischemic versus sepsis especially in the setting of a leukocytosis of 37,000
-- Patient's pleural effusion cultures show many WBCs, species is pending
-- Blood cultures are pending patient afebrile
Overall, no indication for GI endoscopies at this time. Patient should get supportive care and treatment for his other issues. He can follow-up with his outpatient GI in [place] if necessary
Will continue once daily PPI and bowel regimen for his chronic constipation
Subjective
Subjective
Date of Service: October 16, 2023
Patient denies nausea vomiting abdominal pain. He is moving his bowels well. The right lower quadrant discomfort he had yesterday has resolved.
Objective
Data Reviewed
Laboratory Data:
Laboratory Results
10/16/23 03:52
10/16/23 03:51
Laboratory Results
PT 34.2 Sec (11.4-14.6) H 10/15/23 19:26
INR 3.32 10/15/23 19:26
APTT 41.2 Sec (23.4-35.0) H 10/15/23 19:26
Magnesium 2.8 mg/dl (1.6-2.3) H 10/16/23 03:51
Total Bilirubin 1.6 mg/dl (0.2-1.3) H 10/16/23 03:51
AST 1111 U/L (17-59) H* 10/16/23 03:51
ALT 522 U/L (0-50) H* 10/16/23 03:51
Alkaline Phosphatase 161 U/L (38-126) H 10/16/23 03:51
Vital Signs and I&O:
Vital Signs
Temp Pulse Resp BP Pulse Ox
98.2 F 74 19 127/50 98
10/16/23 07:38 10/16/23 06:00 10/16/23 06:00 10/16/23 06:00 10/16/23 06:03
I&O
10/15/23 10/16/23 10/17/23
06:59 06:59 06:59
Intake Total 2323 / 2323
Output Total 480 / 480
Balance 1843 / 184
Physical Exam
Physical Exam
HEENT: Anicteric
GI: Soft, Non Distended and Non Tender
Neuro: Non Focal
[2023-10-16 08:09] LABS: Glucose - Point of Care 233 mg/dl (70-99)
[2023-10-16] MEDS: FOLTX 1 TABLET PO (08:42)
[2023-10-16] MEDS: ASPIR LOW (ENTERIC COATED) 81 MG PO (08:42)
[2023-10-16] MEDS: PROTONIX 40 MG PO (08:42)
[2023-10-16] MEDS: VITAMIN D3 (cholecalciferol) 25 MCG PO (08:42)
--- NOTE | 2023-10-16 08:45 | W.PN.INTV ---
Today's Communication / Plan
Recommendations
Continue DKA, insulin therapy, wean as able
Follow sodium
Would avoid Lasix therapy for now, follow clinically
Continue Zosyn therapy
Follow liver function
Maintain Laguna catheter for now per urology
Assessment
-
73-year-old male with recent bypass surgery 09/25/2023 complicated by atrial fibrillation, discharged on anticoagulation. Patient has had general weakness since discharge, increased shortness of breath over the past 72 hours. Found to be
hypotensive and hypoxic, improved with IV fluids. Found to be bradycardic with pericardial effusion, possible pleural effusion. Renal insufficiency and hyperkalemia also noted. We are asked to help from critical care standpoint 10/11/2023
Acute hypoxic respiratory insufficiency, 87%
Requiring 4 L
Hypotension, improved with IV fluid
Acute renal insufficiency
Creatinine 1.8, baseline 1.3
Anemia, hemoglobin 7.2
Hyperkalemia
Hyponatremia
Right upper lobe infiltrate
Left pleural effusion/consolidation, per chest x-ray
Improved following thoracentesis
Moderate pericardial effusion per echo
Normal biventricular function
Bradycardia
Atrial fibrillation on Eliquis therapy
General malaise, weakness, fatigue
Chronic Laguna catheter
Placed 09/25/2023 by urology
Conditions present prior to admission
Coronary disease, bypass surgery 10/03/2023
Insulin-dependent diabetes, insulin pump
Atrial fibrillation
On amiodarone, Eliquis
Right bundle branch block
Mild aortic stenosis
Chronic back pain, chronic opiate therapy
[id number] history of smoking, quit 10/03/2023
Hypothyroidism
GERD
Family history of lung cancer (sister)
Plan/recommendations
At this time, patient remains critically ill. Remains on insulin drip for DKA
Hyponatremia noted
Leukocytosis noted
Creatinine 2.1, urine output marginal
92% on 6 L overnight
Patient is subjectively improved
Multisystem organ dysfunction, hypotension with new left lower lobe process and moderate pericardial effusion
Chronic Laguna catheter, abnormal UA, positive urine culture noted
Status post transfusion
Chest x-ray with right upper lobe process
No recurrence of left pleural effusion
Moving forward
Continue with antibiotics.
Possible right upper lobe pneumonia and bladder infection noted. Chronic Laguna catheter
Reviewed with urology. They recommended to not touch Laguna catheter as was difficult placement intraoperatively requiring cystoscopy
Zosyn therapy continues, ID following
Follow cultures
92% on 6 L overnight, but chest exam, subjective symptoms have improved
Chest x-ray without any acute worsening, right upper lobe process improved
No evidence of recurrent left pleural effusion
Wean oxygen as able
Echocardiogram with normal biventricular function, moderate pericardial effusion without hemodynamic process
Continue with IV fluids for DKA, currently D5/half-normal
Sodium levels noted
Will continue to follow closely, would not diurese at this time
May consider in the next 24 to 48 hours
Status post transfusion
Hemoglobin 9, stable
Episode of bradycardia noted in the 30s with tachypnea
Patient on amiodarone, beta-joao
Beta-joao resumed. Amiodarone currently being held
Cardiology following
ZOLL pads in place
Follow creatinine, urine output with IV fluids
Hold on Lasix therapy. Creatinine 2.1, trending up. Baseline 1.3
Follow blood sugars. Remains on insulin drip
Insulin pump noted, held for now
Continue to follow blood sugars
Diabetic SPRAYER HAND input appreciated
Reviewed with patient, daughter at bedside
Reviewed with primary service, cardiology
Reviewed with critical care nursing, respiratory care, pharmacy
Keep in ICU for now
TCCT 31 min
Subjective Dataa
Subjective Data
Date of Service:
Date of Service: October 16, 2023
Subjective:
Subjectively, patient feels breathing has improved since admission. Denies nausea, abdominal pain. Does describe aches all over. Remains 92% on 6 L. Remains critically ill requiring insulin drip for DKA. Sodium level 127. Lactate improved to
1.9
Objective Data
Data Reviewed
Vital Signs / I&O / Oxygen:
Vital Signs
Temp Pulse Resp BP Pulse Ox
98.2 F 74 14 112/57 98
10/16/23 07:38 10/16/23 08:00 10/16/23 08:00 10/16/23 08:00 10/16/23 08:00
Intake and Output
10/15/23 10/16/23 10/17/23
06:59 06:59 06:59
Intake Total 2323 / 2323
Output Total 480 / 480
Balance 1843 / 1843
SaO2 98
Nasal Cannula flow liters per 6
minute
Physical Exam
General: Comfortable
HEENT: Normocephalic and Anicteric
Cardiovascular: S1-S2, Regular Rhythm, Murmur (1-2/6 SM), Rub (n), Peripheral Edema (1+) and Calf Tenderness (n)
Respiratory: Wheeze (n), Crackles (n), Rhonchi (n), Non-Labored Respirations, Stridor (n), Crepitus (n) and Other (Decreased)
GI: Soft, Non Distended and Non Tender
Neurology: Awake, Alert and No Motor Deficits (Generally weak)
Skin: Jaundice (n), Rash (n) and Other (Capillary refill improved)
Labs/Micro/Reports
Lab Data
10/16/23 03:52
10/16/23 03:51
Laboratory Results
10/15/23
19:26
PT 34.2 H
INR 3.32
APTT 41.2 H
Microbiology
10/15/23 16:01 Pleural Fluid Gram Stain - Preliminary
[2023-10-16 09:05] LABS: Glucose - Point of Care 194 mg/dl (70-99)
--- NOTE | 2023-10-16 09:40 | VNURNOTE ---
Patient is current with [facility] since 10/12 w/SN , will monitor progress and plan at discharge.
--- NOTE | 2023-10-16 09:54 | W.PN.CARDCBS ---
Today's Communication / Plan
-
-Continue antibiotics and supportive care, sugar control
-Will repeat echo October 16 to reevaluate pericardial effusion
-Will hold on pericardiocentesis for now. Continue to hold Eliquis
-Restart metoprolol 25 mg p.o. q. 12
-Hold statin and amiodarone with markedly elevated liver function test
Impression / Plan
-
Primary Band Teacher: initially seen on 09/[address] ROSY Pradhan
Assessment:
Presentation with N/V
Sepsis
EVON on CKD 3
hyponatremia
hyperkalemia
worsening post op anemia with evidence of iron deficiency
Heme positive stool in ER
elevated LFTs
Moderate loculated pericardial effusion without hemodynamic compromise by echo 10/15/23
Moderate L pleural effusion by CXR
CAD
NSTEMI s/p chest pain, peak Troponin 7.45 10/01/23
s/p CABG x3 (HENNESSY - LAD, SVG - OM1, SVG - PDA), CHIKA clip 10/03/2023
Post op paroxysmal Afib
Started on eliquis post op
Post op urinary retention requiring indwelling luciano catheter
HTN
DM 2
Chronic back pain with daily oxycodone use
Hypothyroid and h/o Graves disease
Hyperlipidemia
RBBB
Bladder outlet obstruction/intermittent catheterization
Prostate cancer s/p radiation and TURP
Former tobacco abuse, quit 09/25/23
Mild-moderate
Echo 10/02/23: EF 55-60%, mild , mild to moderate MR
ECHO 10/15/23: EF preserved, mod pericardial effusion without evidence of hemodynamic compromise
Plan:
-Patient s/p CABG x3 10/03/23 [facility] due to N/V.
-White blood cell count up to 37,000. Possible pneumonia. Continue broad-spectrum antibiotics.
-Hemoglobin improved to 9.0. Continue to follow
-He does have a moderate pericardial effusion. At this point I would hold off on pericardiocentesis as he is clinically stable. Will repeat echo tomorrow to reevaluate effusion. Continue to hold Eliquis for now if he does need a
pericardiocentesis.
-Having bursts of paroxysmal atrial fibrillation. Will restart metoprolol 25 mg p.o. every 12. Hold amiodarone with markedly abnormal liver function testing
-Feels better status post thoracentesis
-Continue to hold statin and amiodarone with markedly elevated liver function testing. ?infection shock liver
-Creatinine at 2.1. Continue to follow. Would hold on diuresis for now. Sodium remains low with hyponatremia.
-Continue supportive care
-Discussed with voice engineer and nurse
-CCT 32 mins
Progress Note - Band Teacher
Subjective
Date of Service: October 16, 2023
Feels better status post thoracentesis. Still with some expiratory chest pains. Denies fevers or chills
Objective
Labs:
10/16/23 03:52
10/16/23 03:51
Labs
Hgb 9.0 g/dL (13.0-18.0) L 10/16/23 03:52
Hct 26.0 % (39.0-52.0) L 10/16/23 03:52
Plt Count 489 10^3/uL (130-400) H 10/16/23 03:52
PT 34.2 Sec (11.4-14.6) H 10/15/23 19:26
INR 3.32 10/15/23 19:26
APTT 41.2 Sec (23.4-35.0) H 10/15/23 19:26
Sodium 127 mmol/L (135-145) L 10/16/23 03:51
Potassium 5.1 mmol/L (3.5-5.1) 10/16/23 03:51
BUN 73 mg/dl (9-20) H 10/16/23 03:51
Creatinine 2.1 mg/dL (0.7-1.3) H 10/16/23 03:51
Glucose 202 mg/dl (70-99) H 10/16/23 03:51
Vital Signs and I&O:
Vital Signs
Temp Pulse Resp BP Pulse Ox
98.2 F 74 14 112/57 98
10/16/23 07:38 10/16/23 08:00 10/16/23 08:00 10/16/23 08:00 10/16/23 08:00
Vital Signs
Temp Pulse Resp BP Pulse Ox
98.2 F 74 14 112/57 98
10/16/23 07:38 10/16/23 08:00 10/16/23 08:00 10/16/23 08:00 10/16/23 08:00
Intake & Output
10/14/23 10/15/23 10/16/23 10/17/23
06:59 06:59 06:59 06:59
Intake Total 2323 / 2323
Output Total 480 / 480
Balance 1843 / 1843
Physical Exam
Physical Exam
GEN: No distress, awake, Ox3
HEENT: supple, anicteric, mmm
LUNGS: scatt rhonchi
CV: Reg, S1/S2, 1/6 syst LSB, no gallop
ABD: soft, BS+, NT/ND
EXT: +1 edema
NEURO: Gross non-focal
SKIN: No rash
[2023-10-16] MEDS: NOVOLIN R INSULIN INFUSION 100 IV (09:55)
[2023-10-16 10:11] LABS: Glucose - Point of Care 199 mg/dl (70-99)
--- NOTE | 2023-10-16 10:36 | W.PN.HOSP.TC ---
Today's Communication/Plan
-
Continue antibiotics
Await blood cultures
Infectious disease consultation
Consider Lasix in 24 hours
Stop IV fluids
If becomes Hypotensive we can restart
Assessment / Plan
Assessment / Plan
73 y/o male with recent CABG was discharged home with a Laguna catheter. Laguna catheter was a difficult placement in the operating room properly cystoscopy. Patient returns with generalized weakness and sepsis-like picture
Seen in ICU.
Patient is awake and alert
Feels slightly better
Anasarca noted
Cardiovascular system S1-S2 irregular
Chest decreased breath sounds bilaterally
Abdomen distended, no right upper quadrant tenderness noted today
Bilateral lower extremity edema noted
Midline scar in the chest stable
#Sepsis unclear etiology
Abdominal pain-CT scan of the abdomen pelvis Without IV contrast without any acute changes
Ultrasound of the abdomen today to look at liver again
Urine cultures with gram-negative bacilli
Patient also has right upper lobe pneumonia
continue Zosyn
Infectious disease consultation requested
Follow blood cultures x 2
# Lactic acidosis-Resolved
#Acute MOD PERICARDIAL EFFUSION-cardiology following
#NSTEMI 10/05/23 S/P CAD/ s/p CABG x 3 (HENNESSY�LAD, SVG�OM1, SVG�PDA), CHIKA clip 09/25/2023
-2D echo 10/15/2023-normal LV size, hyperdynamic LV systolic function. Ejection fraction 65 to 70%. Mild MR. Moderate precordial patient without evidence of hemodynamic compromise measuring 3.1 cm in greatest dimension in the anterior space along
the left ventricle.
-CT surgery following
-Aspirin 81 mg daily ,metoprolol tartrate restarted
-Elevated proBNP noted however in the setting of infection and EVON-will hold off on Lasix.
#Moderate LEFT -sided pleural effusion
S/P thoracentesis yielding 1150 cc of dark serosanguineous pleural fluid.
BNP 5700
#Acute Trasaminitis
USS
AMio and Statin on hold
? reason for LFT
GI following
#BRADYCARDIA-RATES BETTER
Heart rate as low as 34 sinus bradycardia
#Acute hyperkalemia
Better
# Coagulopathy likely secondary to Eliquis and also liver disease
Hold off on Eliquis
Repeat labs ordered
#Anemia with Heme positive stools
Possible GI bleed
Macrocytic anemia
Holding Eliquis
Patient got 2 units of packed red blood cells yesterday
Hemoglobin appropriately risen
# Thrombocytosis-watch
# Leukocytosis-patient has had chronic leukocytosis even prior to admission.
#Bladder outlet obstruction/intermittent cath
-Laguna catheter was placed during cardiac surgery 10/03/2023 by urology plan for 4 weeks of Laguna then voiding trial
-Laguna [employer]
-CT A/P without any obstruction
-Per discussion with Dr. Thomson and Dr. Bose Laguna catheter was a very difficult placement. He had urethral injury therefore will not exchange Laguna catheterization admission. Advised to leave it in.
#Hyponatremia
Appears to have anasarca now
Stop IVF and watch
#DM2 with neuropathy of lower extremities
BS 252, HgbA1c 7.9% recent September 2023
Patient normally uses insulin pump.
Currently on insulin drip
#EVON on CKD 3
Cr better
#A-fib paroxysmal-postop 10/05/2023
Hold Eliquis was started 5 mg twice daily on 10/08/2023, continue amiodarone 200mg twice daily per D/W Cards
Cards thinking about restarting Lopressor
#RBBB
#Mild-moderate
#Chronic back pain opiate dependent
-Continue oxycodone one half tab p.o. at bedtime and daily as needed
#GERD
-Continue Protonix 40 mg daily
#Hypothyroidism history of Graves'
Check TSH with free T4 reflex
-Continue Synthroid 125 mcg
# Hyperlipidemia-hold statin with elevated LFTs
#Former smoker
Stopped 09/25/2023
# History of prostate cancer.
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
Had a flexible cystoscopy for a malpositioned catheter on 10/03/2023. Had a Laguna catheter placed by Dr. Bose and the plan was to continue with Laguna catheter for 4 weeks and to be exchanged via cystoscopy or under anesthesia by healing urethral
trauma.
Normally follows with Dr. Park at [facility]
# Ambulatory dysfunction. Patient has been using a walker since 2019. Since September 2021 he also has a scooter which he uses at home.
# Insomnia-hold trazodone
# Hypoalbuminemia
#Mild restrictive lung disease
#DVT prophylaxis
Hold Eliquis
SCDs
#Full code
D./W RN
Diabetes management BROOM WORKER
Cards
Fulfillment Coordinator
Urology, ID
Patient still critically ill.
Total Critical Care Time 45 minutes. I was immediately available to the patient and staff. I personally examined, reviewed labs, diagnostic images/reports, interpretations, treatment plans, discussed patient care with other providers and family ,
entered orders as appropriate and documented the medical record.
Anticipated Discharge: > 48 hours
Subjective/Interval History
-
Date of Service: October 16, 2023
Objective Data
-
Labs:
Laboratory Results
10/15/23 10/16/23 10/16/23
22:56 03:51 03:52
WBC 37.5 H
Hgb 9.0 L
Hct 26.0 L
Plt Count 489 H
Sodium 126 L 127 L
Potassium 5.1 5.1
Chloride 98 100
Carbon Dioxide 17 L 19 L
BUN 69 H 73 H
Creatinine 2.2 H 2.1 H
Glucose 254 H 202 H
Calcium 7.5 L 7.5 L
Total Bilirubin 1.6 H
AST 1111 H*
ALT 522 H*
Alkaline Phosphatase 161 H
Vital Signs:
Vital Signs
Temp Pulse Resp BP Pulse Ox
98.2 F 74 14 112/57 98
10/16/23 07:38 10/16/23 08:00 10/16/23 08:00 10/16/23 08:00 10/16/23 08:00
I&O
10/15/23 10/16/23 10/17/23
06:59 06:59 06:59
Intake Total 2323 / 2323
Output Total 480 / 480
Balance 1843 / 1843
--- NOTE | 2023-10-16 10:53 | PTCARENOTE ---
PT HAVING ABD US CURRENTLY
--- NOTE | 2023-10-16 11:01 | PTCARENOTE ---
PT HAVING BEDSIDE ABD US NOW
[2023-10-16 11:09] LABS: Glucose - Point of Care 221 mg/dl (70-99)
--- NOTE | 2023-10-16 11:28 | CON.ID ---
Consultation
-
Date/Time Consultation Requested: 10/16/2023 1039
Date/Time Consultation Performed: 10/16/23 1117
Requesting Provider: Dr. Younger
Performing Provider: Dr. Mustafa
Reason for Consultation: Leukocytosis; sepsis
Chief Complaint / Past History
History of Present Illness
Shubham Patricia is a 73-year-old male being evaluated at the request of Dr. Younger in regards to possible sepsis. History is obtained from chart review, along with patient interview.
The patient recently was admitted to [facility] on 09/30 after developing chest pain. He ultimately underwent a CABG on 10/02, and was discharged to home on 10/08. At home he was looked after by his daughter, and yesterday the daughter called
EMS secondary to the patient appearing quite ill. He reports that he has been having significant shortness of breath at home which is increased over the past 3 to 4 days. He also admits to some right chest discomfort which is described as a
general achiness. He denies any recent fevers. He reports a slight cough with minimal clear sputum. He denies any abdominal pain. He has a history of prostate cancer and urinary retention and straight caths himself is approximately 3-4 times a
day. He has had no issues in regards to that.
Additional history is that of poor appetite. Workup in the ER found the patient to be hypotensive, along with a hemoglobin of 7.2 and an elevated lactate.
Past History
Additional Past Medical History:
DM
HTN
Dyslipidemia
Prostate CA
Urinary retention (chronic straight cath)
DJD
Peripheral neuropathy
Additional Past Surgical History:
Appendectomy
Cholecystectomy
TURP
Skin grafting
Allergy History:
Sulfa (Sulfonamide Antibiotics) Allergy (Verified 10/15/23 10:30)
Swelling
Medications Reviewed: Yes
Current Antibiotics:
Zosyn 3.375 g IV every 6 hours
Social History
Tobacco: Smoker (1 pack/day since age 16)
Alcohol: Occasional
Drug: None
Personal:
Living: With Family
Employment: Employed
Family History
Family History: Not Pertinent
Review of Systems
Vital Signs
Temp Pulse Resp BP Pulse Ox
98.2 F 71 13 118/58 97
10/16/23 07:38 10/16/23 10:00 10/16/23 10:00 10/16/23 10:00 10/16/23 10:54
Physical Exam
Physical Exam
Constitutional: No Acute Distress, Comfortable, Chronically Ill and Non-toxic
Head: Normocephalic
Eyes: Pupils Equal, Pupils Round, No Conjunctival Hemorrhage and Sclera Anicteric
Oral: No Thrush and No Ulcers
Cardiovascular: Regular Rate and S1/S2; Negative S3/S4
Pulmonary: Non Labored; Negative Wheezes, Rales or Rhonchi
Gastrointestinal: Soft, Non Tender, Non Distended, Normal Bowel Sounds, No Rebound and No Guarding
Genito-Urinary: Laguna and Clear Urine; Negative Turbid Urine or Hematuria
Extremities: Edema; Negative Cyanosis or Erythema
Skin: Warm and Dry; Negative Rash or Jaundice
Neurological: Awake and Alert
Psychological: Calm
.
Lab / Diagnostic Study Results
10/16/23 03:52
10/16/23 03:51
Abs Immat Gran (auto) 0.3 10^3/uL (0-0.05) H 10/15/23 19:26
Absolute Neuts (auto) 29.3 10^3/uL (1.4-6.5) H 10/15/23 19:26
Absolute Lymphs (auto) 0.7 10^3/uL (1.2-3.4) L 10/15/23 19:26
Absolute Monos (auto) 1.1 10^3/uL (0.1-0.6) H 10/15/23 19:26
Absolute Basos (auto) 0.1 10^3/uL (0-0.2) 10/15/23 19:
Immature Gran % 1.0 % (0-0.5) H 10/15/23 19:26
Neutrophils % 92.9 % (42.2-75.2) H 10/15/23 19:
Lymphocytes % 2.3 % (20.5-51.1) L 10/15/23 19:
Monocytes % 3.5 % (1.7-9.3) 10/15/23 19:
Eosinophils % 0.0 % (0-6) 10/15/23 19:
Basophils % 0.3 % (0-2) 10/15/23 19:
PT 34.2 Sec (11.4-14.6) H 10/15/23 19:
INR 3.32 10/15/23 19:
Lactic Acid 1.9 mmol/L (0.7-2.0) 10/16/23 03:52
Ur Squamous Epith Cells 0-2 /LPF (Few) 10/15/23 13:54
Microbiology Results
Micro:
10/15/23 10:58 Blood Culture - Preliminary
Blood/Venous No Growth in 24 hours- Final report to follow
10/15/23 13:54 Urine Culture - Preliminary
Urine Gram negative bacilli
10/15/23 17:26 MRSA Screen - Pending
Nose
10/15/23 16:01 Body Fluid Culture - Pending
Pleural Fluid Gram Stain - Preliminary
10/15/23 11:13 Blood Culture - Pending
Blood/Venous
Imaging:
10/16/2023 CXR (portable): Mild cardiomegaly noted. No pulmonary edema. Wire sternal sutures, sternal plate and a left atrial appendage clip are present. Hazy opacification of the right upper lobe is consistent with pneumonia, and is similar to
that seen on the prior days examinations. Lungs are otherwise clear. Please see full dictation for additional detail. Film personally viewed.
Assessment / Plan
Marked leukocytosis
-Etiology cryptic at present. No obvious source of infection currently.
Anemia
Recent CABG (POD #13)
Hyponatremia
CKD (current CrCl ~ 34)
Lactic acidosis; improved
Transaminitis
DM
HTN
Dyslipidemia
Prostate CA
Urinary retention (chronic straight cath)
DJD
Peripheral neuropathy
Recommendations:
Continue with empiric Zosyn. Will consider addition of empiric vancomycin, but can hold for now.
Monitor white count. Trend temperature curve. Patient has been afebrile since admission.
Follow pending cultures.
Trend LFTs
Await abdominal ultrasound.
[2023-10-16 11:48] LABS: INR 2.38; PT 26.2 Sec (11.4-14.6)
--- NOTE | 2023-10-16 11:52 | PN.DE.MGMTRT ---
Insulin Management
- -
10/16/2023 Diabetes Management Consult
Patient admitted with sepsis, possible UTI, DKA, LLL pleural parenchymal process. PMH HTN, diabetes, prostate CA, HLD, active smoker s/p CABG x 3 10/03/2023. A1C 7.5 Prior to admission patient was using a 670 medtronic pump with DexCom G6. The
pump was stopped on arrival to hospital this visit and taken home.
During patients last stay he admitted he does not change the infusion set or site every three days nor does he change the insulin reservoir. All markings for dose amount were not visible/worn off the reservoir had been used for so long.
GAP has closed but pump is not here. Daughter to bring new reservoir, infusion set and fresh insulin with pump to restart pump.
Diabetes History
- -
Pre-Admission Diabetes Regimen
10/15/23 10/15/23 10/15/23
14:50 17:00 19:00
Creatinine 2.2 H Cancelled Cancelled
10/15/23 10/16/23
22:56 03:51
Creatinine 2.2 H 2.1 H
Insulin Pump Settings
IP Diabetes Regimen
10/15/23 10/15/23 10/15/23
13:47 14:50 16:23
Glucose 271 H
POC Glucose 308 H 323 H
10/15/23 10/15/23 10/15/23
17:00 17:49 18:56
Glucose Cancelled
POC Glucose 310 H 370 H
10/15/23 10/15/23 10/15/23
19:00 19:57 21:02
Glucose Cancelled
POC Glucose 371 H 336 H
10/15/23 10/15/23 10/15/23
21:57 22:55 22:56
Glucose 254 H
POC Glucose 344 H 329 H
10/16/23 10/16/23 10/16/23
00:04 01:00 01:56
Glucose
POC Glucose 270 H 250 H 229 H
10/16/23 10/16/23 10/16/23
02:54 03:50 03:51
Glucose 202 H
POC Glucose 240 H 256 H
10/16/23 10/16/23 10/16/23
04:59 06:01 07:00
Glucose
POC Glucose 264 H 247 H 211 H
10/16/23 10/16/23 10/16/23
07:59 09:03 10:00
Glucose
POC Glucose 233 H 194 H 199 H
10/16/23
10:59
Glucose
POC Glucose 221 H
Meal type: Dinner
Amount consumed: Patient refused
Patient Education
[2023-10-16 12:10] LABS: Glucose - Point of Care 228 mg/dl (70-99)
--- NOTE | 2023-10-16 12:30 | PTCARENOTE ---
systems reviewed. no new changes.
[2023-10-16 13:19] LABS: Glucose - Point of Care 255 mg/dl (70-99)
--- NOTE | 2023-10-16 13:22 | CM ---
CM following re: discharge planning.
Discussed in Rounds, reviewed pt's chart, met with pt and pt's daughter Gigi at bedside.
Pt is a 73 year old male, admitted with primary dx of Sepsis.
Pt reports he usually lives alone, daughter Gigi stays with him since last discharge one week ago. Pt reports he has 3 supportive daughters. Pt reports he ambulates with a walker and a cane at baseline, was discharge home one week ago with [facility].
Per daughter, pt has been experienced difficulties with walking at home. PT and OT evaluations requested to determine a level of care at discharge. Pt's daughter stated she will stay with her father upon the discharge.
PCP: Scott Mendoza
Pharmacy: [facility]
D/C plan: most likely home with [facility] vs SNF. PT and OT will evaluate to confirm discharge plan recommendation.
CM will follow with discharge plan updates as hospitalization progresses
[2023-10-16] MEDS: LOPRESSOR 25 MG PO ×2 (13:24→20:41)
[2023-10-16 14:05] LABS: Glucose - Point of Care 238 mg/dl (70-99)
--- NOTE | 2023-10-16 14:18 | PTCARENOTE ---
IVF now capped per diabetic wireless cellular technician, will eval insulin needs over next couple hours and transition with dinner to basal/corrective insulin subq and given lethargy will not resume insulin pump.
[2023-10-16 15:06] LABS: Glucose - Point of Care 181 mg/dl (70-99)
--- NOTE | 2023-10-16 15:33 | PN.DE.MGMTRT ---
Insulin Management
- -
10/16/2023: Diabetes Management f/u:
Patient admitted with sepsis, possible UTI, DKA, LLL pleural parenchymal process. PMH HTN, diabetes, prostate CA, HLD, active smoker s/p CABG x 3 10/03/2023. A1C 7.5 Prior to admission patient was using a 670 Medtronic pump with DexCom G6.
His insulin pump had been stopped on arrival to hospital and taken home. Pt's Dtr at bedside, reports that she has brought pump a new reservoir, infusion set and fresh insulin, however, pt remains on Dextrose IVF@ 70cc/hr with glucose range of 199-
255, requiring 2-3units of insulin/hr. In addition, pt appears lethargic, eyes closed, not answering questions and not able to participate in discussion regarding diabetes management.
Pt does not appear alert and awake enough to independently manage his insulin pump. Explained to pt's Dtr that, it is not safe to resume insulin pump at this time and she was agreeable, stating that he normally manages the pump himself at home.
Had discussion with Nurse, instructed to stop Dextrose IVF and monitor AccuChek with plans to transition to SQ insulin.
received message from pt's nurse that POC is now 181, 1 hr after stopping D5 IVF. Pt has been ordered a diet by the Hospitalist Physician.
Will transition off CCGP to SQ insulin. Give Lantus 15 units now, drip to be turned off 2 hrs after. Start NovoLog 5 units AC with low corrective insulin.
Will reassess in AM pt's level of alertness and capacity to manage his insulin pump.
Diabetes History
- -
Pre-Admission Diabetes Regimen
10/15/23 10/16/23
22:56 03:51
Creatinine 2.2 H 2.1 H
Insulin Pump Settings
IP Diabetes Regimen
10/15/23 10/15/23 10/15/23
16:23 17:49 18:56
Glucose
POC Glucose 323 H 310 H 370 H
10/15/23 10/15/23 10/15/23
19:57 21:02 21:57
Glucose
POC Glucose 371 H 336 H 344 H
10/15/23 10/15/23 10/16/23
22:55 22:56 00:04
Glucose 254 H
POC Glucose 329 H 270 H
10/16/23 10/16/23 10/16/23
01:00 01:56 02:54
Glucose
POC Glucose 250 H 229 H 240 H
10/16/23 10/16/23 10/16/23
03:50 03:51 04:59
Glucose 202 H
POC Glucose 256 H 264 H
10/16/23 10/16/23 10/16/23
06:01 07:00 07:59
Glucose
POC Glucose 247 H 211 H 233 H
10/16/23 10/16/23 10/16/23
09:03 10:00 10:59
Glucose
POC Glucose 194 H 199 H 221 H
10/16/23 10/16/23 10/16/23
11:59 13:08 14:04
Glucose
POC Glucose 228 H 255 H 238 H
10/16/23
15:05
Glucose
POC Glucose 181 H
Meal type: Dinner
Amount consumed: Patient refused
Patient Education
[2023-10-16] MEDS: LANTUS 0.149999999999999994 UNITS SC (16:07)
[2023-10-16 16:11] LABS: Glucose - Point of Care 171 mg/dl (70-99)
[2023-10-16] MEDS: NOVOLOG FLEXPEN 5 UNITS SC (17:04)
[2023-10-16] MEDS: NOVOLOG FLEXPEN-LOW RESISTANCE 1 UNITS SC (17:05)
--- NOTE | 2023-10-16 17:15 | PTCARENOTE ---
pt has now been transitioned off insulin gtt. Currently eating first meal since admission. Denies any need for pain medicine currently
[2023-10-16 17:21] LABS: Glucose - Point of Care 164 mg/dl (70-99)
--- NOTE | 2023-10-16 18:09 | PTCARENOTE ---
oxygen has been weaned to 3lnc
[2023-10-16] MEDS: TYLENOL 650 MG PO (20:41)
--- NOTE | 2023-10-16 21:00 | PTCARENOTE ---
Rec'd care of patient at 191. AAOx3. Flat/withdrawn. PLATINUM. NSR with first degree avb, BBB, prolonged QT on tele monitor. Vitals stable. +1 edema in b/l UE and LE. Palpable pulses. POX 95-97% on 2L nc. Lung sounds diminished throughout. Fine crackles
in b/l base. Pt using IS as directed. +BS. Appetite poor. Patient agreeable to drink Glucerna. No BM. Voiding via luciano catheter. C/o minor pain in sternal incision site. PRN Tylenol administered.
[2023-10-16 21:46] LABS: Glucose - Point of Care 199 mg/dl (70-99)
[2023-10-17] VITALS (26 sets, daily range): BP systolic 90–149; BP diastolic 36–74; BMI 29.0
--- NOTE | 2023-10-17 01:00 | PTCARENOTE ---
Systems reviewed. No changes. VSS. Difficulty sleeping. Assisted in repositioning for comfort. Call farrell within reach.
[2023-10-17] MEDS: ZOSYN 50 IV ×4 (04:17→21:23)
[2023-10-17 04:32] LABS: Hematocrit 26.1 % (39.0-52.0); Hemoglobin 8.7 g/dL (13.0-18.0); Mean Corp Hgb Conc. 33.3 g/dL (33.0-37.0); Mean Corpuscular Hgb 30.1 pg (27.0-31.0); Mean Corpuscular Volume 90.3 fL (80.0-94.0); Mean Platelet Volume 9.7 fL (7.4-10.4); Platelet Count 452 10^3/uL (130-400); Red Blood Cell Count 2.89 10^6/uL (4.70-6.10); White Blood Cell Count 28.8 10^3/uL (4.8-10.8)
--- NOTE | 2023-10-17 04:59 | PTCARENOTE ---
No changes in assessment. Washed and repositioned. AM labs sent. VSS.
[2023-10-17 05:01] LABS: ALT (SGPT) 506 U/L (0-50); AST (SGOT) 642 U/L (17-59); Albumin 2.5 g/dl (3.5-5.0); Alkaline Phosphatase 193 U/L (38-126); Blood Urea Nitrogen 79 mg/dl (9-20); Calcium 7.6 mg/dl (8.4-10.2); Carbon Dioxide 19 mmol/L (22-30); Chloride 99 mmol/L (98-107); Direct Bilirubin 0.6 mg/dl (0.0-0.4); Estimated Creatinine Clearance 34 ml/min; Glucose 223 mg/dl (70-99); Sodium 125 mmol/L (135-145); Total Bilirubin 1.4 mg/dl (0.2-1.3); Total Protein 5.3 g/dl (6.3-8.2); eGFR 32.42
[2023-10-17] MEDS: SYNTHROID 125 MCG PO (05:06)
[2023-10-17 07:53] LABS: Glucose - Point of Care 313 mg/dl (70-99)
--- NOTE | 2023-10-17 08:30 | W.PN.INTV ---
Today's Communication / Plan
Recommendations
Lasix therapy per cardiology
Amiodarone continues to be held
Resume insulin therapy, diabetic ENROLLMENT ELIGIBILITY REPRESENTATIVE following, follow blood sugars
PT/OT, out of bed to chair
Incentive spirometry
Echocardiogram pending
Antibiotics per ID
Eventual follow-up chest x-ray for right upper lobe nodular infiltrate
Okay for transfer to IVU. We will sign off. Please call with questions
Assessment
-
73-year-old male with recent bypass surgery 09/25/2023 complicated by atrial fibrillation, discharged on anticoagulation. Patient has had general weakness since discharge, increased shortness of breath over the past 72 hours. Found to be
hypotensive and hypoxic, improved with IV fluids. Found to be bradycardic with pericardial effusion, possible pleural effusion. Renal insufficiency and hyperkalemia also noted. We are asked to help from critical care standpoint 10/11/2023
Acute hypoxic respiratory insufficiency, 87%
Requiring 4 L, improved
Leukocytosis
UTI, Serratia marcescens
Chronic Laguna catheter
Placed 09/25/2023 by urology
Hypotension, improved with IV fluid
Acute renal insufficiency
Creatinine 1.8, baseline 1.3
Anemia, hemoglobin 7.2
Hyperkalemia
Hyponatremia, chronic component
Right upper lobe infiltrate
Left pleural effusion/consolidation, per chest x-ray
Improved following thoracentesis
Moderate pericardial effusion per echo
Normal biventricular function
Bradycardia
Atrial fibrillation on Eliquis therapy
General malaise, weakness, fatigue
Conditions present prior to admission
Coronary disease, bypass surgery 10/03/2023
Insulin-dependent diabetes, insulin pump
Atrial fibrillation
On amiodarone, Eliquis
Right bundle branch block
Mild aortic stenosis
Chronic back pain, chronic opiate therapy
[id number] history of smoking, quit 10/03/2023
Hypothyroidism
GERD
Family history of lung cancer (sister)
Plan/recommendations
At this time, patient appears to be improved clinically
Subjectively however, remains fatigued, not motivated for rehabilitation
Chest exam is clear with decreased breath sounds, no wheeze, no obvious crackles, no egophony
Presently on room air, appears comfortable
Creatinine 2.1
Blood sugars remain elevated, no gap
Moving forward
Continue with antibiotics, Zosyn.
Possible right upper lobe pneumonia and bladder infection noted. Chronic Laguna catheter
Reviewed with urology. They recommended to not touch Laguna catheter as was difficult placement intraoperatively requiring cystoscopy
Zosyn therapy continues, ID following
Follow cultures
92% on 6 L overnight, but chest exam, subjective symptoms have improved
Currently on room air
Chest x-ray without any acute worsening, right upper lobe process improved
No evidence of recurrent left pleural effusion
Wean oxygen as able
Repeat chest x-ray as indicated
Echocardiogram with normal biventricular function, moderate pericardial effusion without hemodynamic process
Sodium levels noted
Diuresis to started per cardiology
Follow creatinine, I's and O's
Status post transfusion
Hemoglobin 8.7, stable
Episode of bradycardia noted in the 30s with tachypnea on admission
Patient on amiodarone, beta-joao
Beta-joao resumed. Amiodarone currently being held, LFTs noted
Cardiology following
Repeat echo for today
Follow blood sugars. Off insulin drip
Insulin pump noted, resume, diabetic ENROLLMENT ELIGIBILITY REPRESENTATIVE following
Continue to follow blood sugars
Diabetic ENROLLMENT ELIGIBILITY REPRESENTATIVE input appreciated
Patient requires PT/OT, out of bed to chair
Suspect he would benefit from rehabilitation. Refused before
Reviewed with primary service, cardiology
Reviewed with critical care nursing, respiratory care, pharmacy
Okay for transfer to IVU. We will sign off. Please call with questions
Subjective Dataa
Subjective Data
Date of Service:
Date of Service: October 17, 2023
Subjective:
Patient continues to be fatigued with a variety complaints but appears comfortable. Denies chest pain, nausea, abdominal pain. Has mild dry cough. Admits to shortness of breath
Objective Data
Data Reviewed
Vital Signs / I&O / Oxygen:
Vital Signs
Temp Pulse Resp BP Pulse Ox
98.0 F 73 15 114/74 96
10/17/23 08:04 10/17/23 06:00 10/17/23 06:00 10/17/23 06:00 10/17/23 06:00
Intake and Output
10/16/23 10/17/23 10/18/23
06:59 06:59 06:59
Intake Total 2323 / 2401 1272 / 1272
Output Total 480 / 480 1050 / 1050
Balance 1843 / 1921 222 / 222
SaO2 96
Nasal Cannula flow liters per 2
minute
Physical Exam
General: Comfortable
HEENT: Normocephalic and Anicteric
Cardiovascular: S1-S2, Regular Rhythm, Murmur (1-2/6 SM), Rub (n), Peripheral Edema (1+) and Calf Tenderness (n)
Respiratory: Wheeze (n), Crackles (n), Rhonchi (n), Non-Labored Respirations, Stridor (n), Crepitus (n) and Other (Decreased)
GI: Soft, Non Distended and Non Tender
Neurology: Awake, Alert and No Motor Deficits (Generally weak)
Skin: Jaundice (n) and Rash (n)
Labs/Micro/Reports
Lab Data
10/17/23 04:23
10/17/23 04:23
Laboratory Results
10/16/23
11:28
PT 26.2 H
INR 2.38
Microbiology
10/15/23 13:54 Urine Urine Culture - Preliminary
Gram negative bacilli
10/15/23 11:13 Blood/Venous Blood Culture - Preliminary
No Growth in 24 hours- Final report to follow
10/15/23 16:01 Pleural Fluid Body Fluid Culture - Preliminary
No Growth After 18-24 Hours
10/15/23 16:01 Pleural Fluid Gram Stain - Preliminary
10/15/23 10:58 Blood/Venous Blood Culture - Preliminary
No Growth in 24 hours- Final report to follow
[2023-10-17] MEDS: VITAMIN D3 (cholecalciferol) 25 MCG PO (08:49)
[2023-10-17] MEDS: PROTONIX 40 MG PO (08:49)
[2023-10-17] MEDS: FOLTX 1 TABLET PO (08:49)
[2023-10-17] MEDS: LOPRESSOR 25 MG PO ×2 (08:49→20:44)
[2023-10-17] MEDS: ASPIR LOW (ENTERIC COATED) 81 MG PO (08:50)
[2023-10-17] MEDS: NOVOLOG FLEXPEN SC ×2 (08:50→17:46)
[2023-10-17] MEDS: NOVOLOG FLEXPEN-LOW RESISTANCE SC ×2 (08:50→17:06)
--- NOTE | 2023-10-17 08:52 | W.PN.GI.CBS2 ---
Today's Communication / Plan
-
-- Nothing to add. Will follow LFTs peripherally. Please call us if anything specific comes up
Assessment / Plan
-
Will is a 73-year-old male with recent cardiac bypass on 10/03/2023 complicated by atrial fibrillation discharged on Eliquis comes in with generalized weakness and shortness of breath found to be hypotensive and hypoxemic found to have a moderate size
left pleural effusion that was bloody on thoracentesis as well as a moderate pericardial effusion with no hemodynamic compromise on echo.
# Anemia -stools are brown but heme positive on Eliquis
-Hemoglobin on admission 7.2 --> 9.0, after 2 units of blood (10/15/23) which is appropriate
-- Had a bloody thoracentesis
-- CT scan on admission showed a 3 cm pericardial fluid collection along the left cardiac border with some associated hemorrhage. Unclear if this is normal post CABG.
--Eliquis is on hold
-- Patient is currently critically ill and with brown heme positive stools he has no indication for any endoscopic procedures at this time
-- Supportive therapy
-- Management for his other processes.
-- Hemoglobin on admission is 7.2, postop hemoglobin was 8.4, prior to CABG and Eliquis, hemoglobin 12. Patient was transfused 2 units of blood and responded appropriately.
# Pleural effusion -Per pulmonology studies are pending but it was bloody, many WBCs, culture so far negative
# Bradycardia in the 30s with tachypnea on amiodarone, and beta-joao. Cardiology following, amiodarone has been held
# Leukocytosis. He has a significant leukocytosis of 31,000, his lactate was 5.2 going up.
# Hepatocellular injury - More likely sepsis related; with possible mild ischemia in the setting of hypotension
--Would hold amiodarone in the setting of hepatocellular injury, avoid hepatotoxic drugs
liver imaging without IV contrast was normal. Pancreas appeared normal.
-- Patient was hypotensive prior to arrival.
--Lactic acid has improved to normal
-- On October 02, 2023 LFTs were normal total bilirubin 1.3, AST 40, ALT 19, alkaline phosphatase 88.
10/15/2023, alkaline phosphatase 184, ALT 89, AST 171, total bilirubin 1.9
10/16/23, alkaline phosphatase 161, ALT 522, AST 1111, total bilirubin 1.6
10/17/23 alkaline phosphatase 193, ALT 506, AST 642, total bilirubin 1.4, direct bilirubin 0.6
--10/16/2023 ultrasound: Prior cholecystectomy with fatty hepatic infiltration with a mildly nodular hepatic margin, moderate right pleural effusion, small left pleural effusion. Splenic, hepatic and portal veins are patent with normal flow.
Proximal IVC and abdominal aorta are unremarkable., Bile duct is 4 mm.
, hepatitis panel -doubt. More likely ischemic versus sepsis especially in the setting of a leukocytosis of 37,000
-- Patient's pleural effusion cultures show many WBCs, questionable pneumonia on imaging, gram-negative in urine - straight cath
-- ID on board, did discuss this with Dr. Mustafa this morning
Overall, no indication for GI endoscopies at this time. Patient should get supportive care and treatment for his other issues. He can follow-up with his outpatient GI in [place] if necessary
Will continue once daily PPI and bowel regimen for his chronic constipation
Subjective
Subjective
Date of Service: October 17, 2023
Patient has not had much appetite since his CABG.
He has been moving his bowels every day while here and have been brown soft but small
Denies any prior liver disease
Objective
Data Reviewed
Laboratory Data:
Laboratory Results
10/17/23 04:23
10/17/23 04:23
Laboratory Results
PT 26.2 Sec (11.4-14.6) H 10/16/23 11:28
INR 2.38 10/16/23 11:28
APTT 41.2 Sec (23.4-35.0) H 10/15/23 19:26
Magnesium 2.8 mg/dl (1.6-2.3) H 10/16/23 03:51
Total Bilirubin 1.4 mg/dl (0.2-1.3) H 10/17/23 04:23
AST 642 U/L (17-59) H* 10/17/23 04:23
ALT 506 U/L (0-50) H* 10/17/23 04:23
Alkaline Phosphatase 193 U/L (38-126) H 10/17/23 04:23
Vital Signs and I&O:
Vital Signs
Temp Pulse Resp BP Pulse Ox
98.0 F 73 15 114/74 96
10/17/23 08:04 10/17/23 06:00 10/17/23 06:00 10/17/23 06:00 10/17/23 06:00
I&O
10/16/23 10/17/23 10/18/23
06:59 06:59 06:59
Intake Total 2323 / 2401 1272 / 1272
Output Total 480 / 480 1050 / 1050
Balance 1843 / 1921 222 / 222
Physical Exam
Physical Exam
HEENT: Anicteric
GI: Soft and Tender (Tender more the right lower quadrant)
Neuro: Other (flat affect)
--- NOTE | 2023-10-17 09:00 | PTCARENOTE ---
Rec'd pt at 0800 sleeping. Does awaken easily to verbal stimuli and is alert and oriented but affect is very flat and pt needs encouragement to do anything. Denies pain at rest but will c/o his back being sore with repositioning. Speech is clear.
Skin is pale wm and dry. Surgical incisions on chest, abd and R leg with scabbing present. While pt admits to still feeling short of breath, overall respirs appear unlabored. Sats are 96% on 2l Nc. BS are decreased at the bases with few base
crackles. Monitor goes between SR with BB config and Afib in the 60-70's. + pulses. DP pulses with the doppler +1 LE and arm edema. Denies chest pain. VS as documented. Abd is round/obese with + BS. Denies nausea. Laguna intact draining yellow urine.
Capped ints intact R and L arms-sites wnl Repositioned. Plan of care reviewed with pt. Call farrell in reach
[2023-10-17] MEDS: NOVOLOG FLEXPEN 5 UNITS SC (09:26)
[2023-10-17] MEDS: NOVOLOG FLEXPEN-LOW RESISTANCE 4 UNITS SC (09:27)
[2023-10-17 09:35] LABS: Glucose - Point of Care 321 mg/dl (70-99)
--- NOTE | 2023-10-17 09:49 | W.PN.CARDCBS ---
Today's Communication / Plan
-
Slowly improving. Vital signs are stable. We will repeat a limited echo to reevaluate his pericardial effusion today.
If effusion is stable and no plans for pericardiocentesis we will restart Eliquis.
He continues to have paroxysms of atrial fibrillation. Continue metoprolol. Once LFTs normalized would restart amiodarone
If echo stable would likely diurese today with IV Lasix.
Continue antibiotics for pneumonia.
Hemoglobin stable at 9.
Impression / Plan
-
Primary Mail List Librarian: initially seen on 09/[address] ROSY Pradhan
Assessment:
Presentation with N/V
Sepsis
EVON on CKD 3
hyponatremia
hyperkalemia
worsening post op anemia with evidence of iron deficiency
Heme positive stool in ER
elevated LFTs
Moderate loculated pericardial effusion without hemodynamic compromise by echo 10/15/23
Moderate L pleural effusion by CXR
CAD
NSTEMI s/p chest pain, peak Troponin 7.45 10/01/23
s/p CABG x3 (HENNESSY - LAD, SVG - OM1, SVG - PDA), CHIKA clip 10/03/2023
Post op paroxysmal Afib
Started on eliquis post op
Post op urinary retention requiring indwelling luciano catheter
HTN
DM 2
Chronic back pain with daily oxycodone use
Hypothyroid and h/o Graves disease
Hyperlipidemia
RBBB
Bladder outlet obstruction/intermittent catheterization
Prostate cancer s/p radiation and TURP
Former tobacco abuse, quit 09/25/23
Mild-moderate
Echo 10/02/23: EF 55-60%, mild , mild to moderate MR
ECHO 10/15/23: EF preserved, mod pericardial effusion without evidence of hemodynamic compromise
Plan:
-Patient s/p CABG x3 10/03/23 presents back to [facility] due to N/V.
-White blood cell count improved down to 28,000. Continue broad-spectrum antibiotics for PNA.
-Hemoglobin stable at 8.7 Continue to follow
-He does have a moderate pericardial effusion. At this point I would hold off on pericardiocentesis as he is clinically stable. Will repeat echo today to reevaluate effusion. Continue to hold Eliquis for now if he does need a pericardiocentesis.
-in afib today. cont metoprolol 25 mg p.o. every 12. Hold amiodarone with markedly abnormal liver function testing
-Feels better status post thoracentesis
-Continue to hold statin and amiodarone with markedly elevated liver function testing. ?infection shock liver
-Creatinine at 2.1. Continue to follow. If pericardial effusion stable, would diurese today
-Continue supportive care
-Discussed with pediatric clinical nurse specialist and nurse
-CCT 33 mins
Progress Note - Mail List Librarian
Subjective
Date of Service: October 17, 2023
breathing slightly better. no chest pains. In afib
Objective
Labs:
10/17/23 04:23
10/17/23 04:23
Labs
Hgb 8.7 g/dL (13.0-18.0) L 10/17/23 04:23
Hct 26.1 % (39.0-52.0) L 10/17/23 04:23
Plt Count 452 10^3/uL (130-400) H 10/17/23 04:23
PT 26.2 Sec (11.4-14.6) H 10/16/23 11:28
INR 2.38 10/16/23 11:28
APTT 41.2 Sec (23.4-35.0) H 10/15/23 19:26
Sodium 125 mmol/L (135-145) L 10/17/23 04:23
Potassium 5.0 mmol/L (3.5-5.1) 10/17/23 04:23
BUN 79 mg/dl (9-20) H 10/17/23 04:23
Creatinine 2.1 mg/dL (0.7-1.3) H 10/17/23 04:23
Glucose 223 mg/dl (70-99) H 10/17/23 04:23
Vital Signs and I&O:
Vital Signs
Temp Pulse Resp BP Pulse Ox
98.0 F 72 15 126/60 96
10/17/23 08:04 10/17/23 08:49 10/17/23 06:00 10/17/23 08:49 10/17/23 06:00
Vital Signs
Temp Pulse Resp BP Pulse Ox
98.0 F 72 15 126/60 96
10/17/23 08:04 10/17/23 08:49 10/17/23 06:00 10/17/23 08:49 10/17/23 06:00
Intake & Output
10/15/23 10/16/23 10/17/23 10/18/23
06:59 06:59 06:59 06:59
Intake Total 2323 / 2401 1272 / 1272
Output Total 480 / 480 1050 / 1050
Balance 1843 / 1921 222 / 222
Physical Exam
Physical Exam
GEN: No distress, awake, Ox3
HEENT: supple, anicteric, mmm
LUNGS: bilat rhonchi
CV: Irreg, S1/S2, 1/6 syst LSB, no rub
ABD: soft, BS+, NT/ND
EXT: +1 edema
NEURO: Gross non-focal
SKIN: No rash
--- NOTE | 2023-10-17 10:45 | PTCARENOTE ---
Celine Pennington in to see pt and updated. Will hold off on restarting pts on Insulin gtt for now-maybe later this afternoon. Fair appetite for breakfast. ECHO completed.
[2023-10-17] MEDS: FLUSH (NSS) 1 FLUSH IV ×3 (10:49→17:52)
--- NOTE | 2023-10-17 10:51 | PN.DE.MGMTRT ---
Insulin Management
- -
10/17/2023: Diabetes Management f/u:
Patient admitted with sepsis, possible UTI, DKA, LLL pleural parenchymal process. PMH HTN, diabetes, prostate CA, HLD, active smoker s/p CABG x 3 10/03/2023. A1C 7.5 Prior to admission patient was using a 670 Medtronic pump with DexCom G6.
His insulin pump had been stopped on arrival to hospital and taken home. Patients daughter at bedside, reports that she has brought pump a new reservoir, infusion set and fresh insulin.
Patient transitioned from insulin infusion to subcutaneous insulin 15 units lantus @ HS with novolog 5 units AC
Fasting glucose this AM 313.
Patient is awake and alert but states he is fatigued. I discussed with patient resuming insulin pump but he feels he is not 'up to it'. I did increase the AC novolog to 7 units and home to resume pump this afternoon. If not resumed will need hs
lantus recommend 45 units @ hs (IF PUMP NOT RESUMED).
Discussed with nurse, she is in agreement patient is not able to manage pump at this time.
Diabetes History
- -
Type of Diabetes: 2 requiring insulin
Pre-Admission Diabetes Regimen
10/17/23
04:23
Creatinine 2.1 H
Insulin Pump Settings
IP Diabetes Regimen
10/16/23 10/16/23 10/16/23
10:59 11:59 13:08
Glucose
POC Glucose 221 H 228 H 255 H
10/16/23 10/16/23 10/16/23
14:04 15:05 16:00
Glucose
POC Glucose 238 H 181 H 171 H
10/16/23 10/16/23 10/17/23
16:54 21:34 04:23
Glucose 223 H
POC Glucose 164 H 199 H
10/17/23 10/17/23
07:42 09:24
Glucose
POC Glucose 313 H 321 H
Patient Education
--- NOTE | 2023-10-17 11:22 | PN.CDI ---
CDI
- -
CDI:
Physician Documentation Request
Admit Date: 10/15/23 13:55
Dear Doctor Aren,
Please review the following and provide your response in the progress notes.
Clinical Indicators:
- per H&P 'from home with his at bedside complaining of increased weakness and shortness of breath
- 10/14 RN note 'increased to 6LNC for increased work of breathing- sats 92%
- 10/14 documented pulse ox 91%
Selected Entries
10/15/23
19:38 10/15/23
19:38 10/16/23
08:00
SaO2 92 92 98
Nasal Cannula flow liters per minute 6 6 5
Please clarify which of the following accurately represents the patient's respiratory status:
Acute hypoxic respiratory failure
Acute respiratory insufficiency
Hypoxia
Other
Additional information for Respiratory Failure:
Recognized criteria for Respiratory Failure (Source: [employer] [facility]ist May 2013)
ABGs: (1 or more) Symptoms Please indicate type if known
1. p)2 <60 or RA SPO2 <91% on RA 1. Tachypnea, SOB, dyspnea Hypoxic
2. pCO2 50 and pH <7.35 2. Use of accessory muscles Hypercapnic
3. pO2 decrease of pCO2 increase by 3. Pallor or cyanosis Hypoxic and Hypercapnic
10 mmHg from baseline if known 4. Anxiety or restlessness Unable to determine
5. Unable to speak in full sentences
Supplemental O2 of > 40% (5LPM) Intubation is not required
Use of terms such as suspected, likely, concern for, or probable (associated with a specific diagnosis that is being evaluated, monitored, or treated as if it exists) are acceptable and can be coded in the inpatient setting, when documented at the
time of discharge.
Thank you,
Kayy Newman RN
CDI Specialist
Please use your independent medical judgment in providing your response.
--- NOTE | 2023-10-17 11:23 | W.PN.HOSP.TC ---
Addendum entered and electronically signed by Gema Younger MD 10/17/23 15:15:
Acute hypoxic respiratory failure
Anemia NOS
Original Note:
Today's Communication/Plan
-
Add Lantus if not started on insulin pump today
Agree with Lasix after echo
Continue antibiotics
White count better
Patient is very reluctant to even turn himself for me to take a listen to the back of his lungs. We discussed that he needs to start moving more otherwise he will become very deconditioned.
PT OT
Assessment / Plan
Assessment / Plan
73 y/o male with recent CABG was discharged home with a Laguna catheter. Laguna catheter was a difficult placement in the operating room properly cystoscopy. Patient returns with generalized weakness and sepsis-like picture
Seen in ICU.
Patient is awake and alert
Feels slightly better
Anasarca noted
Cardiovascular system S1-S2 irregular
Chest decreased breath sounds bilaterally
Abdomen distended, no tenderness noted
Bilateral lower extremity edema noted
Midline scar in the chest stable
#Sepsis unclear etiology
Abdominal pain-CT scan of the abdomen pelvis Without IV contrast without any acute changes
Ultrasound of the abdomen with out any etiology
Urine cultures with gram-negative bacilli-Possible source
Patient also has right upper lobe pneumonia -Possible source
continue Zosyn
Infectious disease consultation appreciated
Follow blood cultures x 2
# Lactic acidosis-Resolved
#Acute MOD PERICARDIAL EFFUSION-cardiology following
Rpt ECHO today
#NSTEMI 10/05/23 S/P CAD/ s/p CABG x 3 (HENNESSY�LAD, SVG�OM1, SVG�PDA), CHIKA clip 09/25/2023
-2D echo 10/15/2023-normal LV size, hyperdynamic LV systolic function. Ejection fraction 65 to 70%. Mild MR. Moderate precordial patient without evidence of hemodynamic compromise measuring 3.1 cm in greatest dimension in the anterior space along
the left ventricle.
-CT surgery following
-Aspirin 81 mg daily ,metoprolol tartrate restarted
-Elevated proBNP noted however in the setting of infection and EVON-Consider Lasix.
#Moderate LEFT -sided pleural effusion
S/P thoracentesis yielding 1150 cc of dark serosanguineous pleural fluid.
BNP 5700
# Moderate right-sided effusion-Lasix
# Acute hypoxic respiratory insufficiency-wean oxygen as tolerated
Due to above
#Acute Transaminitis
USS no thrombosis
AMio and Statin on hold
? reason for LFT
Getting better
GI following
#BRADYCARDIA-RATES BETTER
Metoprolol restarted
#Acute hyperkalemia
Better
# Coagulopathy likely secondary to Eliquis and also liver disease
Hold off on Eliquis till repeat ECHO
#Anemia with Heme positive stools
Possible GI bleed
Macrocytic anemia
Holding Eliquis
Patient got 2 units of packed red blood cells yesterday
Hemoglobin appropriately risen
# Thrombocytosis-watch
# Leukocytosis-patient has had chronic leukocytosis even prior to admission.
#Bladder outlet obstruction/intermittent cath
-Laguna catheter was placed during cardiac surgery 10/03/2023 by urology plan for 4 weeks of Laguna then voiding trial
-Laguna UA EEG TECHNICIAN
-CT A/P without any obstruction
-Per discussion with Dr. Thomson and Dr. Bose Laguna catheter was a very difficult placement. He had urethral injury therefore will not exchange Laguna catheterization admission. Advised to leave it in.
#Hyponatremia
Appears to have anasarca now
Lasix
#DM2 with neuropathy of lower extremities
DKA resolved
BS 252, HgbA1c 7.9% recent September 2023
Patient normally uses insulin pump.
Plan was to start the patient on glycemic control drop yesterday unclear why it was not started.
Patient receiving AC NovoLog
Add Lantus if not started on insulin pump today
#EVON on CKD 3
Cr better
#A-fib paroxysmal-postop 10/05/2023
Hold Eliquis was started 5 mg twice daily on 10/08/2023, continue amiodarone 200mg twice daily per D/W Cards
Lopressor
#RBBB
#Mild-moderate
#Chronic back pain opiate dependent
-Continue oxycodone one half tab p.o. at bedtime and daily as needed
#GERD
-Continue Protonix 40 mg daily
#Hypothyroidism history of Graves'
Check TSH with free T4 reflex
-Continue Synthroid 125 mcg
# Hyperlipidemia-hold statin with elevated LFTs
#Former smoker
Stopped 09/25/2023
# History of prostate cancer.
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
Had a flexible cystoscopy for a malpositioned catheter on 10/03/2023. Had a Laguna catheter placed by Dr. Bose and the plan was to continue with Laguna catheter for 4 weeks and to be exchanged via cystoscopy or under anesthesia by healing urethral
trauma.
Normally follows with Dr. Park at [facility]
# Ambulatory dysfunction. Patient has been using a walker since 2019. Since September 2021 he also has a scooter which he uses at home.
# Insomnia-hold trazodone
# Hypoalbuminemia
# Hepatic steatosis
# Nodular hepatic margin-needs FibroScan as outpatient
#Mild restrictive lung disease
#DVT prophylaxis
Hold Eliquis
SCDs
#Full code
D/W RN
Cards
[employer] [facility]
Total Critical Care Time 31 minutes. I was immediately available to the patient and staff. I personally examined, reviewed labs, diagnostic images/reports, interpretations, treatment plans, discussed patient care with other providers and family ,
entered orders as appropriate and documented the medical record.
Anticipated Discharge: > 48 hours
Subjective/Interval History
-
Date of Service: October 17, 2023
Objective Data
-
Labs:
Laboratory Results
10/17/23
04:23
WBC 28.8 H
Hgb 8.7 L
Hct 26.1 L
Plt Count 452 H
Sodium 125 L
Potassium 5.0
Chloride 99
Carbon Dioxide 19 L
BUN 79 H
Creatinine 2.1 H
Glucose 223 H
Calcium 7.6 L
Total Bilirubin 1.4 H
AST 642 H*
ALT 506 H*
Alkaline Phosphatase 193 H
Vital Signs:
Vital Signs
Temp Pulse Resp BP Pulse Ox
98.0 F 63 12 118/55 94
10/17/23 08:04 10/17/23 10:00 10/17/23 10:00 10/17/23 10:00 10/17/23 10:00
I&O
10/16/23 10/17/23 10/18/23
06:59 06:59 06:59
Intake Total 2323 / 2401 1272 / 1272
Output Total 480 / 480 1050 / 1050
Balance 184 / 1921 222 / 222
--- NOTE | 2023-10-17 11:31 | PN.CDI ---
Addendum entered and electronically signed by Gema Younger MD 10/17/23 15:14:
Anemia NOS
No significant GIB
Original Note:
CDI
- -
CDI:
Physician Documentation Request
Admit Date: 10/15/23 13:55
Dear Doctor Aren,
Please review the following and provide your response in the progress notes.
Clinical Indicators:
- 4/10 PN 'Anemia with Heme positive stools...Possible GI bleed'
- 'Patient got 2 units of packed red blood cells yesterday'
Laboratory Tests
10/15/23 10/15/23 10/17/23
10:18 19:26 04:23
Hgb 7.2 L 9.6 L D 8.7 L
Laboratory Tests
10/15/23
10:18
Iron 44 L
TIBC 241 L
% Saturation 18 L
Ferritin 516.0 H
Vitamin B12 949 H
Please clarify, in your progress note, which of the following is the most likely type of anemia you are evaluating, monitoring and/or treating?
Acute blood loss anemia
Acute blood loss anemia with baseline chronic anemia (Specify type)
Anemia of chronic disease - indicate if neoplastic disease, CKD or other
Other
Use of terms such as suspected, likely, concern for, or probable (associated with a specific diagnosis that is being evaluated, monitored, or treated as if it exists) are acceptable and can be coded in the inpatient setting, when documented at the
time of discharge.
Thank you,
Kayy Newman RN
CDI Specialist
Please use your independent medical judgment in providing your response.
[2023-10-17] MEDS: ROBITUSSIN 200 MG PO (12:08)
[2023-10-17] MEDS: TYLENOL 650 MG PO (12:08)
--- NOTE | 2023-10-17 12:30 | PTCARENOTE ---
Pt on bedpan for mod amt of soft brown stool - while stool was brown in color it did hematest (+). Assessment otherwise is unchanged. Very tired overall and as stated before needs encouragement for much activities. VS as documented. Getting about
1000 mls on [id number] Pt medicated with Tylenol 650 mg po for c/o incisional soreness then with encouragement assisted oob to the chair with the assist of 2 and use of a walker. Initally c/o sl dizziness when first sitting on the side of the bed but
HR 68 and BP 123/63. Gait is weak but was able to bear wt and and slow but steady using a walker. States he is comfortable sitting up. Laguna and skin care completed. Pts family to bring in new Dexcom monitor as pt has his own monitor own his
abdomen. Site wnl. Call farrell in reach.
--- NOTE | 2023-10-17 12:39 | CM ---
CM following re: discharge planning.
Discussed in Rounds, reviewed pt's chart, met with pt and pt's daughter Gigi at bedside. Per rounds meeting, pt is slowly improving, very reluctant to participate in plan of care. Cardiology and Gastroenterology following. Per [facility] pt
definitely will be benefitted from a short term rehab.
PT and OT evaluation requested.
Pt lives alone, daughter Gigi stays with him since last discharge one week ago, ambulates with a walker and a cane at baseline, active with [facility].
D/C plan: most likely SNF level of care. Pending PT/OT evaluations and recommendations.
CM will follow with discharge plan updates as hospitalization progresses
--- NOTE | 2023-10-17 13:17 | W.PN.ID1 ---
Date of Service
Date of Service: October 17, 2023
Today's Communication
Continue antibiotics.
Assessment / Plan
Marked leukocytosis
Anemia
Recent CABG (POD #14)
Hyponatremia
CKD (current CrCl ~ 34)
Lactic acidosis; improved
Transaminitis
DM
HTN
Dyslipidemia
Prostate CA
Urinary retention (chronic straight cath)
DJD
Peripheral neuropathy
Recommendations:
Continue with empiric Zosyn.
Monitor white count. Trend temperature curve. Patient has been afebrile since admission.
Follow pending cultures. Urine culture shows Serratia marcescens, but bacteriuria would not be uncommon in a patient that chronically straight caths.
Trend LFTs
����������������������������������������������������������
Chief Complaint
-: Leukocytosis
Subjective / Review of Systems
Review of Systems: No Fever and No Chills
Vital Signs / Physical Exam
Vital Signs
Vital Signs
Temp Pulse Resp BP Pulse Ox
98.4 F 66 19 125/63 96
10/17/23 12:04 10/17/23 12:24 10/17/23 12:24 10/17/23 12:24 10/17/23 12:00
Physical Exam
Constitutional: No Acute Distress, Comfortable, Chronically Ill and Non-toxic
Eyes: Sclera Anicteric
Cardiovascular: S1/S2; Negative S3/S4
Pulmonary: Non Labored; Negative Wheezes or Rales
Gastrointestinal: Soft, Non Tender and Non Distended
Genito-Urinary: Laguna and Clear Urine; Negative Turbid Urine or Hematuria
Skin: Warm and Dry; Negative Rash or Jaundice
Neurological: Awake and Alert
Psychological: Calm
Objective Data
Lab Data
Lab Results
10/17/23 04:23
10/17/23 04:23
PT 26.2 Sec (11.4-14.6) H 10/16/23 11:28
INR 2.38 10/16/23 11:28
APTT 41.2 Sec (23.4-35.0) H 10/15/23 19:26
Estimated Creat Clear 34 ml/min 10/17/23 04:23
Lactic Acid 1.9 mmol/L (0.7-2.0) 10/16/23 03:52
Total Bilirubin 1.4 mg/dl (0.2-1.3) H 10/17/23 04:23
AST 642 U/L (17-59) H* 10/17/23 04:23
ALT 506 U/L (0-50) H* 10/17/23 04:23
Alkaline Phosphatase 193 U/L (38-126) H 10/17/23 04:23
Most recent labs reviewed.
Micro Results:
10/15/23 13:54 Urine Culture - Final
Urine Serratia marcescens
10/15/23 11:13 Blood Culture - Preliminary
Blood/Venous No Growth in 48 hours- Final report to follow
10/15/23 10:58 Blood Culture - Preliminary
Blood/Venous No Growth in 48 hours- Final report to follow
10/15/23 16:01 Body Fluid Culture - Preliminary
Pleural Fluid No Growth After 48 Hours
Gram Stain - Preliminary
10/15/23 17:26 MRSA Screen - Final
Nose No Methicillin Resistant Staphylococcus aureus isolated.
Imaging:
10/16/2023 CXR (portable): Mild cardiomegaly noted. No pulmonary edema. Wire sternal sutures, sternal plate and a left atrial appendage clip are present. Hazy opacification of the right upper lobe is consistent with pneumonia, and is similar to
that seen on the prior days examinations. Lungs are otherwise clear. Please see full dictation for additional detail. Film personally viewed.
[2023-10-17 13:40] LABS: Glucose - Point of Care 434 mg/dl (70-99)
--- NOTE | 2023-10-17 13:47 | PTCARENOTE ---
Accucheck BS resulted as >400. Venous glucose sent.
[2023-10-17 14:08] LABS: Glucose 359 mg/dl (70-99)
[2023-10-17] MEDS: NOVOLOG FLEXPEN 8 UNITS SC (14:26)
[2023-10-17] MEDS: NOVOLOG FLEXPEN-HIGH RESISTANCE 12 UNITS SC ×2 (14:26→17:10)
--- NOTE | 2023-10-17 14:30 | PTCARENOTE ---
Venous glucose resulted as 359. Diabetic coordinator and Dr. Pelletier updated. Orders obtained. Ready to eat lunch and coverage given. Pt has new Dexcom monitor at bedside brought in by family.
--- NOTE | 2023-10-17 16:15 | PTCARENOTE ---
Pt assisted back to bed after using the commode for a large amt of soft brown stool . Pt overall can bear wt but is just very weak. VS as documented. Of note- Luciano was emptied at noon for 250 mls of urine. Since then he has only had 20 mls of urine
out. Bladder scanned currently for 426 mls of urine. Tried to flush with NSS but unable to flush. The luciano did not get pulled getting oob and was intact in the Stat Lock. The urine has been yellow. Dr. Pelletier made aware. No other changes in
assessment. Daughter at the bedside. Pt does admit he has the sensation that he has to urinate.
[2023-10-17 17:04] LABS: Glucose - Point of Care 368 mg/dl (70-99)
[2023-10-17] MEDS: NOVOLOG FLEXPEN 15 UNITS SC (17:46)
[2023-10-17] MEDS: ROBITUSSIN PO ×2 (17:52→21:24)
--- NOTE | 2023-10-17 18:30 | PTCARENOTE ---
Dr. Shah in and luciano replaced with #18 Councill catheter. Return of 350 mls + additional urine of yellow to bloody tinged urine. No other changes. Prior to luciano being replaced pt back on bedpan for soft dark brownish/black stool. Keisha care
given. Support given.
[2023-10-17 18:58] LABS: Hepatitis B Surface Antigen Negative (Negative)
--- NOTE | 2023-10-17 19:06 | W.PN.UPDATE ---
Update Note
Progress Note Update
Called due to poorly draining luciano catheter
16Fr councill unable to be irrigated but is in proper position on CT
Catheter was removed and there was debris on catheter tip blocking drainage or irrigation
Given recent bulbar urethral trauma, bedside flexible cystoscopy was performed
The prior bulbar urethral injury appears much better and in the process of healing. There is still a visible posterior false passage
A wire was placed into bladder and over the wire an 18Fr councill catheter was placed
500cc clear yellow urine was drained
patient tolerated procedure well
- Continue antibiotics per ID
- Maintain luciano - follow up outpatient as scheduled to arrange next catheter change under cystoscopy
Please call with any additional issues
[2023-10-17 19:16] LABS: Hepatitis B Surface Antibody Negative; Hepatitis C Antibody Negative (Negative)
[2023-10-17 19:46] LABS: Hepatitis A Antibody, Total Negative (Negative)
[2023-10-17 21:18] LABS: Glucose - Point of Care 214 mg/dl (70-99)
[2023-10-17] MEDS: LANTUS 0.450000000000000011 UNITS SC (21:24)
--- NOTE | 2023-10-17 21:47 | PTCARENOTE ---
Rec'd care of patient at 1920. Patient in bed. AAOx3. Very flat and withdrawn. Cooperative with care but refusing turns. NSR with first degree avb, BBB and prolonged QT interval on tele monitor. Trace edema in UE and +1 in b/l LE. Pulse palpable.
Pulse ox 97-98% on 2Lnc. Weaned to RA. Pulse ox 94%. Lung sounds diminished with fine crackles in b/l bases. +BS. +BM x3 on day shift. Per previous RN, heme positive. Appetite poor. Newly placed luciano catheter by Urology. Carleen output. Patient c/o
some discomfort. Refused Tylenol.
--- NOTE | 2023-10-17 23:36 | TRANSFER ---
Patient transferred in bed with belongings to IVU. Report given to YING Hui.
[2023-10-18] VITALS (14 sets, daily range): BP systolic 119–155; BP diastolic 53–102; BMI 28.8
--- NOTE | 2023-10-18 | PTCARENOTE ---
Received report from ICU. Pt transferred to IVU. Aox3. VSS. Pt placed on telepack @ 2333. Pt then had >8 second pause at 2237. Asymptomatic. T, Tobin ROSADO aware. Pt to be NPO, BB on hold, labs ordered, and EKG in AM.
[2023-10-18] MEDS: ZOSYN 50 IV ×4 (04:34→22:17)
[2023-10-18 04:35] LABS: Ionized Calcium 1.06 mMOL/L (1.15-1.33)
[2023-10-18 04:40] LABS: Hematocrit 25.6 % (39.0-52.0); Hemoglobin 8.6 g/dL (13.0-18.0); Mean Corp Hgb Conc. 33.6 g/dL (33.0-37.0); Mean Corpuscular Hgb 30.1 pg (27.0-31.0); Mean Corpuscular Volume 89.5 fL (80.0-94.0); Mean Platelet Volume 9.7 fL (7.4-10.4); Platelet Count 476 10^3/uL (130-400); Red Blood Cell Count 2.86 10^6/uL (4.70-6.10); Red Cell Dist. Width 14.6 % (11.5-14.5); White Blood Cell Count 22.8 10^3/uL (4.8-10.8)
[2023-10-18] MEDS: SYNTHROID 125 MCG PO (05:01)
[2023-10-18 05:03] LABS: ALT (SGPT) 475 U/L (0-50); AST (SGOT) 360 U/L (17-59); Albumin 2.6 g/dl (3.5-5.0); Alkaline Phosphatase 170 U/L (38-126); Direct Bilirubin 0.6 mg/dl (0.0-0.4); Total Bilirubin 1.6 mg/dl (0.2-1.3); Total Protein 5.6 g/dl (6.3-8.2)
[2023-10-18 05:06] LABS: Blood Urea Nitrogen 72 mg/dl (9-20); Calcium 7.9 mg/dl (8.4-10.2); Carbon Dioxide 20 mmol/L (22-30); Chloride 100 mmol/L (98-107); Estimated Creatinine Clearance 44 ml/min; Glucose 106 mg/dl (70-99); Magnesium 2.8 mg/dl (1.6-2.3); Sodium 127 mmol/L (135-145); eGFR 44.93
--- NOTE | 2023-10-18 05:30 | W.PN.UPDATE ---
Update Note
Progress Note Update
-complete heart block last night for 8 sec - asymptomatic, lying in bed.
-Will hold Lopressor. Npo in case needs pacer. Zoll pads placed. Discussed with Dr. Danielson
-repleted Ca this am
-follow K (pending)
[2023-10-18 07:20] LABS: Glucose - Point of Care 123 mg/dl (70-99)
--- NOTE | 2023-10-18 07:33 | W.PN.CARDCBS ---
Addendum entered and electronically signed by Javy Childs MD 10/18/23 11:43:
I saw and examined the patient.
The Pneumatic Tube Operator's note was reviewed and I agree with the note.
Comment:
GEN: No distress, awake, Ox3
HEENT: supple, anicteric, mmm
LUNGS: CTA, no wheezes/rales
CV: Reg, S1/S2, 1/6 syst LSB, no gallop
ABD: soft, BS+, NT/ND
EXT: +1 edema
NEURO: Gross non-focal
SKIN: No rash
Plan:
Events overnight noted including 8-second pause. Stop metoprolol. He remains in sinus rhythm this morning. Remain off all AV chente blockers and amiodarone.
I reviewed his echo with CT surgery and we agreed to proceed with pericardiocentesis today.
Continue antibiotics. Continue to hold Eliquis.
I suspect eventually he may need permanent pacing. We will continue to follow him on telemetry for now.
Original Note:
Today's Communication / Plan
-
hold amio/lopressor
follow on tele
pericardiocentesis today
continue abx
Impression / Plan
-
Primary Newspaper Delivery Counselor: initially seen on 09/[address] ROSY Pradhan
Assessment:
Presentation with N/V
Sepsis
EVON on CKD 3
hyponatremia
hyperkalemia
worsening post op anemia with evidence of iron deficiency
Heme positive stool in ER
elevated LFTs
Moderate loculated pericardial effusion without hemodynamic compromise by echo 10/15/23
Moderate L pleural effusion by CXR
CAD
NSTEMI s/p chest pain, peak Troponin 7.45 10/01/23
s/p CABG x3 (HENNESSY - LAD, SVG - OM1, SVG - PDA), CHIKA clip 10/03/2023
Post op paroxysmal Afib
Started on eliquis post op
Post op urinary retention requiring indwelling luciano catheter
HTN
DM 2
Chronic back pain with daily oxycodone use
Hypothyroid and h/o Graves disease
Hyperlipidemia
RBBB
Bladder outlet obstruction/intermittent catheterization
Prostate cancer s/p radiation and TURP
Former tobacco abuse, quit 09/25/23
Mild-moderate
Echo 10/02/23: EF 55-60%, mild , mild to moderate MR
ECHO 10/15/23: EF preserved, mod pericardial effusion without evidence of hemodynamic compromise
Plan:
-Patient s/p CABG x3 10/03/23 presents back to [facility] due to N/V.
-he remains on abx per ID for PNA
-he underwent bedside flex cystoscopy 10/16 due to poorly draining luciano catheter, and catheter was changed out
-he underwent L thoracentesis 10/14 for 1150cc serosanguinous fluid
-hgb stable at 8.6. he remains off eliquis at this time. continue asa
-repeat echo 10/16 with mod to large pericardial effusion, slightly larger than prior echo from 10/14. will plan for pericardiocentesis today
-he was noted to have 8.5 second pause on tele overnight. asymptomatic. holding lopressor/amio and follow closely on tele. not ideal device candidate at this time given ongoing treatment for infection/sepsis.
-Cr improving, 1.6 on 10/17 (was 2.1 on 10/16)
-LFTs also improving. continue to hold statin and amio
-Discussed with nursing
Progress Note - Newspaper Delivery Counselor
Subjective
Date of Service: October 18, 2023
reports ongoing SOB. no CP, dizziness
Objective
Labs:
10/18/23 04:27
10/18/23 04:27
Labs
Hgb 8.6 g/dL (13.0-18.0) L 10/18/23 04:27
Hct 25.6 % (39.0-52.0) L 10/18/23 04:27
Plt Count 476 10^3/uL (130-400) H 10/18/23 04:27
PT 26.2 Sec (11.4-14.6) H 10/16/23 11:28
INR 2.38 10/16/23 11:28
APTT 41.2 Sec (23.4-35.0) H 10/15/23 19:26
Sodium 127 mmol/L (135-145) L 10/18/23 04:27
Potassium 5.0 mmol/L (3.5-5.1) 10/18/23 04:27
BUN 72 mg/dl (9-20) H 10/18/23 04:27
Creatinine 1.6 mg/dL (0.7-1.3) H 10/18/23 04:27
Glucose 106 mg/dl (70-99) H 10/18/23 04:27
Vital Signs and I&O:
Vital Signs
Temp Pulse Resp BP Pulse Ox
98.5 F 56 20 126/54 94
10/18/23 07:17 10/17/23 23:00 10/18/23 07:17 10/17/23 23:00 10/18/23 07:17
Vital Signs
Temp Pulse Resp BP Pulse Ox
98.5 F 56 20 126/54 94
10/18/23 07:17 10/17/23 23:00 10/18/23 07:17 10/17/23 23:00 10/18/23 07:17
Intake & Output
10/15/23 10/16/23 10/17/23 10/18/23
07:59 07:59 07:59 07:59
Intake Total 2401 / 2479 1194 / 1194 1090 / 1090
Output Total 480 / 480 1050 / 1050 1320 / 1320
Balance 1920 144 / 144 -230 / -230
Physical Exam
Physical Exam
GEN: No distress, awake, alert, oriented x3
HEENT: supple, anicteric, mmm, eomi
LUNGS: Crackles B/L bases, no wheezes
CV: Irreg, S1/S2, no murmur
ABD: soft, BS+, NT/ND
EXT: No cyanosis, clubbing. trace edema of B/L LE
NEURO: Gross non-focal
SKIN: Warm, pink, dry. No rash. Sternotomy incision c/d/i.
[2023-10-18] MEDS: CALCIUM GLUCONATE 130 MG IV (08:06)
--- NOTE | 2023-10-18 08:14 | PN.DE.MGMTRT ---
Insulin Management
- -
10/18/2023: Diabetes Management f/u:
Patient admitted with sepsis, possible UTI, DKA, LLL pleural parenchymal process. PMH HTN, diabetes, prostate CA, HLD, active smoker s/p CABG x 3 10/03/2023. A1C 7.5%. PRICE CHANGER, Patient was using a 670 [employer]onic pump with DexCom G6. His insulin pump had
been stopped on arrival to hospital and taken home.
Patients daughter at bedside, reports that she has brought pump, a new reservoir, infusion set and fresh insulin.
Patient transitioned from insulin infusion to SQ insulin 45 units Lantus @ HS with NovoLog 8 units AC
Patient resting in bed, awake and alert but states he still feels fatigued and continues with poor appetite.
Discussed with patient resuming insulin pump but he feels he is still not 'up to it'.
Fasting glucose this AM 106. Pt NPO for pericardiocentesis today.
Will reassess later today and resume pump this afternoon if pt is able to manage pump independently
If pump is resumed will need to STOP hs Lantus 45 units. Otherwise, Cont Lantus 45 units @ HS, NovoLog 8 units AC.
Hold AC insulin if pt is not eating or remains NPO and Use high corrective insulin.
Diabetes History
- -
Type of Diabetes: 2 requiring insulin
Pre-Admission Diabetes Regimen
10/18/23
04:27
Creatinine 1.6 H
Insulin Pump Settings
IP Diabetes Regimen
10/17/23 10/17/23 10/17/23
09:24 13:28 13:45
Glucose 359 H
POC Glucose 321 H 434 H
10/17/23 10/17/23 10/18/23
16:53 21:07 04:27
Glucose 106 H
POC Glucose 368 H 214 H
10/18/23
07:19
Glucose
POC Glucose 123 H
Meal type: Lunch
Meal type: Breakfast
Amount consumed: 20%
Amount consumed: 65%
Patient Education
[2023-10-18 09:00] LABS: Glucose - Point of Care 139 mg/dl (70-99)
[2023-10-18] MEDS: NOVOLOG FLEXPEN SC (09:00)
[2023-10-18] MEDS: NOVOLOG FLEXPEN-HIGH RESISTANCE SC (09:01)
[2023-10-18] MEDS: PROTONIX 40 MG PO (09:01)
[2023-10-18] MEDS: ASPIR LOW (ENTERIC COATED) 81 MG PO (09:01)
[2023-10-18] MEDS: FLUSH (NSS) 2 FLUSH IV (09:02)
[2023-10-18] MEDS: ROBITUSSIN PO ×3 (09:02→19:12)
[2023-10-18] MEDS: VITAMIN D3 (cholecalciferol) 25 MCG PO (09:02)
[2023-10-18] MEDS: FOLTX 1 TABLET PO (09:03)
--- NOTE | 2023-10-18 09:58 | PTCARENOTE ---
Received patient this morning resting in bed, offers no complaints. Given IV Ca+ gluconate IV as ordered. Patient kept NPO x meds as per cardiology for probable pericardiocentesis. Telemetry reviewed by cardiology, no plans for pacemaker. Metoprolol
held as ordered, call farrell within reach, will continue to monitor.
--- NOTE | 2023-10-18 11:03 | W.PN.ID1 ---
Date of Service
Date of Service: October 18, 2023
Today's Communication
Continue Zosyn for today
Assessment / Plan
Marked leukocytosis
- improved
Anemia
Recent CABG (10/03/2023)
Hyponatremia
EVON on CKD (current CrCl ~ 44)
Lactic acidosis; improved
Transaminitis
DM
HTN
Dyslipidemia
Prostate CA
Urinary retention (chronic straight cath)
DJD
Peripheral neuropathy
Recommendations:
Continue with empiric Zosyn (d#4)
Monitor white count. Trend temperature curve. Patient has been afebrile since admission.
Follow pending cultures. Urine culture shows Serratia marcescens, but bacteriuria would not be uncommon in a patient that chronically straight caths.
Trend LFTs
����������������������������������������������������������
Chief Complaint
-: Leukocytosis
Subjective / Review of Systems
Review of Systems: No Fever, No Chills and No Cough
Vital Signs / Physical Exam
Vital Signs
Vital Signs
Temp Pulse Resp BP Pulse Ox
98.5 F 68 20 140/65 94
10/18/23 07:17 10/18/23 08:00 10/18/23 07:17 10/18/23 07:18 10/18/23 07:17
Physical Exam
Constitutional: No Acute Distress, Comfortable, Chronically Ill and Non-toxic
Eyes: Sclera Anicteric
Cardiovascular: S1/S2; Negative S3/S4
Pulmonary: Clear and Non Labored
Gastrointestinal: Soft
Neurological: Awake and Alert
Psychological: Calm
Objective Data
Lab Data
Lab Results
10/18/23 04:27
10/18/23 04:27
PT 26.2 Sec (11.4-14.6) H 10/16/23 11:28
INR 2.38 04/10/24 11:28
APTT 41.2 Sec (23.4-35.0) H 10/15/23 19:26
Estimated Creat Clear 44 ml/min 10/18/23 04:27
Lactic Acid 1.9 mmol/L (0.7-2.0) 10/16/23 03:52
Total Bilirubin 1.6 mg/dl (0.2-1.3) H 10/18/23 04:27
AST 360 U/L (17-59) H 10/18/23 04:27
ALT 475 U/L (0-50) H 10/18/23 04:27
Alkaline Phosphatase 170 U/L (38-126) H 10/18/23 04:27
Most recent labs reviewed.
Micro Results:
10/15/23 10:58 Blood Culture - Preliminary
Blood/Venous No Growth in 72 hours- Final report to follow
10/15/23 13:54 Urine Culture - Final
Urine Serratia marcescens
10/15/23 11:13 Blood Culture - Preliminary
Blood/Venous No Growth in 48 hours- Final report to follow
10/15/23 16:01 Body Fluid Culture - Preliminary
Pleural Fluid No Growth After 48 Hours
Gram Stain - Preliminary
10/15/23 17:26 MRSA Screen - Final
Nose No Methicillin Resistant Staphylococcus aureus isolated.
Imaging:
10/16/2023 CXR (portable): Mild cardiomegaly noted. No pulmonary edema. Wire sternal sutures, sternal plate and a left atrial appendage clip are present. Hazy opacification of the right upper lobe is consistent with pneumonia, and is similar to
that seen on the prior days examinations. Lungs are otherwise clear. Please see full dictation for additional detail. Film personally viewed.
--- NOTE | 2023-10-18 11:16 | CM ---
Reviewed chart. Mr. Patricia was transferred to IVU. Met with Mr. Patricia and his daughter to review discharge plans. He states prior to admission his daughter has been staying with him He normally resides alone in a one story home without any steps
to enter. He states prior to admission he ambulated with a walker and also uses a scooter for mobility. He states he can use the scooter in his home in certain areas. He states prior to admission he was independent with ADLs. He states he was
current with [facility]. He is agreeable to having [facility] again if indicated. He states he has a prescription plan and uses [facility]. Will need to see his current functional level to see if he will have any skilled care
needs. Awaiting physical and occupational therapy evaluations. Medical work-up in progress. The discharge plan is to return home with his daughter staying with him and resumption of [facility] versus some level of inpatient rehab.
when medically stable.
--- NOTE | 2023-10-18 11:59 | PTCARENOTE ---
Patient taken to EP lab for pericardiocentesis, patient's daughter waiting in the room.
--- NOTE | 2023-10-18 13:23 | ITS.CL.CATH ---
Non Food Receiving Clerk - Catheterization
Cardiac Catheterization
Procedure Report:
PERICARDIOCENTESIS REPORT
DATE: August 19, 2023
REFERRING: Dr. Philip Childs
INDICATIONS: Post pericardiotomy pericardial effusion
PROCEDURAL DETAILS: A subxiphoid approach was utilized to gain access to the pericardial space. A micro puncture needle was advanced until bloody fluid was removed. Agitated saline contrast was injected and the guidewire was advanced through the
micropuncture needle once we were confident the needle tip was within the pericardial space. The micropuncture sheath and dilator were then advanced and the dilator was removed. A 0.035 inch J-tip wire was then advanced through the micropuncture
sheath and into the pericardial space. A 6 Swedish dilator was advanced over the J-wire and a 6 Swedish sheath and dilator were then advanced over the guidewire. The dilator was removed and a pigtail catheter was advanced over the 0.035 inch wire
into the pericardial space. A total of 460 mL of bloody pericardial fluid was removed. The pericardial effusion had nearly resolved by echocardiographic assessment at the conclusion of the procedure
RADIATION SUMMARY: Fluoro Time (min): 0.8, Dose (mGy): 2.4, DAP (Gy.cm2) : 22.6
CONCLUSIONS:
1. Successful pericardiocentesis with removal of 460 mL of bloody pericardial fluid. At the conclusion the procedure, the pericardial effusion had only a small rim of remaining fluid
RECOMMENDATIONS:
1. The pericardial drain will remain in place for 48 hours
Copy to: Dr. Zurdo Pradhan
[2023-10-18 13:42] LABS: Glucose - Point of Care 131 mg/dl (70-99)
[2023-10-18 14:30] LABS: Body Fluid Glucose 35 mg/dl; Body Fluid Protein 5.2 g/dl
[2023-10-18] MEDS: NOVOLOG FLEXPEN 8 UNITS SC ×2 (15:05→19:07)
[2023-10-18] MEDS: NOVOLOG FLEXPEN-HIGH RESISTANCE 1 UNITS SC (15:05)
[2023-10-18 15:12] LABS: Body Fluid Hematocrit 33.8 %; Body Fluid WBC 19800 /CUMM
[2023-10-18 15:17] LABS: Body Fluid Second Tech DB
[2023-10-18 15:19] LABS: Body Fluid LDH 2164 U/L
[2023-10-18 15:20] LABS: Body Fluid Granulocytes 80 %; Body Fluid Lymphocytes 11 %; Body Fluid Macrophages 7 %
--- NOTE | 2023-10-18 15:31 | W.PN.UPDATE ---
Update Note
Progress Note Update
CTSP due to complaint of several seconds of chest discomfort. quickly subsided. patient attributes to cinnamon on his pancakes. looks brighter post pericardiocentesis. on review of tele since evaluated this morning, patient appears to have had some
paroxysms of rate controlled afib and aflutter. currently in SR. rate/rhythm control currently limited due to bradycardia/8 second pause overnight. not OAC candidate at present given bloody pericardial fluid from tap. d/w nursing. will follow.
--- NOTE | 2023-10-18 15:44 | W.PN.HOSP.TC ---
Today's Communication/Plan
-
Hold Eliquis and Lopressor
Watch heart rate
Diuresis if okay with cardiology
Assessment / Plan
Assessment / Plan
73 y/o male with recent CABG was discharged home with a Laguna catheter. Laguna catheter was a difficult placement in the operating room properly cystoscopy. Patient returns with generalized weakness and sepsis-like picture
Seen in IVU.
Patient is awake and alert
Feels better
Cardiovascular system S1-S2 irregular
Chest decreased breath sounds bilaterally
Abdomen distended, no tenderness noted
Bilateral lower extremity edema better
Midline scar in the chest stable
#Sepsis unclear etiology
Abdominal pain-CT scan of the abdomen pelvis Without IV contrast without any acute changes
Ultrasound of the abdomen with out any etiology
Urine cultures with Serratia
Patient also has right upper lobe pneumonia -Possible source
continue Zosyn
Infectious disease consultation appreciated
Follow blood cultures x 2
# Lactic acidosis-Resolved
#Acute MOD PERICARDIAL EFFUSION-cardiology following
Patient had 460 mL of bloody pericardial fluid drained today on 10/18/23
#NSTEMI 10/05/23 S/P CAD/ s/p CABG x 3 (HENNESSY�LAD, SVG�OM1, SVG�PDA), CHIKA clip 09/25/2023
-2D echo 10/15/2023-normal LV size, hyperdynamic LV systolic function. Ejection fraction 65 to 70%. Mild MR. Moderate precordial patient without evidence of hemodynamic compromise measuring 3.1 cm in greatest dimension in the anterior space along
the left ventricle.
-CT surgery following
-Aspirin 81 mg daily , metoprolol held due to bradycardia
-Elevated proBNP noted however in the setting of infection and EVON
-Continue Lasix
#Moderate LEFT -sided pleural effusion
S/P thoracentesis yielding 1150 cc of dark serosanguineous pleural fluid.
BNP 5700
# Moderate right-sided effusion-Lasix
# Acute hypoxic respiratory insufficiency-wean oxygen as tolerated
Due to above
#Acute Transaminitis
USS no thrombosis
AMio and Statin on hold
? reason for LFT
Getting better
GI following
#BRADYCARDIA-
Metoprolol restarted and then held again on 10/18/2023 because of bradycardia and pauses
#Acute hyperkalemia
Better
# Coagulopathy likely secondary to Eliquis and also liver disease
Restart Eliquis when okay with cardiology
#Anemia with Heme positive stools
Possible GI bleed
Macrocytic anemia
Holding Eliquis
Patient got 2 units of packed red blood cells yesterday
Hemoglobin appropriately risen
# Thrombocytosis-watch
# Leukocytosis-patient has had chronic leukocytosis even prior to admission.
#Bladder outlet obstruction/intermittent cath
-Laguna catheter was placed during cardiac surgery 10/03/2023 by urology plan for 4 weeks of Laguna then voiding trial
-Laguna UA OLIVE KNOCKER
-CT A/P without any obstruction
-Per discussion with Dr. Thomson and Dr. Bose Laguna catheter was a very difficult placement. He had urethral injury therefore will not exchange Laguna catheterization admission. Advised to leave it in.
#Hyponatremia
Appears to have anasarca now
Lasix
#DM2 with neuropathy of lower extremities
DKA resolved
BS 252, HgbA1c 7.9% recent September 2023
Patient normally uses insulin pump.
Lantus 45 units and Novolog 8 AC
#EVON on CKD 3
Cr better
#A-fib paroxysmal-postop 10/05/2023
Hold Eliquis was started 5 mg twice daily on 10/08/2023, Hold amiodarone 200mg
Hold Lopressor
#RBBB
#Mild-moderate
#Chronic back pain opiate dependent
-Continue oxycodone one half tab p.o. at bedtime and daily as needed
#GERD
-Continue Protonix 40 mg daily
#Hypothyroidism history of Graves'
Check TSH with free T4 reflex
-Continue Synthroid 125 mcg
# Hyperlipidemia-hold statin with elevated LFTs
#Former smoker
Stopped 09/25/2023
# History of prostate cancer.
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
Had a flexible cystoscopy for a malpositioned catheter on 10/03/2023. Had a Laguna catheter placed by Dr. Bose and the plan was to continue with Laguna catheter for 4 weeks and to be exchanged via cystoscopy or under anesthesia by healing urethral
trauma.
Normally follows with Dr. Park at [facility]
# Ambulatory dysfunction. Patient has been using a walker since 2019. Since September 2021 he also has a scooter which he uses at home.
# Insomnia-hold trazodone
# Hypoalbuminemia
# Hepatic steatosis
# Nodular hepatic margin-needs FibroScan as outpatient
#Mild restrictive lung disease
#DVT prophylaxis
Hold Eliquis
SCDs
#Full code
D/W RN
Cards
D/W Daughter at bed side
Complex decision making
Anticipated Discharge: > 48 hours
Subjective/Interval History
-
Date of Service: October 18, 2023
Objective Data
-
Labs:
Laboratory Results
10/18/23
04:27
WBC 22.8 H
Hgb 8.6 L
Hct 25.6 L
Plt Count 476 H
Sodium 127 L
Potassium 5.0
Chloride 100
Carbon Dioxide 20 L
BUN 72 H
Creatinine 1.6 H
Glucose 106 H
Calcium 7.9 L
Total Bilirubin 1.6 H
AST 360 H
ALT 475 H
Alkaline Phosphatase 170 H
Vital Signs:
Vital Signs
Temp Pulse Resp BP Pulse Ox
97.9 F 68 18 140/65 97
10/18/23 13:43 10/18/23 13:43 10/18/23 13:43 10/18/23 07:18 10/18/23 13:43
I&O
10/17/23 10/18/23 10/19/23
06:59 06:59 06:59
Intake Total 1272 / 1272 1090 / 1090 130 / 130
Output Total 1050 / 1050 1320 / 1320
Balance 222 / 222 -230 / -230 130 / 130
--- NOTE | 2023-10-18 15:54 | PTCARENOTE ---
Patient returned from EP lab after pericardiocentesis and placement of a pericardial drain. Dressing at xyphoid area is dry and intact with tubing free of kinks and draining to collection chamber bloody fluid. Monitoring VS, patient denies any pain
or discomfort. After eating lunch patient complained of a sharp pain under his left breast which was brief in duration. EKG done, pain remains absent. Kailee Enciso PA in to see the patient and reviewed EKG. Patient appears comfortable, no further orders
at this time.
[2023-10-18 18:28] LABS: Glucose - Point of Care 266 mg/dl (70-99)
[2023-10-18] MEDS: NOVOLOG FLEXPEN-HIGH RESISTANCE 7 UNITS SC (19:07)
--- NOTE | 2023-10-18 20:58 | PTCARENOTE ---
Pt rec'd at change of shift with daughter at bedside. After introducing myself pt stated 'you can have the night off'. Pt at first not agreeable to turn in bed so he could be assessed. Pt eventually agreed. Pericardial drain noted in chest, drsg dry
and intact. collection noted to be at 50cc serosanguineous drainage at change of shift. Laguna draining yellow urine, no sediment noted in tubing.
[2023-10-18 21:46] LABS: Glucose - Point of Care 170 mg/dl (70-99)
[2023-10-18] MEDS: LANTUS 0.450000000000000011 UNITS SC (22:17)
[2023-10-18] MEDS: ROBITUSSIN 200 MG PO (22:18)
[2023-10-19] VITALS (10 sets, daily range): BP systolic 129–151; BP diastolic 43–59; PULSE 69–76; BMI 28.5
[2023-10-19] MEDS: ZOSYN 50 IV ×4 (04:32→21:08)
--- NOTE | 2023-10-19 04:58 | PTCARENOTE ---
Pt unhappy about 0400 wake up for VS, am labs and abx. At first pt stated ' come back at 6am when its daylight' then pt agreed to allow everything to be done.
[2023-10-19] MEDS: SYNTHROID 125 MCG PO (05:05)
--- NOTE | 2023-10-19 05:15 | PTCARENOTE ---
No output noted overnight from pericardial drain
[2023-10-19 05:28] LABS: Hematocrit 24.3 % (39.0-52.0); Hemoglobin 8.2 g/dL (13.0-18.0); Mean Corp Hgb Conc. 33.7 g/dL (33.0-37.0); Mean Corpuscular Hgb 30.1 pg (27.0-31.0); Mean Corpuscular Volume 89.3 fL (80.0-94.0); Mean Platelet Volume 9.6 fL (7.4-10.4); Platelet Count 447 10^3/uL (130-400); Red Blood Cell Count 2.72 10^6/uL (4.70-6.10); Red Cell Dist. Width 14.4 % (11.5-14.5); White Blood Cell Count 15.9 10^3/uL (4.8-10.8)
[2023-10-19 05:59] LABS: ALT (SGPT) 353 U/L (0-50); AST (SGOT) 226 U/L (17-59); Albumin 2.4 g/dl (3.5-5.0); Alkaline Phosphatase 155 U/L (38-126); Blood Urea Nitrogen 53 mg/dl (9-20); Calcium 8.3 mg/dl (8.4-10.2); Carbon Dioxide 23 mmol/L (22-30); Chloride 102 mmol/L (98-107); Direct Bilirubin 0.5 mg/dl (0.0-0.4); Estimated Creatinine Clearance 51 ml/min; Glucose 70 mg/dl (70-99); Magnesium 2.4 mg/dl (1.6-2.3); Potassium 4.2 mmol/L (3.5-5.1); Sodium 131 mmol/L (135-145); Total Bilirubin 1.5 mg/dl (0.2-1.3); Total Protein 5.2 g/dl (6.3-8.2); eGFR 52.74
--- NOTE | 2023-10-19 07:43 | W.PN.CARDCBS ---
Addendum entered and electronically signed by Messi Mobley MD 10/19/23 08:56:
patient seen and examined
agree with SISI Enciso's notes and assessment
agree with SISI Enciso's plan
tele-no further pauses
exam:
drain with bloody drainage although <10cc overnight
heent ncat
jvp 6
cor regular
lungs ctab
abd soft nt nd
no ext edema
aao x3
non focal neurologically
Assessment:
Presentation with N/V
Sepsis
EVON on CKD 3
hyponatremia
hyperkalemia
worsening post op anemia with evidence of iron deficiency
Heme positive stool in ER
elevated LFTs
Moderate loculated pericardial effusion without hemodynamic compromise by echo 10/15/23
Moderate L pleural effusion by CXR
CAD
NSTEMI s/p chest pain, peak Troponin 7.45 10/01/23
s/p CABG x3 (HENNESSY - LAD, SVG - OM1, SVG - PDA), CHIKA clip 10/03/2023ost op paroxysmal Afib
Started on eliquis post op
Post op urinary retention requiring indwelling luciano catheter
HTN
DM 2
Chronic back pain with daily oxycodone use
Hypothyroid and h/o Graves disease
Hyperlipidemia
RBBB
Bladder outlet obstruction/intermittent catheterization
Prostate cancer s/p radiation and TURP
Former tobacco abuse, quit 09/25/23
Mild-moderate
Echo 10/02/23: EF 55-60%, mild , mild to moderate MR
ECHO 10/15/23: EF preserved, mod pericardial effusion without evidence of hemodynamic compromise
Plan:
-Patient s/p CABG x3 10/03/23 presents back to [facility] due to N/V.
-Status post pericardiocentesis 10/18/2023 for 460cc of bloody fluid. remains with drain in place, to continue for 48 hours. 50cc out overnight per records. will maintain drain through weekend
-he underwent L thoracentesis 10/14 for 1150cc serosanguinous fluid
-hgb 8.2 on 10/18. continue to hold eliquis. continue asa
-no further pauses on tele overnight, however with brief bradycardia. continues to be in SR at present, however with intermittent episodes of afib and aflutter, rate controlled. continue to hold OP lopressor/amio. may require eventual device given
underlying conduction disease and need for av chente blocking agents but would like him to recover from multi-organ disease
-Cr and LFTs improving.
-follow volume status. proBNP on admission 5700. would consider for diuresis. BP stable
-he remains on abx per ID for PNA
-he underwent bedside flex cystoscopy 10/16 due to poorly draining luciano catheter, and catheter was changed out
-Discussed with nursing
Original Note:
Today's Communication / Plan
-
pericardial drain remains, follow output
follow on tele. amio/lopressor remain on hold
follow hgb, off eliquis
follow volume status
Impression / Plan
-
Primary Acute Care Nurse: initially seen on 09/[address] ROSY Pradhan
Assessment:
Presentation with N/V
Sepsis
EVON on CKD 3
hyponatremia
hyperkalemia
worsening post op anemia with evidence of iron deficiency
Heme positive stool in ER
elevated LFTs
Moderate loculated pericardial effusion without hemodynamic compromise by echo 10/15/23
Moderate L pleural effusion by CXR
CAD
NSTEMI s/p chest pain, peak Troponin 7.45 10/01/23
s/p CABG x3 (HENNESSY - LAD, SVG - OM1, SVG - PDA), CHIKA clip 10/03/2023
Post op paroxysmal Afib
Started on eliquis post op
Post op urinary retention requiring indwelling luciano catheter
HTN
DM 2
Chronic back pain with daily oxycodone use
Hypothyroid and h/o Graves disease
Hyperlipidemia
RBBB
Bladder outlet obstruction/intermittent catheterization
Prostate cancer s/p radiation and TURP
Former tobacco abuse, quit 09/25/23
Mild-moderate
Echo 10/02/23: EF 55-60%, mild , mild to moderate MR
ECHO 10/15/23: EF preserved, mod pericardial effusion without evidence of hemodynamic compromise
Plan:
-Patient s/p CABG x3 10/03/23 presents back to [facility] due to N/V.
-Status post pericardiocentesis 10/18/2023 for 460cc of bloody fluid. remains with drain in place, to continue for 48 hours. 50cc out overnight per records
-he underwent L thoracentesis 10/14 for 1150cc serosanguinous fluid
-hgb 8.2 on 10/18. continue to hold eliquis. continue asa
-no further pauses on tele overnight, however with brief bradycardia. continues to be in SR at present, however with intermittent episodes of afib and aflutter, rate controlled. continue to hold OP lopressor/amio. may require eventual device given
underlying conduction disease and need for av chente blocking agents
-Cr and LFTs improving.
-follow volume status. proBNP on admission 5700. would consider for diuresis. BP stable
-he remains on abx per ID for PNA
-he underwent bedside flex cystoscopy 10/16 due to poorly draining luciano catheter, and catheter was changed out
-Discussed with nursing
Progress Note - Acute Care Nurse
Subjective
Date of Service: October 19, 2023
reports some SOB with cough. Denies CP, palpitations
Objective
Labs:
10/19/23 04:51
10/19/23 04:51
Labs
Hgb 8.2 g/dL (13.0-18.0) L 10/19/23 04:51
Hct 24.3 % (39.0-52.0) L 10/19/23 04:51
Plt Count 447 10^3/uL (130-400) H 10/19/23 04:51
PT 26.2 Sec (11.4-14.6) H 10/16/23 11:28
INR 2.38 10/16/23 11:28
APTT 41.2 Sec (23.4-35.0) H 10/15/23 19:26
Sodium 131 mmol/L (135-145) L 10/19/23 04:51
Potassium 4.2 mmol/L (3.5-5.1) 10/19/23 04:51
BUN 53 mg/dl (9-20) H 10/19/23 04:51
Creatinine 1.4 mg/dL (0.7-1.3) H 10/19/23 04:51
Glucose 70 mg/dl (70-99) 10/19/23 04:51
Vital Signs and I&O:
Vital Signs
Temp Pulse Resp BP Pulse Ox
98.4 F 69 18 129/43 94
10/18/23 19:24 10/19/23 04:24 10/18/23 19:24 10/19/23 04:24 10/18/23 19:24
Vital Signs
Temp Pulse Resp BP Pulse Ox
98.4 F 69 18 129/43 94
10/18/23 19:24 10/19/23 04:24 10/18/23 19:24 10/19/23 04:24 10/18/23 19:24
Intake & Output
10/16/23 10/17/23 10/18/23 10/19/23
07:59 07:59 07:59 07:59
Intake Total 2401 / 2479 1194 / 1194 1090 / 1090 230 / 230
Output Total 480 / 480 1050 / 1050 1320 / 1320 1375 / 1375
Balance 1920 144 / 144 -230 / -230 -1145 / -1145
Physical Exam
Physical Exam
GEN: No distress, awake, alert, oriented x3
HEENT: supple, anicteric, mmm, eomi
LUNGS: Decreased BS B/L bases, no wheezes
CV: Reg, S1/S2, no murmur
ABD: soft, BS+, NT/ND
EXT: No cyanosis, clubbing, edema
NEURO: Gross non-focal
SKIN: Warm, pink, dry. No rash. Pericardial drain in place
[2023-10-19 09:36] LABS: Glucose - Point of Care 83 mg/dl (70-99)
[2023-10-19] MEDS: NOVOLOG FLEXPEN 8 UNITS SC ×3 (09:55→18:26)
[2023-10-19] MEDS: NOVOLOG FLEXPEN-HIGH RESISTANCE 1 UNITS SC (09:56)
[2023-10-19] MEDS: PROTONIX 40 MG PO (10:03)
[2023-10-19] MEDS: ROBITUSSIN 200 MG PO ×4 (10:03→21:08)
[2023-10-19] MEDS: FOLTX 1 TABLET PO (10:03)
[2023-10-19] MEDS: ASPIR LOW (ENTERIC COATED) 81 MG PO (10:03)
[2023-10-19] MEDS: VITAMIN D3 (cholecalciferol) 25 MCG PO (10:03)
--- NOTE | 2023-10-19 11:58 | W.PN.ID1 ---
Date of Service
Date of Service: October 19, 2023
Today's Communication
continue zosyn
Assessment / Plan
Marked leukocytosis
- improved
Anemia
Recent CABG (10/03/2023)
Hyponatremia
EVON on CKD (current CrCl ~ 44)
Lactic acidosis; improved
Transaminitis
DM
HTN
Dyslipidemia
Prostate CA
Urinary retention (chronic straight cath)
DJD
Peripheral neuropathy
Recommendations:
Continue with Zosyn (d#5)
Monitor white count - improving . Trend temperature curve. Patient has been afebrile since admission.
Follow pending cultures. Urine culture shows Serratia marcescens, but bacteriuria would not be uncommon in a patient that chronically straight caths.
Trend LFTs
����������������������������������������������������������
Chief Complaint
-: Leukocytosis
Subjective / Review of Systems
afebrile
bp stable
improved leukocytosis
cr improved
pericardial fluid gram stain no organisms, no growth to date
no complaints
Vital Signs / Physical Exam
Vital Signs
Vital Signs
Temp Pulse Resp BP Pulse Ox
98 F 75 18 145/53 97
10/19/23 11:05 10/19/23 11:05 10/19/23 11:05 10/19/23 08:46 10/19/23 11:05
Physical Exam
Constitutional: No Acute Distress
Cardiovascular: Regular Rate and S1/S2; Negative Murmur or Rub
Pulmonary: Clear and Symmetric; Negative Wheezes or Rales
Gastrointestinal: Soft, Non Tender, Non Distended and Normal Bowel Sounds
Skin: Warm and Dry; Negative Rash or Jaundice
Wound: Other (surgical site clean, dry, no dehiscence or drainge)
Objective Data
Lab Data
Lab Results
10/19/23 04:51
10/19/23 04:51
PT 26.2 Sec (11.4-14.6) H 10/16/23 11:28
INR 2.38 10/16/23 11:28
APTT 41.2 Sec (23.4-35.0) H 10/15/23 19:26
Estimated Creat Clear 51 ml/min 10/19/23 04:51
Lactic Acid 1.9 mmol/L (0.7-2.0) 10/16/23 03:52
Total Bilirubin 1.5 mg/dl (0.2-1.3) H 10/19/23 04:51
AST 226 U/L (17-59) H 10/19/23 04:51
ALT 353 U/L (0-50) H 10/19/23 04:51
Alkaline Phosphatase 155 U/L (38-126) H 10/19/23 04:51
Most recent labs reviewed.
Micro Results:
10/15/23 11:13 Blood Culture - Preliminary
Blood/Venous No Growth in 4 days- Final report to follow
10/15/23 10:58 Blood Culture - Preliminary
Blood/Venous No Growth in 4 days- Final report to follow
10/18/23 11:38 Body Fluid Culture - Preliminary
Pericardial Fluid No Growth After 18-24 Hours
Gram Stain - Preliminary
10/19/23 06:00 Fungal Culture - Preliminary
Pericardial Fluid Culture in progress.
Positive cultures are reported as soon as detected.
Final report to follow in four to five weeks.
10/18/23 11:38 Fungal Smear - Pending
Pericardial Fluid
10/18/23 11:38 Acid Fast Bacilli Smear - Pending
Pericardial Fluid Acid Fast Bacilli Culture - Pending
10/15/23 16:01 Body Fluid Culture - Final
Pleural Fluid No Growth After 72 Hours
Gram Stain - Final
10/15/23 13:54 Urine Culture - Final
Urine Serratia marcescens
10/15/23 17:26 MRSA Screen - Final
Nose No Methicillin Resistant Staphylococcus aureus isolated.
Imaging:
10/16/2023 CXR (portable): Mild cardiomegaly noted. No pulmonary edema. Wire sternal sutures, sternal plate and a left atrial appendage clip are present. Hazy opacification of the right upper lobe is consistent with pneumonia, and is similar to
that seen on the prior days examinations. Lungs are otherwise clear. Please see full dictation for additional detail. Film personally viewed.
[2023-10-19 12:22] LABS: Glucose - Point of Care 175 mg/dl (70-99)
--- NOTE | 2023-10-19 12:24 | W.PN.HOSP.TC ---
Today's Communication/Plan
-
see bold
Assessment / Plan
Assessment / Plan
Gen: NAD, AAOx3.
Eyes: EOMI, PERRLA, no scleral icterus.
Neck: supple.
CV: RRR, +S1/S2, no m/r/g.
Resp: CTAB, no rales, wheezes, or rhonchi.
Abd: +BS, soft, NT, ND
Skin: No rashes. 2+ B/L LE edema
Neuro: CN 2-12 intact, non-focal.
Psych: Normal mood and affect.
10/15/23 11:13 Blood/Venous Blood Culture - Preliminary
No Growth in 4 days- Final report to follow
10/15/23 10:58 Blood/Venous Blood Culture - Preliminary
No Growth in 4 days- Final report to follow
10/18/23 11:38 Pericardial Fluid Body Fluid Culture - Preliminary
No Growth After 18-24 Hours
10/18/23 11:38 Pericardial Fluid Gram Stain - Preliminary
10/19/23 06:00 Pericardial Fluid Fungal Culture - Preliminary
Culture in progress.
Positive cultures are reported as soon as detected.
Final report to follow in four to five weeks.
10/15/23 16:01 Pleural Fluid Body Fluid Culture - Final
No Growth After 72 Hours
10/15/23 16:01 Pleural Fluid Gram Stain - Final
10/15/23 13:54 Urine Urine Culture - Final
Serratia marcescens
10/15/23 17:26 Nose MRSA Screen - Final
No Methicillin Resistant Staphylococcus aureus isolated.
CT A/P:
1). There is a 3 cm in diameter intermediate density pericardial fluid collection along the left cardiac border however. This most likely is a effusion with some internal hemorrhage in this recently postoperative patient
2). There is moderate left pleural effusion with underlying compressive atelectasis.
3). There is small right-sided pleural effusion.
4). There is hazy groundglass airspace disease in the basilar portion of the right middle lobe which may be pneumonia or atelectasis
5). There is cholecystectomy
CXR: Stable right upper lobe pneumonia. Stable postoperative changes. Mild cardiomegaly.
Abd U/S: Prior cholecystectomy. Stable. Hepatic fatty infiltration. Mildly nodular hepatic margin. This can be seen with cirrhosis. Stable. Moderate right pleural effusion. Small left pleural effusion. Stable.
Sepsis:
-imaging above
-source unclear but could be due to RUL PNA
-UCx with serratia, all other cultures NGTD. On Zosyn as per ID. Of note, bacteriuria would be common in pt with luciano.
-pt had abd pain, abdominal ultrasound unremarkable as above.
Acute moderate post pericardiotomy pericardial effusion:
-s/p 460cc of bloody pericardial fluid drained on 10/18/23
-Keep pericardial drain in place through the weekend as per cardiology
CAD with NSTEMI:
-s/p CABG x 3 (HENNESSY�LAD, SVG�OM1, SVG�PDA), CHIKA clip 09/25/2023
-Echo 10/15/2023: EF 65 to 70%. Mild MR. Moderate pericardial effusion without evidence of hemodynamic compromise measuring 3.1 cm in greatest dimension in the anterior space along the left ventricle.
-CT surgery/cardiology following
-cont ASA
-BB on hold due to bradycardia
Moderate L pleural effusion:
-s/p L thoracentesis 1150cc of dark serosanguineous pleural fluid.
-Pleural fluid culture NGTD
-also moderate right-sided effusion
Acute blood loss anemia:
-with heme positive stools (possible GI bleed)
-Eliquis remains on hold
-s/p 2U pRBCs
DM2 with B/L LE diabetic neuropathy:
-DKA resolved
-normally uses insulin pump
-cont Lantus/premeal Novolog
-SSI/accuchecks
Bladder outlet obstruction/intermittent cath:
-Luciano catheter was placed during cardiac surgery 10/03/2023 by urology plan for 4 weeks of Luciano then voiding trial
-CT A/P without any obstruction
-Luciano catheter exchanged 10/17/23
Other problems:
Thrombocytosis, mild
Acute on chronic leukocytosis
Acute hypoxic respiratory insufficiency due to moderate pericardial effusion and L pleural effusion
Acute Transaminitis, trending down. Amio/statin on hold.
Bradycardia: BB held, HR improved
Acute hyperkalemia, resolved
Coagulopathy likely secondary to Eliquis and liver disease: Restart Eliquis when okay with cardiology
Hyponatremia, improved, now 131
EVON on CKD3, EVON now resolved
Lactic acidosis, resolved
Paroxysmal AF (postop): Eliquis/BB/Amio all on hold
Chronic back pain opiate dependent
GERD: Cont PPI
Hypothyroidism: cont Synthroid
Hyperlipidemia: holding statin with elevated LFTs
Tobacco abuse disorder
h/o prostate cancer s/p TURP and subsequent urethral stricture s/p buccal mucosa graft repair
Insomnia
Hypoalbuminemia
Hepatic steatosis
Nodular hepatic margin: needs FibroScan as outpatient
Mild restrictive lung disease
FULL/SCDs (Eliquis on hold with anemia)
Total time spent on today's encounter was 50 minutes which included time spent in counseling the patient/family regarding diagnosis and treatment plan as listed above, goals of care, and symptom management. Case was discussed with nursing staff,
specialists, and care coordinators/case management. All labs and imaging personally reviewed by me. Remainder the time spent in detailed review of previous records, lab data, imaging, and other medical provider documentation.
Anticipated Discharge: > 48 hours
Subjective/Interval History
-
Date of Service: October 19, 2023
Reports unchanged chest discomfort. Denies SOB.
Objective Data
-
Labs:
Laboratory Results
10/19/23
04:51
WBC 15.9 H
Hgb 8.2 L
Hct 24.3 L
Plt Count 447 H
Sodium 131 L
Potassium 4.2
Chloride 102
Carbon Dioxide 23
BUN 53 H
Creatinine 1.4 H
Glucose 70
Calcium 8.3 L
Total Bilirubin 1.5 H
AST 226 H
ALT 353 H
Alkaline Phosphatase 155 H
Vital Signs:
Vital Signs
Temp Pulse Resp BP Pulse Ox
98 F 75 18 145/53 97
10/19/23 11:05 10/19/23 11:05 10/19/23 11:05 10/19/23 08:46 10/19/23 11:05
I&O
10/18/23 10/19/23 10/20/23
06:59 06:59 06:59
Intake Total 1090 / 1090 230 / 230
Output Total 1320 / 1320 1375 / 1375
Balance -230 / -230 -1145 / -1145
[2023-10-19] MEDS: NOVOLOG FLEXPEN-HIGH RESISTANCE 2 UNITS SC (14:00)
[2023-10-19] MEDS: SENOKOT-S 1 TABLET PO (17:31)
[2023-10-19 17:49] LABS: Glucose - Point of Care 215 mg/dl (70-99)
[2023-10-19] MEDS: NOVOLOG FLEXPEN-HIGH RESISTANCE 4 UNITS SC (18:26)
[2023-10-19] MEDS: LANTUS 0.450000000000000011 UNITS SC (21:08)
[2023-10-19 21:09] LABS: Glucose - Point of Care 163 mg/dl (70-99)
[2023-10-20] VITALS (7 sets, daily range): BP systolic 137–157; BP diastolic 46–65; BMI 28.1
--- NOTE | 2023-10-20 02:42 | PTCARENOTE ---
Pt rec'd at change of shift awake alert no complaints. repositioned in bed with pillows. Sinus with first degree on telemetry. lungs diminished,rare cough noted. Laguna draining gerald urine. Pt asked about pacemakers how there placed and how long you
would have to stay in the hospital. procedure pre and post explained to pt. Pt then stated he was tired of being in the hospital and wanted to either get pacer soon and go home or come back. Emotional and educational support given. call farrell within
reach.
[2023-10-20] MEDS: SYNTHROID 125 MCG PO (04:58)
[2023-10-20] MEDS: ZOSYN 50 IV ×4 (04:58→23:17)
[2023-10-20 05:39] LABS: Hematocrit 24.7 % (39.0-52.0); Hemoglobin 8.4 g/dL (13.0-18.0); Mean Corpuscular Volume 88.2 fL (80.0-94.0); Mean Platelet Volume 9.2 fL (7.4-10.4); Platelet Count 488 10^3/uL (130-400); Red Cell Dist. Width 14.5 % (11.5-14.5); White Blood Cell Count 14.2 10^3/uL (4.8-10.8)
[2023-10-20 06:07] LABS: ALT (SGPT) 273 U/L (0-50); AST (SGOT) 133 U/L (17-59); Albumin 2.5 g/dl (3.5-5.0); Alkaline Phosphatase 149 U/L (38-126); Blood Urea Nitrogen 32 mg/dl (9-20); Calcium 8.4 mg/dl (8.4-10.2); Carbon Dioxide 23 mmol/L (22-30); Chloride 102 mmol/L (98-107); Direct Bilirubin 0.5 mg/dl (0.0-0.4); Estimated Creatinine Clearance 59 ml/min; Glucose 52 mg/dl (70-99); Magnesium 2.1 mg/dl (1.6-2.3); Potassium 3.9 mmol/L (3.5-5.1); Sodium 132 mmol/L (135-145); Total Bilirubin 1.5 mg/dl (0.2-1.3); Total Protein 5.4 g/dl (6.3-8.2); eGFR > 60.00
[2023-10-20 06:12] LABS: Glucose - Point of Care 70 mg/dl (70-99)
[2023-10-20 06:45] LABS: Glucose - Point of Care 89 mg/dl (70-99)
[2023-10-20] MEDS: NOVOLOG FLEXPEN 8 UNITS SC ×3 (08:08→17:17)
[2023-10-20] MEDS: VITAMIN D3 (cholecalciferol) 25 MCG PO (08:08)
[2023-10-20] MEDS: ASPIR LOW (ENTERIC COATED) 81 MG PO (08:08)
[2023-10-20] MEDS: PROTONIX 40 MG PO (08:08)
[2023-10-20] MEDS: ROBITUSSIN 200 MG PO ×4 (08:08→23:17)
[2023-10-20] MEDS: FOLTX 1 TABLET PO (08:08)
[2023-10-20] MEDS: NOVOLOG FLEXPEN-HIGH RESISTANCE 1 UNITS SC ×3 (08:09→17:17)
[2023-10-20] MEDS: VENTOLIN NEBULES 2.5 MG INH (08:13)
--- NOTE | 2023-10-20 08:58 | W.PN.HOSP.TC ---
Today's Communication/Plan
-
Lasix
Watch closely.
Assessment / Plan
Assessment / Plan
10/15/23 11:13 Blood/Venous Blood Culture - Preliminary
No Growth in 4 days- Final report to follow
10/15/23 10:58 Blood/Venous Blood Culture - Preliminary
No Growth in 4 days- Final report to follow
10/18/23 11:38 Pericardial Fluid Body Fluid Culture - Preliminary
No Growth After 18-24 Hours
10/18/23 11:38 Pericardial Fluid Gram Stain - Preliminary
10/19/23 06:00 Pericardial Fluid Fungal Culture - Preliminary
Culture in progress.
Positive cultures are reported as soon as detected.
Final report to follow in four to five weeks.
10/15/23 16:01 Pleural Fluid Body Fluid Culture - Final
No Growth After 72 Hours
10/15/23 16:01 Pleural Fluid Gram Stain - Final
10/15/23 13:54 Urine Urine Culture - Final
Serratia marcescens
10/15/23 17:26 Nose MRSA Screen - Final
No Methicillin Resistant Staphylococcus aureus isolated.
CT A/P:
1). There is a 3 cm in diameter intermediate density pericardial fluid collection along the left cardiac border however. This most likely is a effusion with some internal hemorrhage in this recently postoperative patient
2). There is moderate left pleural effusion with underlying compressive atelectasis.
3). There is small right-sided pleural effusion.
4). There is hazy groundglass airspace disease in the basilar portion of the right middle lobe which may be pneumonia or atelectasis
5). There is cholecystectomy
CXR: Stable right upper lobe pneumonia. Stable postoperative changes. Mild cardiomegaly.
Abd U/S: Prior cholecystectomy. Stable. Hepatic fatty infiltration. Mildly nodular hepatic margin. This can be seen with cirrhosis. Stable. Moderate right pleural effusion. Small left pleural effusion. Stable.
Feeling short of breath this morning.
Cardiovascular system S1-S2 regular
Chest decreased breath sounds at right base, rales left
Abdomen soft and nontender
Bilateral pedal edema
# Shortness of breath with edema-anasarca
-Will give a dose of Lasix
#Sepsis:
-imaging above
-source unclear but could be due to RUL PNA
-UCx with serratia, all other cultures NGTD. On Zosyn as per ID. Of note, bacteriuria would be common in pt with Laguna.
-pt had abd pain, abdominal ultrasound unremarkable as above.
#Acute moderate post pericardiotomy pericardial effusion:
-s/p 460cc of bloody pericardial fluid drained on 10/18/23
-Keep pericardial drain in place through the weekend as per cardiology
#CAD with NSTEMI:
-s/p CABG x 3 (HENNESSY�LAD, SVG�OM1, SVG�PDA), CHIKA clip 09/25/2023
-Echo 10/15/2023: EF 65 to 70%. Mild MR. Moderate pericardial effusion without evidence of hemodynamic compromise measuring 3.1 cm in greatest dimension in the anterior space along the left ventricle.
-CT surgery/cardiology following
-cont ASA
-BB on hold due to bradycardia
#Moderate L pleural effusion:
-s/p L thoracentesis 1150cc of dark serosanguineous pleural fluid.
-Pleural fluid culture NGTD
-also moderate right-sided effusion
#Acute blood loss anemia:
-with heme positive stools (possible GI bleed)
-Eliquis remains on hold
-s/p 2U pRBCs
#DM2 with B/L LE diabetic neuropathy:
-DKA resolved
-normally uses insulin pump
-cont Lantus/premeal Novolog
-Decrease Lantus to 40 units due to low AM sugar
-SSI/accuchecks
#Bladder outlet obstruction/intermittent cath:
-Laguna catheter was placed during cardiac surgery 10/03/2023 by urology plan for 4 weeks of Laguna then voiding trial
-CT A/P without any obstruction
-Laguna catheter exchanged 10/17/23
#Thrombocytosis, mild
#Acute on chronic leukocytosis
#Acute hypoxic respiratory insufficiency due to moderate pericardial effusion and L pleural effusion
#Acute Transaminitis, trending down. Amio/statin on hold.
#Bradycardia: BB held, HR improved. intermittent Cristhian episodes.
#Acute hyperkalemia, resolved
#Coagulopathy likely secondary to Eliquis and liver disease: Restart Eliquis when okay with cardiology
#Hyponatremia, improved, now 132
#EVON on CKD3, EVON now resolved
#Lactic acidosis, resolved
#Paroxysmal AF (postop): Eliquis/BB/Amio all on hold
#Chronic back pain opiate dependent
#GERD: Cont PPI
#Hypothyroidism: cont Synthroid
#Hyperlipidemia: holding statin with elevated LFTs
#Tobacco abuse disorder
#h/o prostate cancer s/p TURP and subsequent urethral stricture s/p buccal mucosa graft repair
#Insomnia
#Hypoalbuminemia
#Hepatic steatosis
#Nodular hepatic margin: needs FibroScan as outpatient
#Mild restrictive lung disease
#FULL CODDE
#DVT prophylaxis-SCDs (Eliquis on hold with anemia)
D/W Cards
D/W Nursing
Total time spent on today's encounter was 51 minutes which included time spent in counseling the patient regarding diagnosis and treatment plan as listed above and symptom management. Case was discussed with nursing staff, specialists.All labs and
imaging personally reviewed by me. Remainder the time spent in detailed review of previous records, lab data, imaging, and other medical provider documentation.
Anticipated Discharge: > 48 hours
Subjective/Interval History
-
Date of Service: October 20, 2023
Objective Data
-
Labs:
Laboratory Results
10/20/23
05:09
WBC 14.2 H
Hgb 8.4 L
Hct 24.7 L
Plt Count 488 H
Sodium 132 L
Potassium 3.9
Chloride 102
Carbon Dioxide 23
BUN 32 H
Creatinine 1.2
Glucose 52 L*
Calcium 8.4
Total Bilirubin 1.5 H
AST 133 H
ALT 273 H
Alkaline Phosphatase 149 H
Vital Signs:
Vital Signs
Temp Pulse Resp BP Pulse Ox
97.2 F 81 16 155/61 97
10/20/23 06:59 10/20/23 08:14 10/20/23 08:14 10/20/23 05:09 10/20/23 08:14
I&O
10/19/23 10/20/23 10/21/23
06:59 06:59 06:59
Intake Total 230 / 230 900 / 900
Output Total 1375 / 1375 2150 / 2150
Balance -1145 / -1145 -1250 / -1250
--- NOTE | 2023-10-20 10:07 | W.PN.CARDCBS ---
Today's Communication / Plan
-
IV diuresis
Drain removal Saturday
Treatment of UTI
Treatment of pneumonia
Holding amiodarone and AV chente agent
Following telemetry
No current emergent�urgent need for permanent pacing and given his infectious issues and volume status suspect timing of possible device would be later this week or consideration as an outpatient. He has had no significant symptomatic bradycardia
or pause since holding his AV chente agent and amiodarone
Impression / Plan
-
Primary [employer] Supervisor: initially seen on 09/[address] ROSY Pradhan
Assessment:
Presentation with N/V
Sepsis
EVON on CKD 3
hyponatremia
hyperkalemia
worsening post op anemia with evidence of iron deficiency
Heme positive stool in ER
elevated LFTs
Moderate loculated pericardial effusion without hemodynamic compromise by echo 10/15/23
Moderate L pleural effusion by CXR
CAD
NSTEMI s/p chest pain, peak Troponin 7.45 10/01/23
s/p CABG x3 (HENNESSY - LAD, SVG - OM1, SVG - PDA), CHIKA clip 10/03/2023
Post op paroxysmal Afib
Started on eliquis post op
Post op urinary retention requiring indwelling luciano catheter
HTN
DM 2
Chronic back pain with daily oxycodone use
Hypothyroid and h/o Graves disease
Hyperlipidemia
RBBB
Bladder outlet obstruction/intermittent catheterization
Prostate cancer s/p radiation and TURP
Former tobacco abuse, quit 09/25/23
Mild-moderate
Echo 10/02/23: EF 55-60%, mild , mild to moderate MR
ECHO 10/15/23: EF preserved, mod pericardial effusion without evidence of hemodynamic compromise
Plan:
-Patient s/p CABG x3 10/03/23 presents back to [facility] due to N/V.
-Status post pericardiocentesis 10/18/2023 for 460cc of bloody fluid. remains with drain in place, to continue for 48 hours. 50cc out overnight per records. Plan to pull drain on Saturday
-he underwent L thoracentesis 10/14 for 1150cc serosanguinous fluid
-He has tolerated Lasix during this admission and agree with IV Lasix today for increased dyspnea. I suspect he may need a daily diuretic depending on response
-continue to hold eliquis. continue asa. Eventual resumption of Eliquis
-no further significant pauses on tele overnight, however with brief bradycardia. continues to be in SR at present, however with intermittent episodes of afib and aflutter, rate controlled. continue to hold OP lopressor/amio. may require eventual
device given underlying conduction disease and need for av chente blocking agents although he is improved off of AV chente agents and he is rate controlled when in atrial arrhythmia. Given his ongoing infectious issues with urinary tract infection
and right upper lobe lung process a permanent cardiac device would be preferable to avoid if we can
-Cr and LFTs improving.
-he remains on abx per ID for PNA
-he underwent bedside flex cystoscopy 10/16 due to poorly draining luciano catheter, and catheter was changed out
-Discussed with nursing
Progress Note - [employer] Supervisor
Subjective
Date of Service: October 20, 2023
Feeling more dyspnea today
Objective
Labs:
10/20/23 05:09
10/20/23 05:09
Labs
Hgb 8.4 g/dL (13.0-18.0) L 10/20/23 05:09
Hct 24.7 % (39.0-52.0) L 10/20/23 05:09
Plt Count 488 10^3/uL (130-400) H 10/20/23 05:09
PT 26.2 Sec (11.4-14.6) H 10/16/23 11:28
INR 2.38 10/16/23 11:28
APTT 41.2 Sec (23.4-35.0) H 10/15/23 19:26
Sodium 132 mmol/L (135-145) L 10/20/23 05:09
Potassium 3.9 mmol/L (3.5-5.1) 10/20/23 05:09
BUN 32 mg/dl (9-20) H 10/20/23 05:09
Creatinine 1.2 mg/dL (0.7-1.3) 10/20/23 05:09
Glucose 52 mg/dl (70-99) L* 10/20/23 05:09
Vital Signs and I&O:
Vital Signs
Temp Pulse Resp BP Pulse Ox
97.2 F 81 16 155/61 97
10/20/23 06:59 10/20/23 08:14 10/20/23 08:14 10/20/23 05:09 10/20/23 08:14
Vital Signs
Temp Pulse Resp BP Pulse Ox
97.2 F 81 16 155/61 97
10/20/23 06:59 10/20/23 08:14 10/20/23 08:14 10/20/23 05:09 10/20/23 08:14
Intake & Output
10/18/23 10/19/23 10/20/23 10/21/23
06:59 06:59 06:59 06:59
Intake Total 1090 / 1090 230 / 230 900 / 900
Output Total 1320 / 1320 1375 / 1375 2150 / 2150
Balance -230 / -230 -1145 / -1145 -1250 / -1250
Physical Exam
Physical Exam
Physical Exam
General: no apparent distress, not acutely ill
Neck: supple. no meningeal signs. normal psoterior pharynx
Heart: s1/s2 regular rate and rhythm, no murmur. equal radial pulses.
Lungs: no acute respiratory distress. clear bilaterally
Abdomen: normal bowel sounds. not tender. no CVAT
Neuro: alert and oriented. no focal neurological deficits
Skin: no rash
Psychiatric: well kept. interactive and cooperative
Extremities: no edema. no calf tenderness. negative homans. good distal pulses
Pericardial drain in place without significant further drainage
Telemetry reviewed
[2023-10-20] MEDS: LASIX 40 MG IV (10:19)
[2023-10-20 12:54] LABS: Glucose - Point of Care 91 mg/dl (70-99)
--- NOTE | 2023-10-20 13:34 | W.PN.UPDATE ---
Update Note
Progress Note Update
Patient reviewed with Dr. Smith who called for an update on the patient given his recent CABG/LAAE. The patient has remained in sinus rhythm and his left atrial appendage is excluded. Given bleeding complications, would favor not restarting
Eliquis. Cardiology plans on removing his pericardial drain tomorrow morning with subsequent repeat echo mid week.
[2023-10-20 17:07] LABS: Glucose - Point of Care 100 mg/dl (70-99)
[2023-10-20 23:17] LABS: Glucose - Point of Care 142 mg/dl (70-99)
[2023-10-20] MEDS: LANTUS 0.400000000000000022 UNITS SC (23:17)
--- NOTE | 2023-10-20 23:44 | PTCARENOTE ---
Pt rec'd at change of shift without complaint. Sinus on telemetry. r/a diminished in bases. Taken to xray dept for chest 2 view. luciano continues to drain aber urine with some sediment. Pericardial drain in place,DDI. call farrell within reach.
[2023-10-20] MEDS: TYLENOL 650 MG PO (23:59)
[2023-10-21] VITALS (8 sets, daily range): BP systolic 133–157; BP diastolic 53–59; PULSE 85; BMI 27.4
[2023-10-21] MEDS: ZOSYN 50 IV ×4 (05:13→22:03)
[2023-10-21] MEDS: SYNTHROID 125 MCG PO (05:14)
[2023-10-21 05:41] LABS: Hematocrit 24.1 % (39.0-52.0); Mean Corp Hgb Conc. 33.2 g/dL (33.0-37.0); Mean Corpuscular Hgb 29.9 pg (27.0-31.0); Mean Corpuscular Volume 89.9 fL (80.0-94.0); Mean Platelet Volume 8.7 fL (7.4-10.4); Platelet Count 415 10^3/uL (130-400); Red Blood Cell Count 2.68 10^6/uL (4.70-6.10); Red Cell Dist. Width 14.6 % (11.5-14.5); White Blood Cell Count 13.4 10^3/uL (4.8-10.8)
--- NOTE | 2023-10-21 05:46 | PTCARENOTE ---
Pt awoken for vs and labs this am. Pt reports not having slept well due to restless legs. Assisted oob to recliner at this time.
[2023-10-21 06:07] LABS: ALT (SGPT) 195 U/L (0-50); AST (SGOT) 67 U/L (17-59); Albumin 2.5 g/dl (3.5-5.0); Alkaline Phosphatase 138 U/L (38-126); Blood Urea Nitrogen 23 mg/dl (9-20); Calcium 8.1 mg/dl (8.4-10.2); Carbon Dioxide 22 mmol/L (22-30); Chloride 106 mmol/L (98-107); Direct Bilirubin 0.3 mg/dl (0.0-0.4); Estimated Creatinine Clearance 71 ml/min; Glucose 70 mg/dl (70-99); Magnesium 1.8 mg/dl (1.6-2.3); Sodium 132 mmol/L (135-145); Total Bilirubin 1.1 mg/dl (0.2-1.3); Total Protein 5.4 g/dl (6.3-8.2); eGFR > 60.00
[2023-10-21 07:39] LABS: Glucose - Point of Care 70 mg/dl (70-99)
[2023-10-21] MEDS: NOVOLOG FLEXPEN-HIGH RESISTANCE SC (08:03)
--- NOTE | 2023-10-21 09:25 | PN.DE.MGMTRT ---
Insulin Management
- -
10/21/2023: Diabetes Management f/u:
Patient admitted with sepsis, possible UTI, DKA, LLL pleural parenchymal process. PMH HTN, diabetes, prostate CA, HLD, active smoker s/p CABG x 3 10/03/2023. A1C 7.5%. 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 His insulin pump had
been stopped on arrival to hospital and taken home.
Patients daughter at bedside, reports that she has brought pump, a new reservoir, infusion set and fresh insulin.
Patient resting in bed, Dtr at bedside. Pt is sleeping, Dtr requesting not to wake up her Dad, states he is very fatigued from lack of sleep last night and continues with poor appetite. Discussed resuming insulin pump today, both Dtr and pt state
yesterday was a better day and that 'today is just not a good day because he has been so tired'
Glucose has been in range with an episode of Hypoglycemia on 10/19, prompting reduced dose of Lantus to 40 units.
Fasting glucose this AM 70. Pt continues with poor appetite. Will further reduce Lantus to 35 units. Reduce AC NovoLog to 6 units and change to low corrective insulin. Will reassess later today and resume pump this afternoon if pt is able to manage
pump independently
If pump is resumed will need to STOP hs Lantus.
Hold AC insulin if pt is not eating or remains NPO and Use low corrective insulin.
Diabetes History
- -
Type of Diabetes: 2 requiring insulin
Pre-Admission Diabetes Regimen
10/21/23
05:27
Creatinine 1.0
Insulin Pump Settings
IP Diabetes Regimen
10/20/23 10/20/23 10/20/23
12:52 17:05 23:16
Glucose
POC Glucose 91 100 H 142 H
10/21/23 10/21/23
05:27 07:39
Glucose 70
POC Glucose 70
Patient Education
[2023-10-21 09:36] LABS: Erythrocyte Sed Rate 56 mm/hour (0-20)
[2023-10-21] MEDS: NOVOLOG FLEXPEN SC ×2 (09:55→17:45)
[2023-10-21] MEDS: ASPIR LOW (ENTERIC COATED) 81 MG PO (09:55)
[2023-10-21] MEDS: FOLTX 1 TABLET PO (09:56)
[2023-10-21] MEDS: VITAMIN D3 (cholecalciferol) 25 MCG PO (09:56)
[2023-10-21] MEDS: MAGNESIUM OXIDE 500 MG PO (09:56)
[2023-10-21] MEDS: PROTONIX 40 MG PO (09:56)
[2023-10-21] MEDS: ROBITUSSIN 200 MG PO ×4 (09:56→22:03)
[2023-10-21] MEDS: FLUSH (NSS) 2 FLUSH IV ×2 (09:57→11:31)
[2023-10-21] MEDS: NOVOLOG FLEXPEN 6 UNITS SC ×2 (09:57→14:18)
--- NOTE | 2023-10-21 10:23 | W.PN.CARDCBS ---
Addendum entered and electronically signed by Haylee Funes MD 10/21/23 11:20:
I saw and examined the patient.
The Manager Inventory Management's note was reviewed and I agree with the note.
Comment: Overall patient did not offer significant complaints other than some chest discomfort that is positional in nature.
Vital signs and lab work reviewed. On exam patient is a frail gentleman in no acute distress however does appear uncomfortable with positional changes of the head of the bed. Regular rate, very soft pericardial rub, bibasilar Rales with decreased
breath sounds, abdomen is obese, soft, nontender with active bowel sounds, warm extremities with mild edema
Limited echocardiogram was checked this morning and reviewed personally by me. There is a very small anterior pericardial effusion mostly noted on subcostal views. Compared to prior echocardiogram on October 18, 2023 where mostly apical views were
done, no significant changes noted.
Based on this and given the fact that he had not drained any significant amounts over the last 24 hours decision was made to discontinue the drain and it was pulled at bedside by myself patient tolerated this without any acute complications.
Recommendations:
1. Continued IV diuresis with strict ins and outs, daily upright weights, repletion of electrolytes as needed.
2. Plan for repeat limited echocardiogram to reassess size of pericardial effusion in 24 hours.
3. We will treat as potential pericarditis in the setting of chest discomfort with colchicine 0.6 mg twice daily.
Haylee Funes MD, [facility], [facility]
Original Note:
Today's Communication / Plan
-
Start colchicine 0.6 mg BID
Pericardial drain pulled today and recheck echo in AM
Lasix 40 mg IV x1 now
Impression / Plan
-
Primary Clinical Nursing Manager: initially seen by Dr. ROSY Pradhan
Assessment:
Presentation with N/V
Sepsis
EVON on CKD 3
hyponatremia
hyperkalemia
worsening post op anemia with evidence of iron deficiency
Heme positive stool in ER
elevated LFTs
Moderate loculated pericardial effusion without hemodynamic compromise by echo 10/15/23
s/p pericardiocentesis for 460 ml bloody pericardial fluid 10/18/23
Moderate L pleural effusion by CXR
CAD
NSTEMI s/p chest pain, peak Troponin 7.45 10/01/23
s/p CABG x3 (HENNESSY - LAD, SVG - OM1, SVG - PDA), CHIKA clip 10/03/2023
Post op paroxysmal Afib
Started on Eliquis post op
Post op urinary retention requiring indwelling luciano catheter
HTN
DM 2
Chronic back pain with daily oxycodone use
Hypothyroid and h/o Graves disease
Hyperlipidemia
RBBB
Bladder outlet obstruction/intermittent catheterization
Prostate cancer s/p radiation and TURP
Former tobacco abuse, quit 09/25/23
Mild-moderate
Acute on chronic HFpEF
Echo 10/02/23: EF 55-60%, mild , mild to moderate MR
Echo 10/15/23: EF preserved, mod pericardial effusion without evidence of hemodynamic compromise
Echo 10/21/23: limited echo study, very small anterior pericardial effusion mostly on subcostal views, pleural effusion present, EF 60-65%
Plan:
-Repeat limited study echo performed 10/21/23 AM prior to pericardial drain removal outlined above. There was very small anterior pericardial effusion on subcostal views. Pericardial drain pulled at the bedside 10/21/23. Repeat echo 10/22/23 to assess
for reaccumulation.
-Pathology for pericardial fluid pending, but pathology for pleural fluid showed inflammatory cells and no malignancy.
-Will start colchicine 0.6 mg BID 10/21/23 to treat for post-pericardiotomy syndrome. Added on ESR and CRP to labs 10/21/23
-Patient was given Lasix 40 mg IV x1 on 10/20/23 and weight is down 6 lbs overnight. Patient is below discharge weight from 10/09/23. Will order another dose of Lasix 40 mg IV x1 on 10/21/23
-No plans to restart Eliquis. Eliquis was started due to several episodes of Afib post-op. He has been in SR most of the time this admission, but self-limited episodes of Afib/typical flutter noted as well.
-Tele reviewed 10/21/23 and patient noted to have a 4 second pause overnight. Outpatient dose of amiodarone 200 mg BID on hold. Outpatient dose of Lopressor 25 mg BID on hold as well. Pauses are all nocturnal.
-May require eventual device given underlying conduction disease and need for AV chente blocking agents although he is improved off of AV chente agents and he is rate controlled when in atrial arrhythmia. Given his ongoing infectious issues with
urinary tract infection and right upper lobe lung process a permanent cardiac device would be preferable to avoid if we can
Progress Note - Clinical Nursing Manager
Subjective
Date of Service: October 21, 2023
He is tired
Objective
Labs:
10/21/23 05:27
10/21/23 05:27
Labs
Hgb 8.0 g/dL (13.0-18.0) L 10/21/23 05:27
Hct 24.1 % (39.0-52.0) L 10/21/23 05:27
Plt Count 415 10^3/uL (130-400) H 10/21/23 05:27
PT 26.2 Sec (11.4-14.6) H 10/16/23 11:28
INR 2.38 10/16/23 11:28
APTT 41.2 Sec (23.4-35.0) H 10/15/23 19:26
Sodium 132 mmol/L (135-145) L 10/21/23 05:27
Potassium 4.0 mmol/L (3.5-5.1) 10/21/23 05:27
BUN 23 mg/dl (9-20) H 10/21/23 05:27
Creatinine 1.0 mg/dL (0.7-1.3) 10/21/23 05:27
Glucose 70 mg/dl (70-99) 10/21/23 05:27
Vital Signs and I&O:
Vital Signs
Temp Pulse Resp BP Pulse Ox
98.2 F 77 33 157/58 97
10/21/23 07:40 10/21/23 08:00 10/21/23 07:40 10/21/23 07:38 10/21/23 07:40
Vital Signs
Temp Pulse Resp BP Pulse Ox
98.2 F 77 33 157/58 97
10/21/23 07:40 10/21/23 08:00 10/21/23 07:40 10/21/23 07:38 10/21/23 07:40
Intake & Output
10/19/23 10/20/23 10/21/23 10/22/23
06:59 06:59 06:59 06:59
Intake Total 230 / 230 900 / 900 900 / 900
Output Total 1375 / 1375 2150 / 2150 4025 / 4025
Balance -1145 / -1145 -1250 / -1250 -3125 / -3125
Physical Exam
Physical Exam
GEN: NAD, AAOx3
HEENT: MMM
LUNGS: No audible wheeze
CV: SR on tele
ABD: ND
EXT: +1 edema B/L
NEURO: Gross non-focal
SKIN: No rash
[2023-10-21] MEDS: LASIX 40 MG IV (11:30)
[2023-10-21] MEDS: TYLENOL 650 MG PO (11:31)
[2023-10-21] MEDS: COLCHICINE 0.599999999999999978 MG PO ×2 (11:31→19:45)
[2023-10-21 12:36] LABS: Glucose - Point of Care 108 mg/dl (70-99)
--- NOTE | 2023-10-21 12:56 | W.PN.HOSP.TC ---
Today's Communication/Plan
-
see bold
Assessment / Plan
Assessment / Plan
Gen: NAD, AAOx3, appears chronically ill.
Eyes: EOMI, PERRLA, no scleral icterus.
Neck: supple.
CV: RRR, +S1/S2, no m/r/g.
Resp: CTAB, no rales, wheezes, or rhonchi.
Abd: +BS, soft, NT, ND
Skin: No rashes. 1+ anasarca
Neuro: CN 2-12 intact, non-focal.
Psych: Normal mood and affect.
10/18/23 11:38 Pericardial Fluid Body Fluid Culture - Final
No Growth After 72 Hours
10/18/23 11:38 Pericardial Fluid Gram Stain - Final
10/15/23 11:13 Blood/Venous Blood Culture - Final
No Growth - Final Report
10/15/23 10:58 Blood/Venous Blood Culture - Final
No Growth - Final Report
10/19/23 06:00 Pericardial Fluid Fungal Culture - Preliminary
Culture in progress.
Positive cultures are reported as soon as detected.
Final report to follow in four to five weeks.
10/15/23 16:01 Pleural Fluid Body Fluid Culture - Final
No Growth After 72 Hours
10/15/23 16:01 Pleural Fluid Gram Stain - Final
10/15/23 13:54 Urine Urine Culture - Final
Serratia marcescens
10/15/23 17:26 Nose MRSA Screen - Final
No Methicillin Resistant Staphylococcus aureus isolated.
CT A/P:
1). There is a 3 cm in diameter intermediate density pericardial fluid collection along the left cardiac border however. This most likely is a effusion with some internal hemorrhage in this recently postoperative patient
2). There is moderate left pleural effusion with underlying compressive atelectasis.
3). There is small right-sided pleural effusion.
4). There is hazy groundglass airspace disease in the basilar portion of the right middle lobe which may be pneumonia or atelectasis
5). There is cholecystectomy
CXR: Stable right upper lobe pneumonia. Stable postoperative changes. Mild cardiomegaly.
Abd U/S: Prior cholecystectomy. Stable. Hepatic fatty infiltration. Mildly nodular hepatic margin. This can be seen with cirrhosis. Stable. Moderate right pleural effusion. Small left pleural effusion. Stable.
Echo 10/18/23: EF 50-55%, no RWMA, normal RV fxn.
Sepsis:
-imaging above
-source unclear but could be due to RUL PNA
-UCx with serratia, all other cultures NGTD. On Zosyn as per ID. Of note, bacteriuria would be common in pt with Laguna.
-pt had abd pain, abdominal ultrasound unremarkable as above.
Acute moderate post pericardiotomy pericardial effusion:
-s/p 460cc of bloody pericardial fluid drained on 10/18/23
-limited echo this AM with small anterior pericardial effusion. Drain removed earlier today.
-possible pericarditis, colchicine started
Acute HFpEF:
-Shortness of breath with edema/anasarca s/p lasix on 10/20/23. Another dose of IV Lasix given today.
-no BB with prior bradycardia
CAD with NSTEMI:
-s/p CABG x 3 (HENNESSY�LAD, SVG�OM1, SVG�PDA), CHIKA clip 09/25/2023
-Echo 10/15/2023: EF 65 to 70%. Mild MR. Moderate pericardial effusion without evidence of hemodynamic compromise measuring 3.1 cm in greatest dimension in the anterior space along the left ventricle.
-CT surgery/cardiology following
-cont ASA
-BB remains on hold due to prior bradycardia
Moderate L pleural effusion:
-s/p L thoracentesis 1150cc of dark serosanguineous pleural fluid.
-Pleural fluid culture NGTD
-also moderate right-sided effusion
Acute blood loss anemia:
-with heme positive stools (possible GI bleed)
-Eliquis remains on hold
-s/p 2U pRBCs
DM2 with B/L LE diabetic neuropathy:
-DKA resolved
-normally uses insulin pump
-cont Lantus/premeal Novolog
-SSI/accuchecks
Bladder outlet obstruction/intermittent cath:
-Laguna catheter was placed during cardiac surgery 10/03/2023 by urology with the plan at that time being for 4 weeks of Laguna then voiding trial
-CT A/P without any obstruction
-Laguna catheter exchanged 10/17/23
Other problems:
Thrombocytosis, mild
Acute on chronic leukocytosis
Acute hypoxic respiratory insufficiency due to moderate pericardial effusion and L pleural effusion
Acute Transaminitis, trending down. Amio/statin on hold.
Bradycardia: BB held, HR improved.
Acute hyperkalemia, resolved
Coagulopathy likely secondary to Eliquis and liver disease: Restart Eliquis when okay with cardiology.
Hyponatremia, mild
EVON on CKD3, EVON now resolved
Lactic acidosis, resolved
Paroxysmal AF (postop): Eliquis/BB/Amio all on hold
Chronic back pain, opiate dependent
GERD: Cont PPI
Hypothyroidism: cont Synthroid
Hyperlipidemia: holding statin with elevated LFTs
Tobacco abuse disorder
h/o prostate cancer s/p TURP and subsequent urethral stricture s/p buccal mucosa graft repair
Insomnia
Hypoalbuminemia
Hepatic steatosis
Nodular hepatic margin: needs FibroScan as outpatient
Mild restrictive lung disease
Family updated at bedside.
FULL/SCDs (Eliquis on hold with anemia)
Total time spent on today's encounter was 50 minutes which included time spent in counseling the patient/family regarding diagnosis and treatment plan as listed above, goals of care, and symptom management. Case was discussed with nursing staff,
specialists, and care coordinators/case management. All labs and imaging personally reviewed by me. Remainder the time spent in detailed review of previous records, lab data, imaging, and other medical provider documentation.
Anticipated Discharge: 24 - 48 hours
Subjective/Interval History
-
Date of Service: October 21, 2023
Denies shortness of breath. Reports chest pain when he moves around the room (not new).
Objective Data
-
Labs:
Laboratory Results
10/21/23
05:27
WBC 13.4 H
Hgb 8.0 L
Hct 24.1 L
Plt Count 415 H
Sodium 132 L
Potassium 4.0
Chloride 106
Carbon Dioxide 22
BUN 23 H
Creatinine 1.0
Glucose 70
Calcium 8.1 L
Total Bilirubin 1.1
AST 67 H
ALT 195 H
Alkaline Phosphatase 138 H
Vital Signs:
Vital Signs
Temp Pulse Resp BP Pulse Ox
98.2 F 77 22 147/57 99
10/21/23 11:30 10/21/23 11:30 10/21/23 11:30 10/21/23 11:30 10/21/23 11:30
I&O
10/20/23 10/21/23 10/22/23
06:59 06:59 06:59
Intake Total 900 / 900 900 / 900
Output Total 2150 / 2150 4025 / 4025
Balance -1250 / -1250 -3125 / -3125
--- NOTE | 2023-10-21 14:57 | CM ---
Reviewed chart. Met with Mr. Patricia and his daughter to review discharge plans. We reviewed SNF/Rehab and acute rehab. He states at this time he does not want to consider any inpatient rehab. We reviewed private caregivers and [facility]. He
would like to review with his daughters. Medical work-up in progress. The discharge plan is to return home with [facility] verses some level of inpatient rehab if he is agreeable.
--- NOTE | 2023-10-21 15:48 | PTCARENOTE ---
Accu checks running lower, tt to diabetic management this morning re: high dose ssc and premeal novolog orders. Insulin coverage and premeal doses adjusted. Pericardial drain removed by Dr. Funes this morning. Dressing at xyphoid area is dry and
intact. Patient has been oob x 2 to the chair today but is weak and unable to tolerate being oob for any length of time. Needs reminding of sternal precautions with activity, medicated with tylenol PO for incisional pain and restless leg discomfort.
[2023-10-21 17:33] LABS: Glucose - Point of Care 68 mg/dl (70-99)
[2023-10-21 17:53] LABS: Glucose - Point of Care 82 mg/dl (70-99)
--- NOTE | 2023-10-21 18:33 | PTCARENOTE ---
Accu check before dinner 68, patient asymptomatic and given 4oz OJ per protocol. Patient then ate his entire dinner, repeat accu check now 82.
[2023-10-21 21:52] LABS: Glucose - Point of Care 179 mg/dl (70-99)
[2023-10-21] MEDS: LANTUS 0.349999999999999978 UNITS SC (22:03)
[2023-10-22] MEDS: ZOSYN 50 IV ×2 (03:59→09:35)
[2023-10-22 04:03] VITALS: BP 156/59
[2023-10-22 04:03] LABS: Glucose - Point of Care 97 mg/dl (70-99)
--- NOTE | 2023-10-22 05:02 | PTCARENOTE ---
Pt awake intermittently t/o the night. Pt unable to sleep well. No other complaints offered. Pt assisted to comfortable position in bed. Vital signs stable. Will continue to monitor.
[2023-10-22] MEDS: SYNTHROID 125 MCG PO (06:21)
--- NOTE | 2023-10-22 06:28 | PTCARENOTE ---
Pt was in NSR but flipped into Aflutter overnight. HR remains in the 70's. EKG obtained. Pt denies any complaints. Will continue to monitor.
[2023-10-22 07:58] LABS: Glucose - Point of Care 80 mg/dl (70-99)
[2023-10-22 07:59] VITALS: BP 149/53
--- NOTE | 2023-10-22 08:28 | PN.DE.MGMTRT ---
Insulin Management
- -
10/22/2023: Diabetes Management follow up:
Patient admitted with sepsis, possible UTI, DKA, LLL pleural parenchymal process. PMH HTN, diabetes, prostate CA, HLD, active smoker s/p CABG x 3 10/03/2023. A1C 7.5%. Prior to admission Patient was using a 670 Medtronic pump with DexCom G6. His
insulin pump had been stopped on arrival to hospital.
I saw patient at 10:00, he was awake, alert and oriented OOB. He is able to participate in discussion regarding restarting DexCom G6 and insulin pump. DexCom G6 started at 10 AM, warm up period completed. Return visit at 1300, patient remains oob
and daughter is at bedside. Lab glucose and POC glucose done, Calibrated CGM readings more compatible.
Medtronic pump restarted with Quick set. Basal rates have been set to 15% of basal settings, which will stop at 10:00pm as patient has lantus from . Standard pump settings will resume at 9PM tonight.
Basal rate
12am 1.35
6am 2.25
8pm 3
12:30 2.65
8pm 1.9
24 hour basal total 53.575
Patient does not use bolus wizard for corrections or carb ratios.
Discussed with patient and daughter he has been requiring less insulin s/p surgery, if glucose trends down tomorrow to set temp basal at 75%. Both verbalize understanding
Diabetes History
- -
Type of Diabetes: 2 requiring insulin
Pre-Admission Diabetes Regimen
Insulin Pump Settings
IP Diabetes Regimen
10/21/23 10/21/23 10/21/23
12:33 17:31 17:51
POC Glucose 108 H 68 L 82
10/21/23 10/22/23 10/22/23
21:50 04:01 07:57
POC Glucose 179 H 97 80
Meal type: Dinner
Meal type: Lunch
Meal type: Breakfast
Amount consumed: 100%
Amount consumed: 50%
Amount consumed: 50%
Patient Education
--- NOTE | 2023-10-22 08:58 | W.PN.HOSP.TC ---
Addendum entered and electronically signed by Khris Trejo MD 10/22/23 14:16:
Hemoglobin 9.2 infectious disease has discontinued antibiotics. Patient is medically cleared for discharge.
Total time spent on d/c = 31 min. This included today's physical exam, progress note, review of laboratory and diagnostic data, preparation of discharge documents and prescriptions, and discussions about the pt's hospital course and discharge plan
with the patient and other medical delivery driver involved in the patient's care.
Addendum entered and electronically signed by Khris Trejo MD 10/22/23 11:14:
Correction: Check Hb this AM and if stable the patient is medically cleared for discharge.
Original Note:
Today's Communication/Plan
-
check Hb in AM, hopefully d/c tomorrow.
Assessment / Plan
Assessment / Plan
Gen: NAD, AAOx3, appears chronically ill.
Eyes: EOMI, PERRLA, no scleral icterus.
Neck: supple.
CV: remains RRR, +S1/S2, no m/r/g.
Resp: decreased BS in the bases, otherwise CTAB
Abd: +BS, soft, NT, ND
Skin: No rashes. 1+ anasarca
Neuro: remains CN 2-12 intact, non-focal.
Psych: Normal mood and affect.
10/18/23 11:38 Pericardial Fluid Acid Fast Bacilli Smear - Preliminary
10/18/23 11:38 Pericardial Fluid Acid Fast Bacilli Culture - Preliminary
10/19/23 06:00 Pericardial Fluid Fungal Culture - Preliminary
Culture in progress.
Positive cultures are reported as soon as detected.
Final report to follow in four to five weeks.
10/18/23 11:38 Pericardial Fluid Body Fluid Culture - Final
No Growth After 72 Hours
10/18/23 11:38 Pericardial Fluid Gram Stain - Final
10/15/23 11:13 Blood/Venous Blood Culture - Final
No Growth - Final Report
10/15/23 10:58 Blood/Venous Blood Culture - Final
No Growth - Final Report
10/15/23 16:01 Pleural Fluid Body Fluid Culture - Final
No Growth After 72 Hours
10/15/23 16:01 Pleural Fluid Gram Stain - Final
10/15/23 13:54 Urine Urine Culture - Final
Serratia marcescens
10/15/23 17:26 Nose MRSA Screen - Final
No Methicillin Resistant Staphylococcus aureus isolated.
CT A/P:
1). There is a 3 cm in diameter intermediate density pericardial fluid collection along the left cardiac border however. This most likely is a effusion with some internal hemorrhage in this recently postoperative patient
2). There is moderate left pleural effusion with underlying compressive atelectasis.
3). There is small right-sided pleural effusion.
4). There is hazy groundglass airspace disease in the basilar portion of the right middle lobe which may be pneumonia or atelectasis
5). There is cholecystectomy
CXR: Stable right upper lobe pneumonia. Stable postoperative changes. Mild cardiomegaly.
Abd U/S: Prior cholecystectomy. Stable. Hepatic fatty infiltration. Mildly nodular hepatic margin. This can be seen with cirrhosis. Stable. Moderate right pleural effusion. Small left pleural effusion. Stable.
Echo 10/18/23: EF 50-55%, no RWMA, normal RV fxn.
Echo 10/22/23:
1. Limited study to assess pericardial effusion
2. Left ventricle: Normal size and function with an estimated ejection
fraction of 55-60% by visual estimation
2. Right ventricle: Normal
3. Atria: Normal
4. Pericardium: A small anterior pericardial effusion persists. A pleural
effusion is also present
5. No significant change when compared to the echocardiogram from 10/21/2023
Sepsis:
-imaging above
-source unclear but could be due to RUL PNA
-UCx with serratia, all other cultures NGTD. On Zosyn as per ID (who will see in follow up today). Of note, bacteriuria would be common in pt with Laguna.
-pt had abd pain, abdominal ultrasound unremarkable as above.
Acute moderate post pericardiotomy pericardial effusion:
-s/p 460cc of bloody pericardial fluid drained on 10/18/23
-limited echo this AM with small anterior pericardial effusion. Drain removed earlier today.
-possible pericarditis, colchicine started
Acute HFpEF:
-Shortness of breath with edema/anasarca s/p lasix on 10/20/23 s/p doses of IV Lasix on 10/20/23 and 10/21/23.
-no BB with prior bradycardia
CAD with NSTEMI:
-s/p CABG x 3 (HENNESSY�LAD, SVG�OM1, SVG�PDA), CHIKA clip 09/25/2023
-Echo 10/15/2023: EF 65 to 70%. Mild MR. Moderate pericardial effusion without evidence of hemodynamic compromise measuring 3.1 cm in greatest dimension in the anterior space along the left ventricle.
-CT surgery/cardiology following
-cont ASA
-BB remains on hold due to prior bradycardia
Moderate L pleural effusion:
-s/p L thoracentesis 1150cc of dark serosanguineous pleural fluid.
-Pleural fluid culture NGTD
-also moderate right-sided effusion
Acute blood loss anemia:
-with heme positive stools (possible GI bleed)
-Eliquis remains on hold. As per discussion with cardiology on 10/22/23, no plans to resume Eliquis.
-s/p 2U pRBCs
-Hb 8.0, slightly down from prior
DM2 with B/L LE diabetic neuropathy:
-DKA resolved
-normally uses insulin pump
-cont Lantus/premeal Novolog
-SSI/accuchecks
Bladder outlet obstruction/intermittent cath:
-Laguna catheter was placed during cardiac surgery 10/03/2023 by urology with the plan at that time being for 4 weeks of Laguna then voiding trial
-CT A/P without any obstruction
-Laguna catheter exchanged 10/17/23
Other problems:
Thrombocytosis, mild
Acute on chronic leukocytosis
Acute hypoxic respiratory insufficiency due to moderate pericardial effusion and L pleural effusion
Acute Transaminitis, trending down. Amio/statin on hold.
Bradycardia: BB held, HR improved.
Acute hyperkalemia, resolved
Coagulopathy likely secondary to Eliquis and liver disease: As per discussion with cardiology on 10/22/23, no plans to resume Eliquis.
Hyponatremia, mild
EVON on CKD3, EVON now resolved
Lactic acidosis, resolved
Paroxysmal AF (postop): Eliquis/BB/Amio were all held. As per discussion with cardiology on 10/22/23, no plans to resume Eliquis.
Chronic back pain, opiate dependent
GERD: Cont PPI
Hypothyroidism: cont Synthroid
Hyperlipidemia: holding statin with elevated LFTs
Tobacco abuse disorder
h/o prostate cancer s/p TURP and subsequent urethral stricture s/p buccal mucosa graft repair
Insomnia
Hypoalbuminemia
Hepatic steatosis
Nodular hepatic margin: needs FibroScan as outpatient
Mild restrictive lung disease
FULL/SCDs (Eliquis was held with anemia)
Anticipated Discharge: Within 24 hours
Subjective/Interval History
-
Date of Service: October 22, 2023
Denies CP/SOB/melena/hematochezia.
Objective Data
-
Vital Signs:
Vital Signs
Temp Pulse Resp BP Pulse Ox
98.3 F 75 16 156/59 96
10/22/23 07:55 10/22/23 07:55 10/22/23 07:55 10/22/23 04:03 10/22/23 07:55
I&O
10/21/23 10/22/23 10/23/23
06:59 06:59 06:59
Intake Total 900 / 900 700 / 700
Output Total 4025 / 4025 4000 / 4000
Balance -3125 / -3125 -3300 / -3300
[2023-10-22] MEDS: FOLTX 1 TABLET PO (09:23)
[2023-10-22] MEDS: ASPIR LOW (ENTERIC COATED) 81 MG PO (09:23)
[2023-10-22] MEDS: MAGNESIUM OXIDE 500 MG PO (09:24)
[2023-10-22] MEDS: COLCHICINE 0.599999999999999978 MG PO (09:24)
[2023-10-22] MEDS: PROTONIX 40 MG PO (09:24)
[2023-10-22] MEDS: ROBITUSSIN 200 MG PO ×2 (09:24→13:34)
[2023-10-22] MEDS: NOVOLOG FLEXPEN SC ×2 (09:25→13:31)
[2023-10-22] MEDS: VITAMIN D3 (cholecalciferol) 25 MCG PO (09:25)
[2023-10-22] MEDS: NOVOLOG FLEXPEN 5 UNITS SC (09:57)
--- NOTE | 2023-10-22 11:19 | CM ---
Chart reviewed. Patient is independent of ADLS, lives alone in a [address], 0 [address], ambulates with a walker, rollator and also has a SPC. Patient's daughter is unable to stay with the patient. Patient is refusing SNF. Patient told me his daughter is
working on getting a private caregiver to help with the patient at home. Patient is current with [facility]. Referral sent to resume care. Plan is for the patient to return home with [facility]. CM to follow
[2023-10-22 11:44] VITALS: BP 131/55
[2023-10-22 12:26] LABS: Glucose - Point of Care 186 mg/dl (70-99)
[2023-10-22 12:39] LABS: Hemoglobin 9.2 g/dL (13.0-18.0); Mean Corp Hgb Conc. 32.9 g/dL (33.0-37.0); Mean Corpuscular Hgb 30.2 pg (27.0-31.0); Mean Corpuscular Volume 91.8 fL (80.0-94.0); Mean Platelet Volume 9.3 fL (7.4-10.4); Platelet Count 475 10^3/uL (130-400); Red Blood Cell Count 3.05 10^6/uL (4.70-6.10); Red Cell Dist. Width 14.6 % (11.5-14.5); White Blood Cell Count 14.4 10^3/uL (4.8-10.8)
[2023-10-22 12:47] LABS: Blood Urea Nitrogen 20 mg/dl (9-20); Calcium 8.5 mg/dl (8.4-10.2); Carbon Dioxide 22 mmol/L (22-30); Chloride 104 mmol/L (98-107); Estimated Creatinine Clearance 65 ml/min; Glucose 179 mg/dl (70-99); Potassium 4.5 mmol/L (3.5-5.1); Sodium 129 mmol/L (135-145); eGFR > 60.00
[2023-10-22 12:59] LABS: Glucose - Point of Care 156 mg/dl (70-99)
--- NOTE | 2023-10-22 13:26 | W.PN.ID1 ---
Date of Service
Date of Service: October 22, 2023
Today's Communication
Discontinue antibiotics and observe.
Assessment / Plan
Marked leukocytosis
- improved
Anemia
Recent CABG (10/03/2023)
Hyponatremia
EVON on CKD (current CrCl ~ 44)
Lactic acidosis; improved
Transaminitis
Pericardial effusion s/p tap & drain
DM
HTN
Dyslipidemia
Prostate CA
Urinary retention (chronic straight cath)
DJD
Peripheral neuropathy
Recommendations:
Pericardial fluid cultures negative thus far, with AFB and fungal cultures pending.
Discontinue further Zosyn and monitor off antibiotics.
Will add adenosine deaminase testing to the pericardial fluid (reference lab testing).
����������������������������������������������������������
Chief Complaint
-: Leukocytosis
Subjective / Review of Systems
Review of Systems: No Fever, No Chills and No Cough
Vital Signs / Physical Exam
Vital Signs
Vital Signs
Temp Pulse Resp BP Pulse Ox
98 F 77 18 131/55 98
10/22/23 11:42 10/22/23 12:00 10/22/23 11:42 10/22/23 11:44 10/22/23 11:42
Physical Exam
Constitutional: No Acute Distress, Comfortable, Chronically Ill and Non-toxic
Eyes: No Conjunctival Hemorrhage and Sclera Anicteric
Cardiovascular: Regular Rate and S1/S2; Negative S3/S4
Pulmonary: Clear; Negative Wheezes or Rales
Gastrointestinal: Soft, Non Tender and Non Distended
Genito-Urinary: Laguna and Clear Urine; Negative Turbid Urine or Hematuria
Extremities: Edema; Negative Cyanosis or Erythema
Neurological: Awake, Alert and Oriented
Psychological: Calm
Objective Data
Lab Data
Lab Results
10/22/23 12:19
10/22/23 12:19
ESR 56 mm/hour (0-20) H 10/21/23 05:27
PT 26.2 Sec (11.4-14.6) H 10/16/23 11:28
INR 2.38 10/16/23 11:28
APTT 41.2 Sec (23.4-35.0) H 10/15/23 19:26
Estimated Creat Clear 65 ml/min 10/22/23 12:19
Lactic Acid 1.9 mmol/L (0.7-2.0) 10/16/23 03:52
Total Bilirubin 1.1 mg/dl (0.2-1.3) 10/21/23 05:27
AST 67 U/L (17-59) H 10/21/23 05:27
ALT 195 U/L (0-50) H 10/21/23 05:27
Alkaline Phosphatase 138 U/L (38-126) H 10/21/23 05:27
C-Reactive Protein 52.60 mg/L (0.0-10.00) H 10/21/23 05:27
Most recent labs reviewed.
Micro Results:
10/18/23 11:38 Acid Fast Bacilli Smear - Preliminary
Pericardial Fluid Acid Fast Bacilli Culture - Preliminary
10/19/23 06:00 Fungal Culture - Preliminary
Pericardial Fluid Culture in progress.
Positive cultures are reported as soon as detected.
Final report to follow in four to five weeks.
10/18/23 11:38 Body Fluid Culture - Final
Pericardial Fluid No Growth After 72 Hours
Gram Stain - Final
10/15/23 11:13 Blood Culture - Final
Blood/Venous No Growth - Final Report
10/15/23 10:58 Blood Culture - Final
Blood/Venous No Growth - Final Report
10/18/23 11:38 Fungal Smear - Pending
Pericardial Fluid
10/15/23 16:01 Body Fluid Culture - Final
Pleural Fluid No Growth After 72 Hours
Gram Stain - Final
10/15/23 13:54 Urine Culture - Final
Urine Serratia marcescens
10/15/23 17:26 MRSA Screen - Final
Nose No Methicillin Resistant Staphylococcus aureus isolated.
Imaging:
10/16/2023 CXR (portable): Mild cardiomegaly noted. No pulmonary edema. Wire sternal sutures, sternal plate and a left atrial appendage clip are present. Hazy opacification of the right upper lobe is consistent with pneumonia, and is similar to
that seen on the prior days examinations. Lungs are otherwise clear. Please see full dictation for additional detail. Film personally viewed.
Care Review
Plan reviewed with: Physician (Hospitalist)
[2023-10-22] MEDS: PT'S OWN INSULIN PUMP - NovoLOG 10 UNIT SC (13:40)
--- NOTE | 2023-10-22 14:23 | W.DCSUMMARY ---
Discharge Summary
Discharge Data
Date of Admission: 10/15/23
Date of Discharge: 10/22/23
-
Pending Results: No
Hospital Course
Primary diagnoses:
Sepsis due to possible right upper lobe pneumonia
Acute moderate post pericardiotomy pericardial effusion
Acute heart failure with preserved ejection fraction
Moderate left pleural effusion status post left thoracentesis
Acute blood loss anemia
Secondary diagnoses:
Type 2 diabetes mellitus with bilateral lower extremity diabetic neuropathy
Coronary artery disease with recent non-ST elevation myocardial infarction and subsequent coronary artery bypass grafting x3 (HENNESSY�LAD, SVG�OM1, SVG�PDA), CHIKA clip on 10/03/2023
Thrombocytosis, mild
Acute on chronic leukocytosis
Acute hypoxic respiratory insufficiency due to moderate pericardial effusion and L pleural effusion
Acute Transaminitis, likely related to sepsis
Bradycardia
Acute hyperkalemia
Coagulopathy likely secondary to Eliquis and liver disease
Hyponatremia
Acute kidney injury on chronic kidney disease stage III
Lactic acidosis
Paroxysmal postoperative atrial fibrillation
Chronic back pain, opiate dependent
Gastroesophageal reflux disease
Hypothyroidism
Hyperlipidemia
Tobacco abuse disorder
h/o prostate cancer s/p transurethral radical prostatectomy and subsequent urethral stricture s/p buccal mucosa graft repair
Insomnia
Hypoalbuminemia
Hepatic steatosis
Nodular hepatic margin
Mild restrictive lung disease
Consultants:
Infectious disease
Diabetes nurse practitioner
Cardiology
Gastroenterology
Critical care/pulmonary
Cardiothoracic surgery
Imaging:
CT A/P 10/15/23:
1). There is a 3 cm in diameter intermediate density pericardial fluid collection along the left cardiac border however. This most likely is a effusion with some internal hemorrhage in this recently postoperative patient
2). There is moderate left pleural effusion with underlying compressive atelectasis.
3). There is small right-sided pleural effusion.
4). There is hazy groundglass airspace disease in the basilar portion of the right middle lobe which may be pneumonia or atelectasis
5). There is cholecystectomy
CXR 10/15/23: There is moderate left-sided pleural effusion with underlying compressive atelectasis, new when compared with the prior study.
CXR 10/15/23 (repeat): Progressed findings suggesting the right lung pneumonia. Improved findings suggesting left lower lobe pneumonia. Resolved left pleural effusion. No pneumothorax. Moderate left lower lobe atelectasis versus scarring. New.
Cardiomegaly. Stable.
CXR 10/16/23: Stable right upper lobe pneumonia. Stable postoperative changes. Mild cardiomegaly.
CXR 10/20/23:
1. MODERATE ACUTE INTERSTITIAL and ALVEOLAR CARDIOGENIC PULMONARY EDEMA.
2. MODERATE-SIZED LEFT and SMALL RIGHT PLEURAL EFFUSIONS.
3. Mild enlargement of the cardiac silhouette.
4. Previous CABG surgery and left atrial appendage exclusion.
Abd U/S: Prior cholecystectomy. Stable. Hepatic fatty infiltration. Mildly nodular hepatic margin. This can be seen with cirrhosis. Stable. Moderate right pleural effusion. Small left pleural effusion. Stable.
Echo 10/15/23: Normal left ventricular chamber size. Hyperdynamic left ventricular systolic function. Left ventricular ejection fraction is 65-70%. Mild mitral regurgitation. Moderate pericardial effusion without evidence of hemodynamic compromise,
measuring up to 3.1 cm in greatest dimension, in the anterior space and along the left ventricle. A prior full study echo from September 2023 showed EF 55-60% with mild to mod MR and no pericardial effusion.
Echo 10/18/23: EF 50-55%, no RWMA, normal RV fxn.
Echo 10/22/23:
1. Limited study to assess pericardial effusion
2. Left ventricle: Normal size and function with an estimated ejection
fraction of 55-60% by visual estimation
2. Right ventricle: Normal
3. Atria: Normal
4. Pericardium: A small anterior pericardial effusion persists. A pleural
effusion is also present
5. No significant change when compared to the echocardiogram from 10/21/2023
73-year-old male who initially presented on October 15, 2023 with chief complaint of weakness and shortness of breath as outlined in the H&P done on admission. Hospital course by problem was:
Sepsis: Initially the source of sepsis was unclear but further imaging showed right upper lobe pneumonia. It was noted that patient's urine culture was with Serratia but, bacteriuria would be common in a patient with a Laguna catheter. All other
cultures were no growth to date. The patient was on Zosyn as per infectious disease. He had abdominal ultrasound due to abdominal pain which was unremarkable as above. Patient's antibiotics were stopped on the day of discharge by infectious
disease.
Acute moderate post pericardiotomy pericardial effusion: Echocardiogram on admission as above. The patient underwent pericardiocentesis of 460cc of bloody pericardial fluid on 10/18/23. Patient's pericardial drain was subsequently removed. Due to
concern for possible pericarditis he was started on colchicine.
Acute HFpEF: Patient had shortness of breath with edema/anasarca s/p doses of IV Lasix on 10/20/23 and 10/21/23. Beta-joao was stopped with prior bradycardia.
Moderate L pleural effusion: Patient underwent L thoracentesis with 1150cc of dark serosanguineous pleural fluid removed. Pleural fluid culture was no growth to date.
Acute blood loss anemia: Patient had heme positive stools. His Eliquis was stopped. He was seen in consultation by GI. He did receive 2 years of packed red blood cells and his hemoglobin was stable at the time of discharge. As per discussion with
cardiology on 10/22/23, no plans to resume Eliquis.
Bladder outlet obstruction/intermittent cath: The patient had a Laguna catheter placed during cardiac surgery 10/03/2023 by urology with the plan at that time being for 4 weeks of Laguna then voiding trial. While hospitalized the patient had his Laguna
catheter exchanged on 10/17/23.
Discharge Plan
-
Patient Disposition: Home with Home Care
Discharge Diagnosis/Procedures: Sepsis due to possible right upper lobe pneumonia, acute moderate post pericardiotomy pericardial effusion, acute heart failure with preserved ejection fraction, moderate left pleural effusion status post left
thoracentesis, acute blood loss anemia
Condition: Good
Diet: Diabetic, Carb Controlled
Additional Diets: fluid restrict to 1200cc/day
Activity: As tolerated
Driving Restrictions: Not until seen by your Dr
Blood Work: CMP and CBC in 1 week, script from PCP
Specialty Instructions: Weigh Daily- Call MD for wt gain/loss 3 lbs overnight/5 lbs in 1 week
Referrals:
[facility] [Outside]
Evens Pelletier MD [Active] -
(CXR in 4 weeks with pulm f/u
FREQUENCY CHECKER or Prabhu)
Madhavi Horton PA-C [Specified Professional Personl] - 10/23/23 10:00 am (You have a follow up visit with Dr. Pradhan's Madhavi ROSADO, at the [place] office. Please call with questions. )
Emil Sibley MD [Family Provider] - in less than 1 week
Prescriptions:
New
magnesium oxide 500 mg magnesium Tablet
500 mg PO DAILY Qty: 0 0RF
colchicine 0.6 mg Tablet
0.6 mg PO BID Qty: 60 0RF
Continued
aspirin 81 mg Tablet,Delayed Release (Dr/Ec)
81 mg PO DAILY
levothyroxine [Synthroid] 125 mcg Tablet
125 mcg PO DAILY
vitamin B complex Tablet
1 tab PO DAILY
bisacodyl [Dulcolax (bisacodyl)] 5 mg Tablet,Delayed Release (Dr/Ec)
5 mg PO DAILYPRN PRN (Reason: constipation)
cholecalciferol (vitamin D3) [Vitamin D3] 25 mcg (1,000 unit) Tablet
25 mcg PO DAILY Qty: 0
Patient's Own Insulin
0 unit SC .VIA PUMP
Patient Comments:
10/01/2023, pt. uses Novolog 100 unit/ml solution and states to change it every three days; per pt., the dose of insulin that it used depends on his basal rate but he adds an additional 35 unit bolus.
pantoprazole 40 mg Tablet,Delayed Release (Dr/Ec)
40 mg PO DAILY Qty: 30 1RF
lidocaine 4 % Adhesive Patch,Medicated
1 patch TOPICAL DAILYPRN PRN (Reason: left shoulder)
Discontinued
acetaminophen [Tylenol] 325 mg Tablet
650 mg PO DAILYPRN PRN (Reason: mild pain)
oxycodone-acetaminophen 5-325 mg Tablet
0.5 tab PO HS
oxycodone-acetaminophen 5-325 mg Tablet
1 tab PO DAILYPRN PRN (Reason: severe pain)
trazodone 150 mg Tablet
150 mg PO HS PRN (Reason: sleep)
magnesium oxide 200 mg magnesium Tablet
200 mg PO DAILY Qty: 0
atorvastatin 80 mg Tablet
80 mg PO QPM Qty: 30 1RF
Eliquis 5 mg Tablet
5 mg PO BID Qty: 60 1RF
amiodarone [Pacerone] 200 mg Tablet
200 mg PO BID Qty: 90 0RF
Rx Instructions:
take twice daily for 2 weeks (until 10/22), then once daily until otherwise directed by your doctor
metoprolol tartrate 25 mg Tablet
25 mg PO BID Qty: 60 1RF
tramadol 50 mg Tablet
50 mg PO Q6HPRN PRN (Reason: severe pain) Qty: 20 1RF
Discharge Orders:
Discharge Patient (As Directed); Ordered 10/22/23
Ordered By: Khris Trejo
Care Plan Goals
Care Plan Goals:
Problem: Readiness for enhanced knowledge related to diagnosis and treatment plan
Goal: Understand your diagnosis and treatment plan needs, including medications if applicable.
Instructions: Know your diagnosis, underlying causes and treatment plan options, including medications if applicable. Consult with your health care team to learn about your diagnosis and treatment plan, including medications if applicable.
Discharge Date and Time
Print Language: FRISIAN
--- NOTE | 2023-10-22 14:40 | W.PN.CARDCBS ---
Today's Communication / Plan
-
Stable cardiology status
Has episodes of A-fib but continue to hold Eliquis for now until seen as an outpatient
Recheck follow-up echocardiogram within 4 weeks with office visit after
Continue to hold amiodarone and Lopressor with pauses noted up to 4 seconds
Hemoglobin worsened to 8.0 and primary service aware
Impression / Plan
-
Primary Environmental Remediation Consultant: initially seen by Dr. ROSY Pradhan
Assessment:
Presentation with N/V
Sepsis
EVON on CKD 3
hyponatremia
worsening post op anemia with evidence of iron deficiency
Heme positive stool in ER
elevated LFTs
Moderate loculated pericardial effusion without hemodynamic compromise by echo 10/15/23
s/p pericardiocentesis for 460 ml bloody pericardial fluid 10/18/23
Moderate L pleural effusion by CXR
CAD
NSTEMI s/p chest pain, peak Troponin 7.45 10/01/23
s/p CABG x3 (HENNESSY - LAD, SVG - OM1, SVG - PDA), CHIKA clip 10/03/2023
Post op paroxysmal Afib
Started on Eliquis post op
Post op urinary retention requiring indwelling luciano catheter
HTN
DM 2
Chronic back pain with daily oxycodone use
Hypothyroid and h/o Graves disease
Hyperlipidemia
RBBB
Bladder outlet obstruction/intermittent catheterization
Prostate cancer s/p radiation and TURP
Former tobacco abuse, quit 09/25/23
Mild-moderate
Acute on chronic HFpEF
Echo 10/02/23: EF 55-60%, mild , mild to moderate MR
Echo 10/15/23: EF preserved, mod pericardial effusion without evidence of hemodynamic compromise
Echo 10/21/23: limited echo study, very small anterior pericardial effusion mostly on subcostal views, pleural effusion present, EF 60-65%
Echocardiogram 10/22/2023: Ejection fraction 55 to 60%, small anterior pericardial effusion, pleural effusion�no change
Plan:
Repeat echo was stable
Stable cardiology status for discharge
Hemoglobin decreased to 8.0 and notified primary service
Pathology for pericardial fluid pending, but pathology for pleural fluid showed inflammatory cells and no malignancy.
cont colchicine 0.6 mg BID for post-pericardiotomy syndrome. Added on ESR and CRP to labs 10/21/23
Volume status is difficult but has gotten 2 doses of IV Lasix
Likely euvolemic
Sodium down to 129 hold off on IV Lasix
Hold off on restarting Eliquis for now. Patient has had episodes of A-fib on telemetry and may need to be reassessed as an outpatient
Amiodarone and Lopressor on hold due to 4-second pauses noted
Stable cardiology status for discharge if primary service feels workup for anemia is not needed
Progress Note - Environmental Remediation Consultant
Subjective
Date of Service: October 22, 2023
No chest pain or shortness of breath.
Objective
Labs:
10/22/23 12:19
10/22/23 12:19
Labs
Hgb 9.2 g/dL (13.0-18.0) L 10/22/23 12:19
Hct 28.0 % (39.0-52.0) L 10/22/23 12:19
Plt Count 475 10^3/uL (130-400) H 10/22/23 12:19
PT 26.2 Sec (11.4-14.6) H 10/16/23 11:28
INR 2.38 10/16/23 11:28
APTT 41.2 Sec (23.4-35.0) H 10/15/23 19:26
Sodium 129 mmol/L (135-145) L 10/22/23 12:19
Potassium 4.5 mmol/L (3.5-5.1) 10/22/23 12:19
BUN 20 mg/dl (9-20) 10/22/23 12:19
Creatinine 1.1 mg/dL (0.7-1.3) 10/22/23 12:19
Glucose 179 mg/dl (70-99) H 10/22/23 12:19
Vital Signs and I&O:
Vital Signs
Temp Pulse Resp BP Pulse Ox
98 F 77 18 131/55 98
10/22/23 11:42 10/22/23 12:00 10/22/23 11:42 10/22/23 11:44 10/22/23 11:42
Vital Signs
Temp Pulse Resp BP Pulse Ox
98 F 77 18 131/55 98
10/22/23 11:42 10/22/23 12:00 10/22/23 11:42 10/22/23 11:44 10/22/23 11:42
Intake & Output
10/20/23 10/21/23 10/22/23 10/23/23
06:59 06:59 06:59 06:59
Intake Total 900 / 900 900 / 900 700 / 700
Output Total 2150 / 2150 4025 / 4025 4000 / 4000
Balance -1250 / -1250 -3125 / -3125 -3300 / -3300
Physical Exam
Physical Exam
General: Well developed, well nourished in NAD.
Neck: Supple, no JVD, HJR, carotids +2 B/L, no bruits bilaterally.
Heart: Non displaced PMI, RRR, no murmurs, No S3, S4, no rubs.
Lungs: Scattered rhonchi
Extremities: No clubbing, cyanosis or edema bilaterally.
Neuro: Grossly nonfocal, awake, alert and oriented x3.
--- NOTE | 2023-10-22 14:44 | PTCARENOTE ---
Pt sitting OOB in chair all day, walking to and from bathroom with rolling walker, stevo well.
[2023-10-22 15:16] VITALS: BP 127/52
== END 2023-10-22 16:45 | disposition home health service (06) | DRG 871 ==
LOC: IVU 13:55
PROVIDERS: Clinical Nurse Specialist Family Health; Internal Medicine Interventional Cardiology; Nurse Practitioner Family; Physician Assistant Medical; Radiology Vascular & Interventional Radiology; ADMITTING PHYSICIAN Hospitalist; ATTENDING PHYSICIAN Internal Medicine; CONSULT PHYSICIAN Internal Medicine; CONSULT PHYSICIAN Internal Medicine Critical Care Medicine; CONSULT PHYSICIAN Nuclear Medicine Nuclear Cardiology; EMERGENCY PHYSICIAN Emergency Medicine; FAMILY PHYSICIAN Family Medicine; OTHER PHYSICIAN Internal Medicine Infectious Disease
PROC: 30233N1 Transfusion of Nonautologous Red Blood Cells into Peripheral Vein, Percutaneous Approach (ICD-10-PCS; 2023-10-15)
PROC: 0W9B3ZZ Drainage of Left Pleural Cavity, Percutaneous Approach (ICD-10-PCS; 2023-10-15)
PROC: 0W9D3ZZ Drainage of Pericardial Cavity, Percutaneous Approach (ICD-10-PCS; 2023-10-18)
DX: A41.9 Sepsis, unspecified organism (principal); I21.4 Non-ST elevation (NSTEMI) myocardial infarction; I50.31 Acute diastolic (congestive) heart failure; J18.9 Pneumonia, unspecified organism; J96.01 Acute respiratory failure with hypoxia; I31.39 Other pericardial effusion (noninflammatory); J91.8 Pleural effusion in other conditions classified elsewhere; N17.9 Acute kidney failure, unspecified; I13.0 Hypertensive heart and chronic kidney disease with heart failure and stage 1 through stage 4 chronic kidney disease, or unspecified chronic kidney disease; E87.1 Hypo-osmolality and hyponatremia; E87.20 Acidosis, unspecified; F11.20 Opioid dependence, uncomplicated; I44.2 Atrioventricular block, complete; D62 Acute posthemorrhagic anemia; I25.10 Atherosclerotic heart disease of native coronary artery without angina pectoris; E11.22 Type 2 diabetes mellitus with diabetic chronic kidney disease; G89.29 Other chronic pain; N32.0 Bladder-neck obstruction; N18.30 Chronic kidney disease, stage 3 unspecified; E03.9 Hypothyroidism, unspecified; I48.0 Paroxysmal atrial fibrillation; R00.1 Bradycardia, unspecified; E87.5 Hyperkalemia; I45.10 Unspecified right bundle-branch block; I35.0 Nonrheumatic aortic (valve) stenosis; K21.9 Gastro-esophageal reflux disease without esophagitis; E11.42 Type 2 diabetes mellitus with diabetic polyneuropathy; E78.00 Pure hypercholesterolemia, unspecified; G47.00 Insomnia, unspecified; J98.4 Other disorders of lung; E88.09 Other disorders of plasma-protein metabolism, not elsewhere classified; D50.9 Iron deficiency anemia, unspecified; K59.09 Other constipation; M19.90 Unspecified osteoarthritis, unspecified site; D75.839 Thrombocytosis, unspecified; K76.0 Fatty (change of) liver, not elsewhere classified; R79.1 Abnormal coagulation profile; T45.515A Adverse effect of anticoagulants, initial encounter; I25.2 Old myocardial infarction; Z79.01 Long term (current) use of anticoagulants; Z79.4 Long term (current) use of insulin; Z79.82 Long term (current) use of aspirin; Z79.899 Other long term (current) drug therapy; Z85.46 Personal history of malignant neoplasm of prostate; Z87.891 Personal history of nicotine dependence; Z92.3 Personal history of irradiation; Z95.1 Presence of aortocoronary bypass graft; Z96.41 Presence of insulin pump (external) (internal)
CPT/HCPCS: 88305; 93308; 32555; 33010; 33016; 36430; 71045; 71046; 74176; 76700; 80048; 80053; 80076; 81003; 81015; 82010; 82248; 82330; 82533; 82607; 82728; 82945; 82947; 82962; 83540; 83550; 83605; 83615; 83735; 83880; 83930; 83935; 83986; 84155; 84157; 84300; 85014; 85025; 85027; 85610; 85652; 85730; 86140; 86706; 86708; 86709; 86803; 86850; 86900; 86901; 86920; 87015; 87040; 87070; 87077; 87086; 87102; 87116; 87186; 87205; 87206; 87340; 88112; 89051; 93005; 93321; 93325; 93975; 94640; 96374; 96375; 97116; 97162; 97167; 97530; 97535; 99291; 99406; C1894; P9016

== ENCOUNTER → 2023-10-31 14:24 | Outpatient (REF) | payer MEDICARE, OTHER, SELFPAY ==
[2023-10-31 15:24] LABS: Hematocrit 25.3 % (39.0-52.0); Mean Corp Hgb Conc. 31.6 g/dL (33.0-37.0); Mean Corpuscular Volume 91.7 fL (80.0-94.0); Red Blood Cell Count 2.76 10^6/uL (4.70-6.10); Red Cell Dist. Width 15.1 % (11.5-14.5); White Blood Cell Count 7.3 10^3/uL (4.8-10.8)
[2023-10-31 15:29] LABS: ALT (SGPT) 45 U/L (0-50); AST (SGOT) 58 U/L (17-59); Albumin 3.1 g/dl (3.5-5.0); Alkaline Phosphatase 210 U/L (38-126); Blood Urea Nitrogen 18 mg/dl (9-20); Calcium 8.6 mg/dl (8.4-10.2); Carbon Dioxide 25 mmol/L (22-30); Chloride 104 mmol/L (98-107); Glucose 97 mg/dl (70-99); HDL Cholesterol 33 mg/dl; Iron 42 ug/dl (49-181); LDL Cholesterol, Calculated 54 mg/dl; Potassium 3.9 mmol/L (3.5-5.1); Sodium 135 mmol/L (135-145); Total Bilirubin 0.6 mg/dl (0.2-1.3); Total Cholesterol 107 mg/dl (50-199); Total Protein 6.2 g/dl (6.3-8.2); Triglyceride 102 mg/dl (10-149); Very Low Density Lipoprotein 20 mg/dl (0-30); eGFR > 60.00
[2023-10-31 15:41] LABS: LDL Cholesterol, Direct 76 mg/dl; Percent Saturation 15 % (20-50); Total Iron Binding Capacity 276 ug/dl (261-462)
== END ==
LOC: CLAB 14:24
PROVIDERS: ATTENDING PHYSICIAN Family Medicine; FAMILY PHYSICIAN Internal Medicine Endocrinology, Diabetes & Metabolism; OTHER PHYSICIAN Internal Medicine Cardiovascular Disease; REFERRING PHYSICIAN Nurse Practitioner Family
DX: D62 Acute posthemorrhagic anemia (principal); A41.9 Sepsis, unspecified organism; R74.8 Abnormal levels of other serum enzymes; R93.2 Abnormal findings on diagnostic imaging of liver and biliary tract; E11.65 Type 2 diabetes mellitus with hyperglycemia
CPT/HCPCS: 36415; 80053; 80061; 82728; 83036; 83540; 83550; 83721; 85027

== ENCOUNTER → 2023-11-21 15:13 | Outpatient (REF) | payer MEDICARE, OTHER, SELFPAY ==
[2023-11-21 17:12] LABS: Hematocrit 32.2 % (39.0-52.0); Hemoglobin 10.1 g/dL (13.0-18.0); Mean Corp Hgb Conc. 31.4 g/dL (33.0-37.0); Mean Corpuscular Hgb 27.9 pg (27.0-31.0); Mean Platelet Volume 10.7 fL (7.4-10.4); Platelet Count 166 10^3/uL (130-400); Red Blood Cell Count 3.62 10^6/uL (4.70-6.10); Red Cell Dist. Width 16.4 % (11.5-14.5); White Blood Cell Count 12.2 10^3/uL (4.8-10.8)
[2023-11-21 18:00] LABS: ALT (SGPT) 16 U/L (0-50); AST (SGOT) 32 U/L (17-59); Albumin 2.9 g/dl (3.5-5.0); Alkaline Phosphatase 164 U/L (38-126); Direct Bilirubin 0.3 mg/dl (0.0-0.4); Iron 134 ug/dl (49-181); Total Bilirubin 0.9 mg/dl (0.2-1.3); Total Protein 6.1 g/dl (6.3-8.2)
[2023-11-21 18:10] LABS: Percent Saturation 51 % (20-50); Total Iron Binding Capacity 258 ug/dl (261-462)
[2023-11-21 19:06] LABS: Ferritin 44.5 ng/ml (17.9-464.0)
== END ==
LOC: OLAB 15:13
PROVIDERS: ATTENDING PHYSICIAN Nurse Practitioner Family
DX: R74.8 Abnormal levels of other serum enzymes (principal); D50.9 Iron deficiency anemia, unspecified
CPT/HCPCS: 36415; 80076; 82728; 83540; 83550; 85027

== ENCOUNTER → 2023-12-17 12:39 | Outpatient (REF) | payer MEDICARE, OTHER, SELFPAY ==
[2023-12-17 14:01] LABS: Hematocrit 38.8 % (39.0-52.0); Hemoglobin 12.4 g/dL (13.0-18.0); Mean Corpuscular Hgb 28.3 pg (27.0-31.0); Mean Corpuscular Volume 88.6 fL (80.0-94.0); Mean Platelet Volume 11.3 fL (7.4-10.4); Platelet Count 192 10^3/uL (130-400); Red Blood Cell Count 4.38 10^6/uL (4.70-6.10); Red Cell Dist. Width 15.5 % (11.5-14.5); White Blood Cell Count 9.4 10^3/uL (4.8-10.8)
[2023-12-17 15:22] LABS: Absolute Neutrophils -Man Diff 6.4 10^3/uL (1.4-6.5); Band Neutrophils 0 % (0-3); Eosinophils 4 % (0-6); Lymphocytes 22 % (20-51); Monocytes 5 % (2-9); Normal RBC Morphology Yes; Platelets Checked Yes; Segmented Neutrophils 69 % (42-75); Total Cells Counted 100
== END ==
LOC: OLAB 12:39
PROVIDERS: ATTENDING PHYSICIAN Nurse Practitioner Family; FAMILY PHYSICIAN Family Medicine
DX: N41.9 Inflammatory disease of prostate, unspecified (principal)
CPT/HCPCS: 85027

== ENCOUNTER → 2024-01-06 13:47 | Outpatient (REF) | payer MEDICARE, OTHER, SELFPAY | LOC: RCS 13:47 | PROVIDERS: ATTENDING PHYSICIAN Internal Medicine Cardiovascular Disease; FAMILY PHYSICIAN Thoracic Surgery (Cardiothoracic Vascular Surgery) | DX: Z95.1 Presence of aortocoronary bypass graft (principal); I10 Essential (primary) hypertension; I31.39 Other pericardial effusion (noninflammatory) | CPT/HCPCS: 71046; 93306 ==

== ENCOUNTER → 2024-03-30 10:05 | Outpatient (REF) | payer MEDICARE, OTHER, SELFPAY | LOC: RAD 10:05 | PROVIDERS: ATTENDING PHYSICIAN Internal Medicine Critical Care Medicine; FAMILY PHYSICIAN Family Medicine | DX: R93.89 Abnormal findings on diagnostic imaging of other specified body structures (principal); J43.8 Other emphysema; J84.9 Interstitial pulmonary disease, unspecified | CPT/HCPCS: 71250 ==

== ENCOUNTER → 2024-04-01 17:44 | Outpatient (REF) | payer MEDICARE, OTHER, SELFPAY ==
[2024-04-01 19:17] LABS: ALT (SGPT) 21 U/L (0-50); AST (SGOT) 28 U/L (17-59); Albumin 3.6 g/dl (3.5-5.0); Alkaline Phosphatase 117 U/L (38-126); Blood Urea Nitrogen 16 mg/dl (9-20); Calcium 9.2 mg/dl (8.4-10.2); Carbon Dioxide 31 mmol/L (22-30); Chloride 100 mmol/L (98-107); Glucose 89 mg/dl (70-99); Potassium 3.4 mmol/L (3.5-5.1); Sodium 138 mmol/L (135-145); Total Bilirubin 1.9 mg/dl (0.2-1.3); Total Protein 6.4 g/dl (6.3-8.2); eGFR > 60.00
[2024-04-01 19:33] LABS: Free T4 1.44 ng/dl (0.78-2.19)
[2024-04-01 19:47] LABS: TSH 5.64 uIU/ml (0.47-4.68)
[2024-04-02 07:38] LABS: Glycohemoglobin (HgbA1c) 7.6 % (4.0-5.6)
== END ==
LOC: CLAB 17:44
PROVIDERS: ATTENDING PHYSICIAN Internal Medicine Endocrinology, Diabetes & Metabolism; FAMILY PHYSICIAN Family Medicine; REFERRING PHYSICIAN Internal Medicine Cardiovascular Disease
DX: E03.8 Other specified hypothyroidism (principal); E10.65 Type 1 diabetes mellitus with hyperglycemia; E55.9 Vitamin D deficiency, unspecified; E78.00 Pure hypercholesterolemia, unspecified; E87.1 Hypo-osmolality and hyponatremia
CPT/HCPCS: 36415; 80053; 83036; 84439; 84443

== ENCOUNTER → 2024-04-08 09:59 | Emergency (ER) | payer MEDICARE, OTHER, SELFPAY ==
[2024-04-08 10:08] VITALS: BP 153/58
[2024-04-08 10:48] LABS: % Basophils 1.6 % (0-2); % Eosinophils 3.5 % (0-6); % Immature Granulocytes 0.4 % (0-0.5); % Lymphocytes 17.2 % (20.5-51.1); % Monocytes 8.3 % (1.7-9.3); Absolute Basophils 0.2 10^3/uL (0-0.2); Absolute Eosinophils 0.3 10^3/uL (0-0.7); Absolute Lymphocytes 1.6 10^3/uL (1.2-3.4); Absolute Monocytes 0.8 10^3/uL (0.1-0.6); Absolute Neutrophils 6.5 10^3/uL (1.4-6.5); Hematocrit 38.6 % (39.0-52.0); Hemoglobin 13.4 g/dL (13.0-18.0); Mean Corp Hgb Conc. 34.7 g/dL (33.0-37.0); Mean Corpuscular Hgb 30.5 pg (27.0-31.0); Mean Corpuscular Volume 87.7 fL (80.0-94.0); Mean Platelet Volume 9.9 fL (7.4-10.4); Nucleated Red Blood Cells % 0 % (-); Platelet Count 264 10^3/uL (130-400); Red Cell Dist. Width 13.3 % (11.5-14.5); White Blood Cell Count 9.4 10^3/uL (4.8-10.8)
[2024-04-08 10:59] LABS: INR 1.09; PT 14.1 Sec (11.4-14.6)
[2024-04-08 11:00] LABS: APTT 31.1 Sec (23.4-35.0)
[2024-04-08 11:01] LABS: ALT (SGPT) 16 U/L (0-50); AST (SGOT) 21 U/L (17-59); Albumin 3.5 g/dl (3.5-5.0); Alkaline Phosphatase 107 U/L (38-126); Blood Urea Nitrogen 15 mg/dl (9-20); Calcium 8.8 mg/dl (8.4-10.2); Carbon Dioxide 28 mmol/L (22-30); Chloride 102 mmol/L (98-107); Glucose 223 mg/dl (70-99); Potassium 3.5 mmol/L (3.5-5.1); Sodium 139 mmol/L (135-145); Total Bilirubin 1.5 mg/dl (0.2-1.3); Total Protein 6.4 g/dl (6.3-8.2); eGFR > 60.00
[2024-04-08 11:04] LABS: D-Dimer 1.02 ug/mlFEU (0.00-0.50)
[2024-04-08 11:12] LABS: Troponin I < 0.012 ng/ml
[2024-04-08 11:23] VITALS: BMI 24.0
[2024-04-08 14:21] LABS: Troponin I < 0.012 ng/ml
--- NOTE | 2024-04-08 14:34 | ED.GENMED ---
History of Present Illness
General
Chief Complaint: Chest Problem
Source: patient, family (Daughter) and physician (Primary physician)
Exam Limitations: none
Time Seen by Provider: 04/08/24 10:17
Nursing documentation reviewed up to this point in time: agreed with
History of Present Illness
History of Present Illness:
74-year-old male with past medical history of hypertension, hyperlipidemia, CAD status post CABG, diabetes, BPH with chronic urinary retention who presents to the emergency room for evaluation after some chest pain last night. Patient reports that
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 He says that last night he had an intense pain that was much worse than usual�he describes 'a
shooter' into his left shoulder that wraps around towards his left chest. He says that it lasted for about 20 seconds and resolved. He says this happened around 5 PM. He says it then recurred in the middle of the night around 4 AM; again it was
transient and completely resolved. He says that when the pain became very intense he was mildly short of breath. He says that after it resolved his breathing returned to normal. He is currently asymptomatic and has no symptoms. He did not have
any nausea, vomiting, diaphoresis. He disclosed the symptoms to his daughter and doctor and was referred to the ER to be evaluated. He denies any recent cough, fevers, chills. He denies any trauma. He denies any other complaints.
Review of Systems
Review of Systems
All Other Systems: ROS reviewed and negative except as documented in HPI and ROS
Constitutional: Denies fever or chills
EENT: Denies sore throat or runny nose
Respiratory: Reports trouble breathing; Denies cough
Cardiac: Reports chest pain; Denies palpitations
ABD/GI: Denies abdominal pain, nausea or vomiting
: Denies flank pain
Musculoskeletal: Denies neck pain or back pain
Neurological: Denies dizzy or headache
Phy Exam
Physical Exam
Physical Exam:
General: Awake, alert, oriented x3; no acute distress
Head: Normocephalic, atraumatic
Eyes: Conjunctiva normal, sclera anicteric
Throat: Airway intact, handling secretions
Neck: Trachea midline, supple without meningismus
Lungs: Clear to auscultation bilaterally, no wheezing, rales, rhonchi
Heart: Regular rate and rhythm, no murmurs, gallops, or rubs; well-healed midline sternotomy scar
Abd: Soft, non distended, nontender
Neuro: No gross deficits
Skin: no rash
Extremities: Trace edema in the lower extremities bilaterally; good pulses in all extremities; no reproducible tenderness in the left shoulder or scapula
Scores
Heart Failure Risk
Heart Failure Risk Score: Not Applicable
Heart Score for Chest Pain Patients
STEMI patient?: Not applicable
Withdrawal Assessment of Alcohol
Withdrawal Assessment Completed?: Not applicable
Course
Orders/Labs/Results
Orders:
Orders
04/08/24 10:00
EKG [Electrocardiogram (*1)] Urgent
Reason for Study: Chest Pain
EKG- Treatment ONCE
04/08/24 10:19
CR Chest - 2 Views Urgent
Comment:
Reason For Exam: cp
04/08/24 10:38
Complete Blood Count/With Diff Urgent
Comprehensive Metabolic Panel Urgent
D-Dimer Urgent
PTT Urgent
Prothrombin Time Urgent
Troponin I Urgent
04/08/24 11:13
CT Chest Pe Study Urgent
Comment:
Reason For Exam: sharp left sided CP
04/08/24 13:42
Troponin I Urgent
04/08/24 13:44
Electrocardiogram (*1) Urgent
Reason for Study: Other
Other Reason for Exam: repeat troponin
EKG- Treatment ONCE
Abnormal Lab Results
04/08/24
10:38
RBC 4.40 L 10^6/uL
(4.70-6.10)
Hct 38.6 L %
(39.0-52.0)
Absolute Monos (auto) 0.8 H 10^3/uL
(0.1-0.6)
Lymphocytes % 17.2 L %
(20.5-51.1)
D-Dimer 1.02 H ug/mlFEU
(0.00-0.50)
Glucose 223 H mg/dl
(70-99)
Total Bilirubin 1.5 H mg/dl
(0.2-1.3)
04/08/24 10:38
04/08/24 10:38
Vital Signs
Initial and Last Documented VS:
Initial Vital Signs
Temp Pulse Resp BP Pulse Ox
36.8 C 89 18 153/58 99
04/08/24 10:08 04/08/24 10:08 04/08/24 10:08 04/08/24 10:08 04/08/24 10:08
Last Documented Vital Signs
Temp Pulse Resp BP Pulse Ox
36.8 C 69 12 153/58 100
04/08/24 10:08 04/08/24 11:45 04/08/24 11:45 04/08/24 10:08 04/08/24 11:45
MDM/Problems Addressed
Differential Diagnosis Includes:
Angina/ACS, radiculopathy, PE, pneumothorax, costochondritis, pericarditis
MDM/Problems Addressed:
74-year-old male with history as above presents after 2 episodes of intense chest pain lasting about 20 seconds apiece. Last episode was at 4 AM. Has not had recurrence since. He describes shooting pain from the back towards the shoulder and
chest. No trauma or injury. He has had similar pains attributed to radiculopathy in the past but never this intense and never radiated towards the chest. Hypertensive asthma vitals. Physical exam as above. EKG shows no STEMI. Will place an IV
check labs with CBC, CMP, coags, D-dimer, troponins. Check a chest x-ray. Monitor closely reassess after the above.
Labs reviewed: CBC and CMP no clinically significant abnormalities. Troponin undetectable x 1. D-dimer marginally positive�will send for CTA to rule out PE. His chest x-ray was negative for any acute pathology.
CTA negative for PE. Second troponin undetectable. Patient has not had recurrence of chest pain since arrival here. He feels well and is requesting discharge. My suspicion is that this was a radiculopathy�suggest this was cardiac chest pain.
Stable for discharge. 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 All questions answered.
Chronic conditions affecting care:
CAD
Acute Exacerbation and/or Progression of Chronic Illness:
Acutely hypertensive
Acute Exacerbation and/or Progression of Chronic Illness: HTN
*Radiology
Radiology exam reviewed: preliminary read by ED provider and radiology read reviewed
*Pulse Oximetry
Patient hypoxic: no
*EKG
Interpreted by ED Provider?: Yes
Heart Rate: 91
Rate: normal
Rhythm: sinus
[place]: normal axis
Interval: first degree heart block
QRS Pattern: right bundle branch block
Ischemia: no ischemia
*Critical Care Note
Total Time (30-74mins, 75-104mins- exclusive of procedures): Not Applicable
Data Reviewed
Source: patient, family and physician
ED Attending Note
-
Portions of this chart may have been created with voice recognition software.� Occasional wrong word or��sound alike� substitutions may have occurred due to the inherent limitations of voice recognition software.
Discharge Plan
Departure
Patient Disposition: Home (Routine Discharge)
Date of Disposition: 04/08/24
Time of Disposition: 14:21
Patient with high blood pressure during this ER visit?: Yes
Discharge Problem:
Chest pain
Instructions: Chest Pain DCA Follow Up
Prescriptions:
No Action
aspirin 81 mg Tablet,Delayed Release (Dr/Ec)
81 mg PO DAILY
levothyroxine [Synthroid] 125 mcg Tablet
125 mcg PO DAILY
vitamin B complex Tablet
1 tab PO DAILY
bisacodyl [Dulcolax (bisacodyl)] 5 mg Tablet,Delayed Release (Dr/Ec)
5 mg PO DAILYPRN PRN (Reason: constipation)
cholecalciferol (vitamin D3) [Vitamin D3] 25 mcg (1,000 unit) Tablet
25 mcg PO DAILY Qty: 0
Patient's Own Insulin
0 unit SC .VIA PUMP
Patient Comments:
10/01/2023, pt. uses Novolog 100 unit/ml solution and states to change it every three days; per pt., the dose of insulin that it used depends on his basal rate but he adds an additional 35 unit bolus.
pantoprazole 40 mg Tablet,Delayed Release (Dr/Ec)
40 mg PO DAILY Qty: 30 1RF
lidocaine 4 % Adhesive Patch,Medicated
1 patch TOPICAL DAILYPRN PRN (Reason: left shoulder)
magnesium oxide 500 mg magnesium Tablet
500 mg PO DAILY Qty: 0 0RF
colchicine 0.6 mg Tablet
0.6 mg PO BID Qty: 60 0RF
Referrals:
Emil Sibley MD [Family Provider] -
Zurdo Pradhan MD [Active] - Call in 1-3 days for appt
Activity Restrictions/Additional Instructions:
Thank you for visiting the Emergency Department at [facility].
1. Please schedule a follow up appointment as directed. Call first thing tomorrow morning to make an appointment.
2. If indicated, please take your medications as instructed and indicated on discharge paperwork.
3. If any of your symptoms do not improve, or persist, or become more severe within 6-12 hours, please return to the emergency department for further care.
4. Please return to the emergency department if you develop a headache, neck pain/stiffness, fever greater than 100.4F, chest pain, shortness of breath, persistent nausea, vomiting, slurred speech, difficulty walking, numbness/tingling, weakness,
signs of infection or any other symptoms that are worrisome to you.
Please call [phone] if you have any questions.
Interventions
Interventions:
*Risk Screen - Suicide Last Done: 04/08/24 10:11
*General Assessment Last Done: 04/08/24 10:11
*Neglect/Abuse Screening Last Done: 04/08/24 10:11
*ED COVID-19 Vaccine History Last Done: 04/08/24 11:27
ED- Cardiac Assessment Last Done: 04/08/24 11:41
ED- Pulmonary Assessment Last Done: 04/08/24 11:41
Discharge Date and Time
Print Language: PALESTINIAN
== END | disposition home or self-care (01) ==
LOC: EMR 09:59
PROVIDERS: EMERGENCY PHYSICIAN Emergency Medicine; FAMILY PHYSICIAN Family Medicine
DX: R07.89 Other chest pain (principal); I10 Essential (primary) hypertension; E78.5 Hyperlipidemia, unspecified; I25.10 Atherosclerotic heart disease of native coronary artery without angina pectoris; E11.9 Type 2 diabetes mellitus without complications; Z95.1 Presence of aortocoronary bypass graft
CPT/HCPCS: 99285; 71046; 71275; 80053; 84484; 85025; 85379; 85610; 85730; 93005; Q9967